=== PATIENT | female | born 1945 | race Caucasian/White ===

== ENCOUNTER 2020-10-03 13:46 | Outpatient (REF) | payer MEDICARE, SELFPAY ==
--- NOTE | ~2020-10-03 | XR_ITS ---
EXAMINATION: XR CERVICAL SPINE CLINICAL INFORMATION: Cervicalgia. COMPARISON: None TECHNIQUE: Five views of the cervical spine. FINDINGS: There is some mild prominence to prevertebral soft tissue anterior to the C3-C4 vertebral bodies related likely to anterior spurring. No acute fracture is identified. There is severe disc space narrowing seen at C3-C7. No acute fracture is appreciated. No significant bony encroachment of the neural foramina identified with some mild spurring at the C5-C6 and C6-C7 levels on the right and the C6-C7 level on the left. Left carotid artery calcification is present. XR/XR cervical spine 4V IMPRESSION: Multilevel cervical spondylosis, as described.
== END 2020-10-03 13:47 | disposition home or self-care (01) ==
LOC: HO.XRAY 13:46
PROVIDERS: PCP Registered Nurse; Visit Provider Registered Nurse
DX: M54.2 Cervicalgia (principal)
CPT/HCPCS: 72050

== ENCOUNTER 2020-11-20 13:12 | Outpatient (REF) | payer MEDICARE, SELFPAY ==
--- NOTE | ~2020-11-20 | MM_ITS ---
EXAMINATION: MM SCREENING DIGITAL BREAST TOMOSYNTHESIS, BILATERAL CLINICAL INFORMATION: Screening. Asymptomatic. The lifetime risk of breast cancer based on the Tyrer-Cuzick Model is 3%. COMPARISON: Mammography: 04/18/2009 TECHNIQUE: Digital breast tomosynthesis is performed in both the craniocaudal and mediolateral oblique views along with computer-aided detection (CAD). Synthesized 2D images are generated from the tomosynthesis. FINDINGS: There are scattered areas of fibroglandular density (ACR BI-RADS breast composition Category b). Breast tissue composition borders on heterogeneously dense in the upper outer quadrant. There is no significant mass or architectural abnormality. Parenchymal pattern is similar to prior remote exam 2009. There are some scattered round calcifications again seen in each breast including stable grouped calcifications anterior right breast. No significant changes. The axilla and skin contours are unremarkable. MM/MM tomosynthesis screening BI IMPRESSION: No mammographic evidence of malignancy. ASSESSMENT: BI-RADS 2: Benign RECOMMENDATION: Routine annual mammography screening. This patient's information was entered into a reminder system with a target due date for their next mammogram.
== END 2020-11-20 13:13 | disposition home or self-care (01) ==
LOC: HO.MAMMO 13:12
PROVIDERS: PCP Nurse Practitioner Primary Care; Visit Provider Nurse Practitioner Primary Care
DX: Z12.31 Encounter for screening mammogram for malignant neoplasm of breast (principal)
CPT/HCPCS: 77063; 77067

== ENCOUNTER 2021-05-05 14:28 | Outpatient (REF) | payer MEDICARE, SELFPAY ==
--- NOTE | ~2021-05-05 | XR_ITS ---
EXAMINATION: XR CHEST CLINICAL INFORMATION: Cough COMPARISON: Previous chest x-ray April 2010 TECHNIQUE: 2 views of the chest were obtained. FINDINGS: The cardiac and mediastinal contours are stable. The lungs are well inflated. The lungs are clear. There is no pleural effusion or pneumothorax. There are degenerative changes of the spine. XR/XR chest 2V IMPRESSION: Well-inflated lungs. No evidence for acute disease in the chest.
== END 2021-05-05 14:29 | disposition home or self-care (01) ==
LOC: HO.XRAY 14:28
PROVIDERS: Absent Provider Nurse Practitioner Primary Care; PCP Nurse Practitioner Primary Care; Visit Provider Emergency Medicine
DX: R05.9 Cough, unspecified (principal)
CPT/HCPCS: 71046

== ENCOUNTER → 2021-07-09 12:59 | Outpatient (BNVA) | payer MEDICARE, SELFPAY | PROVIDERS: PCP Nurse Practitioner Primary Care; Referring Provider Emergency Medicine; Visit Provider Internal Medicine | DX: I49.1 Atrial premature depolarization (principal) | CPT/HCPCS: 93005; 99202 ==

== ENCOUNTER → 2021-09-03 13:04 | Outpatient (REF) | payer MEDICARE, SELFPAY ==
--- NOTE | 2021-09-03 13:06 | CA_ITS ---
Transthoracic Echocardiogram Patient (Last, First, Middle): Elayne Lundy, Gender: Female Date of : 1945 Age: 76 Procedure Date: 09/03/2021 Procedure Type: Transthoracic Echocardiogram Location: OP Height: 154.94 cm Weight: 48.54 kg BSA: 1.45 m2 Heart Rate: bpm BP: 150 / 90 mmHg Director Of Hotel: TO/VH Referring MD: Carmelo Hilton MD Puppet Engineer: Sreedhar Dodson MD Symptoms: I49.1 - Atrial premature depolarization Study Quality: Fair ECG Rhythm: Sinus Conclusions: - 1. Normal LV systolic function with impaired relaxation filling pattern next 2. Mildly dilated left atrium 3. Mild aortic regurgitation with moderate mitral annular calcification 4. Normal RV systolic pressure 5. No pericardial effusion Findings Left Ventricle Normal left ventricular size, thickness, and systolic function. The visually estimated ejection fraction is between 65-70%. Spectral Doppler is indicative of an impaired relaxation filling pattern. Right Ventricle Mildly increased right ventricular cavity size. There is normal right ventricular systolic function. Atria The left atrium is mildly dilated. There is no evidence of interatrial shunt. The right atrium is normal in size. Aortic Valve There is mild calcification of the aortic valve. There is no aortic valve stenosis. There is mild aortic valve regurgitation. Mitral Valve There is mild anterior and moderate posterior mitral leaflet thickening. There is moderate mitral annular calcification. There is trace mitral valve regurgitation. There is no mitral valve stenosis. Pulmonic Valve The pulmonic valve was not well visualized. Tricuspid Valve Normal tricuspid valve structure. There is mild tricuspid valve regurgitation. The right ventricular systolic pressure is normal. The right ventricular systolic pressure is 22 mmHg. Normal right atrial pressure. There is no evidence of pulmonary hypertension. Great Vessels All visible segments of the aorta are normal in size. The pulmonary artery was not well visualized. Venous The inferior vena cava is normal in size and collapses greater than 50% with inspiration. Pericardium/Pleural There is no evidence of pericardial effusion. Prior Study Comparison No prior study available for comparison. Measurements 2D Linear Measurements IVSd: 0.92 0.6-0.9/0.6-1.0 cm LVIDd: 3.62 3.9-5.3/4.2-5.9 cm LVIDd Index: 2.50 2.4-3.2/2.2-3.1 cm/m2 LVIDs: 1.87 2.0-3.6 cm LVPWd: 0.90 0.7-1.1 cm LA Diam: 2.70 2.7-3.8/3.0-4.0 cm LAIDs Index: 1.86 1.5-2.3 cm/m2 LV Mass: 118.09 67-162/88-224 g LV Mass Index: 81.44 43-95/49-115 g/m2 LVOT Diam: 2.10 3.0+(-)1.3 cm 2D Systolic Function EF 4C: 75.90 >55% EF 2C: 70.20 >55% EF BiP: 74.30 >55% Mitral Valve MV Pk E: 0.91 MV PK A: 0.96 MV Decel Time: 237.00 E/A: 0.90 E'Lateral: 8.16 E'Medial: 7.72 E/E' Med: 11.80 E/E' Lat: 11.10 PHT: 69.00 MVA PHT: 3.19 Decel Ransom: 3.83 Aortic Valve AoV Pk Ryan: 1.79 AoV Mn Ryan: 1.10 AoV VTI: 0.36 AoV Pk Grad: 13.00 Aov Mn Grad: 6.00 KVNG Cont.VTI: 2.05 AI Pk Ryan: 4.07 AI Ransom: 2.48 LVOT LVOT Pk Ryan: 1.10 LVOT Mn Ryan: 0.66 LVOT VTI: 0.21 LVOT Pk Grad: 5.00 LVOT Mn Grad: 2.00 LVOT Diam: 2.10 LVOT Area: 3.46 Diastolic Function MV Pk E: 0.91 MV Pk A: 0.96 E/A: 0.90 E'Medial: 7.72 E/E' Med: 11.80 E' Laterial: 8.16 E/E' Lat: 11.10 Right Ventricle TAPSE (mm): 28.60 TVS' Ryan: 16.50 Tricuspid Valve TR Pk Ryan: 2.20 TR Pk Grad: 19.00 RA Press: 3.00 RVSP: 22.00 Great Vessels Aorta Sinus of Valsalva: 3.11 2.0-3.[address] [place]: 2.76 1.7-3.4 cm Ao Asc: 3.20 2.1-3.4 cm Updated in Other Vendor System with Status of Final Sreedhar Dodson MD electronically signed on 09/03/2021 3:35:35 PM with status of Final
--- NOTE | 2021-09-03 13:06 | HM_ITS ---
* Total monitoring time 3 days and 3 hours. * Underlying rhythm is sinus. Average rate 77/Min. Range 49 to 115/Min. * No atrial fibrillation or flutter or AV blocks or pauses. * Frequent supraventricular ectopy. [place] 18%. Very brief runs but nothing sustained. * Rare ventricular ectopy with minimal burden. * No patient events. MTDD
== END ==
LOC: HO.CARD 13:04
PROVIDERS: PCP Nurse Practitioner Primary Care; Visit Provider Internal Medicine
DX: I49.1 Atrial premature depolarization (principal)
CPT/HCPCS: 93242; 93306

== ENCOUNTER → 2021-09-17 10:53 | Outpatient (BNVA) | payer MEDICARE, SELFPAY | PROVIDERS: PCP Nurse Practitioner Primary Care; Referring Provider Nurse Practitioner Primary Care; Visit Provider Nurse Practitioner Family | DX: R19.5 Other fecal abnormalities (principal); Z12.11 Encounter for screening for malignant neoplasm of colon; Z86.16 Personal history of COVID-19 | CPT/HCPCS: 99202; 99212 ==

== ENCOUNTER → 2021-09-24 14:32 | Outpatient (BNVA) | payer MEDICARE, SELFPAY | PROVIDERS: PCP Nurse Practitioner Primary Care; Referring Provider Nurse Practitioner Primary Care; Visit Provider Nurse Practitioner Family | DX: I49.1 Atrial premature depolarization (principal); I35.1 Nonrheumatic aortic (valve) insufficiency; Z79.899 Other long term (current) drug therapy | CPT/HCPCS: 99212 ==

== ENCOUNTER 2021-11-26 13:22 | Outpatient (REF) | payer MEDICARE, SELFPAY ==
--- NOTE | ~2021-11-26 | MM_ITS ---
EXAMINATION: BONE DENSITOMETRY CLINICAL INDICATION: Menopause. COMPARISON: None (current study represents initial baseline exam). TECHNIQUE: Using a Appifier DXA System (software version: 13.1) manufactured by [employer], dual-energy x-ray absorptiometry was performed of the lumbar spine and left hip. The images are of good technical quality. Summary results are attached. FINDINGS: AP SPINE L1-L2 (excluding L3 and L4): The data of L1-L4 has been changed to exclude the L3 and L4 vertebral bodies because degenerative changes at these levels may cause overestimation of the lumbar spine density. BMD 0.665 g/cm2, Z-score -1.9, T-score -4.2, osteoporosis. LEFT FEMUR, NECK: BMD 0.691 g/cm2, Z-score -0.3, T-score -2.5, osteoporosis. LEFT FEMUR, TOTAL: BMD 0.681 g/cm2, Z-score -0.5, T-score -2.6, osteoporosis. IDENTIFIED RISK FACTORS: Menopause, height loss, rheumatoid arthritis. HISTORY OF FRACTURE: None listed. MEDICATIONS: Calcium supplements or multivitamin. MM/XR DEXA axial skeleton IMPRESSION: 1. DIAGNOSIS: Osteoporosis based on the lowest T-score value of -4.2 in the lumbar spine applying World Health Organization criteria. 2. 10-YEAR FRACTURE RISK PREDICTION, FRAX: According to the guidelines, FRAX calculation should only be performed on patients in the osteopenia bone density category. Therefore, FRAX was not performed on this patient. 3. Treatment Recommendations: NOF guidelines recommend consideration for treatment in postmenopausal women and men age 50 and older presenting with the following: -A hip or vertebral (clinical or morphometric) fracture. -T-score less than or equal to -2.5 at the femoral neck or spine after appropriate evaluation to exclude secondary causes. -Low bone mass at the hip or spine and a 10-year fracture probability by FRAX of greater than or equal to 3% for hip fracture or greater than or equal to 20% for major osteoporotic fracture based on the [place] adapted WHO algorithm. 4. Other Recommendations: All treatment decisions require clinical judgment and consideration of individual patient factors, including patient preferences, comorbidities, previous drug use, risk factors not captured in the FRAX model (e.g. frailty, falls, vitamin D deficiency, increased bone turnover, interval significant decline in bone density) and possible under or overestimation of fracture risk by FRAX. Additional medical evaluation for secondary cause of low bone mineral density may be appropriate. FUTURE SCAN RECOMMENDATION: People with diagnosed cases of osteoporosis or at high risk for fracture should have regular bone mineral density tests. For patients eligible for Medicare, routine testing is allowed once every 2 years. The testing frequency can be increased to one year for patients who have rapidly progressing disease, those who are receiving or discontinuing medical therapy to restore bone mass, or have additional risk factors.
--- NOTE | ~2021-11-26 | MM_ITS ---
EXAMINATION: MM SCREENING DIGITAL BREAST TOMOSYNTHESIS, BILATERAL CLINICAL INFORMATION: Screening. Asymptomatic. The lifetime risk of breast cancer based on the Tyrer-Cuzick Model is 3%. COMPARISON: Mammography: 11/20/2020, 04/18/2009 TECHNIQUE: Digital breast tomosynthesis is performed in both the craniocaudal and mediolateral oblique views along with computer-aided detection (CAD). Synthesized 2D images are generated from the tomosynthesis. Additional left CC view is provided. FINDINGS: There are scattered areas of fibroglandular density (ACR BI-RADS breast composition Category b). Parenchymal pattern is similar to prior studies and there is no developing density or interval mass or architectural abnormality. There are scattered punctate calcifications in both breasts as well as a few isolated benign coarse calcifications. Small grouped calcifications 12:00 right breast are stable from prior studies dating back to 2009. The axilla and skin contours are unremarkable. Left breast has new punctate calcifications lower inner quadrant for which patient will be recalled for additional magnification views. MM/MM tomosynthesis screening BI IMPRESSION: Left: -New punctate calcifications mid lower inner quadrant. Right: -No mammographic evidence of malignancy. ASSESSMENT: BI-RADS 0: Incomplete - Need Additional Imaging Evaluation RECOMMENDATION: 1. Additional views of the left breast (magnification CC, magnification LM). 2. Radiology department staff will contact the patient for additional imaging. This patient's information was entered into a reminder system with a target due date for their next mammogram.
== END 2021-11-26 13:23 | disposition home or self-care (01) ==
LOC: HO.MAMMO 13:22
PROVIDERS: PCP Nurse Practitioner Primary Care; Visit Provider Nurse Practitioner Primary Care
DX: Z12.31 Encounter for screening mammogram for malignant neoplasm of breast (principal); Z13.820 Encounter for screening for osteoporosis; Z78.0 Asymptomatic menopausal state
CPT/HCPCS: 77063; 77067; 77080

== ENCOUNTER 2021-12-10 14:14 | Outpatient (REF) | payer MEDICARE, SELFPAY ==
--- NOTE | ~2021-12-10 | MM_ITS ---
EXAMINATION: MM DIAGNOSTIC DIGITAL BREAST TOMOSYNTHESIS, LEFT CLINICAL INFORMATION: Left breast calcifications. COMPARISON: Mammography: 11/26/2021, 11/20/2020, 04/18/2009, and 09/20/2006. TECHNIQUE: Digital breast tomosynthesis is performed. 2D images are generated from the tomosynthesis. The following views are obtained: Spot magnification views of the breast in craniocaudal and 90 degree mediolateral views. FINDINGS: The breasts are heterogeneously dense, which may obscure small masses (ACR BI-RADS breast composition Category c). The additional views demonstrate numerous regions of scattered and grouped calcifications and comparing back to study of 09/20/2006 multiple groupings were present at that time as well. There is question of a spiculated density on 90 degree mediolateral view, however, spot compression demonstrated this to have represented superimposition of fibroglandular tissue. Recommend 6 month follow-up left breast study with magnification views. Results are provided to the patient at time of visit by the technologist. MM/MM tomosynthesis added views L IMPRESSION: Probably benign left breast calcifications. ASSESSMENT: BI-RADS 3: Probably Benign. RECOMMENDATION: Diagnostic mammography in 6 months. This patient's information was entered into a reminder system with a target due date for their next mammogram.
== END 2021-12-10 14:15 | disposition home or self-care (01) ==
LOC: HO.MAMMO 14:14
PROVIDERS: PCP Nurse Practitioner Primary Care; Visit Provider Nurse Practitioner Primary Care
DX: R92.1 Mammographic calcification found on diagnostic imaging of breast (principal)
CPT/HCPCS: 77061; 77065

== ENCOUNTER → 2021-12-31 11:04 | Outpatient (REF) | payer MEDICARE, SELFPAY ==
--- NOTE | 2021-12-31 11:07 | HM_ITS ---
Conclusion: 1. Patient was monitored for total period of 2 days and 23 hours 2. Baseline was normal sinus rhythm with average heart of 68 beats per minute 3. Frequent sinus bradycardia with 32% of time heart rate below 60 beats per minute 4. No significant pauses noted 5. Total of 43,391 PACs accounting for 14.7% total beats account for frequent PACs 6. Patient reported 1 event which correlated with isolated PACs MTDD
== END ==
LOC: HO.CARD 11:04
PROVIDERS: PCP Nurse Practitioner Primary Care; Visit Provider Nurse Practitioner Family
DX: I49.1 Atrial premature depolarization (principal)
CPT/HCPCS: 93242

== ENCOUNTER → 2022-01-28 10:46 | Outpatient (BNVA) | payer MEDICARE, SELFPAY | PROVIDERS: PCP Nurse Practitioner Primary Care; Visit Provider Internal Medicine Endocrinology, Diabetes & Metabolism | DX: M81.0 Age-related osteoporosis without current pathological fracture (principal); I49.1 Atrial premature depolarization; I35.1 Nonrheumatic aortic (valve) insufficiency | CPT/HCPCS: 99202; 99212 ==

== ENCOUNTER 2022-03-03 12:43 | Outpatient (REF) | payer MEDICARE, SELFPAY ==
[2022-03-03 15:28] LABS: Free T4 (Free Thyroxine) 0.94 ng/dL (0.71-1.85); Phosphorus 3.7 mg/dL (2.7-4.5); Thyroid Stimulating Hormone 0.72 uIU/mL (0.32-4.0)
[2022-03-04 12:43] LABS: Prot Elec - Alpha1 0.3 g/dL (0.2-0.3); Prot Elec - Alpha2 0.7 g/dL (0.5-0.9); Prot Elec - Beta 1 0.5 g/dL (0.4-0.6); Prot Elec - Beta 2 0.4 g/dL (0.2-0.5); Prot Elec - Gamma 0.9 g/dL (0.8-1.7); Prot Elec - Total Protein 6.7 g/dL (6.1-8.1)
== END 2022-03-03 12:44 | disposition home or self-care (01) ==
LOC: HO.10HDL 12:43
PROVIDERS: Visit Provider Internal Medicine Endocrinology, Diabetes & Metabolism
DX: M81.0 Age-related osteoporosis without current pathological fracture (principal)
CPT/HCPCS: 36415; 84100; 84165; 84439; 84443

== ENCOUNTER 2022-03-05 12:53 | Outpatient (REF) | payer MEDICARE, SELFPAY ==
[2022-03-05 15:16] LABS: Creatinine, 24Hr Urine 0.8 G/Day (1.0-2.0); Total Volume 24 Hour Urine 1125 mL
[2022-03-16 07:25] LABS: Calcium, 24 Hr Urine 180; Calcium/Creatinine Ratio 225
== END 2022-03-05 12:54 | disposition home or self-care (01) ==
LOC: HO.10HDL 12:53
PROVIDERS: Visit Provider Internal Medicine Endocrinology, Diabetes & Metabolism
DX: M81.0 Age-related osteoporosis without current pathological fracture (principal)
CPT/HCPCS: 82340; 82570; 86335

== ENCOUNTER → 2022-04-29 15:28 | Outpatient (BNVA) | payer MEDICARE, SELFPAY | PROVIDERS: PCP Nurse Practitioner Primary Care; Visit Provider Internal Medicine Endocrinology, Diabetes & Metabolism | DX: M81.0 Age-related osteoporosis without current pathological fracture (principal) | CPT/HCPCS: 99212 ==

== ENCOUNTER 2022-05-13 10:25 | Day surgery (SDC) | payer MEDICARE, SELFPAY ==
[2022-01-15 15:09] VITALS: BMI 19.3
--- NOTE | 2022-01-20 10:23 | P.CONAN_ITS ---
HPI - Anesthesia Eval Consult details Narrative: 77yo F for Colonoscopy Cardiac cleared [facility] Active Problems Active Problems: All Active Problems (Updated 01/15/22 @ 15:05 by Yoli Valdes RN) PAC (premature atrial contraction) (Acute) Aortic regurgitation (Acute) Past Medical History Medical History (Updated 01/15/22 @ 15:05 by Yoli Valdes RN) Aortic regurgitation Asthma Elevated cholesterol History of COVID-19 Palpitations Family History Family History Father No problems noted. Mother No problems noted. Surgical History Surgical History History of cataract surgery Social History Social History Alcohol intake: current Alcohol intake frequency: holidays/special occasions only Patient Tobacco Use Status: Former Tobacco user Quit Date: july 25, 2021 Cigarettes Per Day: 2 Meds Allergies Allergy/AdvReac Type Severity Reaction Status Date / Time No Known Allergies Allergy Verified 09/24/21 14:39 Home Medications Medication Instructions Recorded Confirmed Last Taken Type albuterol sulfate 90 mcg/actuation 1 inh inhalation Q4H PRN Wheezing 09/17/21 01/15/22 Unknown History aerosol inhaler atorvastatin 10 mg tablet 10 mg PO DAILY 09/17/21 01/15/22 Unknown History fluticasone propionate 50 1 spray intranasal DAILY 09/17/21 01/15/22 Unknown History mcg/actuation nasal spray,suspension ipratropium 0.5 mg-albuterol 3 mg 3 ml inhalation Q6H PRN Wheezing 09/17/21 01/15/22 Unknown History (2.5 mg base)/3 mL nebulization soln loratadine 10 mg tablet 10 mg PO DAILY 09/17/21 01/15/22 Unknown History Exam Exam Date and Time: January 20, 2022 1023 Height,Weight and Vital Signs: Height 5 ft 3 in Weight 49.4 kg Narrative Narrative: EKG 06/2021 sinus rhythm at 72/Min; premature atrial contractions; rightward axis; no significant ST-T changes and otherwise unremarkable. ECHO 08/2021 Conclusions: - 1. Normal LV systolic function with impaired relaxation filling pattern next 2. Mildly dilated left atrium ? 3. Mild aortic regurgitation with moderate mitral annular? calcification? 4. Normal RV systolic pressure ? 5. No pericardial effusion Holter 12/2021 Conclusion: 1. Patient was monitored for total period of 2 days and 23 hours 2. Baseline was normal sinus rhythm with average heart of 68 beats per minute 3. Frequent sinus bradycardia with 32% of time heart rate below 60 beats per minute 4. No significant pauses noted 5. Total of 43,391 PACs accounting for 14.7% total beats account for frequent PA Cs 6. Patient reported 1 event which correlated with isolated PACs?? Assessment and Plan Assessment Anesthesia Assessment: Chart Reviewed
--- NOTE | 2022-05-12 12:52 | HO.ANESPROP2 ---
Documented by User: Jailene Ag NP 05/12/22 12:54 HPI - Anesthesia Eval Consult details Narrative: 77yo F for Colonoscopy Cardiac cleared [facility] Active Problems Active Problems: All Active Problems (Updated 05/07/22 @ 15:36 by Valerie Muñoz RN) PAC (premature atrial contraction) (Acute) Aortic regurgitation (Acute) Osteoporosis (Acute) Past Medical History Medical History (Updated 05/07/22 @ 15:36 by Valerie Muñoz RN) Aortic regurgitation Asthma Elevated cholesterol History of COVID-19 On beta branden at home Osteoporosis Palpitations Family History Family History Father No problems noted. Mother No problems noted. Surgical History Surgical History History of cataract surgery History of repair of retinal tear by laser photocoagulation Social History Social History Household Members: None Alcohol intake: current Alcohol intake frequency: holidays/special occasions only Patient Tobacco Use Status: Former Tobacco user Quit Date: july 25, 2021 Cigarettes Per Day: 2 Advance Directives: No Advance Directives Information Provided: Yes Meds Allergies Allergy/AdvReac Type Severity Reaction Status Date / Time No Known Allergies Allergy Verified 05/07/22 15:36 Home Medications Medication Instructions Recorded Confirmed Last Taken Type albuterol sulfate 90 mcg/actuation 1 inh inhalation Q4H PRN Wheezing 09/17/21 05/13/22 Unknown History aerosol inhaler atorvastatin 10 mg tablet 10 mg PO DAILY 09/17/21 05/13/22 05/12/22 History fluticasone propionate 50 1 spray intranasal DAILY 09/17/21 05/13/22 Unknown History mcg/actuation nasal spray,suspension ipratropium 0.5 mg-albuterol 3 mg 3 ml inhalation Q6H PRN Wheezing 09/17/21 05/13/22 Unknown History (2.5 mg base)/3 mL nebulization soln loratadine 10 mg tablet 10 mg PO DAILY 09/17/21 05/13/22 05/12/22 History Exam Exam Date and Time: May 12, 2022 1252 Height,Weight and Vital Signs: Height 5 ft 3 in Weight 49.4 kg Narrative Narrative: Holter 12/2021 Conclusion: 1. Patient was monitored for total period of 2 days and 23 hours 2. Baseline was normal sinus rhythm with average heart of 68 beats per minute 3. Frequent sinus bradycardia with 32% of time heart rate below 60 beats per minute 4. No significant pauses noted 5. Total of 43,391 PACs accounting for 14.7% total beats account for frequent PACs 6. Patient reported 1 event which correlated with isolated PACs? ECHO 08/2021 Conclusions: - 1. Normal LV systolic function with impaired relaxation filling pattern next 2. Mildly dilated left atrium ? 3. Mild aortic regurgitation with moderate mitral annular? calcification? 4. Normal RV systolic pressure ? 5. No pericardial effusion ? Assessment and Plan Assessment Anesthesia Assessment: Chart Reviewed Documented by User: Kristyn Nicole MD 05/13/22 10:45 PMFSH Past Medical History Medical History (Updated 05/07/22 @ 15:36 by Valerie Muñoz RN) Aortic regurgitation Asthma Elevated cholesterol History of COVID-19 On beta branden at home Osteoporosis Palpitations Family History Family History Father No problems noted. Mother No problems noted. Family history of problems with anesthesia: No Surgical History Surgical History History of cataract surgery History of repair of retinal tear by laser photocoagulation History of Problems with Anesthesia: No Social History Social History Household Members: None Alcohol intake: current Alcohol intake frequency: holidays/special occasions only Patient Tobacco Use Status: Former Tobacco user Quit Date: july 25, 2021 Cigarettes Per Day: 2 Advance Directives: No Advance Directives Information Provided: Yes Meds Allergies Allergy/AdvReac Type Severity Reaction Status Date / Time No Known Allergies Allergy Verified 05/07/22 15:36 Home Medications Medication Instructions Recorded Confirmed Last Taken Type albuterol sulfate 90 mcg/actuation 1 inh inhalation Q4H PRN Wheezing 09/17/21 05/13/22 Unknown History aerosol inhaler atorvastatin 10 mg tablet 10 mg PO DAILY 09/17/21 05/13/22 05/12/22 History fluticasone propionate 50 1 spray intranasal DAILY 09/17/21 05/13/22 Unknown History mcg/actuation nasal spray,suspension ipratropium 0.5 mg-albuterol 3 mg 3 ml inhalation Q6H PRN Wheezing 09/17/21 05/13/22 Unknown History (2.5 mg base)/3 mL nebulization soln loratadine 10 mg tablet 10 mg PO DAILY 09/17/21 05/13/22 05/12/22 History Exam Airway Mallampati Class: II TM Dist: >3cm Neck ROM: Full Heart: rrr Lungs: cta Assessment and Plan Assessment Anesthesia Assessment: Anesthesia Plan Discussed Final Anesthetic Review Family History of Problems with Anesthesia: No History of Problems with Anesthesia: No NPO: Yes ASA Class: II Final Preanesthetic Review: No Changes in Pt Med Stat, Meds/Allgs Chart Reviewed, Consent Obtained/Reviewed and Anes Risks/Benef Reviewed Patient Risk: Low Procedure Risk: Low Anesthetic Plan Anesthetic Plan: MAC: Disposition: Standard PACU
[2022-05-13 10:41] VITALS: BP 138/90; PULSE 93; RESP 18; TEMP 36.6; O2SAT 98
[2022-05-13] MEDS: Lactated Ringers 1,000 ML 100 ML IVCONT (10:52)
--- NOTE | 2022-05-13 11:02 | MHC.SHP ---
Pre-Procedural Eval Section A Date of Service: 05/13/22 Section B Chief Complaint: pos cologuard Relevant Family History (Specify if Yes): No Relevant Social History: Other (specify) (THC use) Present Medications: see Short Stay Collaborative assessment Medical History: Significant History (History of cataract surgery) History of Previous Operations: No relevant previous surgery Allergies: Allergies Allergy/AdvReac Type Severity Reaction Status Date / Time No Known Allergies Allergy Verified 05/07/22 15:36 Review of Systems Sugical H&P ROS: Negative: Constitution, Cardiovascular, Respiratory, Neurological, Psychiatric, Hem-Onc, Allergic/Immunologic, Gastrointestinal, Genitourinary, Musculoskeletal, Integumentary, Endocrine and Eyes/Ears/Nose/Throat Exam Surgical H&P Exam: Normal: HEENT, Normal: Heart, Normal: Lungs, Normal: Extremities, Normal: Abdomen, Normal: Skin and Normal: Neurological Plan Diagnosis/Plan: Unchanged I have reviewed the history and physical and performed a pertinent physical examination on my patient. No changes have occurred unless specified. Time Spent With Patient Time: Total time managing care of this patient today ____ minutes.
--- NOTE | 2022-05-13 11:06 | W.PM.OPN ---
Operative Note Operative Note Date of Service: 05/13/22 Narrative: Operative Information Procedure Description: Colonoscopy Indication: pos cologuard testing Anesthesia: MAC COLONOSCOPY Instrument: Olympus variable stiffness pediatric scope 190L Colonoscopy Monitoring: Vital signs and clinical assessment, continuous EKG monitoring, Pulse oximetry, Carbon Dioxide monitoring and blood pressure monitoring were done throughout the procedure. Colon withdrawal time was 10 minutes. Procedure: The patient was placed in the left lateral decubitis position and pre-procedure medications were administered. After a digital rectal examination of the ano-rectum, the video colonoscope was inserted into the rectum and advanced through the colon to the cecum/TI. The colonoscope was slowly withdrawn in a retrograde panoramic fashion and the colon mucosa was carefully examined including a retroflexed view of the rectum. Findings and interventions are described below. Procedure Difficulty: moderate due to redundant colon and tortuosity Findings: Terminal Ileum-normal Cecum:normal Ascending Colon: normal Transverse Colon - 10 mm sessile polyp removed with cold snare, few diverticula seen Descending Colon:normal Sigmoid Colon: mild diverticulosis, 7-8 mm sessile polyp removed with cold snare Rectum: Retroflexion with small internal hemorrhoids, grade I Anorectum - normal Colon preparation: [place] Bowel Preparation Scale Right colon; 2 Transverse colon: 3 Left colon; 3 (0 = Unprepared colon segment with mucosa not seen due to solid stool that cannot be cleared. 1 = Portion of mucosa of the colon segment seen, but other areas of the colon segment not well seen due to staining, residual stool and/or opaque liquid. 2 = Minor amount of residual staining, small fragments of stool and/or opaque liquid, but mucosa of colon segment seen well. 3 = Entire mucosa of colon segment seen well with no residual staining, small fragments of stool or opaque liquid) Impression and Post Procedure Diagnosis: polyps internal hemorrhoids diverticular disease Plan: High fiber diet leaflet Avoid straining at stool, epsom salts and sitz bath, anusol supps or cream Repeat Colonoscopy in 5 years if adenomatous polyps and health allows, otherwise this would be her last colonoscopy for screening, or earlier if clinically indicated Above findings were reviewed with the patient and relevant handouts were provided if indicated.
[2022-05-13 11:49] VITALS: BP 87/43; PULSE 60; RESP 17; TEMP 36.4; O2SAT 98
[2022-05-13 12:04] VITALS: BP 92/44; PULSE 63; RESP 17; O2SAT 98
[2022-05-13 12:19] VITALS: BP 107/55; PULSE 68; RESP 18; TEMP 36.3; O2SAT 99
== END 2022-05-13 12:37 | disposition home or self-care (01) ==
PROVIDERS: PCP Nurse Practitioner Primary Care; Visit Provider Internal Medicine Gastroenterology
PROC: 0DJD8ZZ Inspection of Lower Intestinal Tract, Via Natural or Artificial Opening Endoscopic (ICD-10-PCS; CPT 45378; principal; 2022-05-13 11:50)
DX: R19.5 Other fecal abnormalities (principal); R63.4 Abnormal weight loss; Z68.1 Body mass index [BMI] 19.9 or less, adult; D12.3 Benign neoplasm of transverse colon; K63.5 Polyp of colon; K57.30 Diverticulosis of large intestine without perforation or abscess without bleeding; K64.0 First degree hemorrhoids; Q43.8 Other specified congenital malformations of intestine; E78.00 Pure hypercholesterolemia, unspecified; J45.909 Unspecified asthma, uncomplicated; M81.0 Age-related osteoporosis without current pathological fracture; Z79.51 Long term (current) use of inhaled steroids; Z79.899 Other long term (current) drug therapy; Z87.891 Personal history of nicotine dependence; Z86.16 Personal history of COVID-19
CPT/HCPCS: 45385; 88305; J2370

== ENCOUNTER → 2022-05-26 12:48 | Outpatient (BNVA) | payer MEDICARE, SELFPAY | PROVIDERS: PCP Nurse Practitioner Primary Care; Visit Provider Internal Medicine Endocrinology, Diabetes & Metabolism | DX: M81.0 Age-related osteoporosis without current pathological fracture (principal) | CPT/HCPCS: 96372; J3111 ==

== ENCOUNTER → 2022-05-27 11:20 | Outpatient (BNVA) | payer MEDICARE, SELFPAY | PROVIDERS: PCP Nurse Practitioner Primary Care; Visit Provider Nurse Practitioner Family | DX: D36.9 Benign neoplasm, unspecified site (principal); K57.90 Diverticulosis of intestine, part unspecified, without perforation or abscess without bleeding; Z98.890 Other specified postprocedural states | CPT/HCPCS: 99212 ==

== ENCOUNTER 2022-06-10 12:51 | Outpatient (REF) | payer MEDICARE, SELFPAY ==
--- NOTE | ~2022-06-10 | MM_ITS ---
EXAMINATION: MM DIAGNOSTIC DIGITAL MAMMOGRAPHY, LEFT CLINICAL INFORMATION: Six-month follow-up left breast calcifications. COMPARISON: Mammography: 12/10/2021 and studies dating back to 04/18/2009. TECHNIQUE: Digital mammography is performed in craniocaudal and mediolateral oblique views along with computer-aided detection (CAD). Additional spot magnification views in craniocaudal and 90 degree mediolateral views performed. FINDINGS: The left breast heterogeneously dense, which may obscure small masses (ACR BI-RADS breast composition Category c). There are again noted to be multiple grouped and scattered calcifications within the left breast. About the medial aspect of the left breast there appear to be some increasing calcifications with a pleomorphic appearance and extending towards the nipple, some of the extending calcifications appear to be vascular in nature but I cannot say that all are, for which stereotactic core biopsy is recommended. There is another grouping of calcifications about the anterior central aspect of the left breast for which stereotactic core biopsy is recommended. The above was discussed with the patient at time of study. Results were called to Seema at the referring physician's office. MM/MM diagnostic mammo unilat LT IMPRESSION: Left breast calcifications for which stereotactic core biopsy is recommended of 2 locations. ASSESSMENT: BI-RADS 4: Suspicious RECOMMENDATION: Stereotactic core biopsy left breast. This patient's information was entered into a reminder system with a target due date for their next mammogram.
== END 2022-06-10 12:52 | disposition home or self-care (01) ==
LOC: HO.MAMMO 12:51
PROVIDERS: PCP Nurse Practitioner Primary Care; Visit Provider Family Medicine
DX: R92.1 Mammographic calcification found on diagnostic imaging of breast (principal)
CPT/HCPCS: 77062; 77065

== ENCOUNTER 2022-06-17 08:35 | Outpatient (REF) | payer MEDICARE, SELFPAY ==
--- NOTE | ~2022-06-17 | MM_ITS ---
EXAMINATION: STEREOTACTIC TOMOSYNTHESIS-GUIDED VACUUM-ASSISTED BREAST BIOPSY (TWO SITES), LEFT SPECIMEN RADIOGRAPHS (TWO SPECIMENS), LEFT POST PROCEDURE DIGITAL MAMMOGRAM, LEFT CLINICAL INFORMATION: Calcifications for tissue sampling left breast at 2 locations: anterior medial left breast and central anterior 12:00 left breast. COMPARISON: Prior mammography exams, most recent 06/10/2022. TECHNIQUE/PROCEDURE: Exam reviewed with the interpreting radiologist from the diagnostic mammography immediately prior to the procedure. Informed consent was obtained from the patient after discussion of the benefits, risks, and alternatives to biopsy today. Patient appeared to understand. Gave opportunity for questions. Patient signed consent form. Specimen A: BIOPSY TABLE: [employer] Prone Biopsy System. LESION: Heterogeneous calcifications ductal distribution anterior medial left breast. LOCAL ANESTHESIA: 10 mL carbonated 1% lidocaine; 10 mL 1% lidocaine with epinephrine. DERMATOTOMY: Single skin zuhair dermatotomy performed. NEEDLE: Suros Eviva 9-gauge vacuum assisted core biopsy device. APPROACH: Medial Lateral. TARGETING: Combination of digital breast tomosynthesis and stereotactic digital mammography used for targeting. CORES: 12. CLIP: Suros SecurMark T-shaped marker. SPECIMEN RADIOGRAPH (A): Specimen radiograph is taken in separate room using digital mammography. The index calcifications are in the excised cores. There are at least 15 fine calcifications in the cores. Specimen B: Fresh biopsy supplies are used for 2nd biopsy site. BIOPSY TABLE: [employer] Affirm Prone Biopsy System. LESION: Tightly grouped calcifications possibly vascular and/or fibroadenomatous anterior central 12:00. LOCAL ANESTHESIA: 10 mL carbonated 1% lidocaine; 10 mL 1% lidocaine with epinephrine. DERMATOTOMY: Single skin zuhair dermatotomy performed. NEEDLE: Suros Eviva 9-gauge vacuum assisted core biopsy device. APPROACH: Medial Lateral. TARGETING: Combination of digital breast tomosynthesis and stereotactic digital mammography used for targeting. CORES: 9. CLIP: Suros SecurMark Cylinder-shaped marker. SPECIMEN RADIOGRAPH (B): Specimen radiograph is taken in separate room using digital mammography. The index calcifications are in the excised cores. There are numerous tightly grouped calcifications in a core, over 10 in number. POST PROCEDURE UNILATERAL DIGITAL MAMMOGRAM: The post biopsy mammogram is performed in separate room using separate digital mammography equipment from the biopsy procedure. CC and ML views are obtained. The breasts are heterogeneously dense, which may obscure small masses (breast composition category: c). The clip markers are in position. The calcifications are markedly decreased at both biopsy sites. No gross hematoma. The patient tolerated the procedure well. No immediate complications. Home instructions reviewed with the patient. Final pathology results are pending. MM/MM stereotactic biopsy ea add IMPRESSION: 1. Digital tomosynthesis-guided core biopsy left breast with clip placement, 2 sites. 2. Final pathology results pending. An addendum report will be issued.
--- NOTE | ~2022-06-17 | MM_ITS ---
EXAMINATION: STEREOTACTIC TOMOSYNTHESIS-GUIDED VACUUM-ASSISTED BREAST BIOPSY (TWO SITES), LEFT SPECIMEN RADIOGRAPHS (TWO SPECIMENS), LEFT POST PROCEDURE DIGITAL MAMMOGRAM, LEFT CLINICAL INFORMATION: Calcifications for tissue sampling left breast at 2 locations: anterior medial left breast and central anterior 12:00 left breast. COMPARISON: Prior mammography exams, most recent 06/10/2022. TECHNIQUE/PROCEDURE: Exam reviewed with the interpreting radiologist from the diagnostic mammography immediately prior to the procedure. Informed consent was obtained from the patient after discussion of the benefits, risks, and alternatives to biopsy today. Patient appeared to understand. Gave opportunity for questions. Patient signed consent form. Specimen A: BIOPSY TABLE: [employer] Affirm Prone Biopsy System. LESION: Heterogeneous calcifications ductal distribution anterior medial left breast. LOCAL ANESTHESIA: 10 mL carbonated 1% lidocaine; 10 mL 1% lidocaine with epinephrine. DERMATOTOMY: Single skin zuhair dermatotomy performed. NEEDLE: Suros Eviva 9-gauge vacuum assisted core biopsy device. APPROACH: Medial Lateral. TARGETING: Combination of digital breast tomosynthesis and stereotactic digital mammography used for targeting. CORES: 12. CLIP: Suros SecurMark T-shaped marker. SPECIMEN RADIOGRAPH (A): Specimen radiograph is taken in separate room using digital mammography. The index calcifications are in the excised cores. There are at least 15 fine calcifications in the cores. Specimen B: Fresh biopsy supplies are used for 2nd biopsy site. BIOPSY TABLE: Hologic Affirm Prone Biopsy System. LESION: Tightly grouped calcifications possibly vascular and/or fibroadenomatous anterior central 12:00. LOCAL ANESTHESIA: 10 mL carbonated 1% lidocaine; 10 mL 1% lidocaine with epinephrine. DERMATOTOMY: Single skin zuhair dermatotomy performed. NEEDLE: Suros Eviva 9-gauge vacuum assisted core biopsy device. APPROACH: Medial Lateral. TARGETING: Combination of digital breast tomosynthesis and stereotactic digital mammography used for targeting. CORES: 9. CLIP: Suros SecurMark Cylinder-shaped marker. SPECIMEN RADIOGRAPH (B): Specimen radiograph is taken in separate room using digital mammography. The index calcifications are in the excised cores. There are numerous tightly grouped calcifications in a core, over 10 in number. POST PROCEDURE UNILATERAL DIGITAL MAMMOGRAM: The post biopsy mammogram is performed in separate room using separate digital mammography equipment from the biopsy procedure. CC and ML views are obtained. The breasts are heterogeneously dense, which may obscure small masses (breast composition category: c). The clip markers are in position. The calcifications are markedly decreased at both biopsy sites. No gross hematoma. The patient tolerated the procedure well. No immediate complications. Home instructions reviewed with the patient. Final pathology results are pending. MM/MM stereotactic biopsy LT IMPRESSION: 1. Digital tomosynthesis-guided core biopsy left breast with clip placement, 2 sites. 2. Final pathology results pending. An addendum report will be issued.
[2022-06-17] MEDS: Lidocaine HCl 1 % 20 ML VIAL SUBCUT (12:55)
[2022-06-17] MEDS: Lidocaine HCl 1%/Epi 1:100,000 10 ML VIAL 20 ML SUBCUT (12:57)
[2022-06-17] MEDS: Sodium Bicarbonate 8.4% 50 MEQ/50 ML VIAL SUBCUT (12:59)
== END 2022-06-17 08:36 | disposition home or self-care (01) ==
LOC: HO.MAMMO 08:35
PROVIDERS: PCP Nurse Practitioner Primary Care; Visit Provider Surgery
DX: C50.912 Malignant neoplasm of unspecified site of left female breast (principal); R92.1 Mammographic calcification found on diagnostic imaging of breast; Z17.0 Estrogen receptor positive status [ER+]
CPT/HCPCS: 19081; 19082; 88305; 88341; 88342; 88360; 99211; A4648

== ENCOUNTER 2022-06-17 12:13 | Outpatient (REF) | payer MEDICARE, SELFPAY ==
[2022-06-17 13:35] LABS: HBS Num1 0.02 mIU/mL (0-7.99); HBc Num1 0.09 S/CO (0.00-0.79); HBsAGNum1 0.27 S/CO (0.00-0.99); HIV AB/AG Nonreactive (Nonreactive); HIV Num 1 0.05 S/CO (0.00-0.99); Hepatitis B Core Antibody Nonreactive (Nonreactive); Hepatitis B Surface Antigen Negative (Negative); ~Hepatitis B Surface Antibody NONREACTIVE (Nonreactive); ~Hepatitis C Antibody Nonreactive (Nonreactive)
== END 2022-06-17 12:14 | disposition home or self-care (01) ==
LOC: HO.LAB 12:13
PROVIDERS: Visit Provider Radiology Diagnostic Radiology
DX: Z20.2 Contact with and (suspected) exposure to infections with a predominantly sexual mode of transmission (principal)
CPT/HCPCS: 36415; 86704; 86706; 86803; 87340; 87389

== ENCOUNTER → 2022-06-24 13:39 | Outpatient (BNVA) | payer MEDICARE, SELFPAY | PROVIDERS: PCP Nurse Practitioner Primary Care; Visit Provider Surgery | DX: C50.912 Malignant neoplasm of unspecified site of left female breast (principal); Z80.41 Family history of malignant neoplasm of ovary | CPT/HCPCS: 99212 ==

== ENCOUNTER 2022-06-29 09:46 | Outpatient (REF) | payer MEDICARE, SELFPAY ==
--- NOTE | ~2022-06-29 | MM_ITS ---
EXAMINATION: MM MAMMOGRAM GUIDED RFID LOCALIZATION BREAST (TWO SITES), LEFT CLINICAL INFORMATION: Recent diagnosis left breast IDC and DCIS (specimen A, 06/17/2022). COMPARISON: Mammography 06/10/2022, 06/17/2022 TECHNIQUE NEEDLE LOC: Localization plans recently discussed with surgeon (MIKAEL). Proper informed consent is obtained from the patient after discussion of the procedure, potential risks and complications, and alternatives including declining the procedure today. Patient was given an opportunity for questions. The patient appeared to understand. The patient consented to the procedure and signed the consent form. GUIDANCE: Digital mammography (both sites) APPROACH: Medial Lateral (both sites) TARGET: T shaped biopsy clip marker and segmental distribution of calcifications anterior medial left breast. ANESTHESIA: carbonated lidocaine 1%: 16 mL (8 mL for each of the two locations). DERMATOTOMY: Skin-zuhair dermatotomy performed (both sites) RF Tag IDs confirmed with LOCalizer Guidance System prior to each placement. LOCALIZATION SYSTEM (POSTERIOR TAG): -[employer] LOCallizer Wire-Free Guidance System with 12g needle applicator -Length: 10 cm. -RADIOFREQUENCY TAG (POSTERIOR TAG): ID # [id number] LOCALIZATION SYSTEM (ANTERIOR TAG): -[employer] LOCallizer Wire-Free Guidance System with 12g needle applicator. -Length: 10 cm. -RADIOFREQUENCY TAG (ANTERIOR TAG): ID # [id number] The skin is prepped and local anesthesia administered. The needles are positioned and 2 RFID tags deployed. FINAL IMAGES: The two LOCalizer RF tags reside approximately 3.3 cm apart on both the final CC and final ML views. The T shaped biopsy clip marker from the stereotactic biopsy specimen A is in between the two RFID tags. The T shaped biopsy clip marker is closer to the posterior tag, 1 cm from the posterior tag on CC view, and 1.3 cm from the posterior tag on the ML view. There are segmental calcifications in the vicinity of between the RFID tags. The patient tolerated the procedure well and had no immediate complications. Dressings placed and home instructions reviewed. MM/MM needle loc LT IMPRESSION: -Status post left breast RFID localization, two tags placed bracketing segmental calcifications and T-shaped biopsy clip marker.
--- NOTE | ~2022-06-29 | MM_ITS ---
EXAMINATION: MM MAMMOGRAM GUIDED RFID LOCALIZATION BREAST (TWO SITES), LEFT CLINICAL INFORMATION: Recent diagnosis left breast IDC and DCIS (specimen A, 06/17/2022). COMPARISON: Mammography 06/10/2022, 06/17/2022 TECHNIQUE NEEDLE LOC: Localization plans recently discussed with surgeon (MIKAEL). Proper informed consent is obtained from the patient after discussion of the procedure, potential risks and complications, and alternatives including declining the procedure today. Patient was given an opportunity for questions. The patient appeared to understand. The patient consented to the procedure and signed the consent form. GUIDANCE: Digital mammography (both sites) APPROACH: Medial Lateral (both sites) TARGET: T shaped biopsy clip marker and segmental distribution of calcifications anterior medial left breast. ANESTHESIA: carbonated lidocaine 1%: 16 mL (8 mL for each of the two locations). DERMATOTOMY: Skin-zuhair dermatotomy performed (both sites) RF Tag IDs confirmed with LOCalizer Guidance System prior to each placement. LOCALIZATION SYSTEM (POSTERIOR TAG): -[employer] LOCallizer Wire-Free Guidance System with 12g needle applicator -Length: 10 cm. -RADIOFREQUENCY TAG (POSTERIOR TAG): ID # [id number] LOCALIZATION SYSTEM (ANTERIOR TAG): -[employer] LOCallizer Wire-Free Guidance System with 12g needle applicator. -Length: 10 cm. -RADIOFREQUENCY TAG (ANTERIOR TAG): ID # [id number] The skin is prepped and local anesthesia administered. The needles are positioned and 2 RFID tags deployed. FINAL IMAGES: The two LOCalizer RF tags reside approximately 3.3 cm apart on both the final CC and final ML views. The T shaped biopsy clip marker from the stereotactic biopsy specimen A is in between the two RFID tags. The T shaped biopsy clip marker is closer to the posterior tag, 1 cm from the posterior tag on CC view, and 1.3 cm from the posterior tag on the ML view. There are segmental calcifications in the vicinity of between the RFID tags. The patient tolerated the procedure well and had no immediate complications. Dressings placed and home instructions reviewed. MM/MM needle loc ea add IMPRESSION: -Status post left breast RFID localization, two tags placed bracketing segmental calcifications and T-shaped biopsy clip marker.
[2022-06-29] MEDS: Sodium Bicarbonate 8.4% 50 MEQ/50 ML VIAL SUBCUT (11:42)
[2022-06-29] MEDS: Lidocaine HCl 1 % 20 ML VIAL 18 ML SUBCUT (11:44)
== END 2022-06-29 09:47 | disposition home or self-care (01) ==
LOC: HO.MAMMO 09:46
PROVIDERS: PCP Nurse Practitioner Primary Care; Visit Provider Surgery
DX: R92.1 Mammographic calcification found on diagnostic imaging of breast (principal)
CPT/HCPCS: 19281; 19282; C1819

== ENCOUNTER → 2022-06-30 11:26 | Outpatient (BNVA) | payer MEDICARE, SELFPAY | PROVIDERS: PCP Nurse Practitioner Primary Care; Visit Provider Internal Medicine Endocrinology, Diabetes & Metabolism | DX: M81.0 Age-related osteoporosis without current pathological fracture (principal) | CPT/HCPCS: 96372; J3111 ==

== ENCOUNTER → 2022-07-02 09:51 | Outpatient (BNV) | payer MEDICARE, MEDICAID, SELFPAY | PROVIDERS: PCP Nurse Practitioner Primary Care; Visit Provider Internal Medicine | DX: C50.912 Malignant neoplasm of unspecified site of left female breast (principal); M81.0 Age-related osteoporosis without current pathological fracture | CPT/HCPCS: 99204; 99212; 99213; 99214; 99215; G2211 ==

== ENCOUNTER 2022-07-02 12:01 | Outpatient (REF) | payer MEDICARE, SELFPAY ==
--- NOTE | ~2022-07-02 | MR_ITS ---
EXAMINATION: MR BREAST WITHOUT AND WITH CONTRAST, BILATERAL CLINICAL INFORMATION: New diagnosis multifocal left breast cancer lower inner quadrant. COMPARISON: RFID tag placement 06/29/2022. Left breast stereotactic biopsies 06/17/2022. Diagnostic mammography 06/10/2022 and priors. TECHNIQUE: Imaging was performed with a dedicated breast coil. Prior to the administration of contrast, bilateral axial T1 and bilateral axial T2 weighted sequences were obtained. After the uneventful administration of?5 mL of Gadavist, dynamic contrast-enhanced VIBRANT series through the breasts in the axial plane were performed. Subtracted images were performed and reviewed. A delayed sagittal sequence through both breasts was acquired. Additionally, CAD post-processing, including maximum intensity projections, 3-D reconstructions and kinetic analysis, were performed an independent workstation and reviewed by the interpreting radiologist is a portion of this exam. FINDINGS: The breasts are comprised of heterogeneous, dense fibroglandular parenchyma. LEFT BREAST: There is marked susceptibility artifact from RFID tags recently placed in association with positive biopsies in the medial left breast. Significant susceptibility artifact precludes diagnostic MR evaluation of the left breast. If breast conserving therapy is a consideration, this examination is considered insufficient to evaluate the left breast. Note that recent diagnostic mammography demonstrates extensive pleomorphic calcifications measuring greater than 5 cm in multiple dimensions and possibly extending into multiple quadrants of the left breast. There is a potential linear ductal non-mass enhancement in the right breast 10 o'clock position, 3-4 cm from the nipple (series 100 image 50/108). No clear mammographic correlate is seen. Again, if breast conserving therapy is a consideration further evaluation may be required with imaging guided biopsy or localization and surgical excision. RIGHT BREAST: There are 2, 5 mm foci of non-mass enhancement in the right breast 9 o'clock position (series 100 image 54, 49/108) projecting 4.5 cm from the nipple. Mixed enhancement kinetics. Both are reniform with recognizable fatty tuan adjacent to lateral vessels and most likely intramammary nodes. No correlation on mammography. No suspicious mass, dominant non-mass enhancement or architectural distortion. Mammography demonstrates stable grouped punctate calcifications at 12 o'clock, 2 cm from the nipple. These are reported stable in comparison with prior exams. No abnormal associated MR enhancement. However, in situ carcinoma may demonstrate indolent course and lack of MR enhancement. Consider stereotactic biopsy for staging. There is no suspicious internal mammary chain or axillary adenopathy. Limited views of the chest and abdomen are unremarkable. MR/MR breast BI wo/w con IMPRESSION: 1. Nondiagnostic MRI of the left breast due to metallic clip susceptibility artifact. 2. Possible linear ductal non-mass enhancement left breast 10 o'clock position upper inner quadrant. Against the background of known extensive multifocal breast cancer, this raises the possibility of multicentric disease. 3. Prior mammography with grouped calcifications on the right at 12 o'clock. No MR correlate.. Given recent left breast diagnosis, however, consider stereotactic right breast biopsy. ASSESSMENT: LEFT BREAST: BI-RADS 4, suspicious finding. RIGHT BREAST: BI-RADS 4, suspicious finding. RECOMMENDATIONS: 1. If breast conserving therapy is a consideration on the left then MR guided biopsy or wire localization of linear ductal non-mass enhancement in the upper inner quadrant is advised. 2. If breast conserving therapy is undertaken on the left then advise follow-up breast MRI in 8 weeks time. Nondiagnostic exam due to clip artifact. 3. Recommend stereotactic biopsy of grouped calcifications right breast 12 o'clock position. Results called to Dr. Valdez's service 8:45 AM 07/08/2022.
== END 2022-07-02 12:02 | disposition home or self-care (01) ==
LOC: HO.MRI 12:01
PROVIDERS: Visit Provider Internal Medicine
DX: C50.912 Malignant neoplasm of unspecified site of left female breast (principal)
CPT/HCPCS: 77049; A9585

== ENCOUNTER → 2022-07-03 13:38 | Outpatient (REF) | payer MEDICARE, SELFPAY ==
--- NOTE | 2022-07-03 13:40 | CA_ITS ---
Transthoracic Echocardiogram Patient (Last, First, Middle): Elayne Lundy, Gender: Female Date of : 1945 Age: 77 Procedure Date: 07/03/2022 Procedure Type: Transthoracic Echocardiogram Location: OP Height: 157.48 cm Weight: 52.16 kg BSA: 1.51 m2 Heart Rate: bpm BP: 120 / 70 mmHg Battery Inspector: TO Referring MD: Ursula Valdez MD Symptoms: pre-chemo evaluation for cardiac function Study Quality: Fair Conclusions: - Normal left ventricular size, thickness, systolic function, and wall motion. The visually estimated ejection fraction is between 55-60%. - E/E prime ratio is between 8 and 15 consistent with indeterminate filling pressures. - Normal right ventricular cavity size and systolic function. - The left atrium is likely dilated. The right atrium is likely dilated. Findings Left Ventricle Normal left ventricular size, thickness, systolic function, and wall motion. The visually estimated ejection fraction is between 55-60%. Abnormal diastolic function is noted. Spectral Doppler is indicative of a pseudonormal filling pattern. E/E prime ratio is between 8 and 15 consistent with indeterminate filling pressures. Right Ventricle Normal right ventricular cavity size and systolic function. Atria The left atrium is likely dilated. The right atrium is likely dilated. Aortic Valve There is a normal trileaflet aortic valve. There is moderate calcification of the aortic valve. There is no aortic valve stenosis. There is trace (trivial) aortic valve regurgitation. Mitral Valve There is moderate mitral annular calcification. There is no mitral valve regurgitation. There is no mitral valve stenosis. Pulmonic Valve The pulmonic valve is likely normal. Tricuspid Valve Normal tricuspid valve structure and function. There is no tricuspid valve regurgitation. Normal right atrial pressure. There is no evidence of pulmonary hypertension. Great Vessels All visible segments of the aorta are normal in size. The visualized portions of the pulmonary artery and branches are normal. Venous The inferior vena cava is normal in size and collapses greater than 50% with inspiration. Pericardium/Pleural There is no evidence of pericardial effusion. Prior Study Comparison No significant change compared to prior study dated: 09/03/2021. Measurements 2D Linear Measurements IVSd: 0.93 0.6-0.9/0.6-1.0 cm LVIDd: 3.74 3.9-5.3/4.2-5.9 cm LVIDd Index: 2.48 2.4-3.2/2.2-3.1 cm/m2 LVIDs: 2.29 2.0-3.6 cm LVPWd: 0.79 0.7-1.1 cm LA Diam: 3.10 2.7-3.8/3.0-4.0 cm LAIDs Index: 2.05 1.5-2.3 cm/m2 LV Mass: 115.16 67-162/88-224 g LV Mass Index: 76.26 43-95/49-115 g/m2 LVOT Diam: 2.00 3.0+(-)1.3 cm 2D Systolic Function EF 4C: 65.30 >55% EF 2C: 64.20 >55% EF BiP: 64.20 >55% Mitral Valve MV Pk E: 0.91 MV PK A: 0.89 MV Decel Time: 258.00 E/A: 1.00 E'Lateral: 8.49 E'Medial: 7.29 E/E' Med: 12.50 E/E' Lat: 10.70 PHT: 76.00 MVA PHT: 2.89 Decel [place]: 3.52 Aortic Valve AoV Pk Ryan: 1.66 AoV Mn Rayn: 1.10 AoV VTI: 0.41 AoV Pk Grad: 11.00 Aov Mn Grad: 5.00 KVNG Cont.VTI: 1.81 LVOT LVOT Pk Ryan: 0.98 LVOT Mn Ryan: 0.55 LVOT VTI: 0.23 LVOT Pk Grad: 4.00 LVOT Mn Grad: 2.00 LVOT Diam: 2.00 LVOT Area: 3.14 Diastolic Function MV Pk E: 0.91 MV Pk A: 0.89 E/A: 1.00 E'Medial: 7.29 E/E' Med: 12.50 E' Laterial: 8.49 E/E' Lat: 10.70 Right Ventricle TAPSE (mm): 35.80 TVS' Ryan: 13.90 Tricuspid Valve TR Pk Ryan: 1.88 TR Pk Grad: 14.00 RA Press: 3.00 RVSP: 17.00 Great Vessels Aorta Sinus of Valsalva: 2.86 2.0-3.[address] [place]: 2.25 1.7-3.4 cm Ao Asc: 3.10 2.1-3.4 cm Updated in Other Vendor System with Status of Final Shady Rosas MD electronically signed on 07/04/2022 8:42:15 PM with status of Final
== END ==
LOC: HO.CARD 13:38
PROVIDERS: PCP Nurse Practitioner Primary Care; Visit Provider Internal Medicine
DX: Z01.818 Encounter for other preprocedural examination (principal); C50.912 Malignant neoplasm of unspecified site of left female breast
CPT/HCPCS: 93306

== ENCOUNTER 2022-07-14 08:47 | Day surgery (SDC) | payer MEDICARE, SELFPAY ==
--- NOTE | ~2022-07-14 | IR_ITS ---
See combined XA IR report from the same day.
--- NOTE | ~2022-07-14 | IR_ITS ---
PROCEDURE: IR INSERTION OF TUNNEL CATHETER CLINICAL INFORMATION: Breast cancer. COMPARISON: None available. TECHNIQUE: Procedure and risks and benefits including bleeding, infection and pneumothorax were discussed with the patient and informed consent was obtained. All elements of maximal sterile barrier technique followed including use of cap, mask, sterile gown, sterile gloves, a sterile full body drape and hand hygiene. Also followed skin preparation with 2% chlorhexidine for cutaneous antisepsis, and sterile ultrasound preparation with sterile gel and probe cover when applicable. The right neck and chest were prepped and draped in the usual sterile fashion. The skin and soft tissues were anesthetized with 1% lidocaine plain. Using ultrasound guidance and a 5-Cymro micropuncture system, right internal jugular vein access was obtained. Over a 0.018 wire, a 5-Cymro dilator was positioned in the SVC. The skin and soft tissues of the right upper anterior chest were anesthetized with 1% lidocaine. A small incision was made. A subcutaneous pocket was created using blunt dissection. Subcutaneous tunnel from the chest to the neck incision was anesthetized with 1% lidocaine plain. Using a tunneler, a 5.8-Cymro single-lumen catheter was tunneled from the chest to the neck incision. The catheter was attached to the port. The port and catheter were flushed. The port was positioned in the subcutaneous pocket and secured using two 2-0 nonabsorbable sutures. A 0.035 guidewire was advanced through the 5-Cymro dilator into the IVC. 5-Cymro dilator was exchanged for a 6-Cymro peel-away sheath. Using bent wire technique, catheter length was estimated and the catheter was cut. Catheter length is 20 cm. Catheter was fed centrally through the peel-away sheath. Catheter tip is at the cavoatrial junction. The neck incision was closed using a 4-0 absorbable subcuticular suture. The chest incision was closed using four 3-0 absorbable interrupted sutures followed by a running 4-0 absorbable subcuticular suture. Real-time ultrasound guidance was used to document vein patency and for needle entry. A formal ultrasound picture was recorded. The patient received Versed 1.5 mg and fentanyl 75 mcg intravenously during the procedure. Total sedation time was 37 minutes with [id number] patient contact and continuous hemodynamic monitoring by a registered nurse under my direct supervision. Real-time ultrasound guidance was used to document vein patency and for needle entry. A formal ultrasound picture was recorded. FLUOROSCOPY TIME: 0.3 minutes. DAP: 11 cGy-cm2 SAVED FLUOROSCOPIC IMAGE: 1. FINDINGS: There is a right internal jugular 6.6 Cymro single-lumen Dignity Port-A-Cath with tip projecting over the cavoatrial junction. IR/IR cvc insert tunnel w prt/in home sales consultant IMPRESSION: Right internal jugular Port-A-Cath placement.
[2022-07-14 09:43] VITALS: BMI 21.0
[2022-07-14 09:56] LABS: MANUAL DIFF FLAG NO
[2022-07-14 09:59] LABS: Basophils Percent Auto 0.4 % (0-2); Eosinophils Absolute Auto 0.3 X10*3/uL (0.0-0.4); Eosinophils Percent Auto 3.7 % (0-4); Hematocrit 35.3 % (37.0-47.0); Hemoglobin 11.2 g/dl (12.0-16.0); Imm Gran Abs Auto 0.04 X10*3/uL (0.00-0.03); Imm Gran Pct Auto 0.5 % (0.0-0.4); Lymphocytes Absolute Auto 1.8 X10*3/uL (1.2-4.9); Mean Corpuscular HGB Conc 31.7 g/dl (31.0-35.0); Mean Corpuscular Hemoglobin 30.6 pg (27.0-33.0); Mean Corpuscular Volume 96.4 fL (80.0-98.0); Mean Platelet Volume 10.9 fL (9.4-12.3); Monocytes Absolute Auto 0.8 X10*3/uL (0.1-1.2); Monocytes Percent Auto 9.5 % (2-11); Neutrophils Absolute Auto 5.5 x10*3/uL (2.0-8.3); Neutrophils Percent Auto 64.9 % (45-73); Platelet Count 254 X10*3/uL (160-400); Red Blood Count 3.66 X10*6/uL (4.20-5.50); Red Cell Distribution Width 12.8 % (11.0-16.0); White Blood Count 8.4 X10*3/uL (4.8-10.8)
[2022-07-14 10:03] LABS: INTERNATIONAL NORM RATIO 1.2 (0.9-1.1); Prothrombin Time 13.4 SEC (10.0-13.1)
[2022-07-14 10:06] LABS: Partial Thromboplastin Time 30.4 SEC (26.0-36.4)
[2022-07-14] MEDS: Lidocaine HCl 1% PF/Epi 1:200,000 30 ML VIAL 10 ML SUBCUT (11:56)
[2022-07-14] MEDS: Lidocaine HCl 1 % MPF 30 ML VIAL 15 ML SUBCUT (11:57)
[2022-07-14 12:15] VITALS: BP 124/58; PULSE 56; RESP 14; TEMP 36.6; O2SAT 97
[2022-07-14 12:30] VITALS: BP 123/59; PULSE 58; RESP 16; O2SAT 97
[2022-07-14 12:45] VITALS: BP 121/57; PULSE 58; RESP 16; O2SAT 98
[2022-07-14 13:00] VITALS: BP 122/62; PULSE 53; RESP 18; TEMP 36.6; O2SAT 98
== END 2022-07-14 13:30 | disposition home or self-care (01) ==
LOC: HO.SSS 08:47
PROVIDERS: Radiology Diagnostic Radiology; PCP Nurse Practitioner Primary Care; Visit Provider Internal Medicine
DX: Z45.2 Encounter for adjustment and management of vascular access device (principal); C50.912 Malignant neoplasm of unspecified site of left female breast; M81.0 Age-related osteoporosis without current pathological fracture; Z80.41 Family history of malignant neoplasm of ovary; I35.1 Nonrheumatic aortic (valve) insufficiency; I49.3 Ventricular premature depolarization; R00.2 Palpitations; J45.909 Unspecified asthma, uncomplicated; K57.30 Diverticulosis of large intestine without perforation or abscess without bleeding; Z79.51 Long term (current) use of inhaled steroids; Z79.899 Other long term (current) drug therapy; E78.00 Pure hypercholesterolemia, unspecified; Z86.16 Personal history of COVID-19; Z87.891 Personal history of nicotine dependence
CPT/HCPCS: 36415; 36561; 76937; 85025; 85610; 85730; 99152; 99153; C1769; C1788; J0690; J1642; J2250; J3010

== ENCOUNTER 2022-07-15 09:47 | Outpatient (REF) | payer MEDICARE, SELFPAY ==
--- NOTE | ~2022-07-15 | MM_ITS ---
EXAMINATION: STEREOTACTIC TOMOSYNTHESIS-GUIDED VACUUM-ASSISTED BREAST BIOPSY, RIGHT SPECIMEN RADIOGRAPH, RIGHT POST PROCEDURE DIGITAL MAMMOGRAM, RIGHT CLINICAL INFORMATION: Contralateral left breast IDC and DCIS. Right breast calcifications anterior 12:00 for tissue sampling. No MR correlate right breast. COMPARISON: MRI bilateral breasts 07/02/2022, multiple prior mammography exams, including most recent on right, 11/26/2021. TECHNIQUE/PROCEDURE: Informed consent was obtained from the patient after discussion of the benefits, risks, and alternatives to biopsy today. Patient appeared to understand. Gave opportunity for questions. Patient signed consent form. BIOPSY TABLE: [employer] Affirm Prone Biopsy System. LESION: Calcifications anterior 12:00 right breast. LOCAL ANESTHESIA: 9 mL carbonated 1% lidocaine; 10 mL 1% lidocaine with epinephrine. DERMATOTOMY: Single skin zuhair dermatotomy performed. NEEDLE: Myfacepage Eviva 9-gauge vacuum assisted core biopsy device. APPROACH: Craniocaudal. TARGETING: Combination of digital breast tomosynthesis and stereotactic digital mammography used for targeting. CORES: 6. CLIP: Myfacepage SecurMark Cylinder-shaped marker. SPECIMEN RADIOGRAPH: Specimen radiograph is taken in separate room using digital mammography. The index calcifications are in the excised cores. There are at least 8 calcifications in the cores. POST PROCEDURE UNILATERAL DIGITAL MAMMOGRAM: The post biopsy mammogram is performed in separate room using separate digital mammography equipment from the biopsy procedure. CC and ML views are obtained. There are scattered areas of fibroglandular density (breast composition category: b). The clip marker is in position. No gross hematoma. The patient tolerated the procedure well. No immediate complications. Home instructions reviewed with the patient. Final pathology results are pending. MM/MM stereotactic biopsy RT IMPRESSION: 1. Digital tomosynthesis-guided core biopsy right breast with clip placement. 2. Specimen radiograph taken and post procedure mammogram. There is satisfactory positioning of the biopsy clip. 3. Final pathology results pending. An addendum report will be issued.
== END 2022-07-15 09:48 | disposition home or self-care (01) ==
LOC: HO.MAMMO 09:47
PROVIDERS: PCP Nurse Practitioner Primary Care; Visit Provider Internal Medicine
DX: C50.811 Malignant neoplasm of overlapping sites of right female breast (principal); R92.1 Mammographic calcification found on diagnostic imaging of breast
CPT/HCPCS: 19081; 88305; A4648

== ENCOUNTER 2022-07-24 09:49 | Emergency (ER) | payer MEDICARE, SELFPAY ==
[2022-07-24 09:55] VITALS: BP 102/68; BP 126/61; PULSE 102; PULSE 98; RESP 20; TEMP 36.9; O2SAT 96; O2SAT 99; BMI 20.6
--- NOTE | 2022-07-24 10:07 | PC.NURSE ---
pt AOx4, taking metoprolol for palpitations. pt recent diagnosis with breast cancer and started chemotherapy last week. Pt had a port implanted last week. area around port is red, some steri strips still in place and port has been accessed.
--- NOTE | 2022-07-24 10:11 | ED_ITS ---
HPI - General Adult General Chief complaint: General Medical Stated complaint: Weakness after chemo per EMS Time Seen by Provider: 07/24/22 10:11 Source: patient Mode of arrival: EMS Limitations: no limitations History of Present Illness HPI narrative: Patient with left breast invasive ductal carcinoma diagnosed in 07/07 HER positive started on TCHP regimen on 07/16 complaining of weakness diarrhea not feeling good for last 5 days feels occasionally strong heartbeats no chest pain no fever no chills no shortness of breath patient feels very anxious unable to sleep no signal abdominal pain Related Data Home Medications Medication Instructions Recorded Confirmed albuterol sulfate 90 mcg/actuation 1 inh inhalation Q4H PRN Wheezing 09/17/21 07/10/22 aerosol inhaler atorvastatin 10 mg tablet 10 mg PO DAILY 09/17/21 07/10/22 fluticasone propionate 50 1 spray intranasal DAILY 09/17/21 07/10/22 mcg/actuation nasal spray,suspension ipratropium 0.5 mg-albuterol 3 mg 3 ml inhalation Q6H PRN Wheezing 09/17/21 07/10/22 (2.5 mg base)/3 mL nebulization soln loratadine 10 mg tablet 10 mg PO DAILY 09/17/21 07/10/22 brimonidine 0.025 % eye drops 1 drp ophthalmic (eye) QID PRN Dry 07/02/22 07/10/22 (Lumify) Eye(S) calcium citrate 500 mg (2,376 mg) 500 mg PO TID 07/02/22 07/10/22 effervescent tablet peg 400-propylene glycol (PF) 0.4 1 drp ophthalmic (eye) 5XD PRN Dry 07/02/22 07/10/22 %-0.3 % eye drops in a dropperette Eye(S) (Systane (PF)) Previous Rx's Medication Instructions Recorded romosozumab-aqqg 210 mg/2.34 210 mg (2.34 mL) subcut .monthly 05/20/22 mL(105 mg/1.17 mL x2)subcutaneous #2.34 mL syringe (Evenity) metoprolol succinate 25 mg 25 mg PO DAILY #30 tabs 06/12/22 tablet,extended release 24 hr dexamethasone 4 mg tablet 4 mg PO BID #30 tabs 07/14/22 loperamide 2 mg tablet (Imodium 2 mg PO Q4H PRN Diarrhea #60 tabs 07/14/22 A-D) ondansetron 8 mg disintegrating 8 mg PO Q8H PRN Nausea #60 tabs 07/14/22 tablet lorazepam 0.5 mg tablet (Ativan) 0.5 mg PO BEDTIME PRN 07/24/22 Anxiety/sleep #10 tabs Allergies Allergy/AdvReac Type Severity Reaction Status Date / Time animal dander Allergy Hives Verified 07/14/22 09:45 feathers Allergy Hives Verified 07/14/22 09:45 Seasonal Allergies Allergy Itchy Eyes Verified 07/14/22 09:45 Review of Systems Review of Systems: Yes all other systems are reviewed and are negative PMFSH Past Medical History Medical History Aortic regurgitation Asthma Breast calcification, left Diverticulosis Elevated cholesterol Family history of ovarian cancer History of COVID-19 Invasive ductal carcinoma of left breast in female On beta branden at home Osteoporosis Palpitations Tubular adenoma Surgical History History of cataract surgery History of repair of retinal tear by laser photocoagulation Hx of colonoscopy Family History Family History Father No problems noted. Mother Ovarian ca Social History Social History Household Members: None Housing: Condominium Alcohol intake: current Alcohol intake frequency: holidays/special occasions only Patient Tobacco Use Status: Former Tobacco user Quit Date: 10 months ago Tobacco use type: Cigarette Smoked in Last 30 Days: No Use of substances other than those prescribed or required for medical reasons: No Substance Use Type: Marijuana Advance Directives: No service: No Current occupational status: employed Physical Exam ED Vital Signs: Vital Signs - 24 hr 07/24/22 09:55 07/24/22 12:32 Temperature 98.4 F Pulse Rate 98 93 Respiratory Rate 20 18 Blood Pressure 126/61 110/57 L Pulse Oximetry 96 100 Oxygen Delivery Method Room Air Room Air BMI result Body Mass Index 20.6 Appearance: Alert. Oriented X3. No acute distress. Anxious Eyes: PERRLA, No Nystagmus ENT: Pharynx normal. Oral Mucosa moist Neck: Normal inspection. Neck supple. CVS: Normal heart rate and rhythm. Pulses normal. No murmur/ gallop Respiratory: No respiratory distress. Equal air entry bilateral, no wheezing/rales/rhonchi Abdomen: Soft and nontender. Bowel sounds are present, no mass palpable, no CVA tenderness Skin: Skin warm and dry. Normal skin color. Normal skin turgor. Extremities: No lower extremity edema. No calf tenderness Neuro: Oriented X 3. No motor deficit. No sensory deficit.No cerebellar signs , cranial nerves II-XII intact Medications Administered Discontinued Medications Generic Name Dose Route Start Last Admin Trade Name Freq PRN Reason Stop Dose Admin Sodium Chloride 1,000 mls @ 999 mls/hr 07/24/22 10:29 07/24/22 12:24 Ns IV 07/24/22 11:29 Infused .Q1H1M ONE Infusion Lorazepam 0.5 mg 07/24/22 10:32 07/24/22 10:54 Lorazepam 2 Mg/Ml Vial IVPUSH 07/24/22 10:33 0.5 mg ONCE ONE Administration Medical Decision Making Medical Decision Making [facility] Narrative: Patient's recent diagnosis of breast cancer on chemotherapy received Neulasta on 07/16 came with multiple symptoms likely with anxiety lab workup showed leukocytosis secondary to Neulasta which she was given on 07/16 no signs of sepsis Lab Data [facility] Lab Attestation statement: I reviewed the patient's lab results. 07/24/22 10:48 07/24/22 10:48 Labs: Lab Results 07/24/22 07/24/22 07/24/22 Range/Units 10:48 10:48 10:48 WBC 37.4 H* (4.8-10.8) X10*3/uL RBC 4.36 (4.20-5.50) X10*6/uL Hgb 13.4 (12.0-16.0) g/dl Hct 40.3 (37.0-47.0) % MCV 92.4 (80.0-98.0) fL MCH 30.7 (27.0-33.0) pg MCHC 33.3 (31.0-35.0) g/dl RDW 12.7 (11.0-16.0) % Plt Count 195 D (160-400) X10*3/uL MPV 11.0 (9.4-12.3) fL Immature Gran % (Auto) Cancelled Neut % (Auto) Cancelled Lymph % (Auto) Cancelled Sargent % (Auto) Cancelled Eos % (Auto) Cancelled Baso % (Auto) Cancelled Lymph # (Auto) Cancelled Sargent # (Auto) Cancelled Eos # (Auto) Cancelled Baso # (Auto) Cancelled Abs Immat Gran (auto) Cancelled Absolute Neuts (auto) Cancelled Absolute Nucleated RBC 0.000 (0.0-0.012) X10*3/uL Nucleated RBC % (auto) 0.0 (0.0-0.2) /100WBC Neutrophils % (Manual) 58 (45-73) % Band Neutrophils % 19 H (3-5) % Lymphocytes % (Manual) 6 L (20-40) % Atypical Lymphs % (Man) 1 (0-6) % Monocytes % (Manual) 12 H (2-11) % Eosinophils % (Manual) 1 (0-4) % Metamyelocytes % 1 % Promyelocytes % 2 % Abs Neuts (Manual) 28.8 H (2.0-8.3) X10*3/uL Lymphocytes # (Manual) 2.2 (1.2-4.9) X10*3/uL Atyp Lymphs # (Manual) 0.4 x10*3/uL Monocytes # (Manual) 4.5 H (0.1-1.2) X10*3/uL Eosinophils # (Manual) 0.4 (0.0-0.4) X10*3/uL Metamyelocytes # 0.4 X10*3/uL Promyelocytes # 0.7 X10*3/uL Toxic Granulation PRESENT Dohle Bodies PRESENT Platelet Estimate NORMAL (NORMAL) Large Platelets PRESENT Plt Morphology Comment NOTED RBC Morphology NOTED Polychromasia 1+ (0-2) /OIF Macrocytosis 1+ (5-14) /OIF Ovalocytes 1+ (5-14) /OIF Acanthocytes (Spur) 2+ (3-5) /OIF PT 12.7 (10.0-13.1) SEC INR 1.1 (0.9-1.1) Sodium 137 (135-145) mmol/L Potassium 4.7 (3.3-5.1) mmol/L Chloride 101 (96-108) mmol/L Carbon Dioxide 24 (22-29) mmol/L Anion Gap 17 (12-20) BUN 18 H (9-16) mg/dL Creatinine 0.86 (0.5-1.4) mg/dL Estim Creat Clear Calc 44.6 Estimated GFR > 60 Random Glucose 105 (60-115) mg/dL Calcium 9.1 (8.4-10.2) mg/dL Magnesium 1.8 (1.6-2.6) mg/dL Total Bilirubin 0.3 (0.0-1.0) mg/dL AST 28 (5-31) U/L ALT 26 (0-31) U/L Alkaline Phosphatase 147 H (39-117) U/L Troponin I High Sens (<3.5-17.0) ng/L Total Protein 6.8 (6.5-8.0) g/dL Albumin 4.0 (3.5-5.0) g/dL Urine Color Urine Appearance Urine pH (5.0-9.0) Ur Specific [place] (1.005-1.025) Urine Protein (Neg-Trace) mg/dL Urine Glucose (UA) (Negative) mg/dL Urine Ketones (Negative) mg/dL Urine Blood (Negative) Urine Nitrite (Negative) Ur Leukocyte Esterase (Negative) 07/24/22 07/24/22 Range/Units 10:48 12:32 WBC (4.8-10.8) X10*3/uL RBC (4.20-5.50) X10*6/uL Hgb (12.0-16.0) g/dl Hct (37.0-47.0) % MCV (80.0-98.0) fL MCH (27.0-33.0) pg MCHC (31.0-35.0) g/dl RDW (11.0-16.0) % Plt Count (160-400) X10*3/uL MPV (9.4-12.3) fL Immature Gran % (Auto) Neut % (Auto) Lymph % (Auto) Sargent % (Auto) Eos % (Auto) Baso % (Auto) Lymph # (Auto) Sargent # (Auto) Eos # (Auto) Baso # (Auto) Abs Immat Gran (auto) Absolute Neuts (auto) Absolute Nucleated RBC (0.0-0.012) X10*3/uL Nucleated RBC % (auto) (0.0-0.2) /100WBC Neutrophils % (Manual) (45-73) % Band Neutrophils % (3-5) % Lymphocytes % (Manual) (20-40) % Atypical Lymphs % (Man) (0-6) % Monocytes % (Manual) (2-11) % Eosinophils % (Manual) (0-4) % Metamyelocytes % % Promyelocytes % % Abs Neuts (Manual) (2.0-8.3) X10*3/uL Lymphocytes # (Manual) (1.2-4.9) X10*3/uL Atyp Lymphs # (Manual) x10*3/uL Monocytes # (Manual) (0.1-1.2) X10*3/uL Eosinophils # (Manual) (0.0-0.4) X10*3/uL Metamyelocytes # X10*3/uL Promyelocytes # X10*3/uL Toxic Granulation Dohle Bodies Platelet Estimate (NORMAL) Large Platelets Plt Morphology Comment RBC Morphology Polychromasia /OIF Macrocytosis /OIF Ovalocytes /OIF Acanthocytes (Spur) /OIF PT (10.0-13.1) SEC INR (0.9-1.1) Sodium (135-145) mmol/L Potassium (3.3-5.1) mmol/L Chloride (96-108) mmol/L Carbon Dioxide (22-29) mmol/L Anion Gap (12-20) BUN (9-16) mg/dL Creatinine (0.5-1.4) mg/dL Estim Creat Clear Calc Estimated GFR Random Glucose (60-115) mg/dL Calcium (8.4-10.2) mg/dL Magnesium (1.6-2.6) mg/dL Total Bilirubin (0.0-1.0) mg/dL AST (5-31) U/L ALT (0-31) U/L Alkaline Phosphatase (39-117) U/L Troponin I High Sens < 2.7 (<3.5-17.0) ng/L Total Protein (6.5-8.0) g/dL Albumin (3.5-5.0) g/dL Urine Color Yellow Urine Appearance Clear Urine pH 7.0 (5.0-9.0) Ur Specific [place] <= 1.005 (1.005-1.025) Urine Protein Negative (Neg-Trace) mg/dL Urine Glucose (UA) Negative (Negative) mg/dL Urine Ketones Negative (Negative) mg/dL Urine Blood Negative (Negative) Urine Nitrite Negative (Negative) Ur Leukocyte Esterase Negative (Negative) Discharge Plan Discharge Clinical Impression: Anxiety, Weakness Patient Disposition: Home, Self-Care Instructions: Weakness (ED), Anxiety (ED) Additional Instructions: Drink plenty of fluids Medicine for anxiety as needed Follow with the oncologist Prescriptions: New lorazepam [Ativan] 0.5 mg tablet 0.5 mg PO BEDTIME PRN (Reason: Anxiety/sleep) Qty: 10 0RF No Action Evenity 210mg/2.34mL ( 105mg/1.17mLx2) syringe 210 mg subcut .monthly Qty: 2.34 11RF metoprolol succinate 25 mg tablet extended release 24 hr 25 mg PO DAILY Qty: 30 5RF Citracal 500 mg Tablet, Effervescent 500 mg PO TID Systane (PF) 0.4-0.3 % Dropperette 1 drp OPHTHALMIC (EYE) 5XD PRN (Reason: Dry Eye(S)) Lumify 0.025 % Drops 1 drp OPHTHALMIC (EYE) QID PRN (Reason: Dry Eye(S)) ondansetron 8 mg Tablet,Disintegrating 8 mg PO Q8H PRN (Reason: Nausea) Qty: 60 3RF dexamethasone 4 mg Tablet 4 mg PO BID Qty: 30 2RF Rx Instructions: start night before chemo and take for 2 days after chemo loperamide [Imodium A-D] 2 mg Tablet 2 mg PO Q4H PRN (Reason: Diarrhea) Qty: 60 3RF Rx Instructions: administer after each loose stool until symptoms controlled; do not exceed 8 mg per 24 hrs atorvastatin 10 mg tablet 10 mg PO DAILY fluticasone propionate 50 mcg/actuation spray,suspension 1 spray intranasal DAILY albuterol sulfate 90 mcg/actuation HFA aerosol inhaler 1 inh inhalation Q4H PRN (Reason: Wheezing) loratadine 10 mg tablet 10 mg PO DAILY ipratropium-albuterol 0.5 mg-3 mg(2.5 mg base)/3 mL solution for nebulization 3 ml inhalation Q6H PRN (Reason: Wheezing)
--- NOTE | 2022-07-24 10:14 | ECG_ITS ---
Test Reason : Palpitations Blood Pressure : / mmHG Vent. Rate : 092 BPM Atrial Rate : 092 BPM P-R Int : 134 ms QRS Dur : 074 ms QT Int : 360 ms P-R-T Axes : 083 053 048 degrees QTc Int : 445 ms Sinus rhythm with Premature supraventricular complexes Right atrial enlargement Borderline ECG When compared with ECG of 14-MAY-2010 10:19, Premature supraventricular complexes are now Present Referred By: Jesus Mosqueda Electronically Signed By:Shady Rosas
[2022-07-24] MEDS: 0.9 % Sodium Chloride 1,000 ML 999 ML IV (10:51)
[2022-07-24] MEDS: LORazepam 2 MG/ML VIAL 0.5 MG IVPUSH (10:54)
--- NOTE | 2022-07-24 10:57 | PC.NURSE ---
IV inserted, pt has port that is steel heeling and has some redness. port has been accessed before but for pt comfort a 20g IV was placed left AC. fluids running per APR.
[2022-07-24 11:04] LABS: Hematocrit 40.3 % (37.0-47.0); Hemoglobin 13.4 g/dl (12.0-16.0); Mean Corpuscular HGB Conc 33.3 g/dl (31.0-35.0); Mean Corpuscular Hemoglobin 30.7 pg (27.0-33.0); Mean Corpuscular Volume 92.4 fL (80.0-98.0); Platelet Count 195 X10*3/uL (160-400); Red Blood Count 4.36 X10*6/uL (4.20-5.50); Red Cell Distribution Width 12.7 % (11.0-16.0)
[2022-07-24 11:07] LABS: WBC ABN SCTR FOR CBC 1
[2022-07-24 11:09] LABS: White Blood Count 37.4 X10*3/uL (4.8-10.8)
[2022-07-24 11:15] LABS: Alanine Aminotransferase 26 U/L (0-31); Alkaline Phosphatase 147 U/L (39-117); Anion Gap 17 (12-20); Aspartate Amino Transferase 28 U/L (5-31); Bilirubin Total 0.3 mg/dL (0.0-1.0); Blood Urea Nitrogen 18 mg/dL (9-16); Calcium 9.1 mg/dL (8.4-10.2); Carbon Dioxide 24 mmol/L (22-29); Chloride 101 mmol/L (96-108); Creatinine Clr Calc Pharmacy 44.6; Estimated Glomerular Filt Rate > 60; Glucose Random 105 mg/dL (60-115); INTERNATIONAL NORM RATIO 1.1 (0.9-1.1); Magnesium 1.8 mg/dL (1.6-2.6); Potassium 4.7 mmol/L (3.3-5.1); Prothrombin Time 12.7 SEC (10.0-13.1); Sodium 137 mmol/L (135-145); Total Protein 6.8 g/dL (6.5-8.0)
[2022-07-24 11:29] LABS: Troponin-I High Sensitivity < 2.7 ng/L (<3.5-17.0)
[2022-07-24 11:33] LABS: Neutrophils Percent Manual 58 % (45-73)
[2022-07-24 11:36] LABS: Atypical Lymph Absolute Manual 0.4 x10*3/uL; Atypical Lymphs Percent Manual 1 % (0-6); Band Neutrophils Percent 19 % (3-5); Eosinophils Absolute Manual 0.4 X10*3/uL (0.0-0.4); Eosinophils Percent Manual 1 % (0-4); Lymphocytes Absolute Manual 2.2 X10*3/uL (1.2-4.9); Lymphocytes Percent Manual 6 % (20-40); Metamyelocytes Absolute 0.4 X10*3/uL; Metamyelocytes Percent 1 %; Monocytes Absolute Manual 4.5 X10*3/uL (0.1-1.2); Monocytes Percent Manual 12 % (2-11); Neutrophils Absolute Manual 28.8 X10*3/uL (2.0-8.3); Promyelocytes Absolute 0.7 X10*3/uL; Promyelocytes Percent 2 %
[2022-07-24 11:40] LABS: Acanthocytes 2+ (3-5) /OIF; Macrocytosis 1+ (5-14) /OIF; Ovalocytes 1+ (5-14) /OIF; Polychromasia 1+ (0-2) /OIF; RBC Morphology NOTED
[2022-07-24 11:41] LABS: Dohle Bodies PRESENT; Toxic Granulation PRESENT
[2022-07-24 11:42] LABS: Large Platelet PRESENT; Platelet Estimate NORMAL (NORMAL); Platelet Morphology Comment NOTED
--- NOTE | 2022-07-24 12:25 | PC.NURSE ---
pt reports feeling better. pt walked to bathroom for urine sample. ambulating well
[2022-07-24 12:32] VITALS: BP 110/57; PULSE 93; RESP 18; O2SAT 100
[2022-07-24 12:41] LABS: Appearance Urine Clear; Color Urine Yellow; Glucose Urine UA Negative (Negative); Leukocyte Esterase Urine Negative (Negative); Nitrite Urine Negative (Negative); Specific Gravity - Urine <= 1.005 (1.005-1.025); Urine Blood Negative (Negative); Urine Ketones Negative (Negative); Urine Protein Negative (Neg-Trace)
== END 2022-07-24 13:34 | disposition home or self-care (01) ==
PROVIDERS: Emergency Provider Internal Medicine; PCP Nurse Practitioner Primary Care
DX: F41.1 Generalized anxiety disorder (principal); F43.0 Acute stress reaction; R53.1 Weakness; R00.2 Palpitations; Z87.891 Personal history of nicotine dependence; Z79.899 Other long term (current) drug therapy
CPT/HCPCS: 36415; 80053; 81003; 83735; 84484; 85007; 85025; 85027; 85610; 93005; 96361; 96374; 99284; 99285; J2060

== ENCOUNTER → 2022-07-27 14:49 | Outpatient (BNVA) | payer MEDICARE, SELFPAY | PROVIDERS: PCP Nurse Practitioner Primary Care; Referring Provider Nurse Practitioner Primary Care; Visit Provider Nurse Practitioner Family | DX: I49.1 Atrial premature depolarization (principal); I35.1 Nonrheumatic aortic (valve) insufficiency | CPT/HCPCS: 99212 ==

== ENCOUNTER → 2022-10-08 14:50 | Outpatient (REF) | payer MEDICARE, SELFPAY ==
--- NOTE | 2022-10-08 14:53 | CA_ITS ---
Transthoracic Echocardiogram Patient (Last, First, Middle): Elayne Lundy, Gender: Female Date of : 1945 Age: 77 Procedure Date: 10/08/2022 Procedure Type: Transthoracic Echocardiogram Location: OP Height: 157.48 cm Weight: 53.52 kg BSA: 1.53 m2 Heart Rate: 71 bpm BP: 130 / 80 mmHg [employer] Engineer: DANII Referring MD: Ursula Valdez MD Symptoms: leg swelling, chemo adverse effect Study Quality: Fair ECG Rhythm: Sinus Conclusions: - The left ventricular systolic function is normal. The calculated ejection fraction is 62% by biplane method. - There is moderate calcification of the aortic valve. There is mild aortic valve regurgitation. - There is moderate mitral annular calcification. - The inferior vena cava is normal in size and collapses greater than 50% with inspiration. Findings Left Ventricle Normal left ventricular cavity size. The left ventricular systolic function is normal. The calculated ejection fraction is 62% by biplane method. There is no evidence of regional wall motion abnormalities. Diastolic function is normal for age. There is mild septal and mild basal asymmetric hypertrophy. LV peak GLS -18.6%. Right Ventricle Normal right ventricular cavity size and systolic function. Atria Both atria are normal in size. Aortic Valve There is moderate calcification of the aortic valve. There is no aortic valve stenosis. There is mild aortic valve regurgitation. Mitral Valve There is moderate mitral annular calcification. There is trace mitral valve regurgitation. There is no mitral valve stenosis. Pulmonic Valve The pulmonic valve is likely normal. Tricuspid Valve Normal tricuspid valve structure. There is trace tricuspid valve regurgitation. There is no evidence of pulmonary hypertension. Great Vessels The asc aorta is normal in size. Venous The inferior vena cava is normal in size and collapses greater than 50% with inspiration. Pericardium/Pleural There is no evidence of pericardial effusion. Prior Study Comparison No significant change compared to prior study dated: 07/03/2022. Measurements 2D Linear Measurements IVSd: 1.09 0.6-0.9/0.6-1.0 cm LVIDd: 3.52 3.9-5.3/4.2-5.9 cm LVIDd Index: 2.30 2.4-3.2/2.2-3.1 cm/m2 LVIDs: 1.83 2.0-3.6 cm LVPWd: 0.74 0.7-1.1 cm LA Diam: 3.10 2.7-3.8/3.0-4.0 cm LAIDs Index: 2.03 1.5-2.3 cm/m2 LV Mass: 114.16 67-162/88-224 g LV Mass Index: 74.62 43-95/49-115 g/m2 LVOT Diam: 1.90 3.0+(-)1.3 cm 2D Systolic Function EF 4C: 57.40 >55% EF 2C: 63.70 >55% EF BiP: 62.10 >55% Mitral Valve MV Pk E: 1.02 MV PK A: 0.98 MV Decel Time: 186.00 E/A: 1.00 E'Lateral: 10.60 E'Medial: 10.00 E/E' Med: 10.20 E/E' Lat: 9.60 PHT: 55.00 MVA PHT: 4.00 Decel [place]: 5.49 Aortic Valve AoV Pk Ryan: 1.78 AoV Mn Ryan: 1.22 AoV VTI: 0.42 AoV Pk Grad: 13.00 Aov Mn Grad: 7.00 KVNG Cont.VTI: 1.69 AI Pk Ryan: 4.17 AI [place]: 3.03 LVOT LVOT Pk Ryan: 1.05 LVOT Mn Ryan: 0.74 LVOT VTI: 0.25 LVOT Pk Grad: 4.00 LVOT Mn Grad: 2.00 LVOT Diam: 1.90 LVOT Area: 2.84 Diastolic Function MV Pk E: 1.02 MV Pk A: 0.98 E/A: 1.00 E'Medial: 10.00 E/E' Med: 10.20 E' Laterial: 10.60 E/E' Lat: 9.60 Right Ventricle TAPSE (mm): 31.10 TVS' Ryan: 13.20 Tricuspid Valve TR Pk Ryan: 1.78 TR Pk Grad: 13.00 RA Press: 3.00 RVSP: 16.00 Great Vessels Aorta Sinus of Valsalva: 3.30 2.0-3.5 cm Ao Asc: 3.10 2.1-3.4 cm Pulmonary Valve PV Pk Ryan: 0.71 Peak PV Grad: 2.00 Updated in Other Vendor System with Status of Final Carmelo Hilton MD electronically signed on 10/09/2022 2:12:38 PM with status of Final
== END ==
LOC: HO.CARD 14:50
PROVIDERS: Visit Provider Internal Medicine
DX: C50.912 Malignant neoplasm of unspecified site of left female breast (principal)
CPT/HCPCS: 93306; 93356

== ENCOUNTER → 2022-10-08 14:53 | Outpatient (BNV) | payer MEDICARE, SELFPAY | PROVIDERS: Visit Provider Internal Medicine | DX: I35.1 Nonrheumatic aortic (valve) insufficiency (principal); I34.81 Nonrheumatic mitral (valve) annulus calcification | CPT/HCPCS: 93306 ==

== ENCOUNTER → 2022-11-02 08:00 | Outpatient (BNV) | payer MEDICARE, SELFPAY | PROVIDERS: PCP Nurse Practitioner Primary Care; Visit Provider Radiology Diagnostic Radiology | DX: D05.12 Intraductal carcinoma in situ of left breast (principal) | CPT/HCPCS: 77062; 77066; G0279 ==

== ENCOUNTER 2022-11-02 08:04 | Outpatient (REF) | payer MEDICARE, SELFPAY ==
--- NOTE | ~2022-11-02 | MM_ITS ---
EXAMINATION: MM DIAGNOSTIC DIGITAL BREAST TOMOSYNTHESIS, BILATERAL CLINICAL INFORMATION: Patient scheduled for mastectomy left breast for 2 sites invasive ductal carcinoma and DCIS in segmental distribution, and area of suspicious non mass-like enhancement 10:00 axis on recent MRI. Right breast recent benign biopsy of 12:00 retroareolar calcifications. COMPARISON: Mammography: Stereotactic biopsy 07/15/2022 right breast. Stereotactic biopsy 06/17/2022 left breast. MRI bilateral breasts 07/02/2022. Mammography 11/26/2021, 11/20/2020, and 04/19/2019. TECHNIQUE: Digital breast tomosynthesis is performed in both the craniocaudal and mediolateral oblique views along with computer-aided detection (CAD). Synthesized 2D images are generated from the tomosynthesis. FINDINGS: The breasts are heterogeneously dense, which may obscure small masses (ACR BI-RADS breast composition Category c). LEFT BREAST: There are 2 RFID markers in the lower inner left breast, which are bracketing 2 groups of segmental pleomorphic suspicious calcifications with associated biopsy clips. Mild generalized parenchymal distortion in the immediately retroareolar and slightly inferior left breast. There are fine vascular calcifications present. No suspicious mass evident. RIGHT BREAST: There is a post benign biopsy clip in the immediately retroareolar region slightly superior to the nipple line. There is otherwise no suspicious mass, suspicious microcalcification, or area of architectural distortion in the right breast. There are fine benign vascular calcifications. MM/MM tomosynthesis diagnostic BI IMPRESSION: 1. Biopsy-proven invasive ductal carcinoma in the LEFT breast at 2 sites. BI-RADS 6, known malignancy. Patient has chosen to undergo left mastectomy. 2. No suspicious features to indicate malignancy in the RIGHT breast. Benign findings. Recommend continuing yearly screening on the right. ASSESSMENT: BI-RADS BI-RADS 6 - Known biopsy proven malignancy RECOMMENDATION: Surgical Consult Results were provided to the patient at time of visit by the technologist. This patient's information was entered into a reminder system with a target due date for their next mammogram.
== END 2022-11-02 08:05 | disposition home or self-care (01) ==
LOC: HO.MAMMO 08:04
PROVIDERS: PCP Nurse Practitioner Primary Care; Visit Provider Internal Medicine
DX: Z85.3 Personal history of malignant neoplasm of breast (principal)
CPT/HCPCS: 77062; 77066

== ENCOUNTER → 2022-11-27 10:25 | Outpatient (REF) | payer MEDICARE, SELFPAY ==
--- NOTE | 2022-11-27 10:27 | CA_ITS ---
Acquisition Time: 2022-11-27 10:42:07 Total Exercise Time: 00:04:30 Test Indications: PREOP Medications: SEE H Protocol: HOWARD Max HR: 169 BPM 116% of Pred: 145 BPM Max BP: 156/080 mmHG Max Work Load: 4.4 METS Exercise stress test exercise 4 min 30 sec of Howard protocol with stage 1 held reduced speed as low as 1 mph and reduce grade due to fatigue and high heart rate, achieivng as high as 103% MPHR, without anginal symptoms, with PACs, PVCs, and short vetircular runs, with normotensive response to exercise, without EKG changes Referred By: Fariba Kelley Overread By: Yusra Zhu
== END ==
LOC: HO.CARD 10:25
PROVIDERS: PCP Nurse Practitioner Primary Care; Visit Provider Nurse Practitioner Family
DX: Z01.810 Encounter for preprocedural cardiovascular examination (principal); R00.2 Palpitations; I49.1 Atrial premature depolarization
CPT/HCPCS: 93017

== ENCOUNTER → 2022-11-27 10:27 | Outpatient (BNV) | payer MEDICARE, SELFPAY | PROVIDERS: PCP Nurse Practitioner Primary Care; Visit Provider Nurse Practitioner | DX: I49.1 Atrial premature depolarization (principal); Z01.810 Encounter for preprocedural cardiovascular examination | CPT/HCPCS: 93016; 93018 ==

== ENCOUNTER 2022-12-02 12:50 | Outpatient (AMB) | payer MEDICARE, SELFPAY ==
--- NOTE | 2022-12-02 12:52 | A.OFFVIS_ITS ---
Intake Intake Visit Reasons: Re-discuss surgery, mastectomy option Intake Note: This patient presents for an assessment to re-discuss mastectomy. Patient c/o; reports no changes. Tailings Man Required: No Accompanied by: Self / Same As Patient Allergies animal dander Allergy (Verified 12/02/22 12:58) Hives feathers Allergy (Verified 12/02/22 12:58) Hives Seasonal Allergies Allergy (Verified 12/02/22 12:58) Itchy Eyes Medication List - Last Reconciled 12/02/22 by Rayo Ulloa MD albuterol sulfate 90 mcg/actuation 1 inh inhalation Q4H PRN atorvastatin 10 mg PO DAILY dexamethasone 4 mg PO BID fluticasone propionate 50 mcg/actuation 1 spray intranasal DAILY ipratropium-albuterol 0.5 mg-3 mg(2.5 mg base)/3 mL 3 mL inhalation Q6H PRN loperamide (Imodium A-D) 2 mg PO Q4H PRN metoprolol succinate ER 25 mg PO DAILY ondansetron 8 mg PO Q8H PRN HPI Re-discuss surgery, mastectomy option HPI Details 77-year-old female here for a follow-up for her left breast cancer. She had undergone a diagnostic mammogram last May, because of breast calcifications and she was noted to have multiple grouped and scattered calcifications on the medial aspect of left breast. She underwent stereotactic biopsy and this had shown invasive ductal carcinoma. There was a 2nd group of calcifications on the central anterior aspect which was benign. She was scheduled to undergo surgery for this left breast cancer. 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 She had initially wanted to proceed with lumpectomy but now she has changed her mind and wants to proceed with mastectomy. Her menarche was at the age of 17 . Her 1st was at age of 31 . She had 3 pregnancies. She had menopause in her early 50s . She denies a family history of breast cancer. She denies any palpable breast masses or any nipple or skin changes. 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 Mother Ovarian ca Social History Household Members: None Housing: Condominium Alcohol intake: current Alcohol intake frequency: holidays/special occasions only Patient Tobacco Use Status: Former Tobacco user Quit Date: 10 months ago Tobacco use type: Cigarette Substance Use Type: Marijuana service: No Current occupational status: employed Review of Systems Const Denies chills and Denies fever(s) Card Denies chest pain, Denies dyspnea and Denies dyspnea on exertion Resp Denies cough, Denies dyspnea and Denies dyspnea on exertion GI Denies hematochezia and Denies change in bowel habits Denies hematuria Musc Denies back pain and Denies limited range of motion Neuro Details: Has neuropathy on all extremities distally Denies focal weakness and Denies convulsions Psych Denies depression and Denies mood swings Physical Exam Const General: comfortable and no acute distress Orientation/consciousness: patient oriented x3 Neck Neck: Yes no lymphadenopathy Chest Other: unable to palpate any mass on the left breast, no axillary lymphadenopathy, no supraclavicular lymphadenopathy Resp Auscultation: clear to auscultation bilaterally Cardio Rhythm: regular rhythm GI Palpation (GI): Soft to palpation, nontender and no guarding Neuro General: patient oriented x3 Assessment & Plan Assessment & Plan (1) 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 She had an ER MD HER2 positive tumor. She is also on trastuzumab and pertuzumab. . She is ready to undergo mastectomy. She had initially wanted to proceed with lumpectomy but she has changed her mind and wants to proceed with mastectomy. I again reviewed with her the technique of left breast mastectomy and sentinel biopsy. I discussed with her the risks including but not limited to bleeding, infections, flap necrosis, postop pain, poor healing, hematoma, nerve injury, as well as the benefits and alternatives. She understands and now wants to pr oceed. She is waiting for her daughter from [place] to come and be with her during that procedure. I also explained to her what to expect postoperatively. She may need to stay overnight postop for pain management. Orders: Orders NM sentinel node w imaging 12/02/22 C50.912 - Malignant neoplasm of unspecified site of left female breast Coding Level of Care Code Est Pt Level 4 (11219) Diagnoses Invasive ductal carcinoma of left breast in female C50.912
== END 2022-12-02 13:36 | disposition home or self-care (01) ==
PROVIDERS: PCP Nurse Practitioner Primary Care; Visit Provider Surgery
DX: C50.912 Malignant neoplasm of unspecified site of left female breast (principal)
CPT/HCPCS: 99214

== ENCOUNTER → 2022-12-02 12:50 | Outpatient (BNVA) | payer MEDICARE, SELFPAY | PROVIDERS: PCP Nurse Practitioner Primary Care; Visit Provider Surgery | DX: C50.912 Malignant neoplasm of unspecified site of left female breast (principal) | CPT/HCPCS: 99212 ==

== ENCOUNTER 2023-01-05 09:45 | Day surgery (SDC) | payer MEDICARE, SELFPAY ==
[2022-12-24 12:20] VITALS: BP 138/65; PULSE 76; RESP 18; O2SAT 97; BMI 22.1
--- NOTE | 2022-12-24 12:36 | HO.ANESPROP2 ---
Documented by User: Jailene Ag NP 12/31/22 13:15 HPI - Anesthesia Eval Consult details Narrative: 77yo F for Left Breast Mastectomy, Left Sheldon Node Biopsy, 01/05/23 Cardiac optimized No recent illness No CP/SOB with stairs, groceries Chemo. Last ~10/30/22. Neuropathy, fatigue Asthma stable. Albuterol ~ 1 x weekly Palps controlled with betablocker GA and opiate naive - severe N/V with , anxiety about N/V postop. Aponvie ordered prophylactic. [facility] Active Problems Active Problems: All Active Problems (Updated 12/24/22 @ 12:27 by Yoli Valdes RN) Preop cardiovascular exam (Acute) Needle exposure (Acute) Aortic regurgitation (Acute) PAC (premature atrial contraction) (Acute) Palpitations (Acute) Family history of ovarian cancer (Acute) Invasive ductal carcinoma of left breast in female (Chronic) Breast calcification, left (Acute) Diverticulosis (Acute) Tubular adenoma (Acute) Osteoporosis (Acute) Past Medical History Medical History History of chemotherapy Arthritis Breast cancer Family history of ovarian cancer 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 Mother Ovarian ca Family history of problems with anesthesia: No Surgical History Surgical History History of nasal surgery Hx of tonsillectomy Hx of colonoscopy History of repair of retinal tear by laser photocoagulation History of cataract surgery History of Problems with Anesthesia: No Social History Household Members: None Housing: Condominium Are you a primary animal caretaker to a significant other at home: No Do you presently have visiting nurse or other home services: Yes ([facility]) Alcohol intake: current Alcohol intake frequency: holidays/special occasions only Patient Tobacco Use Status: Former Tobacco user Quit Date: 2021 Tobacco use type: Cigarette Years Smoked: 25 Use of substances other than those prescribed or required for medical reasons: No Substance Use Type: Marijuana Substance Use Type Other:: smokes marijuana for sleep and appetite Substance Use Frequency: Daily Have you been hit, kicked, punched, or otherwise hurt by someone within the past year? If so, by whom?: No Are you DNR?: No Advance Directives: No (no official HCP-daughter & cousin are primary contacts) Advance Directives Information Provided: Yes (brochure given) Advance Directives on File: No Recently lost weight without trying: No Eating poorly because of decreased appetite: No Nutrition Risks: No Nutritional Risk Poor oral hygiene: No (one missing tooth-lower right) service: No Current occupational status: employed Meds Allergies Allergy/AdvReac Type Severity Reaction Status Date / Time animal dander Allergy Hives Verified 01/05/23 08:09 feathers Allergy Hives Verified 01/05/23 08:09 Seasonal Allergies Allergy Itchy Eyes Verified 01/05/23 08:09 Home Medications Medication Instructions Recorded Confirmed Last Taken Type albuterol sulfate 90 mcg/actuation 1 inh inhalation Q4H PRN Wheezing 09/17/21 01/05/23 01/03/23 History aerosol inhaler atorvastatin 10 mg tablet 10 mg PO QPM 09/17/21 01/05/23 01/04/23 History fluticasone propionate 50 1 spray intranasal DAILY PRN Nasal 09/17/21 01/05/23 12/16/22 History mcg/actuation nasal Congestion spray,suspension ipratropium 0.5 mg-albuterol 3 mg 3 ml inhalation Q6H PRN Wheezing 09/17/21 01/05/23 Unknown History (2.5 mg base)/3 mL nebulization soln biotin 5,000 mcg sublingual tablet 5,000 mcg sublingual DAILY 12/24/22 01/05/23 01/04/23 History metoprolol succinate 25 mg 25 mg PO QPM 12/24/22 01/05/23 01/04/23 History tablet,extended release 24 hr multivitamin-ferrous 1 tab PO DAILY 12/24/22 01/05/23 01/04/23 History fumarate-folic acid 18 mg-400 mcg tablet (Centrum Women) vitamin B complex 1 tab PO DAILY 12/24/22 01/05/23 01/04/23 History Exam Exam Date and Time: December 24, 2022 1236 Height,Weight and Vital Signs: Height 5 ft 2 in Weight 54.885 kg Last Vital Signs Pulse 76 12/24/22 12:20 Resp 18 12/24/22 12:20 BP 138/65 12/24/22 12:20 Pulse Ox 97 12/24/22 12:20 O2 Del Method Room Air 12/24/22 12:20 Pertinent Lab Results Pertinent Lab Results: Laboratory Tests 12/01/22 14:29 WBC 5.5 Hgb 10.7 L Hct 33.1 L Plt Count 314 Sodium 143 Potassium 4.3 Chloride 108 Carbon Dioxide 26 BUN 15 Creatinine 0.72 Narrative Narrative: EKG 07/2022 Vent. Rate : 092 BPM Atrial Rate : 092 BPM P-R Int : 134 ms QRS Dur : 074 ms QT Int : 360 ms P-R-T Axes : 083 053 048 degrees QTc Int : 445 ms Sinus rhythm with Premature supraventricular complexes Right atrial enlargement Borderline ECG When compared with ECG of 14-MAY-2010 10:19, Premature supraventricular complexes are now Present ECHO 09/2022 Conclusions: - The left ventricular systolic function is normal. The calculated ejection fraction is 62% by biplane method. - There is moderate calcification of the aortic valve. There is mild aortic valve regurgitation. - There is moderate mitral annular calcification. - The inferior vena cava is normal in size and collapses greater than 50% with inspiration. Exercise Stress 11/2022 Protocol: SALVADOR Max HR: 169 BPM 116% of Pred: 145 BPM Max BP: 156/080 mmHG Max Work Load: 4.4 METS Exercise stress test exercise 4 min 30 sec of Salvador protocol with stage 1 held reduced speed as low as 1 mph and reduce grade due to fatigue and high heart rate, achieivng as high as 103% MPHR, without anginal symptoms, with PACs, PVCs, and short vetircular runs, with normotensive response to exercise, without EKG changes Airway Mallampati Class: II TM Dist: >3cm Neck ROM: Limited (Compressed disc C2-3) Loose/Missing/Broken Teeth: Yes (RL molar pulled) Heart: RRR Lungs: CTAB Assessment and Plan Assessment Anesthesia Assessment: Anesthesia Plan Discussed and PAT Visit Final Anesthetic Review Family History of Problems with Anesthesia: No History of Problems with Anesthesia: No Documented by User: Gris Camp MD 01/05/23 12:12 HPI - Anesthesia Eval Consult details Narrative: 77yo F for Left Breast Mastectomy, Left Sheldon Node Biopsy, 01/05/23 Cardiac optimized No recent illness No CP/SOB with stairs, groceries Chemo. Last ~10/30/22. Neuropathy, fatigue Asthma stable. Albuterol ~ 1 x weekly Palps controlled with betablocker GA and opiate naive - severe N/V with , anxiety about N/V postop. Aponvie ordered prophylactic. Patient has a cough, fever for a couple of hours last week resolved. No fever since. No malaise. Productive of whitish sputum. Also has allergies. Will proceed. 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 Mother Ovarian ca Surgical History Surgical History History of nasal surgery Hx of tonsillectomy Hx of colonoscopy History of repair of retinal tear by laser photocoagulation History of cataract surgery Social History Household Members: None Housing: Condominium Are you a primary animal caretaker to a significant other at home: No Do you presently have visiting nurse or other home services: Yes ([facility]) Alcohol intake: current Alcohol intake frequency: holidays/special occasions only Patient Tobacco Use Status: Former Tobacco user Quit Date: 2021 Tobacco use type: Cigarette Years Smoked: 25 Use of substances other than those prescribed or required for medical reasons: No Substance Use Type: Marijuana Substance Use Type Other:: smokes marijuana for sleep and appetite Substance Use Frequency: Daily Have you been hit, kicked, punched, or otherwise hurt by someone within the past year? If so, by whom?: No Are you DNR?: No Advance Directives: No (no official HCP-daughter & cousin are primary contacts) Advance Directives Information Provided: Yes (brochure given) Advance Directives on File: No Recently lost weight without trying: No Eating poorly because of decreased appetite: No Nutrition Risks: No Nutritional Risk Poor oral hygiene: No (one missing tooth-lower right) service: No Current occupational status: employed Meds Allergies Allergy/AdvReac Type Severity Reaction Status Date / Time animal dander Allergy Hives Verified 01/05/23 08:09 feathers Allergy Hives Verified 01/05/23 08:09 Seasonal Allergies Allergy Itchy Eyes Verified 01/05/23 08:09 Home Medications Medication Instructions Recorded Confirmed Last Taken Type albuterol sulfate 90 mcg/actuation 1 inh inhalation Q4H PRN Wheezing 09/17/21 01/05/23 01/03/23 History aerosol inhaler atorvastatin 10 mg tablet 10 mg PO QPM 09/17/21 01/05/23 01/04/23 History fluticasone propionate 50 1 spray intranasal DAILY PRN Nasal 09/17/21 01/05/23 12/16/22 History mcg/actuation nasal Congestion spray,suspension ipratropium 0.5 mg-albuterol 3 mg 3 ml inhalation Q6H PRN Wheezing 09/17/21 01/05/23 Unknown History (2.5 mg base)/3 mL nebulization soln biotin 5,000 mcg sublingual tablet 5,000 mcg sublingual DAILY 12/24/22 01/05/23 01/04/23 History metoprolol succinate 25 mg 25 mg PO QPM 12/24/22 01/05/23 01/04/23 History tablet,extended release 24 hr multivitamin-ferrous 1 tab PO DAILY 12/24/22 01/05/23 01/04/23 History fumarate-folic acid 18 mg-400 mcg tablet (Centrum Women) vitamin B complex 1 tab PO DAILY 12/24/22 01/05/23 01/04/23 History Exam Height,Weight and Vital Signs: Height 5 ft 2 in Weight 54.885 kg Last Vital Signs Pulse 76 12/24/22 12:20 Resp 18 12/24/22 12:20 BP 138/65 12/24/22 12:20 Pulse Ox 97 12/24/22 12:20 O2 Del Method Room Air 12/24/22 12:20 Vital Signs Temp Pulse Resp BP Pulse Ox O2 Del Method 01/05/23 08:14 97.4 F 98 16 120/77 98 Room Air Assessment and Plan Final Anesthetic Review NPO: Yes ASA Class: III Final Preanesthetic Review: No Changes in Pt Med Stat, Meds/Allgs Chart Reviewed, Consent Obtained/Reviewed and Anes Risks/Benef Reviewed Patient Risk: Intermediate Procedure Risk: Low Assessment/Block/Sedation in SS: Assess/Block/Sedation-SS Anesthetic Plan Anesthetic Plan: GA Disposition: Standard PACU
[2023-01-05] VITALS (9 sets, daily range): BP systolic 93–135; BP diastolic 52–77; PULSE 65–98; RESP 12–18; TEMP 36.3–37.2; O2SAT 93–100; BMI 21.1; BMI 21.5
[2023-01-05] MEDS: Lactated Ringers 1,000 ML 100 ML IVCONT (08:43)
[2023-01-05] MEDS: Aprepitant 32 MG/4.4 ML VIAL IVPUSH (08:56)
--- NOTE | 2023-01-05 09:35 | MHC.SHP ---
Pre-Procedural Eval Section A Date of Service: 01/05/23 Section B Chief Complaint: Malignant neoplasm of unspecified site of left fem Details of Present Illness: She has invasive ductal cancer, with clinical staging T3 so she therefore underwent neoadjuvant chemotherapy; now for mastectomy, sentinel biopsy; sentinel node biopsy with methylene blue planned, as radionuclear colloid unavailable Relevant Family History (Specify if Yes): Yes Relevant Social History: None Present Medications: see Short Stay Collaborative assessment Medical History: Significant History (History of PACs, diverticulosis, osteoporosis) History of Previous Operations: No relevant previous surgery Allergies: Allergies Allergy/AdvReac Type Severity Reaction Status Date / Time animal dander Allergy Hives Verified 01/05/23 08:09 feathers Allergy Hives Verified 01/05/23 08:09 Seasonal Allergies Allergy Itchy Eyes Verified 01/05/23 08:09 Review of Systems Sugical H&P ROS: Negative: Constitution, Cardiovascular, Respiratory, Neurological, Psychiatric, Hem-Onc, Allergic/Immunologic, Gastrointestinal, Genitourinary, Musculoskeletal, Integumentary, Endocrine and Eyes/Ears/Nose/Throat Exam Surgical H&P Exam: Normal: HEENT, Normal: Heart, Normal: Lungs, Normal: Extremities, Normal: Abdomen, Normal: Skin and Normal: Neurological Exam Comment: Unable to palpate any mass, nor lymphadenopathy in the axilla Plan Diagnosis/Plan: Unchanged I have reviewed the history and physical and performed a pertinent physical examination on my patient. No changes have occurred unless specified. Time Spent With Patient Time: Total time managing care of this patient today ____ minutes.
--- NOTE | 2023-01-05 11:56 | W.PM.OPN ---
Operative Note Operative Note Date of Service: 01/05/23 Narrative: Preop diagnosis: Invasive ductal cancer, left breast, status post neoadjuvant chemotherapy Postop diagnosis: The same Procedure: Mastectomy, left breast with sentinel node biopsy using methylene blue Surgeon: Rayo Ulloa MD project administrative assistant: HUMERA Lord The patient is a 77 year female with an invasive ductal cancer of the left breast. She had a T3 lesion based on doing study so she had undergone neoadjuvant chemotherapy. She had hoped to proceed with to me at that time but had changed her mind and wanted to proceed with mastectomy. She is here today for definitive surgical treatment She understood the technique of mastectomy, and sentinel biopsy. She was brought to the operating room. She was placed supine renal seizure via laryngeal mask airway. The left arm was abducted to expose the axilla as well. The left chest including axilla and upper arm were prepped and draped in the usual sterile fashion. Surgical time-out was done. The patient received cefazolin 2 g IV preoperatively. I injected total of 5 cc of methylene blue into the subareolar space on 4 different quadrant and this area massaged. I marked my planned line of incision on the breast elliptically around the areola complex, making sure that we had adequate superior inferior flaps for coverage of the mastectomy site I infiltrated the planned line of incision with lidocaine 1%. I made incision using blade 15. This carried down with electrocautery through the full-thickness of the skin and subcutaneous layer. I then proceeded to develop my superior flap. I define a plane of dissection about 5 mm thick on the skin and subcutaneous layer. We paid attention to the consistency of the thickness of the flap. This was carried down on the inferior aspect all the way to the clavicle. The medial margin was the sternum. I exposed the fascia of the pectoralis and incised this with electrocautery. I proceeded to then developed inferior flap. Again this was done in the same fashion as appear for flap and was developed all the way to the inframammary fold. I exposed the fascia of the pectoralis at this level and incised this. I connected the incision on the pectoralis fascia with the superior incision. I then proceeded to use electrocautery to separate fascia of the pectoralis off of the fibers of the pectoralis itself. This was a well-defined plane of dissection. We proceeded to separate this breast tissue along with the pectoralis fascia along this well-defined plane off of the entire pectoralis muscle. The lateral edge of the pectoralis muscle was exposed. This defined the lateral mastectomy margins so I had to include excision of the breast tissue at this area all the way inferiorly. The medial aspect of the mastectomy specimen was marked with a stitch and was sent for pathology. I then proceeded to identify sentinel nodes. I opened up the fascia of the axilla and exposed the axillary fat pad. We retracted and examined this axillary fat. I proceeded to examine the axillary fat pad with blunt dissection using a finger and was able to identify 2 nodes that were stained with methylene blue dye. These were removed and were sent as sentinel nodes 1 and 2. A 3rd node which did not stain with the methylene blue but was easily palpable and visualized adjacent to the other to lymph nodes was removed as well and sent as an additional lymph node. We did careful examination of the axillary fat and there were no other palpable lymph nodes nor any staining with the blue dye. I irrigated both axilla and the mastectomy sites. I observed for hemostasis. Oozing areas were controlled with electrocautery. I positioned a JEFFREY 7 drain along the inferior flap, medially towards the superior flap through a stab wound on the inferior flap laterally. This was secured to the skin with silk 2-0 sutures. We proceeded to observe for hemostasis. We observed for a minute and it appeared that we had good hemostasis of the chest wall and the axilla. I therefore reapposed the subcutaneous layer with Polysorb 3-0 interrupted sutures. Skin closure was achieved with Polysorb 4-0 subcuticular running sutures. The flaps were infiltrated with Marcaine 0.5% for postop analgesia. Dressings were applied. The procedure was completed. The patient tolerated the procedure well. There were no immediate complications. Initial and final counts of sponges and instruments were correct. Estimated blood loss was about 25 cc . The patient was extubated without difficulty and transferred to the recovery room with stable vital signs. Breast Eagle Node Biopsy Substrate(s) used for sentinel node biopsy in the neoadjuvant setting: Dye All colored nodes or non-colored nodes present at the end of a dye filled lymphatic channel were removed, if dye was used as the substrate for localization: Yes All significantly radioactive nodes were removed, if radionuclide was used as the substrate for localization: N/A All palpably suspicious nodes were removed, if present: Yes If clips were placed in pathology-involved nodes, those nodes were identified and removed: N/A General Surg. - Synoptic Notes Breast Eagle Node Biopsy Substrate(s) used for sentinel node biopsy in the neoadjuvant setting: Dye All colored nodes or non-colored nodes present at the end of a dye filled lymphatic channel were removed, if dye was used as the substrate for localization: Yes All significantly radioactive nodes were removed, if radionuclide was used as the substrate for localization: N/A All palpably suspicious nodes were removed, if present: Yes If clips were placed in pathology-involved nodes, those nodes were identified and removed: N/A
--- NOTE | 2023-01-05 13:12 | PHA.MEDREC ---
Pharmacy Consult ? Medication Reconciliation Pharmacy has completed the medication reconciliation. Pharmacy has reviewed the med rec done by nursing.
[2023-01-05] MEDS: Lactated Ringers 1,000 ML 80 ML IVCONT (13:55)
--- NOTE | 2023-01-05 14:40 | PM.EVENT ---
Event Note Date of Service: 01/05/23 Event Note: Seen postop Underwent mastectomy, sentinel biopsy of the left breast earlier Comfortable, says she has good pain control Dressings dry JEFFREY drain scanty, about 20 cc of old blood Looks well Stable vital signs Pain management Hope to discharge tomorrow Family in the room, updated Time Spent With Patient Time: Total time managing care of this patient today ____ minutes.
[2023-01-05] MEDS: Acetaminophen 325 MG TABLET 650 MG PO (17:42)
[2023-01-05] MEDS: Morphine Sulfate 2 MG/ML CARTRIDGE IVPUSH (17:42)
[2023-01-05] MEDS: Docusate Sodium 100 MG CAPSULE PO (20:04)
[2023-01-05] MEDS: Atorvastatin Calcium 10 MG TABLET PO (20:05)
[2023-01-06 01:36] VITALS: BP 119/60; PULSE 77; RESP 16; TEMP 36.6; O2SAT 97
[2023-01-06] MEDS: oxyCODONE HCl Immed Release 5 MG TABLET PO ×2 (02:10→12:44)
[2023-01-06] MEDS: Lactated Ringers 1,000 ML 80 ML IVCONT (02:12)
[2023-01-06 03:24] VITALS: BP 107/58; PULSE 70; RESP 18; TEMP 36.6; O2SAT 96
[2023-01-06 06:14] LABS: MANUAL DIFF FLAG NO
[2023-01-06 06:19] LABS: Basophils Percent Auto 0.2 % (0-2); Eosinophils Absolute Auto 0.1 X10*3/uL (0.0-0.4); Eosinophils Percent Auto 0.8 % (0-4); Hematocrit 31.5 % (37.0-47.0); Hemoglobin 10.4 g/dl (12.0-16.0); Imm Gran Abs Auto 0.01 X10*3/uL (0.00-0.03); Imm Gran Pct Auto 0.2 % (0.0-0.4); Lymphocytes Absolute Auto 1.7 X10*3/uL (1.2-4.9); Lymphocytes Percent Auto 26.8 % (20-40); Mean Corpuscular Hemoglobin 31.7 pg (27.0-33.0); Mean Platelet Volume 9.7 fL (9.4-12.3); Monocytes Absolute Auto 0.9 X10*3/uL (0.1-1.2); Monocytes Percent Auto 13.8 % (2-11); Neutrophils Absolute Auto 3.6 x10*3/uL (2.0-8.3); Neutrophils Percent Auto 58.2 % (45-73); Platelet Count 214 X10*3/uL (160-400); Red Blood Count 3.28 X10*6/uL (4.20-5.50); White Blood Count 6.2 X10*3/uL (4.8-10.8)
[2023-01-06 06:53] LABS: Anion Gap 10 (12-20); Blood Urea Nitrogen 12 mg/dL (9-16); Calcium 8.9 mg/dL (8.4-10.2); Carbon Dioxide 28 mmol/L (22-29); Chloride 104 mmol/L (96-108); Creatinine Clr Calc Pharmacy 60.9; Estimated Glomerular Filt Rate > 60; Glucose Fasting 101 mg/dL (60-99); Potassium 4.3 mmol/L (3.3-5.1); Sodium 138 mmol/L (135-145)
[2023-01-06 07:34] VITALS: BP 113/62; PULSE 72; RESP 16; TEMP 36.7; O2SAT 98
--- NOTE | 2023-01-06 08:19 | P.PNGS_ITS ---
Subjective Subjective Date of Service: 01/15/23 Interval history: feels well good pain control no events reported overnight she says she feels ready to be discharged Physical Exam 2 Vital Signs: Vital Signs: Last Vital Signs Temp 98.1 F 01/06/23 07:34 Pulse 72 01/06/23 07:34 Resp 16 01/06/23 07:34 BP 113/62 01/06/23 07:34 Pulse Ox 98 01/06/23 07:34 O2 Del Method Room Air 01/06/23 07:34 O2 Flow Rate 3 01/05/23 12:14 BMI result Body Mass Index 21.5 Const: General: comfortable and no acute distress Chest: Other: JEFFREY drain- scanty old red blood dressings dry Resp: Effort & Inspection: normal respiratory effort Cardio: Rate: regular rate GI: Palpation (GI): Soft to palpation Objective Data Active Medications Acetaminophen (Acetaminophen 325 Mg Tablet) 650 mg PO Q6H PRN PRN Reason: Pain, Mild (Pain Scale 1-3) Last Admin: 01/05/23 17:42 Dose: 650 mg Documented By: GENEVIEVE Al Hydroxide/Mg Hydroxide (Magnesium Hydrox/Alum Hydrox 30 Ml Oral.Susp) 30 ml PO Q6H PRN PRN Reason: Heartburn Albuterol Sulfate (Albuterol Sulfate 90 Mcg 8 Gm Inhaler) 1 puff INHALE Q4H PRN PRN Reason: Wheezing Albuterol/Ipratropium (Albuterol/Iprat 2.5/0.5mg 3 Ml Ampul.Neb) 3 ml INHALE Q6H PRN PRN Reason: Wheezing Atorvastatin Calcium (Atorvastatin Calcium 10 Mg Tablet) 10 mg PO DAILY@2100 [facility] Last Admin: 01/05/23 20:05 Dose: 10 mg Documented By: BRITTNI Docusate Sodium (Docusate Sodium 100 Mg Capsule) 100 mg PO BID [facility] Last Admin: 01/05/23 20:04 Dose: 100 mg Documented By: BRITTNI Fentanyl (Fentanyl Citrate/Pf 100 Mcg/2 Ml Vial) 25 mcg IVPUSH Q5M PRN; Protocol PRN Reason: Pain, Moderate(Pain Scale 4-6) Fluticasone Propionate (Fluticasone Propionate Nasal 16 Gm [place]) 1 spray NOSTRIL-B DAILY PRN PRN Reason: Nasal Congestion Heparin Sodium (Porcine) (Heparin Sodium,Porcine 5,000 Unit/Ml Vial) 5,000 unit SUBCUT Q12H [facility] Hydromorphone HCl (Hydromorphone Hcl 0.5 Mg/0.5 Ml Syringe) 0.25 mg IVPUSH Q5M PRN; Protocol PRN Reason: Pain, Severe (Pain Scale 7-10) Lactated Ringer's (Lr) 1,000 mls @ 80 mls/hr IVCONT .[id number] [facility] Last Admin: 01/06/23 02:12 Dose: 80 mls/hr Documented By: BRITTNI Promethazine HCl 6.25 mg/ (Sodium Chloride) 50.25 mls @ 201 mls/hr IV ONCE PRN PRN Reason: Nausea and Vomiting Metoprolol Succinate (Metoprolol Succinate Er 25 Mg Tab.Er.24h) 25 mg PO DAILY@2100 GOPI; Protocol Last Admin: 01/05/23 19:53 Dose: Not Given Documented By: BRITTNI Non-Admin Reason: Decreased Blood Pressure Morphine Sulfate (Morphine Sulfate 2 Mg/Ml Cartridge) 2 mg IVPUSH Q3H PRN; Protocol PRN Reason: Pain, Severe (Pain Scale 7-10) Last Admin: 01/05/23 17:42 Dose: 2 mg Ondansetron HCl (Ondansetron Hcl 4 Mg/2 Ml Vial) 4 mg IVPUSH ONCE PRN PRN Reason: Nausea and Vomiting Ondansetron HCl (Ondansetron Hcl 4 Mg/2 Ml Vial) 4 mg IVPUSH Q6H PRN PRN Reason: Nausea and Vomiting Oxycodone HCl (Oxycodone Hcl Immed Release 5 Mg Tablet) 5 mg PO ONCE PRN PRN Reason: Pain, Severe (Pain Scale 7-10) Oxycodone HCl (Oxycodone Hcl Immed Release 5 Mg Tablet) 5 mg PO Q4H PRN PRN Reason: Pain, Moderate(Pain Scale 4-6) Last Admin: 01/06/23 02:10 Dose: 5 mg Documented By: BRITTNI Sodium Chloride (0.9 % Sodium Chloride Flush 3 Ml Syringe) 3 ml IVFLUSH QSHIFT [facility] Last Admin: 01/06/23 07:16 Dose: Not Given Documented By: SAMRA Non-Admin Reason: IV Running Labs 01/06/23 05:39 01/06/23 05:39 Labs: Laboratory Results - last 24 hr 01/06/23 05:39 MCV 96.0 MCH 31.7 MCHC 33.0 RDW 12.0 Plt Count 214 D MPV 9.7 Immature Gran % (Auto) 0.2 Neut % (Auto) 58.2 Lymph % (Auto) 26.8 [place] % (Auto) 13.8 H Eos % (Auto) 0.8 Baso % (Auto) 0.2 Lymph # (Auto) 1.7 [place] # (Auto) 0.9 Eos # (Auto) 0.1 Baso # (Auto) 0.0 Abs Immat Gran (auto) 0.01 Absolute Neuts (auto) 3.6 Absolute Nucleated RBC 0.000 Nucleated RBC % (auto) 0.0 Anion Gap 10 L Estim Creat Clear Calc 60.9 Estimated GFR > 60 Fasting Glucose 101 H Calcium 8.9 D Procedures Date of Service Date of Service: 01/15/23 Progress Note: A&P Assessment and plan (1) 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 Quality Stroke Does the patient have a stroke diagnosis?: No VTE Prior VTE?: No VTE Risk Level:: Medical - moderate - high VTE Device Contraindication: N/A - Device Ordered VTE Drug Contraindication: N/A - Med Ordered
[2023-01-06] MEDS: Docusate Sodium 100 MG CAPSULE PO (09:08)
[2023-01-06] MEDS: Acetaminophen 325 MG TABLET 650 MG PO (09:10)
--- NOTE | 2023-01-06 09:42 | HO.POSTANES ---
Post Anesthesia Evaluation Post Anesthesia Evaluation Date of Service: 01/05/23 Vital Signs: Vital Signs Temp Pulse Resp BP Pulse Ox O2 Del Method 01/06/23 07:34 98.1 F 72 16 113/62 98 Room Air 01/06/23 03:24 97.8 F 70 18 107/58 L 96 Room Air 01/06/23 01:36 97.8 F 77 16 119/60 97 Room Air Anesthesia: General Endotracheal-GETA Mental Status: Awake Pain Control: Satisfactory Nausea/Vomiting: None Hydration: Adequate Anesthesia-Related Issues: No Anes. Related Issues
--- NOTE | 2023-01-06 09:48 | PM.DS ---
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 She had a T3 lesion based on imaging so she had undergone neoadjuvant chemotherapy. She had hoped to proceed with lumpectomy but had changed her mind and wanted to proceed with mastectomy. She is here today for definitive surgical treatment. HOSPITAL COURSE: On 01/05/23, a mastectomy, left breast with sentinel node biopsy using methylene blue was performed by Dr. Ulloa without complication. The patient tolerated the procedure well and was admitted for observation. She had an uncomplicated recovery course. On POD #1, she felt well with good pain control. She was tolerating a solid diet and ambulating without difficulty. Her dressing was clean and intact with scant old bloody output in the JEFFREY drain. She felt ready for discharge. She was discharged to home on 01/06/23 in stable condition with VNA services. She is to follow up in the office in 2 weeks. Status at Discharge Functional status at discharge: independent ambulation Overall status at discharge: patient is progressing back to baseline Time Attestation Discharge coordination time: Less than 30 minutes Quality: Safe Use of Opioids Does Pt have an Active Cancer Diagnosis on the Problem List?: Yes Opioid Measure Date for [facility] Report: 12/07/22 Opioid Measure Time for [facility] Report: 09:49 Quality: Stroke Does the patient have a stroke diagnosis?: No Physical Exam Vital Signs: Vital Signs: Last Vital Signs Temp 98.1 F 01/06/23 07:34 Pulse 72 01/06/23 07:34 Resp 16 01/06/23 07:34 BP 113/62 01/06/23 07:34 Pulse Ox 98 01/06/23 07:34 O2 Del Method Room Air 01/06/23 07:34 O2 Flow Rate 3 01/05/23 12:14 BMI result Body Mass Index 21.5 Const: General: comfortable, no acute distress and alert Orientation/consciousness: patient oriented x3 Chest: Other: left mastectomy site dressing clean; JEFFREY output scant, dark sanguineous Resp: Effort & Inspection: normal respiratory effort Skin: General skin exam: no rashes or lesions noted Neuro: General: patient oriented x3 DS: Data Data Completed and Pending Pending studies at discharge: Pending at discharge 01/05/23 11:32 Surgical [PTH] Routine 01/05/23 11:36 Surgical [PTH] Routine 01/05/23 11:37 Surgical [PTH] Routine 01/05/23 11:40 Surgical [PTH] Routine Labs on day of discharge: Laboratory Results - last 24 hr 01/06/23 05:39 WBC 6.2 RBC 3.28 L Hgb 10.4 L Hct 31.5 L MCV 96.0 MCH 31.7 MCHC 33.0 RDW 12.0 Plt Count 214 D MPV 9.7 Immature Gran % (Auto) 0.2 Neut % (Auto) 58.2 Lymph % (Auto) 26.8 [place] % (Auto) 13.8 H Eos % (Auto) 0.8 Baso % (Auto) 0.2 Lymph # (Auto) 1.7 [place] # (Auto) 0.9 Eos # (Auto) 0.1 Baso # (Auto) 0.0 Abs Immat Gran (auto) 0.01 Absolute Neuts (auto) 3.6 Absolute Nucleated RBC 0.000 Nucleated RBC % (auto) 0.0 Sodium 138 Potassium 4.3 Chloride 104 Carbon Dioxide 28 Anion Gap 10 L BUN 12 Creatinine 0.63 Estim Creat Clear Calc 60.9 Estimated GFR > 60 Fasting Glucose 101 H Calcium 8.9 D Discharge Plan Discharge Patient Disposition: Home Health Service Referrals: Rayo Ulloa MD [Physician] - 2 Weeks Discharge Medications: New oxycodone-acetaminophen [Percocet] 5-325 mg tablet 1 tab PO Q4-6H PRN (Reason: pain) Qty: 30 0RF Rx Instructions: Partial Fill upon patient request. ibuprofen 600 mg tablet 600 mg PO Q6H PRN (Reason: pain) Qty: 30 0RF Continued vitamin B complex Tablet 1 tab PO DAILY Centrum Women 18-400 mg-mcg Tablet 1 tab PO DAILY biotin 5,000 mcg Tablet, Sublingual 5,000 mcg SUBLINGUAL DAILY metoprolol succinate 25 mg tablet extended release 24 hr 25 mg PO BEDTIME ondansetron 8 mg Tablet,Disintegrating 8 mg PO Q8H PRN (Reason: Nausea) Qty: 60 3RF Rx Instructions: with chemotherapy dexamethasone 4 mg Tablet 4 mg PO BID Qty: 30 2RF Rx Instructions: start night before chemo and take for 2 days after chemo loperamide [Imodium A-D] 2 mg Tablet 2 mg PO Q4H PRN (Reason: Diarrhea) Qty: 60 3RF Rx Instructions: administer after each loose stool until symptoms controlled; do not exceed 8 mg per 24 hrs atorvastatin 10 mg tablet 10 mg PO BEDTIME fluticasone propionate 50 mcg/actuation spray,suspension 1 spray intranasal DAILY PRN (Reason: Nasal Congestion) albuterol sulfate 90 mcg/actuation HFA aerosol inhaler 1 inh inhalation Q4H PRN (Reason: Wheezing) ipratropium-albuterol 0.5 mg-3 mg(2.5 mg base)/3 mL solution for nebulization 3 ml inhalation Q6H PRN (Reason: Wheezing) Discharge Orders: Discharge Order (Routine); Ordered 01/06/23 Ordered By: Carlee Lord Diet: Advance to usual diet Activity on Discharge: No heavy lifting Activity Restrictions/Additional Instructions: If the incision area is tender, you may apply an ice pack for short intervals (No more than 20 minutes on, followed by at least 20 minutes off). Do not apply heat. Do not use creams, lotions, or topical antibiotics unless instructed to do so by your surgeon. These can cause infection or allergic reaction. Okay to shower Okay to change dressings with gauze Empty JEFFREY drain 2x a day and record output No strenuous activities Call the office for follow-up next week - Dr Ulloa [phone] Call Your Doctor If: -Your temperature exceeds 101.5? F -You experience excessive pain or swelling -You have an unexpected reaction to medication -You have excessive bleeding -You experience continued vomiting/nausea -Your incision begins to separate -Your incision shows signs of infection such as increased redness, swelling, excessive pain, drainage (light blood or clear fluid is normal) or heat
--- NOTE | 2023-01-06 09:56 | P.F2F_ITS ---
Service Date Service Date: 01/06/23 Encounter Date of encounter: 01/06/23 Reasons for Services Signs and symptoms assessed: incisional pain; incision tenderness; JEFFREY drain output, activity Reason for [facility]: wound care and postoperative assessment and/or care Homebound: Leaving the home is medically contraindicated at this time without the asist of a device and/or another person due th the listed conditions above and below. Reason homebound: weakness related to hospital stay and unable to drive Homebound supporting statement: Ms. Lundy is s/p left simple mastectomy with left axillary sentinel lymph node biopsy for invasive ductal CA of the left breast. She has a JEFFREY drain in place at the mastectomy site. She will need VNA services for JEFFREY drain care and post operative monitoring. Certification: Based on the above findings, I certify that this patient is confined to the home and needs intermittent [facility] care, physical therapy and/or speech therapy, or continues to need occupational therapy. The patient is under my care, and I have initiated the establishment of the plan of care. The patient will be followed by a physician who will periodically review the plan of care. Time Spent With Patient Time: Total time managing care of this patient today ____ minutes.
--- NOTE | 2023-01-06 10:21 | MHC.CM.PN ---
Addendum entered by Melissa Giordano 01/06/23 10:26: IMM DELIVERED IN ERROR, PT IS SDC. 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
[2023-01-06 11:12] VITALS: O2SAT 96
== END 2023-01-06 13:35 | disposition home health service (06) ==
LOC: HO.SSS 09:47 → HO.S3 12:16
PROVIDERS: Physician Assistant Surgical; PCP Nurse Practitioner Primary Care; Visit Provider Surgery
PROC: (CPT 19303; principal; 2023-01-05 10:00)
PROC: (CPT 19307; 2023-01-05 10:00)
DX: C50.912 Malignant neoplasm of unspecified site of left female breast (principal); Z17.0 Estrogen receptor positive status [ER+]; Z92.21 Personal history of antineoplastic chemotherapy; G62.9 Polyneuropathy, unspecified; I35.1 Nonrheumatic aortic (valve) insufficiency; E78.00 Pure hypercholesterolemia, unspecified; M81.0 Age-related osteoporosis without current pathological fracture; J45.909 Unspecified asthma, uncomplicated; Z79.51 Long term (current) use of inhaled steroids; Z79.899 Other long term (current) drug therapy; Z87.891 Personal history of nicotine dependence
CPT/HCPCS: 19307; 38525; 38900; 36415; 80048; 85025; 86850; 86900; 86901; 88305; 88307; 88341; 88342; 99024; C9145; J0131; J0690; J2270; J2371; J2405; J2704; J2795; J3010; J7120; Q9968

== ENCOUNTER → 2023-01-05 09:45 | Outpatient (BNV) | payer MEDICARE, SELFPAY | PROVIDERS: PCP Nurse Practitioner Primary Care; Visit Provider Surgery | DX: C50.912 Malignant neoplasm of unspecified site of left female breast (principal) | CPT/HCPCS: 19305; 19307; 38525; 38900; 99024; 99499; G0180 ==

== ENCOUNTER 2023-01-11 11:33 | Outpatient (AMB) | payer MEDICARE, SELFPAY ==
--- NOTE | 2023-01-11 11:34 | A.OFFVIS_ITS ---
Intake Vital Signs 01/11/23 11:39 Height 5 ft 2 in Weight 114 lb 2 oz BMI 20.9 BP 179/81 H Blood Pressure Location Lt brachial Position Sitting Pulse 82 Intake Visit Reasons: drain removal Intake Note: Patient is seen in office for post op assessment post left breast mastectomy.. Patient c/o: admits to feeling well, here for possible drain removal, has an appt schedule with Dr Valdez for next week. 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 She was discharged the following day drain in place. She says she is doing well. She has minimal output from the JEFFREY drain. She denies any significant pain and says she has not been taking any pain medications anymore. [facility] Medical History History of chemotherapy Arthritis Breast cancer Family history of ovarian cancer Invasive ductal carcinoma of left breast in female Breast calcification, left Diverticulosis Tubular adenoma On beta branden at home Osteoporosis Elevated cholesterol Palpitations History of COVID-19 Aortic regurgitation Asthma Surgical History (Updated 01/11/23 @ 11:41 by Kindra Daly [facility]) History of left mastectomy (01/05/23) History of nasal surgery Hx of tonsillectomy Hx of colonoscopy History of repair of retinal tear by laser photocoagulation History of cataract surgery Family History Father No problems noted. Mother Ovarian ca Household Members: None Housing: Condominium Are you a primary child care center assistant director to a significant other at home: No Do you presently have visiting nurse or other home services: No Alcohol intake: current Alcohol intake frequency: holidays/special occasions only Patient Tobacco Use Status: Former Tobacco user Quit Date: 2021 Tobacco use type: Cigarette Years Smoked: 25 e-Cigarette/Vaping Use: Never Used Substance Use Type: Marijuana service: No Current occupational status: employed Review of Systems Const Denies chills and Denies fever(s) Card Denies chest pain, Denies dyspnea and Denies dyspnea on exertion Resp Denies cough, Denies dyspnea and Denies dyspnea on exertion GI Denies hematochezia and Denies change in bowel habits Denies hematuria Musc Denies back pain and Denies limited range of motion Neuro Denies focal weakness and Denies convulsions Psych Denies depression and Denies mood swings Physical Exam Const General: comfortable and no acute distress Chest Other: The JEFFREY drain is in place, mastectomy site is healing well, the flaps are viable without signs of flap necrosis; there is very scanty serosanguinous output from the drain Resp Effort & Inspection: normal respiratory effort Cardio Rate: regular rate Assessment & Plan Assessment & Plan (1) Invasive ductal carcinoma of left breast in female: Code(s): C50.912 - Malignant neoplasm of unspecified site of left female breast Plan: Status post me, sentinel biopsy. There was very scanty output from the drain so I pulled this out. Flaps are viable. There was no evidence of any seroma or hematoma. There is no evidence of any infection I will see her again next week for another wound check. The path report is not back yet so we will discuss this next week as well. Coding Level of Care Code Global (48701) Diagnoses Invasive ductal carcinoma of left breast in female C50.912
[2023-01-11 11:39] VITALS: BP 179/81; PULSE 82; BMI 20.9
== END 2023-01-11 11:55 | disposition home or self-care (01) ==
PROVIDERS: PCP Nurse Practitioner Primary Care; Visit Provider Surgery
DX: C50.912 Malignant neoplasm of unspecified site of left female breast (principal)
CPT/HCPCS: 99024

== ENCOUNTER → 2023-01-11 11:33 | Outpatient (BNVA) | payer MEDICARE, SELFPAY | PROVIDERS: PCP Nurse Practitioner Primary Care; Visit Provider Surgery ==

== ENCOUNTER 2023-01-11 18:25 | Emergency (ER) | payer MEDICARE, SELFPAY ==
--- NOTE | ~2023-01-11 | CT_ITS ---
Examination: Chest. CT brain without contrast. CLINICAL INDICATION: Fall. COMPARISON: Chest x-ray 05/14/2010. TECHNIQUE: Chest x-ray 1 view. 5 mm thin axial and reformatted 2 mm thin sagittal and coronal images of brain were obtained. DLP 494. This CT examination was performed using dose optimization technique as appropriate, variously including the following: Automated exposure control Adjustment of MA and/or KV according to patient size(this includes techniques or standardized protocols for targeted exams where dose is matched to indication/reason for exam; extremities or head. Use of iterative reconstruction techniques. FINDINGS: Chest: The lungs are well-expanded and clear of acute pneumonic process. The heart size and pulmonary vascularity is normal right central venous port with its tip in mid SVC. There is mild scoliosis mid dorsal spine. Brain: There is no acute intra-axial, extra-axial bleed, masses or midline shift. There is no acute infarction in evolution. There is no edema. Bone windows reveal no calvarial abnormality. There is no scalp soft tissue abnormality. There is mild mucoperiosteal thickening in bilateral sphenoid sinuses. Rest of the paranasal sinuses and mastoid air cells are well-aerated. CT/CT head/brain wo IV con IMPRESSION: 1. No acute intracranial process seen. 2. Right central venous port with its tip in mid SVC. No acute cardiopulmonary process.
[2023-01-11 18:36] VITALS: BP 109/46; BP 92/62; PULSE 75; PULSE 77; RESP 16; TEMP 36.8; O2SAT 95; O2SAT 96; BMI 20.9
--- NOTE | 2023-01-11 18:54 | ECG_ITS ---
Test Reason : FALL Blood Pressure : / mmHG Vent. Rate : 073 BPM Atrial Rate : 073 BPM P-R Int : 152 ms QRS Dur : 078 ms QT Int : 372 ms P-R-T Axes : -10 023 021 degrees QTc Int : 409 ms Normal sinus rhythm RSR' or QR pattern in V1 suggests right ventricular conduction delay Otherwise normal ECG When compared with ECG of 24-JUL-2022 10:17, Premature supraventricular complexes are no longer Present Referred By: Herrera Cobb Electronically Signed By:CLAU BANGURA MD
--- NOTE | 2023-01-11 18:55 | ED_ITS ---
HPI - Fall General Chief Complaint: Fall Stated Complaint: FALL Time Seen by Provider: 01/11/23 18:44 Source: patient, family (Daughter) and EMS Mode of arrival: EMS Limitations: no limitations History of Present Illness HPI Narrative: [age] year old female with history of left breast carcinoma patient received chemotherapy forehead then followed by left breast mastectomy last week patient with history of peripheral neuropathy patient has not smoked marijuana for 2 weeks today is her 1st use of marijuana after 2 weeks of no smoking causing the patient to be dizzy patient felt dizzy walked from the bedroom to the kitchen where she fell backward witnessed by her daughter daughter noticed few seconds of LOC after she hit her head then patient regained consciousness after, patient declined LOC before the fall, no CP. Related Data Home Medications Medication Instructions Recorded Confirmed albuterol sulfate 90 mcg/actuation 1 inh inhalation Q4H PRN Wheezing 09/17/21 01/05/23 aerosol inhaler atorvastatin 10 mg tablet 10 mg PO BEDTIME 09/17/21 01/05/23 fluticasone propionate 50 1 spray intranasal DAILY PRN Nasal 09/17/21 01/05/23 mcg/actuation nasal Congestion spray,suspension ipratropium 0.5 mg-albuterol 3 mg 3 ml inhalation Q6H PRN Wheezing 09/17/21 01/05/23 (2.5 mg base)/3 mL nebulization soln biotin 5,000 mcg sublingual tablet 5,000 mcg sublingual DAILY 12/24/22 01/05/23 metoprolol succinate 25 mg 25 mg PO BEDTIME 12/24/22 01/05/23 tablet,extended release 24 hr multivitamin-ferrous 1 tab PO DAILY 12/24/22 01/05/23 fumarate-folic acid 18 mg-400 mcg tablet (Centrum Women) vitamin B complex 1 tab PO DAILY 12/24/22 01/05/23 Previous Rx's Medication Instructions Recorded dexamethasone 4 mg tablet 4 mg PO BID #30 tabs 07/14/22 loperamide 2 mg tablet (Imodium 2 mg PO Q4H PRN Diarrhea #60 tabs 07/14/22 A-D) ondansetron 8 mg disintegrating 8 mg PO Q8H PRN Nausea #60 tabs 07/14/22 tablet ibuprofen 600 mg tablet 600 mg PO Q6H PRN pain #30 tabs 01/06/23 oxycodone-acetaminophen 5 mg-325 1 tab PO Q4-6H PRN pain #30 tabs 01/06/23 mg tablet (Percocet) Allergies Allergy/AdvReac Type Severity Reaction Status Date / Time animal dander Allergy Hives Verified 01/11/23 11:43 feathers Allergy Hives Verified 01/11/23 11:43 Seasonal Allergies Allergy Itchy Eyes Verified 01/11/23 11:43 Review of Systems 2 Review of Systems: All other systems are reviewed and are negative Constitutional: Reports as per HPI and Reports no additional constitutional complaints Eyes: Reports as per HPI and Reports no additional eye complaints Reports system reviewed and no additional complaints, except as documented Cardiovascular: Reports as per HPI and Reports no additional cardiovascular complaints Respiratory: Reports as per HPI and Reports no additional respiratory complaints Gastrointestinal: Reports as per HPI and Reports no additional gastrointestinal complaints Genitourinary: Reports no additional female genitourinary complaints Musculoskeletal: Reports no additional musculoskeletal complaints Skin/Breast: Reports system reviewed and no additional complaints, except as docu Psychiatric: Reports no additional psychiatric complaints Endocrine: Reports no additional endocrine complaints Hematologic/Lymphatic: Reports no additional hematologic/lymphatic complaints Allergic/Immunologic: Reports no additional allergic/immunologic complaints Reports system reviewed and no additional complaints, except as documented and Reports Abnormal speech present [facility] Past Medical History Medical History History of chemotherapy Arthritis Breast cancer Family history of ovarian cancer 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 Mother Ovarian ca Social History Household Members: None Housing: Condominium Are you a primary healthcare sales representative to a significant other at home: No Do you presently have visiting nurse or other home services: No Alcohol intake: current Alcohol intake frequency: holidays/special occasions only Patient Tobacco Use Status: Former Tobacco user Quit Date: 2021 Tobacco use type: Cigarette Years Smoked: 25 Smoked in Last 30 Days: No e-Cigarette/Vaping Use: Never Used Use of substances other than those prescribed or required for medical reasons: Yes Substance Use Type: Marijuana Substance Use Frequency: Weekly Last Used Substance: Just Prior to Admission Advance Directives: No Advance Directives Information Provided: Yes service: No Current occupational status: employed Physical Exam 2 Vital Signs: Vital Signs: Last Vital Signs Temp 98.0 F 01/11/23 22:19 Pulse 86 01/11/23 22:19 Resp 16 01/11/23 22:19 BP 116/68 01/11/23 22:19 Pulse Ox 99 01/11/23 22:19 O2 Del Method Room Air 01/11/23 22:19 BMI result Body Mass Index 20.9 Vital signs have been reviewed and appear to be correct. Blood pressure elevated. Heart rate normal. Respiratory rate normal. Temperature normal. Oxygen saturation normal. Appearance: Alert. Oriented X3. No acute distress. Head: Normal external exam. Normocephalic. Atraumatic. No Knott signs noted. No raccoon eyes noted Eyes: PERRLA. EOMI. Conjunctiva and sclera normal. Eyelids normal. ENT: TM's Normal. Pharynx normal. Uvula midline. Moist mucous membranes. No trismus noted. No drooling noted. No muffled voice noted. Neck: Normal inspection. Neck supple. FROM. No adenopathy. Thyroid Normal. No meningeal signs. No neck mass noted. CVS: Normal heart rate and rhythm. Heart sound normal. No murmurs noted. Pulses normal throughout. Respiratory: No respiratory distress. Painless inspiration. Breath sounds normal. No wheezes/rales/rhonchi noted. Chest nontender. No accessory muscle usage noted or decreased air movement noted. Abdomen: Soft and nontender. Bowel sounds normal in all 4 quadrants. No distention noted. No organomegaly noted. No visible injury noted. Back: No CVA tenderness. Full range of motion noted. Skin: Skin warm and dry. Normal skin color. Normal skin turgor. No rashes/lesions/lacerations noted. Extremities: No lower extremity edema. Extremities exhibit normal range of motion. Extremities nontender. Neuro: Oriented X 3. Cranial nerve exam: II-XII are grossly intact No motor deficit. No sensory deficit. Reflexes normal. Course Reevaluation(s) Reevaluation #1: 78-year-old female came in after having a mechanical fall after smoking marijuana, positive LOC GCS of 30 normal neuro exam and no head CT findings no chest pain or shortness of breath initial troponin was elevated repeat troponin is normal. Time: 22:49 Medications Administered Discontinued Medications Generic Name Dose Route Start Last Admin Trade Name Freq PRN Reason Stop Dose Admin Sodium Chloride 1,000 mls @ 999 mls/hr 01/11/23 18:53 01/11/23 22:08 Ns IV 01/11/23 19:53 Infused .Q1H1M ONE Infusion Medical Decision Making Differential Diagnosis Differential Diagnoses: The differential diagnosis associated with the presentation includes (ACS, syncope, dehydration, severe electrolyte abnormality, severe anemia, intracranial bleed.) Admission/Observation Consideration of admission/observation: Escalation of care including admission/observation considered Lab Data MDM Lab Attestation statement: I reviewed the patient's lab results. 01/11/23 19:19 01/11/23 19:19 Labs: Lab Results 01/11/23 01/11/23 Range/Units 19:19 22:16 WBC 5.7 (4.8-10.8) X10*3/uL RBC 3.82 L (4.20-5.50) X10*6/uL Hgb 12.0 (12.0-16.0) g/dl Hct 36.7 L (37.0-47.0) % MCV 96.1 (80.0-98.0) fL MCH 31.4 (27.0-33.0) pg MCHC 32.7 (31.0-35.0) g/dl RDW 11.9 (11.0-16.0) % Plt Count 316 D (160-400) X10*3/uL MPV 8.8 L (9.4-12.3) fL Immature Gran % (Auto) 0.5 H (0.0-0.4) % Neut % (Auto) 58.7 (45-73) % Lymph % (Auto) 28.0 (20-40) % [place] % (Auto) 10.0 (2-11) % Eos % (Auto) 2.6 (0-4) % Baso % (Auto) 0.2 (0-2) % Lymph # (Auto) 1.6 (1.2-4.9) X10*3/uL [place] # (Auto) 0.6 (0.1-1.2) X10*3/uL Eos # (Auto) 0.2 (0.0-0.4) X10*3/uL Baso # (Auto) 0.0 (0.0-0.2) X10*3/uL Abs Immat Gran (auto) 0.03 (0.00-0.03) X10*3/uL Absolute Neuts (auto) 3.4 (2.0-8.3) x10*3/uL Absolute Nucleated RBC 0.000 (0.0-0.012) X10*3/uL Nucleated RBC % (auto) 0.0 (0.0-0.2) /100WBC Sodium 140 (135-145) mmol/L Potassium 4.2 (3.3-5.1) mmol/L Chloride 102 (96-108) mmol/L Carbon Dioxide 27 (22-29) mmol/L Anion Gap 15 (12-20) BUN 16 (9-16) mg/dL Creatinine 1.00 (0.5-1.4) mg/dL Estim Creat Clear Calc 37.8 Estimated GFR 54 Random Glucose 168 H (60-115) mg/dL Calcium 9.8 D (8.4-10.2) mg/dL Total Bilirubin 0.2 (0.0-1.0) mg/dL Direct Bilirubin < 0.2 (0.0-0.5) mg/dL AST 25 (5-31) U/L ALT 18 (0-31) U/L Alkaline Phosphatase 68 (39-117) U/L Troponin I High Sens 29.9 H D < 2.7 D (<3.5-17.0) ng/L Total Protein 7.2 (6.5-8.0) g/dL Albumin 4.0 (3.5-5.0) g/dL Lipase 16 (8-78) U/L Independent Interpretation I performed an independent interpretation of an: Plain X-Ray (Chest: No acute cardiopulmonary process) and CT Scan (Head: No acute intracranial pathology.) Radiology Impression Discussion of test interpretation with radiology: I have reviewed the radiologist's reading. Discharge Plan Discharge Clinical Impression: Accident due to mechanical fall without injury Qualifiers: Encounter type: initial encounter Qualified Code(s): W19.XXXA - Unspecified fall, initial encounter Closed head injury Qualifiers: Encounter type: initial encounter Qualified Code(s): S09.90XA - Unspecified injury of head, initial encounter Patient Disposition: Home, Self-Care Instructions: Fall Prevention for Older Adults (ED) Prescriptions: No Action vitamin B complex Tablet 1 tab PO DAILY Centrum Women 18-400 mg-mcg Tablet 1 tab PO DAILY biotin 5,000 mcg Tablet, Sublingual 5,000 mcg SUBLINGUAL DAILY metoprolol succinate 25 mg tablet extended release 24 hr 25 mg PO BEDTIME oxycodone-acetaminophen [Percocet] 5-325 mg tablet 1 tab PO Q4-6H PRN (Reason: pain) Qty: 30 0RF Rx Instructions: Partial Fill upon patient request. ibuprofen 600 mg tablet 600 mg PO Q6H PRN (Reason: pain) Qty: 30 0RF ondansetron 8 mg Tablet,Disintegrating 8 mg PO Q8H PRN (Reason: Nausea) Qty: 60 3RF Rx Instructions: with chemotherapy dexamethasone 4 mg Tablet 4 mg PO BID Qty: 30 2RF Rx Instructions: start night before chemo and take for 2 days after chemo loperamide [Imodium A-D] 2 mg Tablet 2 mg PO Q4H PRN (Reason: Diarrhea) Qty: 60 3RF Rx Instructions: administer after each loose stool until symptoms controlled; do not exceed 8 mg per 24 hrs atorvastatin 10 mg tablet 10 mg PO BEDTIME fluticasone propionate 50 mcg/actuation spray,suspension 1 spray intranasal DAILY PRN (Reason: Nasal Congestion) albuterol sulfate 90 mcg/actuation HFA aerosol inhaler 1 inh inhalation Q4H PRN (Reason: Wheezing) ipratropium-albuterol 0.5 mg-3 mg(2.5 mg base)/3 mL solution for nebulization 3 ml inhalation Q6H PRN (Reason: Wheezing) Referrals: Janine Chester, WEATHER ANALYST [Primary Care Provider] -
[2023-01-11] MEDS: 0.9 % Sodium Chloride 1,000 ML 999 ML IV (19:21)
[2023-01-11 19:23] LABS: MANUAL DIFF FLAG NO
[2023-01-11 19:24] LABS: Basophils Percent Auto 0.2 % (0-2); Eosinophils Absolute Auto 0.2 X10*3/uL (0.0-0.4); Eosinophils Percent Auto 2.6 % (0-4); Hematocrit 36.7 % (37.0-47.0); Imm Gran Abs Auto 0.03 X10*3/uL (0.00-0.03); Imm Gran Pct Auto 0.5 % (0.0-0.4); Lymphocytes Absolute Auto 1.6 X10*3/uL (1.2-4.9); Mean Corpuscular HGB Conc 32.7 g/dl (31.0-35.0); Mean Corpuscular Hemoglobin 31.4 pg (27.0-33.0); Mean Corpuscular Volume 96.1 fL (80.0-98.0); Mean Platelet Volume 8.8 fL (9.4-12.3); Monocytes Absolute Auto 0.6 X10*3/uL (0.1-1.2); Neutrophils Absolute Auto 3.4 x10*3/uL (2.0-8.3); Neutrophils Percent Auto 58.7 % (45-73); Platelet Count 316 X10*3/uL (160-400); Red Blood Count 3.82 X10*6/uL (4.20-5.50); Red Cell Distribution Width 11.9 % (11.0-16.0); White Blood Count 5.7 X10*3/uL (4.8-10.8)
[2023-01-11 19:40] LABS: Alanine Aminotransferase 18 U/L (0-31); Alkaline Phosphatase 68 U/L (39-117); Anion Gap 15 (12-20); Aspartate Amino Transferase 25 U/L (5-31); Bilirubin Direct < 0.2 mg/dL (0.0-0.5); Bilirubin Total 0.2 mg/dL (0.0-1.0); Blood Urea Nitrogen 16 mg/dL (9-16); Calcium 9.8 mg/dL (8.4-10.2); Carbon Dioxide 27 mmol/L (22-29); Chloride 102 mmol/L (96-108); Creatinine Clr Calc Pharmacy 37.8; Estimated Glomerular Filt Rate 54; Glucose Random 168 mg/dL (60-115); Lipase 16 U/L (8-78); Potassium 4.2 mmol/L (3.3-5.1); Sodium 140 mmol/L (135-145); Total Protein 7.2 g/dL (6.5-8.0)
[2023-01-11 19:44] LABS: Troponin-I High Sensitivity 29.9 ng/L (<3.5-17.0)
[2023-01-11 20:26] VITALS: BP 114/57; PULSE 71; RESP 14; TEMP 36.6; O2SAT 97
[2023-01-11 22:19] VITALS: BP 116/68; PULSE 86; RESP 16; TEMP 36.7; O2SAT 99
--- NOTE | 2023-01-11 22:21 | PC.NURSE ---
late entry: -22g IV placed in right wrist for fluid administration. Patient tolerated well -patient denies any pain, states she was able to get up after she fell and offers no complaints -awaiting second troponin to result at this time
--- NOTE | 2023-01-11 22:26 | PC.NURSE ---
2nd troponin obtained
[2023-01-11 22:39] LABS: Troponin-I High Sensitivity < 2.7 ng/L (<3.5-17.0)
== END 2023-01-11 23:01 | disposition home or self-care (01) ==
PROVIDERS: Emergency Provider Emergency Medicine; PCP Nurse Practitioner Primary Care
DX: S09.90XA Unspecified injury of head, initial encounter (principal); W18.30XA Fall on same level, unspecified, initial encounter; Z90.12 Acquired absence of left breast and nipple; C50.912 Malignant neoplasm of unspecified site of left female breast; E78.00 Pure hypercholesterolemia, unspecified; F12.90 Cannabis use, unspecified, uncomplicated; Z79.899 Other long term (current) drug therapy; Z79.02 Long term (current) use of antithrombotics/antiplatelets; Z92.21 Personal history of antineoplastic chemotherapy; Z87.891 Personal history of nicotine dependence; Y93.9 Activity, unspecified; Y92.9 Unspecified place or not applicable; Y99.9 Unspecified external cause status
CPT/HCPCS: 36415; 70450; 71045; 80048; 80076; 83690; 84484; 85025; 93005; 96360; 96361; 99284; 99285

== ENCOUNTER 2023-01-18 10:52 | Outpatient (AMB) | payer MEDICARE, SELFPAY ==
[2023-01-18 10:53] VITALS: BP 129/59; PULSE 83; BMI 21.8
--- NOTE | 2023-01-18 10:53 | MHC.OFFVIS ---
Intake Vital Signs 01/18/23 10:53 Height 5 ft 2 in Weight 119 lb BMI 21.8 BP 129/59 L Blood Pressure Location Rt brachial Position Sitting Pulse 83 Intake Visit Reasons: S/P Lt breast mastectomy, SN Intake Note: This patient presents for a post-op assessment status post left breast mastectomy with sentinel node biopsy. Patient c/o; reports no complaints or changes at this time. Thread Tool Grinder Set Up Operator Required: No Accompanied by: Self / Same As Patient Allergies animal dander Allergy (Verified 01/18/23 11:00) Hives feathers Allergy (Verified 01/18/23 11:00) Hives Seasonal Allergies Allergy (Verified 01/18/23 11:00) Itchy Eyes HPI S/P Lt breast mastectomy, SN HPI Details She had undergone mastectomy and sentinel biopsy for left breast cancer last January 05. She is doing well and denies significant complaints. I had removed her drain last week as well. 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 Mother Ovarian ca Social History Household Members: None Housing: Condominium Are you a primary long term care administrator to a significant other at home: No Do you presently have visiting nurse or other home services: No Alcohol intake: current Alcohol intake frequency: holidays/special occasions only Patient Tobacco Use Status: Former Tobacco user Quit Date: 2021 Tobacco use type: Cigarette Years Smoked: 25 e-Cigarette/Vaping Use: Never Used Substance Use Type: Marijuana service: No Current occupational status: employed Review of Systems Const Denies chills and Denies fever(s) Card Denies chest pain, Denies dyspnea and Denies dyspnea on exertion Resp Denies cough, Denies dyspnea and Denies dyspnea on exertion GI Denies hematochezia and Denies change in bowel habits Denies hematuria Musc Denies back pain and Denies limited range of motion Neuro Denies focal weakness and Denies convulsions Psych Denies depression and Denies mood swings Physical Exam Vital Signs: Last Vital Signs Pulse 83 01/18/23 10:53 BP 129/59 L 01/18/23 10:53 BMI result Body Mass Index 21.8 Const General: comfortable and no acute distress Chest Other: Mastectomy site is well healed, flaps all, no hematoma Assessment & Plan Assessment & Plan (1) 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 Her path report shows no residual cancer although there are changes secondary to the prior biopsy and neoadjuvant treatment Her mastectomy site is well healed. The central nodes are negative She is following the oncologist as well for hormonal therapy I will see her again in the office in about 6 months. 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
== END 2023-01-18 11:10 | disposition home or self-care (01) ==
PROVIDERS: PCP Nurse Practitioner Primary Care; Visit Provider Surgery
DX: C50.912 Malignant neoplasm of unspecified site of left female breast (principal)
CPT/HCPCS: 99024

== ENCOUNTER → 2023-01-18 10:52 | Outpatient (BNVA) | payer MEDICARE, SELFPAY | PROVIDERS: PCP Nurse Practitioner Primary Care; Visit Provider Surgery | DX: Z48.3 Aftercare following surgery for neoplasm (principal); C50.912 Malignant neoplasm of unspecified site of left female breast | CPT/HCPCS: 99212 ==

== ENCOUNTER 2023-01-26 13:30 | Outpatient (AMB) | payer MEDICARE, SELFPAY ==
[2023-01-26 13:54] VITALS: BP 128/62; PULSE 69; BMI 21.9
--- NOTE | 2023-01-26 13:54 | MHC.OFFVIS ---
Intake Vital Signs 01/26/23 13:54 Height 5 ft 2 in Weight 119 lb 14.903 oz BMI 21.9 BP 128/62 Position Sitting Pulse 69 Pulse Source Pulse Oximeter Intake Visit Reasons: 6 month follow up Allergies animal dander Allergy (Verified 01/26/23 13:56) Hives feathers Allergy (Verified 01/26/23 13:56) Hives Seasonal Allergies Allergy (Verified 01/26/23 13:56) Itchy Eyes Medication List - Last Reconciled 01/26/23 by Fariba Kelley, FIBER OPTIC ASSEMBLY WORKER-C albuterol sulfate 90 mcg/actuation 1 inh inhalation Q4H PRN atorvastatin 10 mg PO BEDTIME biotin 5,000 mcg sublingual DAILY dexamethasone 4 mg PO BID ipratropium-albuterol 0.5 mg-3 mg(2.5 mg base)/3 mL 3 mL inhalation Q6H PRN loperamide (Imodium A-D) 2 mg PO Q4H PRN metoprolol succinate ER 25 mg PO BEDTIME ofvciojrwqxt-ihey-rzarj acid 18-400 mg-mcg (Centrum Women) 1 tab PO DAILY ondansetron 8 mg PO Q8H PRN oxycodone-acetaminophen 5-325 mg (Percocet) 1 tab PO Q4-6H PRN romosozumab-aqqg (Evenity) 210 mg (2.34 mL) subcut .monthly vitamin B complex 1 tab PO DAILY HPI 6 month follow up HPI Details Elayne is a 78-year-old female with past medical history of hyperlipidemia, frequent PACs, breast cancer with recent mastectomy who presents for follow-up. Today she reports she has been doing very well. She has fully recovered from her surgery. She is planning to undergo another round of chemotherapy but anticipates that this round will be better for her. She did develop neuropathy in her legs on the last chemotherapy round. This symptom persists for her. She has not been noticing heart palpitations. She is taking her medications as directed. She has no exertional chest discomfort, shortness of breath, presyncope, syncope, PND, orthopnea. She does describe having edema in her legs however they look normal on exam to me today. 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 Mother Ovarian ca Social History Household Members: None Housing: Condominium Are you a primary long term care phlebotomist to a significant other at home: No Do you presently have visiting nurse or other home services: No Alcohol intake: current Alcohol intake frequency: holidays/special occasions only Patient Tobacco Use Status: Former Tobacco user Quit Date: 2021 Tobacco use type: Cigarette Years Smoked: 25 e-Cigarette/Vaping Use: Never Used Substance Use Type: Marijuana service: No Current occupational status: employed Review of Systems Const All systems reviewed & are unremarkable except as noted in HPI and below ENT Denies dizziness Card Denies chest pain, Denies chest pain at rest, Denies chest pain with activity, Denies rapid heart rate, Denies pedal edema, Denies edema, Denies leg edema, Denies lightheadedness, Denies palpitations, Denies dyspnea, Denies dyspnea on exertion and Denies orthopnea Resp Denies cough, Denies dyspnea and Denies dyspnea on exertion GI Denies hematochezia and Denies change in stool character Musc Denies abnormal gait, Denies limited range of motion, Denies muscle cramps, Denies muscle weakness, Denies numbness, Denies radiating pain into limb, Denies stiffness and Denies tingling Neuro Denies abnormal gait, Denies dizziness, Denies numbness and Denies tingling Endo Denies palpitations Physical Exam Vital Signs: Last Vital Signs Pulse 69 01/26/23 13:54 BP 128/62 01/26/23 13:54 BMI result Body Mass Index 21.9 Const General: cooperative, healthy appearing, comfortable and no acute distress Orientation/consciousness: patient oriented x3 Neck Neck: Yes normal visual inspection Resp Effort & Inspection: normal respiratory effort Auscultation: clear to auscultation bilaterally, no crackles, no rales, no rhonchi and no wheezes Cardio Jugular venous distension: no JVD Rate: regular rate Rhythm: regular rhythm Heart sounds: S1 normal heart sound present, S2 normal heart sound present, no murmurs and no rubs Neuro General: patient oriented x3 Extrem General: Yes normal to inspection Psych Appearance: grossly normal Mental Status: mental status grossly normal Speech and movement: Normal speech and movement present Assessment & Plan Assessment & Plan (1) PAC (premature atrial contraction): Code(s): I49.1 - Atrial premature depolarization Plan: History palpitations with frequent PACs. She did undergo an echocardiogram on 09/03/2021 showing normal EF, impaired relaxation. Holter monitor done for 3 days starting 09/03/2021 showed sinus rhythm with average heart rate 77, heart rate range 49 to 115, no atrial fibrillation or flutter, frequent SVE with brief runs, 18% of the time. She was then started on metoprolol XL 25 mg daily and reported feeling much better with less heart pounding. Holter monitor done on 12/31/2021 for 3 days showed sinus rhythm with average 68, 32% of the time heart rate less than 60, frequent PACs, 14.7% of time. Last EKG done 01/11/2023 showing normal sinus rhythm, no acute ST or T-wave abnormalities, rate 73. She did undergo a mastectomy recently with no reported cardiac complications. Today she reports she has been feeling generally well. She is recovered from her surgery and is not having any concerning heart palpitations. She continues on metoprolol. She is working on increasing her physical activity level. She will be undergoing a 2nd round of chemotherapy. No med changes made today. With her frequent PACs She is at increased risk for developing atrial fibrillation in the future. Can obtain an EKG if she does report increasing heart palpitations. Cardiology office visit in 1 year, sooner if needed. (2) Aortic regurgitation: Code(s): I35.1 - Nonrheumatic aortic (valve) insufficiency Qualifiers: Cardiac valve disease etiology: nonrheumatic Qualified Code(s): I35.1 - Nonrheumatic aortic (valve) insufficiency Plan: Echocardiogram done 10/08/2022 shows EF 62%, moderate calcification of the aortic valve, mild aortic regurgitation, moderate mitral annular calcification. Plan Time spent with chart review, documentation, interview and assessment Coding Level of Care Code Est Pt Level 3 (22062) Diagnoses PAC (premature atrial contraction) I49.1 Nonrheumatic aortic valve insufficiency I35.1 Cardiac valve disease etiology: nonrheumatic Time Spent (min) 24
== END 2023-01-26 14:36 | disposition home or self-care (01) ==
PROVIDERS: PCP Nurse Practitioner Primary Care; Visit Provider Nurse Practitioner Family
DX: I49.1 Atrial premature depolarization (principal); I35.1 Nonrheumatic aortic (valve) insufficiency
CPT/HCPCS: 99213

== ENCOUNTER → 2023-01-26 13:30 | Outpatient (BNVA) | payer MEDICARE, SELFPAY | PROVIDERS: PCP Nurse Practitioner Primary Care; Visit Provider Nurse Practitioner Family | DX: I49.1 Atrial premature depolarization (principal); I35.1 Nonrheumatic aortic (valve) insufficiency | CPT/HCPCS: 99212 ==

== ENCOUNTER → 2023-02-10 13:01 | Outpatient (REF) | payer MEDICARE, SELFPAY ==
--- NOTE | 2023-02-10 13:04 | CA_ITS ---
Transthoracic Echocardiogram Patient (Last, First, Middle): Elayne Lundy, Gender: Female Date of : 1945 Age: 78 Procedure Date: 02/10/2023 Procedure Type: Transthoracic Echocardiogram Location: OP Height: 157.48 cm Weight: 52.16 kg BSA: 1.51 m2 Heart Rate: bpm BP: 116 / 60 mmHg Commercial Intern: Referring MD: Ursula Valdez MD Symptoms: C50.919 Malignant neoplasm of unspecified site of unspecified female breast Study Quality: Adequate ECG Rhythm: Sinus Conclusions: - The left ventricular systolic function is normal. The calculated ejection fraction is 65% by biplane method. Findings Left Ventricle Normal left ventricular cavity size. There is normal left ventricular wall thickness. The left ventricular systolic function is normal. The calculated ejection fraction is 65% by biplane method. There is no evidence of regional wall motion abnormalities. LV peak GLS -20.8% (normal). Venous The inferior vena cava is normal in size and collapses greater than 50% with inspiration. Prior Study Comparison No significant change compared to prior study dated: 10/08/2022. Measurements 2D Linear Measurements IVSd: 0.96 0.6-0.9/0.6-1.0 cm LVIDd: 3.20 3.9-5.3/4.2-5.9 cm LVIDd Index: 2.12 2.4-3.2/2.2-3.1 cm/m2 LVIDs: 1.90 2.0-3.6 cm LVPWd: 0.93 0.7-1.1 cm LV Mass: 102.91 67-162/88-224 g LV Mass Index: 68.15 43-95/49-115 g/m2 2D Systolic Function EF 4C: 66.40 >55% EF 2C: 64.00 >55% EF BiP: 64.50 >55% Updated in Other Vendor System with Status of Final Carmelo Hilton MD electronically signed on 02/11/2023 12:41:09 PM with status of Final
== END ==
LOC: HO.CARD 13:01
PROVIDERS: PCP Nurse Practitioner Primary Care; Visit Provider Internal Medicine
DX: C50.919 Malignant neoplasm of unspecified site of unspecified female breast (principal)
CPT/HCPCS: 93308; 93356

== ENCOUNTER → 2023-02-10 13:04 | Outpatient (BNV) | payer MEDICARE, SELFPAY | PROVIDERS: PCP Nurse Practitioner Primary Care; Visit Provider Internal Medicine | DX: Z51.81 Encounter for therapeutic drug level monitoring (principal); T45.1X5A Adverse effect of antineoplastic and immunosuppressive drugs, initial encounter | CPT/HCPCS: 93308 ==

== ENCOUNTER 2023-02-22 15:50 | Outpatient (REF) | payer MEDICARE, SELFPAY ==
--- NOTE | ~2023-02-22 | XR_ITS ---
EXAMINATION: XR NASAL BONES CLINICAL INFORMATION: History of fall on ice. COMPARISON: None available. TECHNIQUE: 3 views of the nasal bones were obtained. FINDINGS: Possible fracture of the nasal septum with leftward deviation. Imaged paranasal sinuses are clear. The orbits are intact. XR/XR nasal bones min 3V IMPRESSION: Possible fracture of the nasal septum. Maxillofacial CT may be considered for confirmation.
== END 2023-02-22 15:51 | disposition home or self-care (01) ==
LOC: HO.HHCX 15:50
PROVIDERS: Visit Provider Internal Medicine
DX: M95.0 Acquired deformity of nose (principal)
CPT/HCPCS: 70160

== ENCOUNTER 2023-03-10 13:03 | Outpatient (AMB) | payer MEDICARE, SELFPAY ==
--- NOTE | 2023-03-10 13:21 | AM.OFFVISNUR ---
Intake Intake Visit Reasons: Evenity Allergies animal dander Allergy (Verified 01/26/23 13:56) Hives feathers Allergy (Verified 01/26/23 13:56) Hives Seasonal Allergies Allergy (Verified 01/26/23 13:56) Itchy Eyes Nursing Note Patient presented to the office for Evenity injection #1 in a 12 dose series. She stated she does not have any questions or concerns currently. She cannot receive injections in her arms due to the risk of lymphodema related to cancer treatment. Please inject in L and R abdomen. Office Meds romosozumab-aqqg 210 mg/2.34 mL(105 mg/1.17 mL x2)subcutaneous syringe Performing Provider: Serge Alcantar MD Performing Location: [facility] [place] Endocrinology Administered by: Edmond Rothman RN on 03/10/23 13:23 Dose Route Admin Location Dispensed Lot Number Expiration Date NDC Nail Galvanizer 210 mg subcut L and R abdomen 2.34 mL [id number] 07/16/24 AMGEN Comments: Patient signed consent for Evenity injections. Cannot receive injections in arms r/t cancer treatments. Please use abdomen. Coding Assessment & Plan Assessment & Plan Orders: Orders AMB Romosozumab Injection Patient Supplied Today M81.0 - Age-related osteoporosis without current pathological fracture
== END 2023-03-10 13:20 | disposition home or self-care (01) ==
PROVIDERS: PCP Nurse Practitioner Primary Care; Visit Provider Internal Medicine Endocrinology, Diabetes & Metabolism
DX: M81.0 Age-related osteoporosis without current pathological fracture (principal)

== ENCOUNTER → 2023-03-10 13:03 | Outpatient (BNVA) | payer MEDICARE, SELFPAY | PROVIDERS: PCP Nurse Practitioner Primary Care; Visit Provider Internal Medicine Endocrinology, Diabetes & Metabolism | DX: M81.0 Age-related osteoporosis without current pathological fracture (principal) | CPT/HCPCS: 96372; J3111 ==

== ENCOUNTER 2023-03-26 13:04 | Outpatient (REF) | payer MEDICARE, SELFPAY ==
--- NOTE | ~2023-03-26 | CT_ITS ---
EXAMINATION: CT FACIAL BONES WITHOUT CONTRAST CLINICAL INFORMATION: Nose deformity. Prior fall. Question fracture. COMPARISON: None available. TECHNIQUE: Multidetector helical imaging acquired in the axial plane with generation of reformatted acquisitions. This CT examination was performed using dose optimization techniques as appropriate, variously including the following: *Automated exposure control *Adjustment of mA and/or kV according to patient size (this includes techniques or standardized protocols for targeted exams where dose is matched to indication/reason for exam; i.e. extremities or head) *Use of iterative reconstruction technique DLP: 114 mGy-cm FINDINGS: The nasal bones are normal in appearance. No maxillofacial fracture identified. The temporomandibular joints are normal. The zygomatic arches are normally maintained. There is moderate to severe right sphenoid sinus mucosal thickening and milder mucosal thickening with fluid layering dependently in the left sphenoid sinus. A small area of osseous dehiscence is visible in the roof of the right sphenoid sinus cavity on coronal imaging. Severe right frontal sinus disease is visible with aerosolized secretions and dependent fluid. The remaining paranasal sinuses are well aerated. There is a severe rightward nasal septal deviation with nasal septal spurring distorting the right inferior turbinate. The patient has had prior lens extractions. Otherwise, the orbits are relatively normal in appearance. The ethmoid roofs are asymmetric. No maxillary periapical lucencies are seen. The middle ear cavities and mastoid air cells are well aerated. Advanced multilevel cervical spondylosis noted with a reversal of the normal cervical lordosis. The nasopharyngeal soft tissues appear grossly normal. Prominent arachnoid granulation noted along the inner cortical table of the occipital bone. The imaged portions of the brain demonstrate no acute abnormality. CT/CT facial bones wo IV con IMPRESSION: Severe right frontal sinus mucosal disease with aerosolized secretions. Moderate to severe right sphenoid sinus mucosal thickening as well; correlate for any acute symptomatology. No nasal bone fracture visible. Significant rightward nasal septal deviation with nasal septal spurring distorting the right inferior turbinate.
== END 2023-03-26 13:05 | disposition home or self-care (01) ==
LOC: HO.CT 13:04
PROVIDERS: PCP Nurse Practitioner Primary Care; Visit Provider Internal Medicine
DX: M95.0 Acquired deformity of nose (principal)
CPT/HCPCS: 70486

== ENCOUNTER 2023-04-08 12:48 | Outpatient (AMB) | payer MEDICARE, SELFPAY ==
--- NOTE | 2023-04-08 13:05 | AM.OFFVISNUR ---
Intake Intake Visit Reasons: Evenity Allergies animal dander Allergy (Verified 01/26/23 13:56) Hives feathers Allergy (Verified 01/26/23 13:56) Hives Seasonal Allergies Allergy (Verified 01/26/23 13:56) Itchy Eyes Office Meds romosozumab-aqqg 210 mg/2.34 mL(105 mg/1.17 mL x2)subcutaneous syringe Performing Provider: Serge Alcantar MD Performing Location: [facility] [place] Administered by: America Samaniego LPN on 04/08/23 13:05 Dose Route Admin Location Dispensed Lot Number Expiration Date NDC Public Relations 210 mg subcut 2.34 mL [id number] 07/16/24 AM[facility] Coding Assessment & Plan Assessment & Plan Orders: Orders AMB Romosozumab Injection Patient Supplied Today M81.0 - Age-related osteoporosis without current pathological fracture
== END 2023-04-08 13:03 | disposition home or self-care (01) ==
PROVIDERS: PCP Nurse Practitioner Primary Care; Visit Provider Internal Medicine Endocrinology, Diabetes & Metabolism
DX: M81.0 Age-related osteoporosis without current pathological fracture (principal)

== ENCOUNTER → 2023-04-08 12:48 | Outpatient (BNVA) | payer MEDICARE, SELFPAY | PROVIDERS: PCP Nurse Practitioner Primary Care; Visit Provider Internal Medicine Endocrinology, Diabetes & Metabolism | DX: M81.0 Age-related osteoporosis without current pathological fracture (principal) | CPT/HCPCS: 96372; J3111 ==

== ENCOUNTER 2023-05-10 14:33 | Outpatient (AMB) | payer MEDICARE, SELFPAY ==
--- NOTE | 2023-05-10 14:54 | AM.OFFVISNUR ---
Intake Intake Visit Reasons: Evenity Allergies animal dander Allergy (Verified 01/26/23 13:56) Hives feathers Allergy (Verified 01/26/23 13:56) Hives Seasonal Allergies Allergy (Verified 01/26/23 13:56) Itchy Eyes Office Meds romosozumab-aqqg 210 mg/2.34 mL(105 mg/1.17 mL x2)subcutaneous syringe Performing Provider: Serge Alcantar MD Performing Location: [facility] [place] Endocrinology Administered by: America Samaniego LPN on 05/10/23 14:54 Dose Route Admin Location Dispensed Lot Number Expiration Date NDC Nutrient Management Specialist 210 mg subcut bilateral abdomen 2.34 mL [id number] 08/14/25 AMGEN Coding Assessment & Plan Assessment & Plan Orders: Orders AMB Romosozumab Injection Patient Supplied Today M81.0 - Age-related osteoporosis without current pathological fracture
== END 2023-05-10 14:53 | disposition home or self-care (01) ==
PROVIDERS: PCP Nurse Practitioner Primary Care; Visit Provider Internal Medicine Endocrinology, Diabetes & Metabolism
DX: M81.0 Age-related osteoporosis without current pathological fracture (principal)

== ENCOUNTER → 2023-05-10 14:33 | Outpatient (BNVA) | payer MEDICARE, SELFPAY | PROVIDERS: PCP Nurse Practitioner Primary Care; Visit Provider Internal Medicine Endocrinology, Diabetes & Metabolism | DX: M81.0 Age-related osteoporosis without current pathological fracture (principal) | CPT/HCPCS: 96372; J3111 ==

== ENCOUNTER 2023-05-20 14:29 | Outpatient (AMB) | payer MEDICARE, SELFPAY ==
--- NOTE | 2023-05-20 14:31 | A.OFFVIS_ITS ---
Intake Vital Signs 05/20/23 14:35 Height 5 ft 2.68 in Weight 115 lb 11.883 oz BMI 20.7 BP 140/70 H Blood Pressure Location Rt brachial Position Sitting Pulse 80 Pulse Source Pulse Oximeter Intake Visit Reasons: f/u osteoporosis-confirmed Intake Note: Patient present today for Osteoporosis follow up visit. Patient reports taking Citracal with Vitamin D3. Home Service Demonstrator Required: No Accompanied by: Self / Same As Patient Allergies animal dander Allergy (Verified 05/20/23 14:35) Hives feathers Allergy (Verified 05/20/23 14:35) Hives Seasonal Allergies Allergy (Verified 05/20/23 14:35) Itchy Eyes HPI HPI Comments History of Present Illness Details 77 YO Female with is seen in consultation at the request of PCP for Osteoporosis. First diagnosed in wrecely . Not Received treatment in the past No history of pathologic fracture or ONJ. Has several servings of dietary calcium per day in the form of yogurt,salmon, milk. Not Takes Calcium supplement . Takes ? IU of Vitamin D daily. Denies ever using PPI, anticoagulant, antiepileptic or glucocorticoid medication. 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 UTD on dental cleanings and sees dentist every 6 months. has planned upcoming dental work but no extractions extractions. DXA dated 11/26/21:FINDINGS: AP SPINE L1-L2 (excluding L3 and L4):? The data of L1-L4 has been changed to exclude the L3 and L4 vertebral bodies because degenerative changes at these levels may cause overestimation of the lumbar spine density. BMD 0.665 g/cm2, Z-score -1.9, T-score -4.2, osteoporosis. LEFT FEMUR, NECK: BMD 0.691 g/cm2, Z-score -0.3, T-score -2.5, osteoporosis. LEFT FEMUR, TOTAL: BMD 0.681 g/cm2, Z-score -0.5, T-score -2.6, osteoporosis. IDENTIFIED RISK FACTORS: Menopause, height loss, rheumatoid arthritis. HISTORY OF FRACTURE: None listed. MEDICATIONS: Calcium supplements or multivitamin. MM/XR DEXA axial skeleton IMPRESSION: 1. DIAGNOSIS: Osteoporosis based on the lowest T-score value of -4.2 in the lumbar spine applying World Health Organization criteria.? Labs: Secondary workup negative. 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 Mother Ovarian ca Social History Household Members: None [facility] Are you a primary respiratory care faculty to a significant other at home: No Do you presently have visiting nurse or other home services: No Alcohol intake: current Alcohol intake frequency: holidays/special occasions only Patient Tobacco Use Status: Former Tobacco user Quit Date: 2021 Tobacco use type: Cigarette Years Smoked: 25 e-Cigarette/Vaping Use: Never Used Substance Use Type: Marijuana service: No Current occupational status: employed Physical Exam Vital Signs: Last Vital Signs Pulse 80 05/20/23 14:35 BP 140/70 H 05/20/23 14:35 BMI result Body Mass Index 20.7 Assessment & Plan Assessment & Plan (1) Osteoporosis: Code(s): M81.0 - Age-related osteoporosis without current pathological fracture Plan: This is a 78-year-old white female found to have moderate to severe osteoporosis on DEXA bone density. Secondary workup was negative. Patient undergoing radiation therapy for breast cancer. Had received a few doses of prevent any but this stopped his lack of coverage The plan is to continue Evenity for full years course. Oncology is okay with course of Evenity. Could consider transitioning after the year of Evenity to Prolia or Xgeva if Oncology prefers Coding Level of Care Code Est Pt Level 3 (28430) Diagnoses Osteoporosis M81.0
[2023-05-20 14:35] VITALS: BP 140/70; PULSE 80; BMI 20.7
== END 2023-05-20 15:13 | disposition home or self-care (01) ==
PROVIDERS: PCP Nurse Practitioner Primary Care; Visit Provider Internal Medicine Endocrinology, Diabetes & Metabolism
DX: M81.0 Age-related osteoporosis without current pathological fracture (principal)
CPT/HCPCS: 99213

== ENCOUNTER → 2023-05-20 14:29 | Outpatient (BNVA) | payer MEDICARE, SELFPAY | PROVIDERS: PCP Nurse Practitioner Primary Care; Visit Provider Internal Medicine Endocrinology, Diabetes & Metabolism | DX: M81.0 Age-related osteoporosis without current pathological fracture (principal) | CPT/HCPCS: 99212 ==

== ENCOUNTER → 2023-05-21 12:59 | Outpatient (REF) | payer MEDICARE, SELFPAY ==
--- NOTE | 2023-05-21 13:01 | CA_ITS ---
Transthoracic Echocardiogram Patient (Last, First, Middle): Elayne Lundy, Gender: Female Date of : 1945 Age: 78 Procedure Date: 05/21/2023 Procedure Type: Transthoracic Echocardiogram Location: OP Height: 157.48 cm Weight: 52.16 kg BSA: 1.51 m2 Heart Rate: bpm BP: 120 / 80 mmHg Photographic Printer: BRETT Robins MD: Ursula Valdez MD Hazard Waste Handler: Sreedhar Dodson MD Symptoms: chemo adverse effect Study Quality: Fair ECG Rhythm: Sinus Conclusions: - Normal LV systolic function with LVEF of 55-60% with impaired relaxation filling pattern Findings Left Ventricle Normal left ventricular size, thickness, and systolic function. The visually estimated ejection fraction is between 55-60%. Spectral Doppler is indicative of an impaired relaxation filling pattern. E/E prime ratio is between 8 and 15 consistent with indeterminate filling pressures. Tricuspid Valve The right ventricular systolic pressure is 20 mmHg. There is no evidence of pulmonary hypertension. Pericardium/Pleural There is no evidence of pericardial effusion. Prior Study Comparison No significant change compared to prior study dated: 02/10/2023. Measurements 2D Linear Measurements IVSd: 0.81 0.6-0.9/0.6-1.0 cm LVIDd: 3.19 3.9-5.3/4.2-5.9 cm LVIDd Index: 2.11 2.4-3.2/2.2-3.1 cm/m2 LVIDs: 1.98 2.0-3.6 cm LVPWd: 0.80 0.7-1.1 cm LV Mass: 81.76 67-162/88-224 g LV Mass Index: 54.15 43-95/49-115 g/m2 LVOT Diam: 2.10 3.0+(-)1.3 cm 2D Systolic Function EF 4C: 57.40 >55% EF 2C: 57.60 >55% EF BiP: 57.00 >55% Mitral Valve MV Pk E: 0.95 MV PK A: 0.93 MV Decel Time: 236.00 E/A: 1.00 E'Lateral: 9.46 E'Medial: 7.62 E/E' Med: 12.50 E/E' Lat: 10.10 PHT: 69.00 MVA PHT: 3.19 Decel Meeker: 4.02 LVOT LVOT Pk Ryan: 1.02 LVOT Mn Ryan: 0.60 LVOT VTI: 0.21 LVOT Pk Grad: 4.00 LVOT Mn Grad: 2.00 LVOT Diam: 2.10 LVOT Area: 3.46 Diastolic Function MV Pk E: 0.95 MV Pk A: 0.93 E/A: 1.00 E'Medial: 7.62 E/E' Med: 12.50 E' Laterial: 9.46 E/E' Lat: 10.10 Tricuspid Valve TR Pk Ryan: 2.09 TR Pk Grad: 17.00 RA Press: 3.00 RVSP: 20.00 Updated in Other Vendor System with Status of Final Sreedhar Dodson MD electronically signed on 05/21/2023 4:01:47 PM with status of Final
== END ==
LOC: HO.CARD 12:59
PROVIDERS: PCP Nurse Practitioner Primary Care; Visit Provider Internal Medicine
DX: C50.919 Malignant neoplasm of unspecified site of unspecified female breast (principal)
CPT/HCPCS: 93308

== ENCOUNTER → 2023-05-21 13:01 | Outpatient (BNV) | payer MEDICARE, SELFPAY | PROVIDERS: PCP Nurse Practitioner Primary Care; Visit Provider Internal Medicine Cardiovascular Disease | DX: T45.1X5A Adverse effect of antineoplastic and immunosuppressive drugs, initial encounter (principal); R93.1 Abnormal findings on diagnostic imaging of heart and coronary circulation | CPT/HCPCS: 93308; 93321 ==

== ENCOUNTER 2023-06-09 14:57 | Outpatient (AMB) | payer MEDICARE, SELFPAY ==
--- NOTE | 2023-06-09 14:59 | AM.OFFVISNUR ---
Intake Intake Visit Reasons: Evenity Allergies animal dander Allergy (Verified 05/20/23 14:35) Hives feathers Allergy (Verified 05/20/23 14:35) Hives Seasonal Allergies Allergy (Verified 05/20/23 14:35) Itchy Eyes Office Meds romosozumab-aqqg 210 mg/2.34 mL(105 mg/1.17 mL x2)subcutaneous syringe Performing Provider: Serge Alcantar MD [place] [facility] [place] Administered by: America Samaniego LPN on 06/09/23 14:59 Dose Route Admin Location Dispensed Lot Number Expiration Date NDC School Bus Inspector 210 mg subcut Bilateral abdomen 2.34 mL [id number] 08/14/25 AM[facility] Coding Assessment & Plan Assessment & Plan Orders: Orders AMB Romosozumab Injection Patient Supplied Today M81.0 - Age-related osteoporosis without current pathological fracture Medications: New romosozumab-aqqg 210 mg (2.34 mL) subcut ONCE 2.34 mL 0RF M81.0 - Age-related osteoporosis without current pathological fracture
== END 2023-06-09 14:58 | disposition home or self-care (01) ==
LOC: HO.ENCR 14:57
PROVIDERS: PCP Nurse Practitioner Primary Care; Visit Provider Internal Medicine Endocrinology, Diabetes & Metabolism
DX: M81.0 Age-related osteoporosis without current pathological fracture (principal)

== ENCOUNTER → 2023-06-09 14:57 | Outpatient (BNVA) | payer MEDICARE, SELFPAY | PROVIDERS: PCP Nurse Practitioner Primary Care; Visit Provider Internal Medicine Endocrinology, Diabetes & Metabolism | DX: M81.0 Age-related osteoporosis without current pathological fracture (principal) | CPT/HCPCS: 96372; J3111 ==

== ENCOUNTER 2023-07-01 12:03 | Outpatient (REF) | payer MEDICARE, SELFPAY ==
[2023-07-01 13:36] LABS: Cholesterol 144 mg/dL (<200); HDL Cholesterol 67 mg/dL (>40); LDL Cholesterol Calculated 65 mg/dL (<100); Triglycerides 63 mg/dL (<150)
== END 2023-07-01 12:04 | disposition home or self-care (01) ==
LOC: HO.HHCL 12:03
PROVIDERS: Visit Provider Nurse Practitioner Primary Care
DX: E87.5 Hyperkalemia (principal)
CPT/HCPCS: 36415; 80061

== ENCOUNTER 2023-07-07 14:18 | Outpatient (AMB) | payer MEDICARE, MEDICAID, SELFPAY ==
--- NOTE | 2023-07-07 14:32 | AM.OFFVISNUR ---
Intake Intake Visit Reasons: Evenity Allergies animal dander Allergy (Verified 05/20/23 14:35) Hives feathers Allergy (Verified 05/20/23 14:35) Hives Seasonal Allergies Allergy (Verified 05/20/23 14:35) Itchy Eyes Office Meds romosozumab-aqqg 210 mg/2.34 mL(105 mg/1.17 mL x2)subcutaneous syringe Performing Provider: Serge Alcantar MD [place] [facility] [place] Administered by: America Samaniego LPN on 07/07/23 14:32 Dose Route Admin Location Dispensed Lot Number Expiration Date NDC Children'S Counselor 210 mg subcut bilateral lower abdomen 2.34 mL [id number] 08/14/25 AMGEN Coding Assessment & Plan Assessment & Plan Orders: Orders AMB Romosozumab Injection Patient Supplied Today M81.0 - Age-related osteoporosis without current pathological fracture Medications: New romosozumab-aqqg 210 mg (2.34 mL) subcut ONCE 2.34 mL 0RF M81.0 - Age-related osteoporosis without current pathological fracture
== END 2023-07-07 14:31 | disposition home or self-care (01) ==
LOC: HO.ENCR 14:19
PROVIDERS: PCP Nurse Practitioner Primary Care; Visit Provider Internal Medicine Endocrinology, Diabetes & Metabolism
DX: M81.0 Age-related osteoporosis without current pathological fracture (principal)

== ENCOUNTER → 2023-07-07 14:19 | Outpatient (BNVA) | payer MEDICARE, MEDICAID, SELFPAY | PROVIDERS: PCP Nurse Practitioner Primary Care; Visit Provider Internal Medicine Endocrinology, Diabetes & Metabolism | DX: M81.0 Age-related osteoporosis without current pathological fracture (principal); Z79.620 Long term (current) use of immunosuppressive biologic | CPT/HCPCS: 96372; J3111 ==

== ENCOUNTER 2023-07-19 10:57 | Outpatient (AMB) | payer MEDICARE, MEDICAID, SELFPAY ==
[2023-07-19 11:12] VITALS: BMI 21.2
--- NOTE | 2023-07-19 11:12 | MHC.OFFVIS ---
Vital Signs 07/19/23 11:12 Height 5 ft 2 in Weight 116 lb BMI 21.2 Intake Visit Reasons: Breast exam, 6 month follow up Intake Note: This patient presents for a six month follow-up breast examination. Patient c/o; reports no breast complaints at this time. MM Dia11/02/2022 Motor Equipment Commanding Officer Required: No Accompanied by: Self / Same As Patient Allergies animal dander Allergy (Verified 07/19/23 11:18) Hives feathers Allergy (Verified 07/19/23 11:18) Hives Seasonal Allergies Allergy (Verified 07/19/23 11:18) Itchy Eyes HPI HPI Breast exam, 6 month follow up: Details: She had undergone mastectomy and sentinel biopsy for left breast cancer last January 05, 2023. There was no residual cancer in the mastectomy site. She did not undergo any chemotherapy. She continues to feel well. She is on trastuzumab/pertuzumab as well as tamoxifen. She does state that she seems to have had some side effects with tamoxifen. [facility] Medical History (Updated 07/19/23 @ 11:41 by Rayo Ulloa MD) History of breast cancer History of chemotherapy Arthritis Breast cancer Family history of ovarian cancer Invasive ductal carcinoma of left breast in female Breast calcification, left Diverticulosis Tubular adenoma On beta branden at home Osteoporosis Elevated cholesterol Palpitations History of COVID-19 Aortic regurgitation Asthma Surgical History History of left mastectomy (01/05/23) History of nasal surgery Hx of tonsillectomy Hx of colonoscopy History of repair of retinal tear by laser photocoagulation History of cataract surgery Family History Father No problems noted. Mother Ovarian ca Social History Household Members: None Housing: Condominium Are you a primary managed care manager to a significant other at home: No Do you presently have visiting nurse or other home services: No Alcohol intake: current Alcohol intake frequency: holidays/special occasions only Patient Tobacco Use Status: Former Tobacco user Tobacco use type: Cigarette Years Smoked: 25 e-Cigarette/Vaping Use: Never Used Substance Use Type: Marijuana service: No Current occupational status: employed Review of Systems Const Denies chills and Denies fever(s) Card Denies chest pain, Denies dyspnea and Denies dyspnea on exertion Resp Denies cough, Denies dyspnea and Denies dyspnea on exertion GI Denies hematochezia and Denies change in bowel habits Denies hematuria Musc Denies back pain and Denies limited range of motion Neuro Denies focal weakness and Denies convulsions Psych Denies depression and Denies mood swings Physical Exam Vital Signs: BMI result Body Mass Index 21.2 Const General: comfortable and no acute distress Chest Other: Mastectomy site on the left is well healed, no palpable masses, no palpable mass on the right breast, no axillary lymphadenopathy Assessment & Plan Assessment & Plan (1) History of breast cancer: Code(s): Z85.3 - Personal history of malignant neoplasm of breast Category: Medical Plan: She is status post mastectomy on the left for invasive ductal cancer, [id number]. She continues to do well. She is on pertuzumab/pertuzumab as well as tamoxifen. She continues to follow with Dr. Valdez I have reminded her to have her mammogram on the right side around October, I will see her again in the office in about 6 months. Coding Level of Care Code Est Pt Level 2 (69517) Diagnoses History of breast cancer Z85.3
== END 2023-07-19 11:44 | disposition home or self-care (01) ==
PROVIDERS: PCP Nurse Practitioner Primary Care; Visit Provider Surgery
DX: C50.912 Malignant neoplasm of unspecified site of left female breast (principal)
CPT/HCPCS: 99212

== ENCOUNTER → 2023-07-19 10:57 | Outpatient (BNVA) | payer MEDICARE, SELFPAY | PROVIDERS: PCP Nurse Practitioner Primary Care; Visit Provider Surgery | DX: C50.912 Malignant neoplasm of unspecified site of left female breast (principal); Z90.12 Acquired absence of left breast and nipple; Z79.810 Long term (current) use of selective estrogen receptor modulators (SERMs); Z79.620 Long term (current) use of immunosuppressive biologic | CPT/HCPCS: 99212 ==

== ENCOUNTER 2023-07-27 14:30 | Outpatient (RCR) | payer MEDICARE, OTHER, SELFPAY ==
--- NOTE | 2023-07-08 15:55 | MHC.OT.EP ---
[address] [phone] Occupational Therapy Plan of Care Patient Name: Elayne Lundy Date of Evaluation: 07/08/23 Diagnosis: Left breast mastectomy Pain Location: Left hand MCP and PIPs. Ache Pain Score: 6 Pain Scale Used: Numeric (0 - 10) Aggravating Factors: Hand ROM . Gripping Alleviating Factors: Warm water Assessment: Elayne is a 78 yo female 7 month s/p left mastectomy due to breast cancer. She reports a recent episode of left hand pain and swelling. Today she presents with no symptoms of upper extremity lymphedema. She has significant hand and wrist OA joint changes with mild MCPj edema and moderate pain. She is independent with ADL and light homemaking. 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 heavy home making tasks She will benefit from OT for continued patient education for lymphedema prevention including self management for hand and wrist OA due to risk of increased lymphatic load to the left upper extemity Frequency and Duration: The patient will be seen 2 x 1 wk Short Term Goals: Pt will demonstrate awareness of UE lymphedema prevention and self monitoring techniques Pt will demonstrate awareness of joint protection for wrist and hand OA Pt will demonstrate independence with a HEP Half-Way Goals: Same as above Treatment Plan: Therapeutic Exercise Therapeutic Activity Home Exercise Program Patient Education ADL Training Electronically Signed By: Rima Robledo OT CHT CLT Please Sign and return to therapist. Thank you once again for your referral.
--- NOTE | 2023-07-27 15:09 | MHC.OT.DC ---
[address] [phone] F: [phone] Occupational Therapy Discharge Note Patient Name: Elayne Lundy Provider: Ursula Valdez Diagnosis: Left breast mastectomy Date of Surgery: Date of Evaluation: 07/08/23 Date of Discharge: 07/27/23 Treatments to Date: 4 Cancellations to Date: 0 No Shows to Date: 0 Discharge Status: Achieved Goals Improved Function Independent with HEP Discharge Summary: Good improvement in left hand pain and mild hand edema. Slight D2 MCPj effusion due to OA. Elayne is aware of lymphedema precautions, self monitoring and risks including underlying hand OA. No signs or symptoms of lymphedema at this time. Goals met. Electronically Signed By: Rima Robledo OT CHT CLT Reviewed/agree with student documentation: Therapist: Please Sign and return to therapist, thank you for your referral.
== END 2023-07-27 15:10 | disposition home or self-care (01) ==
LOC: HO.OT 14:30
PROVIDERS: PCP Nurse Practitioner Primary Care; Visit Provider Internal Medicine
DX: C50.912 Malignant neoplasm of unspecified site of left female breast (principal); Z98.890 Other specified postprocedural states
CPT/HCPCS: 97035; 97110; 97140; 97166

== ENCOUNTER 2023-08-09 10:56 | Outpatient (AMB) | payer MEDICARE, MEDICAID, SELFPAY ==
--- NOTE | 2023-08-09 11:14 | AM.OFFVISNUR ---
Intake Intake Visit Reasons: Evenity Allergies animal dander Allergy (Verified 07/19/23 11:18) Hives feathers Allergy (Verified 07/19/23 11:18) Hives Seasonal Allergies Allergy (Verified 07/19/23 11:18) Itchy Eyes Office Meds romosozumab-aqqg 210 mg/2.34 mL(105 mg/1.17 mL x2)subcutaneous syringe Performing Provider: Serge Alcantar MD [place] [facility] [place] Administered by: Kindra Obrien RN on 08/09/23 11:14 Dose Route Admin Location Dispensed Lot Number Expiration Date NDC Grain Receiver 210 mg subcut bilateral lower abdomen 2.34 mL [id number] 12/15/25 14760-643-57 AMGEN Comments: Consent form signed. Pt tolerated injections well. Pt denies any side effects with previous injections. Not given in arms d/t risk of lymphodema Coding Assessment & Plan Assessment & Plan Orders: Orders AMB Romosozumab Injection Patient Supplied Today M81.0 - Age-related osteoporosis without current pathological fracture Medications: New romosozumab-aqqg 210 mg (2.34 mL) subcut ONCE 2.34 mL 0RF M81.0 - Age-related osteoporosis without current pathological fracture
== END 2023-08-09 11:13 | disposition home or self-care (01) ==
PROVIDERS: PCP Nurse Practitioner Primary Care; Visit Provider Internal Medicine Endocrinology, Diabetes & Metabolism
DX: M81.0 Age-related osteoporosis without current pathological fracture (principal)

== ENCOUNTER → 2023-08-09 10:56 | Outpatient (BNVA) | payer MEDICARE, SELFPAY | PROVIDERS: PCP Nurse Practitioner Primary Care; Visit Provider Internal Medicine Endocrinology, Diabetes & Metabolism | DX: M81.0 Age-related osteoporosis without current pathological fracture (principal) | CPT/HCPCS: 96372; J3111 ==

== ENCOUNTER 2023-09-08 13:48 | Outpatient (AMB) | payer MEDICARE, MEDICAID, SELFPAY ==
--- NOTE | 2023-09-08 14:06 | AM.OFFVISNUR ---
Intake Visit Reasons: evenity #7 Allergies animal dander Allergy (Verified 08/23/23 10:41) Hives feathers Allergy (Verified 08/23/23 10:41) Hives Seasonal Allergies Allergy (Verified 08/23/23 10:41) Itchy Eyes Office Meds romosozumab-aqqg 210 mg/2.34 mL(105 mg/1.17 mL x2)subcutaneous syringe Performing Provider: Serge Alcantar MD Per[place] Location[place] [facility] [place] Administered by: America Samaniego LPN on 09/08/23 14:06 Dose Route Admin Location Dispensed Lot Number Expiration Date NDC Clinic Administrator 210 mg subcut Bilateral lower abdomen 2.34 mL [id number] 12/15/25 AMGEN Assessment & Plan Assessment & Plan Orders: Orders AMB Romosozumab Injection Patient Supplied Today M81.0 - Age-related osteoporosis without current pathological fracture Medications: New romosozumab-aqqg 210 mg (2.34 mL) subcut ONCE 2.34 mL 0RF M81.0 - Age-related osteoporosis without current pathological fracture
== END 2023-09-08 14:04 | disposition home or self-care (01) ==
LOC: HO.ENCR 13:48
PROVIDERS: PCP Nurse Practitioner Primary Care
DX: M81.0 Age-related osteoporosis without current pathological fracture (principal)

== ENCOUNTER → 2023-09-08 13:48 | Outpatient (BNVA) | payer MEDICARE, MEDICAID, SELFPAY | PROVIDERS: PCP Nurse Practitioner Primary Care | DX: M81.0 Age-related osteoporosis without current pathological fracture (principal) | CPT/HCPCS: 96372; J3111 ==

== ENCOUNTER 2023-09-22 14:24 | Outpatient (AMB) | payer MEDICARE, SELFPAY ==
[2023-09-22 14:31] VITALS: BP 118/62; PULSE 66; BMI 21.3
--- NOTE | 2023-09-22 14:31 | MHC.OFFVIS ---
Vital Signs 09/22/23 14:31 Height 5 ft 2 in Weight 116 lb 6.465 oz BMI 21.3 BP 118/62 Blood Pressure Location Rt brachial Position Sitting Pulse 66 Pulse Source Pulse Oximeter Intake Visit Reasons: Osteoporosis Intake Note: Patient present today for Osteoporosis follow up visit. Management Tech Required: No Accompanied by: Self / Same As Patient Allergies animal dander Allergy (Verified 09/22/23 14:45) Hives feathers Allergy (Verified 09/22/23 14:45) Hives Seasonal Allergies Allergy (Verified 09/22/23 14:45) Itchy Eyes Medication List - Last Reconciled 09/22/23 by Serge Alcantar MD albuterol sulfate 90 mcg/actuation 1 inh inhalation Q4H PRN atorvastatin 10 mg PO BEDTIME biotin 5,000 mcg sublingual DAILY ipratropium-albuterol 0.5 mg-3 mg(2.5 mg base)/3 mL 3 mL inhalation Q6H PRN loperamide (Imodium A-D) 2 mg PO Q4H PRN metoprolol succinate ER 25 mg PO BEDTIME 90 days shvmgtxrnvck-uowg-zoxrg acid 18-400 mg-mcg (Centrum Women) 1 tab PO DAILY ondansetron 8 mg PO Q8H PRN romosozumab-aqqg (Evenity) 210 mg (2.34 mL) subcut .monthly vitamin B complex 1 tab PO DAILY HPI Comments Details: 78 YO Female with is seen in consultation at the request of PCP for Osteoporosis. First diagnosed in [facility] . Not Received treatment in the past No history of pathologic fracture or ONJ. Has several servings of dietary calcium per day in the form of yogurt,salmon, milk. Not Takes Calcium supplement . Takes ? IU of Vitamin D daily. Denies ever using PPI, anticoagulant, antiepileptic or glucocorticoid medication. 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 UTD on dental cleanings and sees dentist every 6 months. has planned upcoming dental work but no extractions extractions. DXA dated 11/26/21:FINDINGS: AP SPINE L1-L2 (excluding L3 and L4):? The data of L1-L4 has been changed to exclude the L3 and L4 vertebral bodies because degenerative changes at these levels may cause overestimation of the lumbar spine density. BMD 0.665 g/cm2, Z-score -1.9, T-score -4.2, osteoporosis. LEFT FEMUR, NECK: BMD 0.691 g/cm2, Z-score -0.3, T-score -2.5, osteoporosis. LEFT FEMUR, TOTAL: BMD 0.681 g/cm2, Z-score -0.5, T-score -2.6, osteoporosis. IDENTIFIED RISK FACTORS: Menopause, height loss, rheumatoid arthritis. HISTORY OF FRACTURE: None listed. MEDICATIONS: Calcium supplements or multivitamin. MM/XR DEXA axial skeleton IMPRESSION: 1. DIAGNOSIS: Osteoporosis based on the lowest T-score value of -4.2 in the lumbar spine applying World Health Organization criteria.? Labs: Secondary workup negative. Not Undergoing radiation treatment for breast cancer but received chemo. On Evenity for 8mos . Was unable to take tamoxifen because of hot flashes [facility] Medical History (Updated 07/28/23 @ 11:16 by Ursula Valdez MD) History of breast cancer History of chemotherapy Arthritis Breast cancer Family history of ovarian cancer Invasive ductal carcinoma of left breast in female Breast calcification, left Diverticulosis Tubular adenoma On beta branden at home Osteoporosis Elevated cholesterol Palpitations History of COVID-19 Aortic regurgitation Asthma Surgical History History of left mastectomy (01/05/23) History of nasal surgery Hx of tonsillectomy Hx of colonoscopy History of repair of retinal tear by laser photocoagulation History of cataract surgery Family History Father No problems noted. Mother Ovarian ca Social History Household Members: None Housing: Condominium Are you a primary intensive care ambulance paramedic to a significant other at home: No Do you presently have visiting nurse or other home services: No Alcohol intake: current Alcohol intake frequency: holidays/special occasions only Patient Tobacco Use Status: Former Tobacco user Tobacco use type: Cigarette Years Smoked: 25 e-Cigarette/Vaping Use: Never Used Substance Use Type: Marijuana service: No Current occupational status: employed Assessment & Plan Assessment & Plan (1) Osteoporosis: Code(s): M81.0 - Age-related osteoporosis without current pathological fracture Category: Medical Plan: This is a 78-year-old white female found to have moderate to severe osteoporosis on DEXA bone density. Secondary workup was negative. Patient undergoing radiation therapy for breast cancer. Had received a few doses of Evenity but this stopped his lack of coverage The plan is to continue Evenity for full years course. Oncology is okay with course of Evenity. Could consider transitioning after the year of Evenity to Prolia or Xgeva if Oncology prefers in 4 mos Orders: Orders XR DEXA axial skeleton 2 Months M81.0 - Age-related osteoporosis without current pathological fracture Coding Level of Care Code Est Pt Level 3 (27264) Diagnoses Osteoporosis M81.0
== END 2023-09-22 14:58 | disposition home or self-care (01) ==
PROVIDERS: PCP Nurse Practitioner Primary Care; Visit Provider Internal Medicine Endocrinology, Diabetes & Metabolism
DX: M81.0 Age-related osteoporosis without current pathological fracture (principal)
CPT/HCPCS: 99213

== ENCOUNTER → 2023-09-22 14:24 | Outpatient (BNVA) | payer MEDICARE, SELFPAY | PROVIDERS: PCP Nurse Practitioner Primary Care; Visit Provider Internal Medicine Endocrinology, Diabetes & Metabolism | DX: M81.0 Age-related osteoporosis without current pathological fracture (principal); M06.9 Rheumatoid arthritis, unspecified; Z78.0 Asymptomatic menopausal state | CPT/HCPCS: 99212 ==

== ENCOUNTER 2023-10-06 13:24 | Outpatient (AMB) | payer MEDICARE, MEDICAID, SELFPAY ==
--- NOTE | 2023-10-06 13:46 | AM.OFFVISNUR ---
Intake Visit Reasons: evenity #8 Allergies animal dander Allergy (Verified 09/22/23 14:45) Hives feathers Allergy (Verified 09/22/23 14:45) Hives Seasonal Allergies Allergy (Verified 09/22/23 14:45) Itchy Eyes Office Meds romosozumab-aqqg 210 mg/2.34 mL(105 mg/1.17 mL x2)subcutaneous syringe Performing Provider: Serge Alcantar MD [place] [facility] [place] Administered by: Kindra Obrien RN on 10/06/23 13:48 Dose Route Admin Location Dispensed Lot Number Expiration Date NDC Transportation Planner 210 mg subcut RLQ and LLQ of abdomen 2.34 mL [id number] 02/14/26 07844-143-94 AMGEN Comments: Consent form signed. Pt tolerated injections well. Pt reporting finished chemo last week! Pt denies any problems with previous injections and has scheduled her DEXA scan. Assessment & Plan Assessment & Plan Orders: Orders AMB Romosozumab Injection Patient Supplied Today M81.0 - Age-related osteoporosis without current pathological fracture Medications: New romosozumab-aqqg 210 mg (2.34 mL) subcut ONCE 2.34 mL 0RF M81.0 - Age-related osteoporosis without current pathological fracture
== END 2023-10-06 13:45 | disposition home or self-care (01) ==
PROVIDERS: PCP Nurse Practitioner Primary Care
DX: M81.0 Age-related osteoporosis without current pathological fracture (principal)

== ENCOUNTER → 2023-10-06 13:24 | Outpatient (BNVA) | payer MEDICARE, MEDICAID, SELFPAY | PROVIDERS: PCP Nurse Practitioner Primary Care | DX: M81.0 Age-related osteoporosis without current pathological fracture (principal) | CPT/HCPCS: 96372; J3111 ==

== ENCOUNTER 2023-11-03 13:20 | Outpatient (AMB) | payer MEDICARE, MEDICAID, SELFPAY ==
--- NOTE | 2023-11-03 13:57 | AM.OFFVISNUR ---
Intake Visit Reasons: evenity #9 Allergies animal dander Allergy (Verified 10/13/23 10:17) Hives feathers Allergy (Verified 10/13/23 10:17) Hives Seasonal Allergies Allergy (Verified 10/13/23 10:17) Itchy Eyes Office Meds romosozumab-aqqg 210 mg/2.34 mL(105 mg/1.17 mL x2)subcutaneous syringe Performing Provider: Serge Alcantar MD Performing Location: [facility] [place] Administered by: Kindra Obrien RN on 11/03/23 13:57 Dose Route Admin Location Dispensed Lot Number Expiration Date NDC Coverer 210 mg subcut bilateral lower abdomen 2.34 mL [id number] 02/14/26 39418-020-46 AMGEN Comments: Consent form signed. Pt tolerated injection well. Pt denies any adverse reactions to previous injections. Assessment & Plan Assessment & Plan Orders: Orders AMB Romosozumab Injection Patient Supplied Today M81.0 - Age-related osteoporosis without current pathological fracture Medications: New romosozumab-aqqg 210 mg (2.34 mL) subcut ONCE 2.34 mL 0RF M81.0 - Age-related osteoporosis without current pathological fracture
== END 2023-11-03 13:42 | disposition home or self-care (01) ==
PROVIDERS: PCP Nurse Practitioner Primary Care
DX: M81.0 Age-related osteoporosis without current pathological fracture (principal)

== ENCOUNTER → 2023-11-03 13:20 | Outpatient (BNVA) | payer MEDICARE, MEDICAID, SELFPAY | PROVIDERS: PCP Nurse Practitioner Primary Care | DX: M81.0 Age-related osteoporosis without current pathological fracture (principal) | CPT/HCPCS: 96372; J3111 ==

== ENCOUNTER 2023-11-05 15:02 | Outpatient (REF) | payer MEDICARE, MEDICAID, SELFPAY ==
--- NOTE | ~2023-11-05 | MM_ITS ---
EXAMINATION: MM SCREENING DIGITAL BREAST TOMOSYNTHESIS, RIGHT CLINICAL INFORMATION: Screening. Asymptomatic. Left Mastectomy. COMPARISON: Mammography: This study is compared with prior exams dating back to TECHNIQUE: Digital breast tomosynthesis is performed in both the craniocaudal and mediolateral oblique views along with computer-aided detection (CAD). Synthesized 2D images are generated from the tomosynthesis. FINDINGS: The breasts are heterogeneously dense, which may obscure small masses (ACR BI-RADS breast composition Category c). Marker clip from previous needle core biopsy. There are no significant masses, abnormal calcifications, or other abnormalities. MM/MM tomosynthesis screening RT IMPRESSION: No mammographic evidence of malignancy. ASSESSMENT: BI-RADS BI-RADS 2 - Benign Findings RECOMMENDATION: Routine annual mammography screening. 1 year F/U This examination should not preclude the clinical evaluation of a suspicious palpable abnormality. This patient's information was entered into a reminder system with a target due date for their next mammogram. Electronically signed by: Marcela Pollock DO 11/08/2023 05:49 PM EDT
== END 2023-11-05 15:03 | disposition home or self-care (01) ==
LOC: HO.MAMMO 15:02
PROVIDERS: PCP Nurse Practitioner Primary Care; Visit Provider Nurse Practitioner Primary Care
DX: Z12.31 Encounter for screening mammogram for malignant neoplasm of breast (principal)
CPT/HCPCS: 77063; 77067

== ENCOUNTER → 2023-11-05 15:15 | Outpatient (BNV) | payer MEDICARE, MEDICAID, SELFPAY | PROVIDERS: PCP Nurse Practitioner Primary Care; Visit Provider Internal Medicine | DX: Z12.31 Encounter for screening mammogram for malignant neoplasm of breast (principal) | CPT/HCPCS: 77063; 77067 ==

== ENCOUNTER 2023-11-30 12:45 | Outpatient (REF) | payer MEDICARE, OTHER, SELFPAY ==
--- NOTE | ~2023-11-30 | MM_ITS ---
EXAMINATION: BONE DENSITOMETRY CLINICAL INDICATION: Age-related osteoporosis without current pathological fracture. COMPARISON: Baseline BD dated 11/26/2021. TECHNIQUE: Using a Eye-Fi DXA System (software version: 13.1) manufactured by [employer], dual-energy x-ray absorptiometry was performed of the lumbar spine and left hip. The images are of good technical quality. Summary results are attached. FINDINGS: LEFT FEMUR, NECK: Current: BMD 0.784 g/cm2, Z-score 0.5, T-score -1.8, osteopenia. Baseline: BMD 0.691 g/cm2. LEFT FEMUR, TOTAL: Current: BMD 0.751 g/cm2, Z-score 0.1, T-score -2.0, osteopenia, 10.3% increase from baseline (<5% change is not significant). Baseline: BMD 0.681 g/cm2. AP SPINE L1-L4: Current: BMD 1.017 g/cm2, Z-score 0.9, T-score -1.4, osteopenia, 27.8% increase from baseline (<5% change is not significant). Baseline: BMD 0.796 g/cm2. IDENTIFIED RISK FACTORS: Menopause, height loss, osteoporosis, rheumatoid arthritis. HISTORY OF FRACTURE: None listed. MEDICATIONS: Calcium or multivitamin. Vitamin D, ERT/SERMS. MM/XR DEXA axial skeleton IMPRESSION: 1. DIAGNOSIS: Osteopenia based on the lowest T-score value of -2.0 in the total femur applying World Health Organization criteria. 2. 10-YEAR FRACTURE RISK PREDICTION, FRAX: Not performed in this patient on estrogen or bone building treatments. 3. Treatment Recommendations: NOF guidelines recommend consideration for treatment in postmenopausal women and men age 50 and older presenting with the following: -A hip or vertebral (clinical or morphometric) fracture. -T-score less than or equal to -2.5 at the femoral neck or spine after appropriate evaluation to exclude secondary causes. -Low bone mass at the hip or spine and a 10-year fracture probability by FRAX of greater than or equal to 3% for hip fracture or greater than or equal to 20% for major osteoporotic fracture based on the [place] adapted WHO algorithm. 4. Other Recommendations: All treatment decisions require clinical judgment and consideration of individual patient factors, including patient preferences, comorbidities, previous drug use, risk factors not captured in the FRAX model (e.g. frailty, falls, vitamin D deficiency, increased bone turnover, interval significant decline in bone density) and possible under or overestimation of fracture risk by FRAX. Additional medical evaluation for secondary cause of low bone mineral density may be appropriate. FUTURE SCAN RECOMMENDATION: People with diagnosed cases of osteoporosis or at high risk for fracture should have regular bone mineral density tests. For patients eligible for Medicare, routine testing is allowed once every 2 years. The testing frequency can be increased to one year for patients who have rapidly progressing disease, those who are receiving or discontinuing medical therapy to restore bone mass, or have additional risk factors. Electronically signed by: Darlyn Johnson MD 12/16/2023 10:28 AM EDT RP
== END 2023-11-30 12:46 | disposition home or self-care (01) ==
LOC: HO.MAMMO 12:45
PROVIDERS: PCP Nurse Practitioner Primary Care; Visit Provider Internal Medicine Endocrinology, Diabetes & Metabolism
DX: M81.0 Age-related osteoporosis without current pathological fracture (principal)
CPT/HCPCS: 77080

== ENCOUNTER 2023-12-01 13:19 | Outpatient (AMB) | payer MEDICARE, MEDICAID, SELFPAY ==
--- NOTE | 2023-12-01 13:45 | AM.OFFVISNUR ---
Intake Visit Reasons: evenity #10 Allergies animal dander Allergy (Verified 10/13/23 10:17) Hives feathers Allergy (Verified 10/13/23 10:17) Hives Seasonal Allergies Allergy (Verified 10/13/23 10:17) Itchy Eyes Office Meds romosozumab-aqqg 210 mg/2.34 mL(105 mg/1.17 mL x2)subcutaneous syringe Performing Provider: Serge Alcantar MD Performing Location: [facility] [place] Administered by: Kindra Obrien RN on 12/01/23 13:45 Dose Route Admin Location Dispensed Lot Number Expiration Date NDC Family Psychologist 210 mg subcut bilateral lower abdomen 2.34 mL [id number] 08/14/24 51605-253-14 AMGEN Comments: Consent order signed. Pt tolerated well. Patient denies any adverse reactions with previous injections. Assessment & Plan Assessment & Plan Orders: Orders AMB Romosozumab Injection Patient Supplied Today M81.0 - Age-related osteoporosis without current pathological fracture Medications: New romosozumab-aqqg 210 mg (2.34 mL) subcut ONCE 2.34 mL 0RF M81.0 - Age-related osteoporosis without current pathological fracture
== END 2023-12-01 13:43 | disposition home or self-care (01) ==
PROVIDERS: PCP Nurse Practitioner Primary Care
DX: M81.0 Age-related osteoporosis without current pathological fracture (principal)

== ENCOUNTER → 2023-12-01 13:19 | Outpatient (BNVA) | payer MEDICARE, MEDICAID, SELFPAY | PROVIDERS: PCP Nurse Practitioner Primary Care | DX: M81.0 Age-related osteoporosis without current pathological fracture (principal) | CPT/HCPCS: 96372; J3111 ==

== ENCOUNTER 2023-12-22 13:40 | Outpatient (AMB) | payer MEDICARE, SELFPAY ==
--- NOTE | 2023-12-22 14:00 | A.OFFVIS_ITS ---
Vital Signs 12/22/23 14:01 Height 5 ft 2.68 in Weight 117 lb 8.102 oz BMI 21.0 BP 92/58 L Blood Pressure Location Rt brachial Position Sitting Pulse 83 Pulse Source Pulse Oximeter Intake Visit Reasons: f/u osteoporosis-conf Intake Note: Patient present today for Osteoporosis follow up visit. 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: No Accompanied by: Self / Same As Patient Allergies animal dander Allergy (Verified 12/22/23 14:02) Hives feathers Allergy (Verified 12/22/23 14:02) Hives Seasonal Allergies Allergy (Verified 12/22/23 14:02) Itchy Eyes Medication List - Last Reconciled 12/22/23 by Serge Alcantar MD albuterol sulfate 90 mcg/actuation 1 inh inhalation Q4H PRN atorvastatin 10 mg PO BEDTIME biotin 5,000 mcg sublingual DAILY ipratropium-albuterol 0.5 mg-3 mg(2.5 mg base)/3 mL 3 mL inhalation Q6H PRN loperamide (Imodium A-D) 2 mg PO Q4H PRN loratadine 10 mg PO DAILY metoprolol succinate ER 25 mg PO BEDTIME 90 days abuwqecawjzk-orbr-eupoc acid 18-400 mg-mcg (Centrum Women) 1 tab PO DAILY ondansetron 8 mg PO Q8H PRN romosozumab-aqqg (Evenity) 210 mg (2.34 mL) subcut .monthly tamoxifen 10 mg PO DAILY vitamin B complex 1 tab PO DAILY HPI Comments Details: 78 YO Female with is seen in consultation at the request of PCP for Osteoporosis. First diagnosed in [facility] . Not Received treatment in the past No history of pathologic fracture or ONJ. Has several servings of dietary calcium per day in the form of yogurt,salmon, milk. Not Takes Calcium supplement . Takes ? IU of Vitamin D daily. Denies ever using PPI, anticoagulant, antiepileptic or glucocorticoid medication. 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 UTD on dental cleanings and sees dentist every 6 months. has planned upcoming dental work but no extractions extractions. DXA dated 11/26/21:FINDINGS: AP SPINE L1-L2 (excluding L3 and L4):? The data of L1-L4 has been changed to exclude the L3 and L4 vertebral bodies because degenerative changes at these levels may cause overestimation of the lumbar spine density. BMD 0.665 g/cm2, Z-score -1.9, T-score -4.2, osteoporosis. LEFT FEMUR, NECK: BMD 0.691 g/cm2, Z-score -0.3, T-score -2.5, osteoporosis. LEFT FEMUR, TOTAL: BMD 0.681 g/cm2, Z-score -0.5, T-score -2.6, osteoporosis. IDENTIFIED RISK FACTORS: Menopause, height loss, rheumatoid arthritis. HISTORY OF FRACTURE: None listed. MEDICATIONS: Calcium supplements or multivitamin. MM/XR DEXA axial skeleton IMPRESSION: 1. DIAGNOSIS: Osteoporosis based on the lowest T-score value of -4.2 in the lumbar spine applying World Health Organization criteria.? Labs: Secondary workup negative. Not Undergoing radiation treatment for breast cancer but received chemo. On Evenity for 8mos . Was unable to take tamoxifen because of hot flashes. 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 Mother Ovarian ca Social History Household Members: None Housing: Condominium Are you a primary career guidance technician to a significant other at home: No Do you presently have visiting nurse or other home services: No Alcohol intake: current Alcohol intake frequency: holidays/special occasions only Patient Tobacco Use Status: Former Tobacco user Tobacco use type: Cigarette Years Smoked: 25 e-Cigarette/Vaping Use: Never Used Substance Use Type: Marijuana service: No Current occupational status: employed Assessment & Plan Assessment & Plan (1) Osteoporosis: Code(s): M81.0 - Age-related osteoporosis without current pathological fracture Category: Medical Plan: This is a 78-year-old white female found to have moderate to severe osteoporosis on DEXA bone density. Secondary workup was negative. Patient undergoing radiation therapy for breast cancer. Complete a 12 month course of Evenity with bone density going into the osteopenic range The plan is to talk to the patient about going on alendronate instead of Prolia as bone density has improved to goal Medications: New alendronate 70 mg PO QWEEK 5 tabs 11RF Coding Level of Care Code Est Pt Level 3 (41147) Diagnoses Osteoporosis M81.0
[2023-12-22 14:01] VITALS: BP 92/58; PULSE 83; BMI 21.0
== END 2023-12-22 14:30 | disposition home or self-care (01) ==
LOC: HO.ENCR 13:41
PROVIDERS: PCP Nurse Practitioner Primary Care; Visit Provider Internal Medicine Endocrinology, Diabetes & Metabolism
DX: M81.0 Age-related osteoporosis without current pathological fracture (principal)
CPT/HCPCS: 99213

== ENCOUNTER → 2023-12-22 13:40 | Outpatient (BNVA) | payer MEDICARE, SELFPAY | PROVIDERS: PCP Nurse Practitioner Primary Care; Visit Provider Internal Medicine Endocrinology, Diabetes & Metabolism | DX: M81.0 Age-related osteoporosis without current pathological fracture (principal) | CPT/HCPCS: 99212 ==

== ENCOUNTER → 2023-12-28 13:54 | Outpatient (AMB) | payer MEDICARE, SELFPAY ==
--- NOTE | 2023-12-28 14:21 | AM.OFFVISNUR ---
Intake Visit Reasons: Evenity #11 Allergies animal dander Allergy (Verified 12/22/23 14:02) Hives feathers Allergy (Verified 12/22/23 14:02) Hives Seasonal Allergies Allergy (Verified 12/22/23 14:02) Itchy Eyes Office Meds romosozumab-aqqg 210 mg/2.34 mL(105 mg/1.17 mL x2)subcutaneous syringe Performing Provider: Serge Alcantar MD Performing Location: [facility] [place] Administered by: Kindra Obrien RN on 12/28/23 14:21 Dose Route Admin Location Dispensed Lot Number Expiration Date NDC Freelance Web Designer 210 mg subcut bilateral lower abdomen 2.34 mL [id number] 11/14/25 22380-868-01 AMGEN Comments: Consent form signed by patient. Pt tolerated injection well. Pt denies any adverse reactions with previous injections. Pt is aware of plan to switch to alendronate after completion of evenity injections. Assessment & Plan Assessment & Plan Orders: Orders AMB Romosozumab Injection Patient Supplied Today M81.0 - Age-related osteoporosis without current pathological fracture Medications: New romosozumab-aqqg 210 mg (2.34 mL) subcut ONCE 2.34 mL 0RF M81.0 - Age-related osteoporosis without current pathological fracture
== END ==
PROVIDERS: PCP Nurse Practitioner Primary Care
DX: M81.0 Age-related osteoporosis without current pathological fracture (principal)

== ENCOUNTER → 2023-12-28 13:54 | Outpatient (BNVA) | payer MEDICARE, SELFPAY | PROVIDERS: PCP Nurse Practitioner Primary Care | DX: M81.0 Age-related osteoporosis without current pathological fracture (principal) | CPT/HCPCS: 96372; J3111 ==

== ENCOUNTER 2024-01-19 13:24 | Outpatient (AMB) | payer MEDICARE, SELFPAY ==
--- NOTE | 2024-01-19 13:24 | A.OFFVIS_ITS ---
Vital Signs 01/19/24 13:25 Height 5 ft 2 in Weight 119 lb 4 oz BMI 21.8 Intake Visit Reasons: Breast exam, 6 month follow up Intake Note: This patient presents for Breast exam, 6 month follow up. Pt c/o; reports no breast complaints at this time. 11/30/2023: Bone density 11/05/2023: MM Screening Embedded Systems Developer Required: No Accompanied by: Self / Same As Patient Allergies animal dander Allergy (Verified 01/19/24 13:25) Hives feathers Allergy (Verified 01/19/24 13:25) Hives Seasonal Allergies Allergy (Verified 01/19/24 13:25) Itchy Eyes Medication List - Last Reconciled 01/19/24 by Rayo Ulloa MD albuterol sulfate 90 mcg/actuation 1 inh inhalation Q4H PRN alendronate 70 mg PO QWEEK atorvastatin 10 mg PO BEDTIME biotin 5,000 mcg sublingual DAILY ipratropium-albuterol 0.5 mg-3 mg(2.5 mg base)/3 mL 3 mL inhalation Q6H PRN letrozole 2.5 mg PO DAILY loperamide (Imodium A-D) 2 mg PO Q4H PRN loratadine 10 mg PO DAILY metoprolol succinate ER 25 mg PO BEDTIME 90 days teehhhowhdnu-zbfc-cahxm acid 18-400 mg-mcg (Centrum Women) 1 tab PO DAILY ondansetron 8 mg PO Q8H PRN romosozumab-aqqg (Evenity) 210 mg (2.34 mL) subcut .monthly vitamin B complex 1 tab PO DAILY HPI HPI Breast exam, 6 month follow up: Details: She had undergone mastectomy and sentinel biopsy for left breast cancer last January 05, 2023. There was no residual cancer in the mastectomy site. She did not undergo any chemotherapy. She continues to feel well. She had been switched to letrozole from tamoxifen as she was unable to tolerate the side effects. She says that that is the only medications he is taking for breast cancer at this time. She feels well overall. 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 Mother Ovarian ca Social History Household Members: None Housing: Condominium Are you a primary client care representative to a significant other at home: No Do you presently have visiting nurse or other home services: No Alcohol intake: current Alcohol intake frequency: holidays/special occasions only Patient Tobacco Use Status: Former Tobacco user Tobacco use type: Cigarette Years Smoked: 25 e-Cigarette/Vaping Use: Never Used Substance Use Type: Marijuana service: No Current occupational status: employed Review of Systems Const Denies chills and Denies fever(s) Card Denies chest pain, Denies dyspnea and Denies dyspnea on exertion Resp Denies cough, Denies dyspnea and Denies dyspnea on exertion GI Denies hematochezia and Denies change in bowel habits Denies hematuria Musc Denies back pain and Denies limited range of motion Neuro Denies focal weakness and Denies convulsions Psych Denies depression and Denies mood swings Physical Exam Vital Signs: BMI result Body Mass Index 21.8 Const General: comfortable and no acute distress Orientation/consciousness: patient oriented x3 Neck Neck: Yes no lymphadenopathy Chest Other: No palpable mass on the mastectomy site on the left chest wall, no palpable mass on the right breast, no axillary lymphadenopathy Resp Auscultation: clear to auscultation bilaterally Cardio Rhythm: regular rhythm GI Palpation (GI): Soft to palpation, nontender and no guarding Neuro General: patient oriented x3 Assessment & Plan Assessment & Plan (1) History of breast cancer: Code(s): Z85.3 - Personal history of malignant neoplasm of breast Category: Medical Plan: She had a mastectomy last year for a yT1N0 invasive ductal carcinoma. She is doing very well. Her mammogram for the right breast last October, was unremarkable She is currently on letrozole for hormonal treatment I do not feel any masses on the mastectomy site or on the right breast. She has no lymphadenopathy I will see her again in about 6 months. She is also to continue to follow up with Dr. Valdez. Coding Level of Care Code Est Pt Level 3 (27359) Diagnoses History of breast cancer Z85.3
[2024-01-19 13:25] VITALS: BMI 21.8
== END 2024-01-19 13:43 | disposition home or self-care (01) ==
PROVIDERS: PCP Nurse Practitioner Primary Care; Visit Provider Surgery
DX: Z85.3 Personal history of malignant neoplasm of breast (principal)
CPT/HCPCS: 99213

== ENCOUNTER → 2024-01-19 13:24 | Outpatient (BNVA) | payer MEDICARE, SELFPAY | PROVIDERS: PCP Nurse Practitioner Primary Care; Visit Provider Surgery | DX: C50.912 Malignant neoplasm of unspecified site of left female breast (principal); Z90.12 Acquired absence of left breast and nipple; Z79.811 Long term (current) use of aromatase inhibitors | CPT/HCPCS: 99212 ==

== ENCOUNTER 2024-01-25 13:56 | Outpatient (AMB) | payer MEDICARE, SELFPAY ==
--- NOTE | 2024-01-25 14:12 | AM.OFFVISNUR ---
Intake Visit Reasons: Evenity #12 Allergies animal dander Allergy (Verified 01/19/24 13:25) Hives feathers Allergy (Verified 01/19/24 13:25) Hives Seasonal Allergies Allergy (Verified 01/19/24 13:25) Itchy Eyes Office Meds romosozumab-aqqg 210 mg/2.34 mL(105 mg/1.17 mL x2)subcutaneous syringe Performing Provider: Serge Alcantar MD [place] [facility] Administered by: Kindra Obrien RN on 01/25/24 14:12 Dose Route Admin Location Dispensed Lot Number Expiration Date NDC Slat Basket Maker Helper Machine 210 mg subcut bilateral lower abdomens 2.34 mL [id number] 05/15/26 86419-956-72 [facility] Comments: Cosent form signed by pt. Pt tolerated injection well. This was pt's 12th and final injection. Pt aware of treatment plan to change to alendronate. Assessment & Plan Assessment & Plan Orders: Orders AMB Romosozumab Injection Patient Supplied Today M81.0 - Age-related osteoporosis without current pathological fracture Medications: New romosozumab-aqqg 210 mg (2.34 mL) subcut ONCE 2.34 mL 0RF M81.0 - Age-related osteoporosis without current pathological fracture
== END 2024-01-25 14:14 | disposition home or self-care (01) ==
PROVIDERS: PCP Nurse Practitioner Primary Care
DX: M81.0 Age-related osteoporosis without current pathological fracture (principal)

== ENCOUNTER → 2024-01-25 13:56 | Outpatient (BNVA) | payer MEDICARE, SELFPAY | PROVIDERS: PCP Nurse Practitioner Primary Care | DX: M81.0 Age-related osteoporosis without current pathological fracture (principal) | CPT/HCPCS: 96372; J3111 ==

== ENCOUNTER 2024-01-27 12:53 | Outpatient (AMB) | payer MEDICARE, SELFPAY ==
[2024-01-27 13:02] VITALS: BP 142/70; PULSE 68; BMI 21.9
--- NOTE | 2024-01-27 13:02 | MHC.OFFVIS ---
Vital Signs 01/27/24 13:02 Height 5 ft 2 in Weight 119 lb 14.903 oz BMI 21.9 BP 142/70 H Blood Pressure Location Rt brachial Position Sitting Pulse 68 Pulse Source Monitor Intake Visit Reasons: 1 yr f/up Intensive Care Unit Registered Nurse Required: No Allergies animal dander Allergy (Verified 01/27/24 13:03) Hives feathers Allergy (Verified 01/27/24 13:03) Hives Seasonal Allergies Allergy (Verified 01/27/24 13:03) Itchy Eyes Medication List - Last Reconciled 01/27/24 by Fariba Kelley ACUPUNCTURE PHYSICIAN-C acyclovir 5% topical DAILY albuterol sulfate 90 mcg/actuation 1 inh inhalation Q4H PRN alendronate 70 mg PO QWEEK atorvastatin 10 mg PO BEDTIME epinephrine mL IM ipratropium-albuterol 0.5 mg-3 mg(2.5 mg base)/3 mL 3 mL inhalation Q6H PRN letrozole 2.5 mg PO DAILY loperamide (Imodium A-D) 2 mg PO Q4H PRN loratadine 10 mg PO DAILY metoprolol succinate ER 25 mg PO BEDTIME 90 days yppypdfheypx-iaqx-szkob acid 18-400 mg-mcg (Centrum Women) 1 tab PO DAILY polymyxin B sulf-trimethoprim 10,000 unit- 1 mg/mL ophthalmic (eye) vitamin B complex 1 tab PO DAILY HPI HPI 1 yr f/up: Details: Elayne is a 79-year-old female with past medical history of hyperlipidemia, frequent PACs, breast cancer s/p mastectomy who presents for follow-up. Today she reports she has been doing very well since her last visit in January 2023. She tells me she has been cancer free for over a 1 year. Health why she is doing well with no concerning symptoms. She denies any heart palpitations or beats. No chest discomfort at rest or with activity. No lightheadedness, presyncope, syncope. No shortness of breath, PND orthopnea. She tells me that her ankles and feet do swell at times. This is not a new thing for her. Overall they are much improved from prior reports. She does have issues with fatigue. She works at [employer] 2 times a week and divides up her errands amongst the other days. She is not engaging in routine exercise at this time. She is compliant with her medications. 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 Mother Ovarian ca Social History Household Members: None Housing: [facility] Are you a primary healthcare analyst to a significant other at home: No Do you presently have visiting nurse or other home services: No Alcohol intake: current Alcohol intake frequency: holidays/special occasions only Patient Tobacco Use Status: Former Tobacco user Tobacco use type: Cigarette Years Smoked: 25 e-Cigarette/Vaping Use: Never Used Substance Use Type: Marijuana service: No Current occupational status: employed Review of Systems Const All systems reviewed & are unremarkable except as noted in HPI and below ENT Denies dizziness Card Denies chest pain, Denies chest pain at rest, Denies chest pain with activity, Denies rapid heart rate, Denies pedal edema, Denies edema, Denies leg edema, Denies lightheadedness, Denies palpitations, Denies dyspnea, Denies dyspnea on exertion and Denies orthopnea Resp Denies cough, Denies dyspnea and Denies dyspnea on exertion GI Denies hematochezia and Denies change in stool character Musc Denies abnormal gait, Denies limited range of motion, Denies muscle cramps, Denies muscle weakness, Denies numbness, Denies radiating pain into limb, Denies stiffness and Denies tingling Neuro Denies abnormal gait, Denies dizziness, Denies numbness and Denies tingling Endo Denies palpitations Physical Exam Vital Signs: BMI result Body Mass Index 21.9 Const General: cooperative, healthy appearing, comfortable and no acute distress Orientation/consciousness: patient oriented x3 Neck Neck: Yes normal visual inspection Resp Effort & Inspection: normal respiratory effort Auscultation: clear to auscultation bilaterally, no crackles, no rales, no rhonchi and no wheezes Cardio Jugular venous distension: no JVD Rate: regular rate Rhythm: regular rhythm Heart sounds: S1 normal heart sound present, S2 normal heart sound present, no murmurs and no rubs Neuro General: patient oriented x3 Extrem General: Yes normal to inspection Psych Appearance: grossly normal Mental Status: mental status grossly normal Speech and movement: Normal speech and movement present Office Procedures EKG Details: Today, read by me, normal sinus rhythm, rate 68, QTC 404 milliseconds [id number], Complete Assessment & Plan Assessment & Plan (1) PAC (premature atrial contraction): Code(s): I49.1 - Atrial premature depolarization Category: Medical Plan: History palpitations with frequent PACs. Holter monitor done for 3 days starting 09/03/2021 showed sinus rhythm with average heart rate 77, heart rate range 49 to 115, no atrial fibrillation or flutter, frequent SVE with brief runs, 18% of the time. She was then started on metoprolol XL 25 mg daily and reported feeling much better with less heart pounding. Holter monitor done on 12/31/2021 for 3 days showed sinus rhythm with average 68, 32% of the time heart rate less than 60, frequent PACs, 14.7% of time. EKG done today shows sinus rhythm, rate 68, QTC 4 4 milliseconds. Today she denies any recent heart palpitations. She continues on metoprolol XL 25 mg daily. No med changes made today. With her frequent PACs She is at increased risk for developing atrial fibrillation in the future. Instructed to call if she has any issues with heart palpitations. Can obtain an EKG if she does report heart palpitations. Will check an echocardiogram and Holter monitor prior to next visit. Cardiology office visit in 1 year, sooner if needed. (2) Aortic regurgitation: Code(s): I35.1 - Nonrheumatic aortic (valve) insufficiency Category: Medical Qualifiers: Cardiac valve disease etiology: nonrheumatic Qualified Code(s): I35.1 - Nonrheumatic aortic (valve) insufficiency Plan: Echocardiogram done 10/08/2022 shows EF 62%, moderate calcification of the aortic valve, mild aortic regurgitation, moderate mitral annular calcification. (3) Elevated blood pressure reading: Code(s): R03.0 - Elevated blood-pressure reading, without diagnosis of hypertension Category: Medical Plan: Blood pressure mildly elevated today. She tells me she has white coat syndrome. She is on metoprolol XL 25 mg daily. She tells me her home blood pressures range 120 to 130 systolic. No med changes made at this time. Reviewed low-salt diet. Plan Time spent with chart review, documentation, interview and assessment Orders: Orders CA echo transthoracic complete 01/01/25 I35.1 - Nonrheumatic aortic (valve) insufficiency, I49.1 - Atrial premature depolarization ECG 3 day holter monitor 01/01/25 I35.1 - Nonrheumatic aortic (valve) insufficiency, I49.1 - Atrial premature depolarization Coding Level of Care Code Est Pt Level 4 (89617) Complex EM visit Add On G2211 Diagnoses PAC (premature atrial contraction) I49.1 Nonrheumatic aortic valve insufficiency I35.1 Cardiac valve disease etiology: nonrheumatic Elevated blood pressure reading R03.0 CPT Codes EKG - CPT: [id number], Complete ([id number]) Time Spent (min) 28
== END 2024-01-27 13:35 | disposition home or self-care (01) ==
PROVIDERS: PCP Nurse Practitioner Primary Care; Visit Provider Nurse Practitioner Family
DX: I49.1 Atrial premature depolarization (principal); I35.1 Nonrheumatic aortic (valve) insufficiency; R03.0 Elevated blood-pressure reading, without diagnosis of hypertension
CPT/HCPCS: 93010; 99214; G2211

== ENCOUNTER → 2024-01-27 12:53 | Outpatient (BNVA) | payer MEDICARE, SELFPAY | PROVIDERS: PCP Nurse Practitioner Primary Care; Visit Provider Nurse Practitioner Family | DX: I49.1 Atrial premature depolarization (principal); I35.1 Nonrheumatic aortic (valve) insufficiency; R03.0 Elevated blood-pressure reading, without diagnosis of hypertension | CPT/HCPCS: 93005; 99212 ==

== ENCOUNTER 2024-04-27 13:20 | Outpatient (AMB) | payer MEDICARE, SELFPAY ==
--- NOTE | 2024-04-27 13:22 | A.OFFVIS_ITS ---
Vital Signs 04/27/24 13:24 Height 5 ft 2.31 in Weight 117 lb 11.629 oz BMI 21.3 BP 124/64 Blood Pressure Location Rt brachial Position Sitting Pulse 74 Pulse Source Pulse Oximeter Pulse Oximetry (%) 96 Oxygen Delivery Method Room Air Intake Visit Reasons: f/u osteoporosis Intake Note: Patient present today for Osteoporosis follow up. Canvas Goods Maker Required: No Accompanied by: Self / Same As Patient Allergies animal dander Allergy (Verified 04/27/24 13:25) Hives feathers Allergy (Verified 04/27/24 13:25) Hives Seasonal Allergies Allergy (Verified 04/27/24 13:25) Itchy Eyes Medication List - Last Reconciled 04/27/24 by Serge Alcantar MD acyclovir 5% topical DAILY albuterol sulfate 90 mcg/actuation 1 inh inhalation Q4H PRN alendronate 70 mg PO QWEEK atorvastatin 10 mg PO BEDTIME epinephrine mL IM furosemide (Lasix) 20 mg PO DAILY ipratropium-albuterol 0.5 mg-3 mg(2.5 mg base)/3 mL 3 mL inhalation Q6H PRN letrozole 2.5 mg PO DAILY loperamide (Imodium A-D) 2 mg PO Q4H PRN loratadine 10 mg PO DAILY metoprolol succinate ER 25 mg PO BEDTIME 90 days kdffeqierplf-ninm-hnuhm acid 18-400 mg-mcg (Centrum Women) 1 tab PO DAILY polymyxin B sulf-trimethoprim 10,000 unit- 1 mg/mL ophthalmic (eye) vitamin B complex 1 tab PO DAILY HPI Comments Details: 78 YO Female with is seen in consultation at the request of PCP for Osteoporosis. [facility] Not Received treatment in the past No history of pathologic fracture or ONJ. Has several servings of dietary calcium per day in the form of yogurt,salmon, milk. Not Takes Calcium supplement . Takes ? IU of Vitamin D daily. Denies ever using PPI, anticoagulant, antiepileptic or glucocorticoid medication. 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 UTD on dental cleanings and sees dentist every 6 months. has planned upcoming dental work but no extractions extractions. DXA dated 11/26/21:FINDINGS: AP SPINE L1-L2 (excluding L3 and L4):? The data of L1-L4 has been changed to exclude the L3 and L4 vertebral bodies because degenerative changes at these levels may cause overestimation of the lumbar spine density. BMD 0.665 g/cm2, Z-score -1.9, T-score -4.2, osteoporosis. LEFT FEMUR, NECK: BMD 0.691 g/cm2, Z-score -0.3, T-score -2.5, osteoporosis. LEFT FEMUR, TOTAL: BMD 0.681 g/cm2, Z-score -0.5, T-score -2.6, osteoporosis. IDENTIFIED RISK FACTORS: Menopause, height loss, rheumatoid arthritis. HISTORY OF FRACTURE: None listed. MEDICATIONS: Calcium supplements or multivitamin. MM/XR DEXA axial skeleton IMPRESSION: 1. DIAGNOSIS: Osteoporosis based on the lowest T-score value of -4.2 in the lumbar spine applying World Health Organization criteria.? Labs: Secondary workup negative. Not Undergoing radiation treatment for breast cancer but received chemo. Took a course of Evenity and transitioned to alendronate since 12/2023 The patient is a 79-year-old female presenting with a follow-up for osteoporosis management She has been on a defined course of Evenity for osteoporosis, followed by ongoing alendronate therapy, showing favorable outcomes with no adverse transformations in her health. Her primary healthcare provider has acknowledged significant improvements which are supported by recent assessments. 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 Mother Ovarian ca Social History Household Members: None Housing: Condominium Are you a primary memory care program director to a significant other at home: No Do you presently have visiting nurse or other home services: No Alcohol intake: current Alcohol intake frequency: holidays/special occasions only Patient Tobacco Use Status: Former Tobacco user Tobacco use type: Cigarette Years Smoked: 25 e-Cigarette/Vaping Use: Never Used Substance Use Type: Marijuana service: No Current occupational status: employed Physical Exam Vital Signs: Last Vital Signs Pulse 74 04/27/24 13:24 BP 124/64 04/27/24 13:24 Pulse Ox 96 04/27/24 13:24 Oxygen Delivery Method Room Air 04/27/24 13:24 BMI result Body Mass Index 21.3 Assessment & Plan Assessment & Plan (1) Osteoporosis: Code(s): M81.0 - Age-related osteoporosis without current pathological fracture Category: Medical Plan: This is a 79-year-old white female found to have moderate to severe osteoporosis on DEXA bone density. Secondary workup was negative. Patient undergoing radiation therapy for breast cancer. Completed a 12 month course of Evenity with bone density going into the osteopenic range and transitioning to alendronate in 12/2023 The patient will continue alendronate therapy with a urine NTX test planned to assess the medication's efficacy. The NTX test collection involves a morning urine sample, specifically the second void, following an overnight fast. Follow- up will occur in six months to reassess the treatment's effectiveness. I anticipate a full year of alendronate therapy until 12/2024 Patient was informed and verbally consented to the use of an ambient scribe for clinic note documentation during this visit. Coding Level of Care Code Est Pt Level 3 (31007) Diagnoses Osteoporosis M81.0
[2024-04-27 13:24] VITALS: BP 124/64; PULSE 74; O2SAT 96; BMI 21.3
--- OUTSIDE RECORDS SUMMARY | 2024-04-27 16:54 | XMS_ITS | Encounter Summary ---
Author Organization [employer] [facility] Address [address] [place] [id number] Care Team Providers Care Shipwright Helper Name Role Phone Janine Chester Primary Care Provider [phone] Reason for Visit * Reason Comments Med Refill Encounter Details Date Type Department Care Team (Late st Contact Info) Description 01/29/2022 Refill [facility] [address], [place] [phone] Janine Chester ANP [address] [place] [address] Dyslipidemia Social History Tobacco Use Types Packs/Day Years Used Date Smoking Tobacco: Never Assessed Comments Unknown Sex and Gender Information Value Date Recorded Sex Assigned at Female 12/15/2021 10:38 AM EDT Legal Sex Female 11:04 AM EST Gender Identity Female 12/15/2021 10:38 AM EDT Sexual Orientation Straight 12/15/2021 10 :38 AM EDT documented as of this encounter Plan of Treatment Upcoming Encounters Date Type Department Care Team (Late st Contact Info) Description 05/18/2024 2:30 PM EDT Immunization [facility] [address] [place] [address] [phone] 09/21/2024 2:30 PM EDT Immunization [facility] [address] [place] [address] [phone] 11/02/2024 2:30 PM EDT Immunization [facility] [address] [place] [address] [phone] documented as of this encounter Visit Diagnoses Diagnosis Dyslipidemia Other and unspecified hyperlipidemia documented in this encounter Care Teams Shipwright Helper Relationship Specialty Start Date End Date Janine Chester ANP [address] [place] [address] PCP - General Family Medicine 10/07/20 documented as of this encounter
--- OUTSIDE RECORDS SUMMARY | 2024-04-27 16:54 | XMS_ITS | Clinical Summary ---
Author Organization [employer] Address [address] [place] [address] 7t [place] [address] Care Team Providers Care Manager Name Role Phone Harry Ceron TAYLOR Primary Care Provider [phone] Allergies Active Allergy Reactions Criticality Noted Date Comments Bee Venom 10/16/2020 Medications metoprolol succinate XL (Toprol-XL) 25 MG 24 hr tablet Take 1 tablet by mouth 1 (one) time each day. Active fluticasone (Flonase Allergy Relief) 50 MCG/ACT nasal spray USE 1-2 SPRAYS IN EACH NOSTRIL EVERY DAY IF NEEDED 48 g 1 3 Active Blood Pressure kitIndications:E levated BP without diagnosis of hypertension 1 kit in the morning. 1 kit 4 Active albuterol 108 (90 Base) MCG/ACT inhalerIndicatio ns:Wheezing INHALE 2 PUFFS BY MOUTH EVERY 4 TO 6 HOURS NEEDED 8.5 g 3 4 Active acyclovir (Zovirax) 5 % ointmentIndicati ons:Herpes zoster without complication Use as needed up to 4x/d 15 g 4 Active ipratropium-albu terol (Duo-Neb) 0.5-2.5 mg/3 mL nebulizer solutionIndicati ons:Mild intermittent asthma without complication Take 3 mL by nebulization Every 4-6 hours as needed for wheezing or shortness of breath. 75 mL 1 4 Active loratadine (Claritin) 10 MG tabletIndication s:Seasonal allergies Take 1 tablet (10 mg) by mouth Once per day. 90 tablet 3 4 Active EPINEPHrine (Epipen) 0.3 MG/0.3ML injection syringeIndicatio ns:Allergic to bees Inject 0.3 mL (0.3 mg) as directed 1 (one) time if needed for anaphylaxis. Inject into upper leg. Call 911 after use. 2 each 1 4 025 Active alendronate (Fosamax) 70 MG tablet Take 1 tablet by mouth every 7 (seven) days. 4 Active furosemide (Lasix) 20 MG tabletIndication s:Leg swelling Take 1 tablet (20 mg) by mouth Once per day. As needed 90 tablet 1 5 Active atorvastatin (Lipitor) 10 MG tabletIndication s:Dyslipidemia TAKE 1 TABLET BY MOUTH EVERY DAY 90 tablet 1 5 Active Active Problems Problem Noted Date Diagnosed Date Neuropathy involving both lower extremities 03/2023 Breast calcification, left 01/27/202301/27 Diverticulosis 01/27/2023 01/27/2023 Ulnar neuropathy at elbow of left upper extremit y 12/07/2022 Assessment & Plan (12/07/2022 5:38 PM EDT): From elbow bursitis? OA? Use elbow brace. 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 Valdez at [facility] q3 mo This is a 78-year-old postmenopausal woman with left breast invasive ductal carcinoma diagnosed in June 2022. Stereotactic core biopsy performed 06/25/2022 revealed invasive ductal carcinoma, MS BR grade 3 along with DCIS, solid and comedo features. Immunostains revealed estrogen receptor positive- 95%, progesterone receptor positive-50%, HER2 positive 3+, Ki 67 high greater than 20%. Clinical stage T3 N0, stage IIB. [facility] genetic result was negative. Bilateral breast MRI showed a suspicious finding in the right breast, stereotactic biopsy performed 07/15/2022 showed no malignancy. She received TCHP regimen, docetaxel, carboplatin, trastuzumab and pertuzumab administered every 3 weeks for 6 cycles in the neoadjuvant setting. She underwent left breast mastectomy on 01/05/2023. This was negative for residual carcinoma. Pathological stage ypT0 N0. Two sentinel lymph nodes and 1 left axillary lymph node was negative for metastatic carcinoma. She therefore does not need adjuvant radiation therapy, her case was discussed in tumor board, Dr. Cameron did not recommend adjuvant radiation therapy. She completed adjuvant trastuzumab/pertuzumab/ 52 weeks. She will be due for right unilateral mammography in October. Arthritis 06/10/2022 Flushing 06/10/2022 Headache 06/10/2022 Leg pain, right 06/10/2022 Mild intermittent asthma 06/10/2022 Premature atrial contraction 06/10/2022 Osteoporosis 12/24/2021 Overview (03/24/2024): From Dr. Valdez's note 10/13/23 She has severe osteoporosis, her bone density in 2021 showed a T-score of-4.2. She is being managed by endocrinology. She started tamoxifen 20 mg once daily from 03/03/2023. She was asked to stop this 08/20/23 because of severe vasomotor symptoms. She did not tolerate venlafaxine secondary to diarrhea. I discussed starting her back on tamoxifen 10 mg once a day at this time. If she tolerates this I will increase it to b.i.d.. She is also getting Evenity via Endo at [facility] Her most recent DEXA scan 11/2023 was consistent with osteopenia -lowest T-score -2.0. This is a huge improvement! Asthma 06/08/2020 Generalized rash 06/08/2020 Encounters Date Type Department Care Team Description 04/21/2024 2:00 PM EST Immunization [facility] [address] [place] [address] Catalina Smith LPN Encounter for immunization (Primary Dx) 04/14/2024 Travel 03/24/2024 1:00 PM EST Office Visit [facility] [address] [place] [address] Harry Ceron ANP Age-related osteoporosis without current pathological fracture (Primary Dx); Neuropathy involving both lower extremities; Bilateral edema of lower extremity; Leg swelling; Dyslipidemia 03/24/2024 Travel 03/23/2024 Travel 03/23/2024 Telephone [facility] [address] [place] [address] Heaven Saunders [place] chart prep from Last 3 Months Immunizations Name Administration Dates Next Due Hep B, adult 04/21/2024,03/24/2024 Influenza High-dose Quadriva lent Preservative Free 11/25/2021,12/02/2020,12/09/2019 Influenza injectable quadriv alent preservative free 11/16/2022 Influenza, High Dose Seasona l, Preservative Free 12/02/2023 Pfizer Covid-19 Vaccine 12+ 11/17/2023,,12/02/2022 Pfizer Covid-19 Vaccine 12+ Bivalent 06/12/2022 Pneumococcal Conjugate PCV 13 12/12/2019 Pneumococcal Conjugate PCV 20 07/21/2023 Pneumococcal Polysaccharide PPSV23 12/23/2020 RSV Adjuvant 12/16/2022 TD (adult), 2 Lf tetanus tox oid, preservative free, adsorbed 10/29/2014 Zoster, Recombinant 10/13/2023,08/11/2023 Family History Medical History Relation Name Comments Cancer Mother ovarian Relation Name Status Comments Mother Social History Tobacco Use Types Packs/Day Years Used Date Smoking Tobacco: Former Cigarettes Passive Smoke Exposure: Past Smokeless Tobacco: Never Tobacco Cessation:Counseling Given: Not Answered Alcohol Use Standard Drinks/Week Comments Not Currently 0 (1 standard drink = 0.6 oz pur e alcohol) Depression Answer Date Recorded Patient Health Questionnaire-9 Score 0 07/06/2023 Patient Health Questionnaire-9 Score 0 07/06/2023 Last PHQ-9: Questionnaire Data Not on file 0 07/06/2023 Housing Stability Answer Date Recorded What is your housing situation today? I have donato roche 07/06/[address] you li ve. Do you have problems with any of the following? None of the above 07/06/2023 Food Insecurity Answer Date Recorded Within the past 12 months, y ou worried that your food would run out before you got money to buy more: Never True 07/06/2023 Within the past 12 months,th e food you bought just didn't last and you didn't have enough money to get more: Never True Transportation Answer Date Recorded In the past 12 months, has l ack of transportation kept you from medical appts, meetings, work or from getting things needed for daily living? No 07/06/2023 Utilities Answer Date Recorded In the past 12 months, has t he electric, gas, oil or water company threatened to shut off services in your home? No 07/06/2023 Depression Answer Date Recorded Patient Health Questionnaire-2 Score 0 07/06/2023 Comments No Sex and Gender Information Value Date Recorded Sex Assigned at Female 12/15/2021 10:38 AM EDT Legal Sex Female 11:04 AM EST Gender Identity Female 12/15/2021 10:38 AM EDT Sexual Orientation Straight 12/15/2021 10 :38 AM EDT Last Filed Vital Signs Vital Sign Reading Time Taken Comments Blood Pressure 131/71 03/24/2024 1:11 PM EST Pulse 63 03/24/2024 1:11 PM EST Temperature 36.8 ??C (98.2 ??F) 03/24/2024 1:11 PM ES T Respiratory Rate 14 03/24/2024 1:11 PM EST Oxygen Saturation 98% 03/24/2024 1:11 PM EST Inhaled Oxygen Concentration - - Weight 53.3 kg (117 lb 9.6 oz) 03/24/2024 1:11 P M EST Height 160 cm (5' 3 ) 10/27/2023 3:04 PM EDT Body Mass Index 20.83 10/27/2023 3:04 PM EDT Plan of Treatment Upcoming Encounters Date Type Department Care Team (Late st Contact Info) Description 05/18/2024 2:30 PM EDT Immunization [facility] [address] [place] [address] 09/21/2024 2:30 PM EDT Immunization [facility] [address] [place] [address] 11/02/2024 2:30 PM EDT Immunization [facility] [address] [place] [address] Health Maintenance Due Date Last Done Comments Alcohol/Substance Use Screening 1957 DTaP/Tdap/Td Vaccines (1 - Tdap) 10/30/2014 10/29/2014 Depression Screening 07/05/2024 07/06/2023, 07/06/19 24 SDOH Screening 07/05/2024 07/06/2023 Hepatitis B Vaccines (3 of 3 - 19+ 3-dose series) 09/21/2024 04/21/2024, 03/24/2024 Tobacco Screening 03/24/2025 03/24/2024 Mammogram 11/04/2025 11/05/2023, 10/16, 12/10/2021, Additional history exists Hepatitis C Screening Completed 06/17/2022 RSV Patients and Patients Aged 60 years or older Completed 12/16/2022 Pneumococcal Vaccine: 50+ Years Completed 07/21/2023, 12/23/2020, 12/12/2019 Zoster Vaccines Completed 10/13/2023, 08/11/2023 COVID-19 Vaccine Completed 11/17/2023, , 12/02/2022, Additional history exists Influenza Vaccine Completed 12/02/2023, , 11/25/2021, Additional history exists HIB Vaccines Aged Out No longer eligi ble based on patient's age to complete this topic HPV Vaccines Aged Out No longer eligi ble based on patient's age to complete this topic Hepatitis A Vaccines Aged Out No long er eligible based on patient's age to complete this topic IPV Vaccines Aged Out No longer eligi ble based on patient's age to complete this topic Meningococcal Vaccine Aged Out No sheyla lee eligible based on patient's age to complete this topic RSV under 20 months Aged Out No longe r eligible based on patient's age to complete this topic Rotavirus Vaccines Aged Out No longer eligible based on patient's age to complete this topic Procedures Procedure Name Priority Date/Time Associated Diagnosis Comments BI MAMMOGRAM SCREENING TOMOSYNTHESIS RIGHT Routine 11/05/2023 3:15 PM EDT HEPATITIS C ANTIBODY Routine 06/17/2022 12:23 PM EDT from Last 3 Months or Most Recently Relevant to Health Maintenance Results * BI Mammogram Screening Tomosynthesis Right (11/05/2023 3:15 PM EDT) Anatomical Region Laterality Modality Breast Right Mammography 11/05/2023 3:15 PM EDT Narrative 11/08/2023 5:52 PM EDT ? [facility] ? [address] ?[place], [place] [address] ? Mammography Report ? Signed ? Patient: Elayne Lundy ?MR#: [id number] ? : 1945 ?Acct:[id number] ? Age/Sex: 78 / F ?ADM Date: 11/05/23 ? Loc: HO.MAMMO ? Attending Dr: Harry Ceron [employer] ? Ordering Physician: HARRY CERON NP ?Results: 2Benign Fin ?? dings ? Date of Service: 11/05/23 ?Follow Up: 1 Year From Orig ?? inal Mammogram ? Procedure(s): MM tomosynthesis screening RT ?? Accession Number(s): [id number] ? cc: HARRY CERON NP ? EXAMINATION: ?? MM SCREENING DIGITAL BREAST TOMOSYNTHESIS, RIGHT ? CLINICAL INFORMATION: ? Screening. Asymptomatic. ??Left Mastectomy. ? COMPARISON: ?? Mammography: This study is compared with prior exams dating back to ? TECHNIQUE: ?? Digital breast tomosynthesis is performed in both the craniocaudal and ?? mediolateral oblique views along with computer-aided detection (CAD). ? Synthesized 2D images are generated from the tomosynthesis. ? FINDINGS: ?? The breasts are heterogeneously dense, which may obscure small masses ?? (ACR BI-RADS breast composition Category c). ?? Marker clip from previous needle core biopsy. ?? There are no significant masses, abnormal calcifications, or other ?? abnormalities. ? MM/MM tomosynthesis screening RT ?? IMPRESSION: ?? No mammographic evidence of malignancy. ? ASSESSMENT: ? BI-RADS BI-RADS 2 - Benign Findings ? RECOMMENDATION: ?? Routine annual mammography screening. ? 1 year F/U ? This examination should not preclude the clinical evaluation of a ?? suspicious palpable abnormality. ? This patient's information was entered into a reminder system with a ?? target due date for their next mammogram. ? Electronically signed by: ??Marcela Pollock DO ??11/08/2023 05:49 PM EDT ? Dictated By: ?Marcela Pollock DO ? Signed By: ?<Electronically signed by Marcela Pollock, DO in OV> ? 11/08/23 1749 ? DD/ 1515 ? TD/TT: 11/05/23 1539 ? Home Health Occupational Therapist: ? Procedure Note Joan, Image - 11/08/2023 [facility] [address] [place] [address] [place] [address] Mammography Report Signed Patient: Elayne LundyMR#: [id number] : 7Acct:[id number] Age/Sex: 78 / FADM Date: 11/05/23 Loc: HO.MAMMO Attending Dr: Harry Ceron [employer] Ordering Physician: HARRY CERONults: 2Bmoises coker Date of Service: 11/05/23Follow Up: 1 Year From Orig inal Mammogram Procedure(s): MM tomosynthesis screening RT Accession Number(s): [id number] cc: HARRY CERON [employer] EXAMINATION: MM SCREENING DIGITAL BREAST TOMOSYNTHESIS, RIGHT CLINICAL INFORMATION: Screening. Asymptomatic. Left Mastectomy. COMPARISON: Mammography: This study is compared with prior exams dating back to TECHNIQUE: Digital breast tomosynthesis is performed in both the craniocaudal and mediolateral oblique views along with computer-aided detection (CAD). Synthesized 2D images are generated from the tomosynthesis. FINDINGS: The breasts are heterogeneously dense, which may obscure small masses (ACR BI-RADS breast composition Category c). Marker clip from previous needle core biopsy. There are no significant masses, abnormal calcifications, or other abnormalities. MM/MM tomosynthesis screening RT IMPRESSION: No mammographic evidence of malignancy. ASSESSMENT: BI-RADS BI-RADS 2 - Benign Findings RECOMMENDATION: Routine annual mammography screening. 1 year F/U This examination should not preclude the clinical evaluation of a suspicious palpable abnormality. This patient's information was entered into a reminder system with a target due date for their next mammogram. Electronically signed by: Marcela Pollock DO 11/08/2023 05:49 PM EDT RP Dictated By: Marcela Pollock DO Signed By: <Electronically signed by Marcela Pollock DO in OV> 11/08/23 1749 DD/ 1515 TD/TT: 11/05/23 1539 Home Health Occupational Therapist: Harry Ceron ANP IMG BI PROCEDURES Final Result * Hepatitis C Ab (06/17/2022 12:23 PM EDT) Hepatitis C Antibody Nonreactive Nonreactive [facility] Comment:Antibodies to HCV no t detected; does not exclude early acuteHCV infection. 06/17/2022 12:2 3 PM EDT 06/17/2022 12:23 PM EDT [facility] External Provider LAB BLO OD ORDERABLES Final Result [facility] [address] [place] [phone] [phone] from Last 3 Months or Most Recently Relevant to Health Maintenance Insurance [employer] [facility] PPO Care Teams Manager Relationship Specialty Start Date End Date Harry Ceron ANP [address] [place] [address] [place] [address] PCP - General Family Medicine 10/07/20
--- OUTSIDE RECORDS SUMMARY | 2024-04-27 16:54 | XMS_ITS | Encounter Summary ---
Author Organization [employer] Address [address] [place] [address] 7[address] [place] [address] Care Team Providers Care Boot And Shoe Laborer Name Role Phone Janine [place] Primary Care Provider [phone] Reason for Visit * Reason Comments Med Refill Encounter Details Date Type Department Care Team ([facility] st Contact Info) Description 01/13/2024 Refill [facility] [address] [place], [place] [phone] Janine [place] ANP [address] [place] [address] Dyslipidemia Social History Tobacco Use Types Packs/Day Years Used Date Smoking Tobacco: Former Cigarettes Passive Smoke Exposure: Past Smokeless Tobacco: Never Alcohol Use Standard Drinks/Week Comments Not Currently [...] Info) Description 05/18/2024 2:30 PM EDT Immunization [address] [address] 09/21/2024 2:30 PM EDT Immunization [address] [address] 11/02/2024 2:30 PM EDT Immunization [address] [address] documented as of this encounter Visit Diagnoses Diagnosis Dyslipidemia Other and unspecified hyperlipidemia documented in this encounter Additional Health Concerns Assessment Noted Time PHQ-9 Depression Total Score: 0 07/06/19 24 2:10 PM EDT documented as of this encounter Care Teams Boot And Shoe Laborer Relationship Specialty Start Date End Date Janine [place] ANP [address] [place] [address] PCP - General Family Medicine 10/07/20 documented as of this encounter
--- OUTSIDE RECORDS SUMMARY | 2024-04-27 16:54 | XMS_ITS | Encounter Summary ---
Author Organization [employer] Address [address] [place] [address] [address]t [place] [address] Care Team Providers Care Paint Stockman Name Role Phone Nemo Janine VAZQUEZ Primary Care Provider [phone] Encounter Details Date Type Department Care Team ([facility] st Contact Info) Description 04/21/2024 2:00 PM EST Immunization [facility] [address] [place], [place] [phone] Catalina Smith LPN Encounter for immunization (Primary Dx) Social History Tobacco Use Types Packs/Day Years [...] AM EDT documented as of this encounter Progress Notes * Catalina Smith LPN - 04/21/2024 2:00 PM EST Subjective Patient ID: Elayne Lundy is a 79 y.o. female who presents for Pt here for 2nd, of 3 dose series, Engerix, Hepatitis B, Vaccine. Patient history and self attestation indicate no contraindication to vaccination. Pt advised of possible side effects of vaccine including fever, headache and fatigue and advised to stay for 15 minutes monitoring post-vaccine. Pt states understanding and agrees to vaccination. documented in this encounter Plan of Treatment Upcoming Encounters Date Type Department Care Team (Late st Contact Info) Description 05/18/2024 2:30 PM EDT Immunization [facility] [address] [place] [address] 09/21/2024 2:30 PM EDT Immunization [address] [address] 11/02/2024 2:30 PM EDT Immunization [address] [address] documented as of this encounter Visit Diagnoses Diagnosis Encounter for immunization- Primary documented in this encounter Additional Health Concerns Assessment Noted Time PHQ-9 Depression Total Score: 0 07/06/19 24 2:10 PM EDT documented as of this encounter Care Teams Paint Stockman Relationship Specialty Start Date End Date Janine [place] ANP [address] [place] [address] PCP - General Family Medicine 10/07/20 documented as of this encounter
--- OUTSIDE RECORDS SUMMARY | 2024-04-27 16:54 | XMS_ITS | Encounter Summary ---
Author Organization [employer] [facility] Address [address] [place] [address] [address] Care Team Providers Care Clutch Inspector Name Role Phone Janine [place] Primary Care Provider Encounter Details Date Type Department Care Team (Late st Contact Info) Description 03/06/2022 Orders Only [facility] [address] [place] [address] Jamilah [place] LPN Social History Tobacco Use Types Packs/Day Years [...] Info) Description 05/18/2024 2:30 PM EDT Immunization [facility] [address] [place] [address] 09/21/2024 2:30 PM EDT Immunization [facility] [address] [place] [address] 11/02/2024 2:30 PM EDT Immunization [facility] [address] [place] [address] documented as of this encounter Visit Diagnoses Not on filedocumented in this encounter Care Teams Clutch Inspector Relationship Specialty Start Date End Date Janine [place] ANP [address] [place] [address] PCP - General Family Medicine 10/07/20 documented as of this encounter
--- OUTSIDE RECORDS SUMMARY | 2024-04-27 16:54 | XMS_ITS | Encounter Summary ---
Author Organization [employer] Address [address] [facility] 7t [place] [address] Care Team Providers Care Hat Conditioner Name Role Phone Janien [place] TAYLOR Primary Care Provider [phone] Encounter Details Date Type Department Care Team (Latest Contact Info) Description 04/14/2024 Travel Social History Tobacco Use Types Packs/Day Years [...] Info) Description 05/18/2024 2:30 PM EDT Immunization [address] [address] 09/21/2024 2:30 PM EDT Immunization [address] [address] 11/02/2024 2:30 PM EDT Immunization [address] [address] documented as of this encounter Visit Diagnoses Not on filedocumented in this encounter Additional Health Concerns Assessment Noted Time PHQ-9 Depression Total Score: 0 07/06/19 24 2:10 PM EDT documented as of this encounter Care Teams Hat Conditioner Relationship Specialty Start Date End Date Janine [place] ANP [address] [place] [address] PCP - General Family Medicine 10/07/20 documented as of this encounter
--- OUTSIDE RECORDS SUMMARY | 2024-04-27 16:54 | XMS_ITS | Encounter Summary ---
Author Organization [employer] Address [address] [place] [address] [address] [place] [address] Care Team Providers Care Waiter/Waitress Formal Name Role Phone Janine [place] Primary Care Provider [phone] Reason for Visit * Reason Comments Med Refill Encounter Details Date Type Department Care Team ([facility] st Contact Info) Description 10/27/2023 Refill [facility] [address] [place], [place] [phone] Janine [place] ANP [address] [place] [address] Leg swelling Social History Tobacco Use Types Packs/Day Years [...] Info) Description 05/18/2024 2:30 PM EDT Immunization [address] [address] 09/21/2024 2:30 PM EDT Immunization [address] [address] 11/02/2024 2:30 PM EDT Immunization [address] [address] documented as of this encounter Visit Diagnoses Diagnosis Leg swelling Swelling of limb documented in this encounter Additional Health Concerns Assessment Noted Time PHQ-9 Depression Total Score: 0 07/06/19 24 2:10 PM EDT documented as of this encounter Care Teams Waiter/Waitress Formal Relationship Specialty Start Date End Date Janine [place] ANP [address] [place] [address] PCP - General Family Medicine 10/07/20 documented as of this encounter
--- OUTSIDE RECORDS SUMMARY | 2024-04-27 16:54 | XMS_ITS ---
Author Organization [facility] Address [address] [place] [address] Care Team Providers Care Cancer Registrar Name Role Phone Janine Chester Primary Care Provider Salomón Zelaya Unavailable [phone] Emilia Marr Unavailable [phone] REASON FOR VISIT no HUSBANDRY PERSON ppwrk Encounters Encounter Location Date Provider Diagnosis [facility] [address] [place] [address] 05/11/2023 Emilia Marr Plan Of Treatment No Information Progress Notes * KRYSTLEErma DOS SANTOSnathalyDOB:1945 (79 yo F)Acc No.[id number]:05/11/2023 Progress Notes Patient:?Emra DALTONdy Provider:?Emilia Marr DPM :1945???Age:78 Y???Sex:Female D ate:05/11/2023 Address: [address] [place], [place] Pcp:Janine Chester Subjective: * Chief Complaints: * ???1. no HUSBANDRY PERSON ppwrk. * Medical History:? Objective: * Vitals:? Assessment: Plan: * Treatment: * Images: * The named appointment provid er may or may not be the originator of this progress note, and it is not deemed complete until electronically signed by the appointment provider. Sign off status: Pending * Provider:?Emilia Marr DPM Date:? Generated for Indy soares/[place]/eTransmitting on:?04/27/2024 04:54 PM EDT
--- OUTSIDE RECORDS SUMMARY | 2024-04-27 16:54 | XMS_ITS | Encounter Summary ---
Author Organization [employer] Address [address] [place] [address] 7t [place] [address] Care Team Providers Care Special Education Resource Room Teacher Name Role Phone Nemo Janine VAZQUEZ Primary Care Provider [phone] Encounter Details Date Type Department Care Team ([facility] st Contact Info) Description 03/29/2023 Orders Only [facility] [address] [place], [place] [phone] Teodoro Keyes MD [address] [place] [address] Social History Tobacco Use Types Packs/Day Years Used Date Smoking Tobacco: Former Cigarettes Passive Smoke Exposure: Past Smokeless Tobacco: Never Alcohol Use Standard Drinks/Week Comments Not Currently 0 (1 standard drink = 0.6 oz pur e alcohol) Housing Stability Answer Date Recorded What is your housing situation today? I have donato roche 12/01/[address] you li ve. Do you have problems with any of the following? None of the above 12/01/2022 Food Insecurity Answer Date Recorded Within the past 12 months, y ou worried that your food would run out before you got money to buy more: Never True 12/01/2022 Within the past 12 months,th e food you bought just didn't last and you didn't have enough money to get more: Never True Transportation Answer Date Recorded In the past 12 months, has l ack of transportation kept you from medical appts, meetings, work or from getting things needed for daily living? No 12/01/2022 Utilities Answer Date Recorded In the past 12 months, has t he electric, gas, oil or water company threatened to shut off services in your home? No 12/01/2022 Depression Answer Date Recorded Patient Health Questionnaire-2 Score 0 06/10/2022 Comments Unknown Sex and Gender Information Value Date Recorded Sex Assigned at Female 12/15/2021 10:38 AM EDT Legal Sex Female 11:04 AM EST Gender Identity Female 12/15/2021 10:38 AM EDT Sexual Orientation Straight 12/15/2021 10 :38 AM EDT documented as of this encounter Plan of Treatment Upcoming Encounters Date Type Department Care Team (Late st Contact Info) Description 05/18/2024 2:30 PM EDT Immunization [address] [address] 09/21/2024 2:30 PM EDT Immunization [facility] [address] [place] [address] 11/02/2024 2:30 PM EDT Immunization [address] [address] documented as of this encounter Visit Diagnoses Not on filedocumented in this encounter Care Teams Special Education Resource Room Teacher Relationship Specialty Start Date End Date Janine Chester ANP [address] [place] [address] PCP - General Family Medicine 10/07/20 documented as of this encounter
--- OUTSIDE RECORDS SUMMARY | 2024-04-27 16:54 | XMS_ITS | Encounter Summary ---
Author Organization [employer] [facility] Address [address] [place] [address] Care Team Providers Care Learning Coordinator Name Role Phone Janine Chester Primary Care Provider [phone] Reason for Visit * Reason Onset Date Comments Appointment 04/08/2022 Encounter Details Date Type Department Care Team (Late st Contact Info) Description 04/08/2022 Telephone [facility] [address] [place], [place] [phone] Janine Chester ANP [address] [place], [place] [phone] Appointment Social History Tobacco Use Types Packs/Day Years Used Date Smoking Tobacco: Never Assessed Comments Unknown Sex and Gender Information Value Date Recorded Sex Assigned at Female 12/15/2021 10:38 AM EDT Legal Sex Female 11:04 AM EST Gender Identity Female 12/15/2021 10:38 AM EDT Sexual Orientation Straight 12/15/2021 10 :38 AM EDT documented as of this encounter Miscellaneous Notes * Telephone Encounter - Evosbaldo Adin Wahl - 04/08/2022 1:05 PM EST Tc from pt returning call to schedule appt. Xiomara tried booking the f/u appt but pt stated that she won't be able until May because she is all booked for april with other doctor appts. Please contact pt at [phone] documented in this encounter Plan of Treatment Upcoming Encounters Date Type Department Care Team (Late st Contact Info) Description 05/18/2024 2:30 PM EDT Immunization [facility] [address] [place] [address] 09/21/2024 2:30 PM EDT Immunization [facility] [address] [place] [address] 11/02/2024 2:30 PM EDT Immunization [address] [address] documented as of this encounter Visit Diagnoses Not on filedocumented in this encounter Care Teams Learning Coordinator Relationship Specialty Start Date End Date Janine Chester ANP [address] [place] [address] PCP - General Family Medicine 10/07/20 documented as of this encounter
--- OUTSIDE RECORDS SUMMARY | 2024-04-27 16:55 | XMS_ITS ---
Author Organization [facility] Address [address] [place] [address] Care Team Providers Care Bag Tester Name Role Phone Janine Chester Primary Care Provider Salomón Zelaya [phone] REASON FOR VISIT New Patient apt Encounters Encounter Location Date Provider Diagnosis [facility] [address] [place] [address] 04/21/2023 Salomón Zarate Plan Of Treatment No Information Progress Notes * Elayne DALTONDOB:1945 (78 yo F)Acc No.[id number]:04/21/2023 Patient:?Kamron, Elayne :1945???Age:78 Y???Sex:Female Address:[address], [place], [address] * true * Date:? Generated for Cir[employer] rodger/[place]/eTransmitting on:?04/27/2024 04:54 PM EDT
--- OUTSIDE RECORDS SUMMARY | 2024-04-27 16:55 | XMS_ITS | Patient Health Record ---
Author Organization [facility] Address [address] [place] [address] Care Team Providers Care Travel Journalist Name Role Phone Janine Chester Primary Care Provider Salomón Zelaya Unavailable [phone] Emilia Marr Unavailable [phone] Reason For Referral No Information Plan Of Treatment No Information Insurance Providers Payer Name Payer Address Payer Phone Subscriber Number Group Number Insured Name Patient Relationship to Insured Coverage Start Date Coverage End Date [facility] [id number] [address] [address] [place] [address] [id number] Elayne Lundy Self - patient is the insured
--- OUTSIDE RECORDS SUMMARY | 2024-04-27 16:55 | XMS_ITS | Encounter Summary ---
Author Organization [employer] [facility] Address [address] [place] [address] 7 [place] [address] Care Team Providers Care Hydrological Technical Officer Name Role Phone Janine Chester Primary Care Provider [phone] Encounter Details Date Type Department Care Team (Late st Contact Info) Description 08/07/2022 Abstract [facility] [address] [place] [address] Janine Chester ANP [address] [place] [address] [phone] Social History Tobacco Use Types Packs/Day Years Used Date Smoking Tobacco: Former Cigarettes Smokeless Tobacco: Never Alcohol Use Standard Drinks/Week Comments Not Currently 0 (1 standard drink = 0.6 oz pur e alcohol) Depression Answer Date Recorded Patient Health Questionnaire-2 [...] Info) Description 05/18/2024 2:30 PM EDT Immunization [facility] [address] [place] [phone] 09/21/2024 2:30 PM EDT Immunization [facility] [address] [place] [phone] 11/02/2024 2:30 PM EDT Immunization [facility] [address] [place] [address] [phone] documented as of this encounter Visit Diagnoses Not on filedocumented in this encounter Care Teams Hydrological Technical Officer Relationship Specialty Start Date End Date Janine Chester ANP [address] [place] [address] PCP - General Family Medicine 10/07/20 documented as of this encounter
== END 2024-04-27 13:50 | disposition home or self-care (01) ==
LOC: HO.ENCR 13:21
PROVIDERS: PCP Nurse Practitioner Primary Care; Visit Provider Internal Medicine Endocrinology, Diabetes & Metabolism
DX: M81.0 Age-related osteoporosis without current pathological fracture (principal)
CPT/HCPCS: 99213

== ENCOUNTER → 2024-04-27 13:20 | Outpatient (BNVA) | payer MEDICARE, SELFPAY | PROVIDERS: PCP Nurse Practitioner Primary Care; Visit Provider Internal Medicine Endocrinology, Diabetes & Metabolism | DX: M81.0 Age-related osteoporosis without current pathological fracture (principal) | CPT/HCPCS: 99212 ==

== ENCOUNTER 2024-05-05 18:42 | Outpatient (REF) | payer MEDICARE, SELFPAY | END 2024-05-05 18:43 | disposition home or self-care (01) | LOC: HO.HHCLNP 18:42 | DX: R39.9 Unspecified symptoms and signs involving the genitourinary system (principal) | CPT/HCPCS: 87086 ==

== ENCOUNTER 2024-07-28 13:52 | Outpatient (REF) | payer MEDICARE, SELFPAY ==
--- NOTE | ~2024-07-28 | XR_ITS ---
EXAMINATION: XR HIP, LEFT CLINICAL INFORMATION: L hip pain x 1 mo COMPARISON: None available. TECHNIQUE: Two views of the left hip. FINDINGS: No acute cortical disruption or malalignment. No lytic or blastic lesions. Slight asymmetric joint space narrowing. XR/XR hip LT min 2V IMPRESSION: Mild osteoarthrosis without acute fracture or dislocation. Electronically signed by: Guillermo Hidalgo MD 07/28/2024 02:50 PM EDT
--- OUTSIDE RECORDS SUMMARY | 2024-07-28 13:57 | XMS_ITS | Encounter Summary ---
Author Organization [employer] Address [address] [facility] [address] [facility] [address] 7t [place] [address] Care Team Providers Care Director Of Emergency Nursing Name Role Phone Janine Chester Primary Care Provider [phone] Reason for Visit * Reason Comments Med Refill Encounter Details Date Type Department Care Team (Late st Contact Info) Description 10/27/2023 Refill [facility] [address] [place], [place] [phone] Janine Chester ANP [address] [place], [place] [phone] Leg swelling Social History Tobacco Use Types [...] Care Team (Late st Contact Info) Description 09/21/2024 2:30 PM EDT Immunization [facility] [address] [place] [address] 11/02/2024 2:30 PM EDT Immunization [address] [address] documented as of this encounter Visit Diagnoses Diagnosis Leg swelling Swelling of limb documented in this encounter Additional Health Concerns Assessment Noted Time PHQ-9 Depression Total Score: 0 07/06/19 24 2:10 PM EDT documented as of this encounter Care Teams Director Of Emergency Nursing Relationship Specialty Start Date End Date Janine Chester ANP [address] [place] [address] PCP - General Family Medicine 10/07/20 documented as of this encounter
== END 2024-07-28 13:53 | disposition home or self-care (01) ==
LOC: HO.HHCX 13:52
PROVIDERS: Visit Provider Nurse Practitioner Primary Care
DX: M25.552 Pain in left hip (principal)
CPT/HCPCS: 73502

== ENCOUNTER → 2024-07-28 13:53 | Outpatient (BNV) | payer MEDICARE, SELFPAY | PROVIDERS: Visit Provider Radiology Diagnostic Radiology | DX: M16.12 Unilateral primary osteoarthritis, left hip (principal) | CPT/HCPCS: 73502 ==

== ENCOUNTER 2024-08-10 14:00 | Outpatient (AMB) | payer MEDICARE, SELFPAY ==
--- NOTE | 2024-08-10 14:06 | MHC.OFFVIS ---
Vital Signs 08/10/24 14:46 Weight 117 lb BP 134/59 L Blood Pressure Location Rt brachial Position Sitting Pulse 73 Intake Visit Reasons: Breast exam, 6 month follow up Intake Note: Patient here for 6m follow up Breast exam. Pt c/o: no concerns. Denies lumps, tenderness, nipple discharge. Fashion Coordinator Required: No Accompanied by: Self / Same As Patient Allergies animal dander Allergy (Verified 08/10/24 14:13) Hives feathers Allergy (Verified 08/10/24 14:13) Hives Seasonal Allergies Allergy (Verified 08/10/24 14:13) Itchy Eyes HPI HPI Breast exam, 6 month follow up: Details: She had undergone left mastectomy and sentinel biopsy for left breast cancer last January 05, 2023. There was no residual cancer in the mastectomy site. She did undergo neoadjuvant chemotherapy. She received TCHP regimen, docetaxel, carboplatin, trastuzumab and pertuzumab administered every 3 weeks for 6 cycles in the neoadjuvant setting. She continues to feel well. She had been switched to letrozole from tamoxifen as she was unable to tolerate the side effects. She says that that is the only medication she is taking for breast cancer at this time. She says she feels well overall. She says she had been recently diagnosed to have osteoarthritis of the right hip. 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 Mother Ovarian ca Social History Household Members: None Housing: Condominium Are you a primary day care home provider to a significant other at home: No Do you presently have visiting nurse or other home services: No Alcohol intake: current Alcohol intake frequency: holidays/special occasions only Patient Tobacco Use Status: Former Tobacco user Tobacco use type: Cigarette Years Smoked: 25 e-Cigarette/Vaping Use: Never Used Substance Use Type: Marijuana service: No Current occupational status: employed Review of Systems Const Denies chills and Denies fever(s) Card Denies chest pain, Denies dyspnea and Denies dyspnea on exertion Resp Denies cough, Denies dyspnea and Denies dyspnea on exertion GI Denies hematochezia and Denies change in bowel habits Denies hematuria Musc Denies back pain and Denies limited range of motion Neuro Denies focal weakness and Denies convulsions Psych Denies depression and Denies mood swings Physical Exam Const General: comfortable and no acute distress Chest Other: Left mastectomy site without any palpable chest wall mass, no axillary lymphadenopathy right breast with a any palpable mass, no axillary lymphadenopathy in the right side Resp Auscultation: clear to auscultation bilaterally Cardio Rate: regular rate GI Palpation (GI): Soft to palpation, not firm and nontender Assessment & Plan Assessment & Plan (1) History of breast cancer: Code(s): Z85.3 - Personal history of malignant neoplasm of breast Category: Medical Plan: She continues to do well after mastectomy on the left breast with sentinel node biopsy she had neoadjuvant treatment prior to that for invasive ductal cancer. There was no residual tumor on the mastectomy specimen She remains on the hormonal treatment Physical exam does not suggest any recurrence or any mass on the contralateral breast I reminded her to continue with yearly mammograms for the right breast. We will see her again in the office in 6 months. She continues to follow up with Dr. Valdez. Coding Level of Care Code Est Pt Level 3 (98194) Complex EM visit Add On G2211 Diagnoses History of breast cancer Z85.3
[2024-08-10 14:46] VITALS: BP 134/59; PULSE 73
--- OUTSIDE RECORDS SUMMARY | 2024-08-10 16:53 | XMS_ITS | Encounter Summary ---
Author Organization [employer] Address [address] [facility] [address] 7t [place] [address] Care Team Providers Care Customer Strategy Manager Name Role Phone Janine Chester Primary Care Provider [phone] Reason for Visit * Reason Comments Med Refill Encounter Details Date Type Department Care Team (Late st Contact Info) Description 10/27/2023 Refill [facility] [address] [place], [place] [phone] Janine Chester ANP [address] [place], [place] [phone] Leg swelling Social History Tobacco Use Types [...] Info) Description 09/21/2024 2:30 PM EDT Immunization [facility] [address] [place] [phone] 11/02/2024 2:30 PM EDT Immunization [address] [address] documented as of this encounter Visit Diagnoses Diagnosis Leg swelling Swelling of limb documented in this encounter Additional Health Concerns Assessment Noted Time PHQ-9 Depression Total Score: 0 07/06/19 24 2:10 PM EDT documented as of this encounter Care Teams Customer Strategy Manager Relationship Specialty Start Date End Date Janine Chester ANP [address] [place] [address] PCP - General Family Medicine 10/07/20 documented as of this encounter
== END 2024-08-10 14:59 | disposition home or self-care (01) ==
LOC: HO.HGS 14:00
PROVIDERS: PCP Nurse Practitioner Primary Care; Visit Provider Surgery
DX: Z85.3 Personal history of malignant neoplasm of breast (principal)
CPT/HCPCS: 99213; G2211

== ENCOUNTER → 2024-08-10 14:00 | Outpatient (BNVA) | payer MEDICARE, SELFPAY | PROVIDERS: PCP Nurse Practitioner Primary Care; Visit Provider Surgery | DX: Z85.3 Personal history of malignant neoplasm of breast (principal) | CPT/HCPCS: 99212 ==

== ENCOUNTER 2024-10-05 13:00 | Outpatient (RCR) | payer MEDICARE, OTHER, SELFPAY | END 2024-10-05 14:24 | disposition home or self-care (01) | LOC: HO.PT 13:00 | PROVIDERS: PCP Nurse Practitioner Primary Care; Visit Provider Nurse Practitioner Primary Care | DX: M25.552 Pain in left hip (principal) | CPT/HCPCS: 97110; 97112; 97140; 97162 ==

== ENCOUNTER 2024-10-19 12:01 | Outpatient (REF) | payer MEDICARE, OTHER, SELFPAY ==
--- OUTSIDE RECORDS SUMMARY | 2023-05-11 10:00 | XMS_ITS ---
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 no SENIOR MORTGAGE UNDERWRITER ppwrk. * Medical History: Objective: * Vitals: Assessment: Plan: * Treatment: * Images: * The named appointment provid er may or may not be the originator of this progress note, and it is not deemed complete until electronically signed by the appointment provider. Sign off status: Pending * Provider: Chance Marr DPM Date: 05/11/2023 Generated for Indy soares/[place]/eTransmitting on: 0 10/19/2024 01:36 PM EDT
--- OUTSIDE RECORDS SUMMARY | 2024-10-19 13:37 | XMS_ITS | Encounter Summary ---
Author Organization [employer] Address [address] [facility] 7[address] [place] [address] Care Team Providers Care Motors And Controls Tester Name Role Phone Janine Chester Primary Care Provider [phone] Reason for Visit * Reason Onset Date Comments Appointment 04/08/2022 Encounter Details Date Type Department Care Team (Late st Contact Info) Description 04/08/2022 Telephone [facility] [address] [place], [place] [phone] Janine Chester ANP [address] [place] [address] Appointment Social History Tobacco Use Types Packs/Day Years Used Date Smoking Tobacco: Never Assessed Comments Unknown Sex and Gender Information Value Date Recorded Sex Assigned at Female 12/15/2021 10:38 AM EDT Legal Sex Female 11:04 AM EST Gender Identity Female 12/15/2021 10:38 AM EDT Sexual Orientation Straight 12/15/2021 10 :38 AM EDT documented as of this encounter Miscellaneous Notes * Telephone Encounter - Eva Wahl - 04/08/2022 1:05 PM EST Tc from pt returning call to schedule appt. Xiomara tried booking the f/u appt but pt stated that she won't be able until May because she is all booked for april with other doctor appts. Please contact pt at [phone] documented in this encounter Plan of Treatment Upcoming Encounters Date Type Department Care Team (Late st Contact Info) Description 11/02/2024 2:30 PM EDT Immunization [facility] [address] [place] [address] 11/21/2024 2:15 PM EDT Office Visit [facility] [address] [place] [address] Janine Chester ANP [address] [place] [address] documented as of this encounter Visit Diagnoses Not on filedocumented in this encounter Care Teams Motors And Controls Tester Relationship Specialty Start Date End Date Janine Chester ANP [address] [place] [address] PCP - General Family Medicine 10/07/20 documented as of this encounter
--- OUTSIDE RECORDS SUMMARY | 2024-10-19 13:37 | XMS_ITS | Clinical Summary ---
Author Organization [facility] Address [address] [address] Phone Care Team Providers Care Service Restorer Emergency Name Role Phone Krystin Morrow MD Primary Care Provi steven Allergies No known active allergies Medications No known medications Social History Tobacco Use Types Packs/Day Years Used Date Smoking Tobacco: Never Assessed Education Answer Date Recorded Are you interested in more education? Not on akira e 06/13/2022 Are you concerned about learning? Not on file 06/13/2022 No 06/13/2022 No 06/13/2022 Digital Access Answer Date Recorded No 07/14/2022 No 07/14/2022 Reliable internet access at home? Not on file 07/14/2022 Device with a working camera? Not on file Comments Unknown Sex and Gender Information Value Date Recorded Sex Assigned at Not on file Legal Sex Female 8:20 PM EDT Gender Identity Not on file Sexual Orientation Not on file Last Filed Vital Signs Vital Sign Reading Time Taken Comments Blood Pressure 109/74 07/25/2020 11:00 PM EDT Pulse 73 07/25/2020 11:00 PM EDT Temperature 35.8 C (96.4 F) 07/25/2020 8:36 PM EDT Respiratory Rate 18 07/25/2020 9:30 PM EDT Oxygen Saturation 99% 07/25/2020 11:00 PM EDT Inhaled Oxygen Concentration - - Weight 49.9 kg (110 lb) 07/25/2020 8:28 PM EDT Height 165.1 cm (5' 5 ) 07/25/2020 8:28 PM EDT Body Mass Index 18.3 07/25/2020 8:28 PM EDT Plan of Treatment Not on file Medical Devices Not on file Additional Health Concerns Infection Onset Date 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 It is not the complete legal health record.[facility]
--- OUTSIDE RECORDS SUMMARY | 2024-10-19 13:37 | XMS_ITS | Encounter Summary ---
Author Organization [employer] Address [address] [facility] 7t [place] [address] Care Team Providers Care Coke Oven Mason Name Role Phone Janine Chester Primary Care Provider [phone] Encounter Details Date Type Department Care Team (Late st Contact Info) Description 08/07/2022 Abstract [facility] [address] [place] [phone] Janine Chester ANP [address] [place] [address] [phone] Social History Tobacco Use Types Packs/Day Years [...] Info) Description 11/02/2024 2:30 PM EDT Immunization [facility] [address] [place] [phone] 11/21/2024 2:15 PM EDT Office Visit [facility] [address] [place] [address] [phone] Janine Chester ANP [address] [place] [address] [phone] documented as of this encounter Visit Diagnoses Not on filedocumented in this encounter Care Teams Coke Oven Mason Relationship Specialty Start Date End Date Janine Chester ANP [address] [place] [address] PCP - General Family Medicine 10/07/20 documented as of this encounter
--- OUTSIDE RECORDS SUMMARY | 2024-10-19 13:37 | XMS_ITS | Encounter Summary ---
Author Organization [employer] Address [address] [facility] [address] [address] 7t [place] [address] Care Team Providers Care Auto Service Mechanic Name Role Phone Janine Chester Primary Care Provider [phone] Reason for Visit * Reason Comments Med Refill Encounter Details Date Type Department Care Team ([facility] st Contact Info) Description 01/13/2024 Refill [facility] & P[facility] [address] [place], [place] [phone] Janine Chester ANP [address] [facility] [place] [address] Dyslipidemia Social History Tobacco Use Types Packs/Day [...] Info) Description 11/02/2024 2:30 PM EDT Immunization [facility] [address] [place] [phone] 11/21/2024 2:15 PM EDT Office Visit [facility] [address] [place] [address] Janine Chester ANP [address] [place] [address] documented as of this encounter Visit Diagnoses Diagnosis Dyslipidemia Other and unspecified hyperlipidemia documented in this encounter Additional Health Concerns Assessment Noted Time PHQ-9 Depression Total Score: 0 07/06/19 24 2:10 PM EDT documented as of this encounter Care Teams Auto Service Mechanic Relationship Specialty Start Date End Date Janine Chester ANP [address] [place] [address] PCP - General Family Medicine 10/07/20 documented as of this encounter
--- OUTSIDE RECORDS SUMMARY | 2024-10-19 13:37 | XMS_ITS | Encounter Summary ---
Author Organization [employer] Address [address] [facility] [address] 7[address] [place] [address] Care Team Providers Care Chief Investment Officer Name Role Phone Janine Chester Primary Care Provider Reason for Visit * Reason Comments Med Refill Encounter Details Date Type Department Care Team ([facility] st Contact Info) Description 08/04/2024 Refill [facility] [address] [place], [place] [phone] Janine Chester ANP 230 [place], [place] [phone] Wheezing Social History Tobacco Use Types Packs/Day Years [...] housing situation today? I have donato roche 07/28/[address] you li ve. Do you have problems with any of the following? None of the above 07/28/2024 Food Insecurity Answer Date Recorded Within the past 12 months, y ou worried that your food would run out before you got money to buy more: Never True 07/28/2024 Within the past 12 months,th e food you bought just didn't last and you didn't have enough money to get more: Never True Transportation Answer Date Recorded In the past 12 months, has l ack of transportation kept you from medical appts, meetings, work or from getting things needed for daily living? No 07/28/2024 Utilities Answer Date Recorded In the past 12 months, has t he electric, gas, oil or water company threatened to shut off services in your home? No 07/28/2024 Depression Answer Date Recorded Patient Health Questionnaire-2 Score 0 07/28/2024 Internet Access Answer Date Recorded Internet Access Q1 Yes 07/28/2024 Internet Access Q2 Not on file 07/28/2024 Comments No Sex and Gender Information Value Date Recorded Sex Assigned at Female 12/15/2021 10:38 AM EDT Legal Sex Female 11:04 AM EST Gender Identity Female 12/15/2021 10:38 AM EDT Sexual Orientation Straight 12/15/2021 10 :38 AM EDT documented as of this encounter Plan of Treatment Upcoming Encounters Date Type Department Care Team (Late st Contact Info) Description 11/02/2024 2:30 PM EDT Immunization [address] [address] 11/21/2024 2:15 PM EDT Office Visit [facility] [address] [place] [address] Janine Chester ANP [address] [place] [address] documented as of this encounter Visit Diagnoses Diagnosis Wheezing documented in this encounter Additional Health Concerns Assessment Noted Time PHQ-9 Depression Total Score: 0 07/06/19 24 2:10 PM EDT documented as of this encounter Care Teams Chief Investment Officer Relationship Specialty Start Date End Date Janine Chester ANP [address] [place] [address] PCP - General Family Medicine 10/07/20 documented as of this encounter
--- OUTSIDE RECORDS SUMMARY | 2024-10-19 13:37 | XMS_ITS | Encounter Summary ---
Author Organization [employer] Address [address] [facility] [address] 7[address] [place] [address] Care Team Providers Care Credit Collections Clerk Name Role Phone Janine Chester Primary Care Provider [phone] Reason for Visit * Reason Comments Med Refill Encounter Details Date Type Department Care Team (Late st Contact Info) Description 10/27/2023 Refill [facility] [address] [place], [place] [phone] Janine Chester ANP 230 [place], [place] [phone] Leg swelling Social History Tobacco Use Types [...] Info) Description 11/02/2024 2:30 PM EDT Immunization [facility] [address] [place] [address] 11/21/2024 2:15 PM EDT Office Visit [facility] [address] [place] [address] Janine Chester ANP [address] [place] [address] documented as of this encounter Visit Diagnoses Diagnosis Leg swelling Swelling of limb documented in this encounter Additional Health Concerns Assessment Noted Time PHQ-9 Depression Total Score: 0 07/06/19 24 2:10 PM EDT documented as of this encounter Care Teams Credit Collections Clerk Relationship Specialty Start Date End Date Janine Chester ANP [address] [place] [address] PCP - General Family Medicine 10/07/20 documented as of this encounter
--- OUTSIDE RECORDS SUMMARY | 2024-10-19 13:37 | XMS_ITS | Encounter Summary ---
Author Organization [employer] Address [address] [place] [address] 7 [place] [address] Care Team Providers Care Kidney Trimmer Name Role Phone Janine Chester Primary Care Provider [phone] Reason for Visit * Reason Comments Med Refill Encounter Details Date Type Department Care Team (Late st Contact Info) Description 01/29/2022 Refill [facility] [address] [place], [place] [phone] Janine Chester ANP [address] [place] [address] Dyslipidemia Social History Tobacco Use Types Packs/Day [...] Info) Description 11/02/2024 2:30 PM EDT Immunization [facility] [address] [place] [address] [phone] 11/21/2024 2:15 PM EDT Office Visit [facility] [address] [place] [address] [phone] Janine Chester ANP [address] [place] [address] documented as of this encounter Visit Diagnoses Diagnosis Dyslipidemia Other and unspecified hyperlipidemia documented in this encounter Care Teams Kidney Trimmer Relationship Specialty Start Date End Date Janine Chester ANP 230 [place] [address] PCP - General Family Medicine 10/07/20 documented as of this encounter
--- OUTSIDE RECORDS SUMMARY | 2024-10-19 13:37 | XMS_ITS | Encounter Summary ---
Author Organization [employer] Address [address] [facility] 7t [place] [address] Care Team Providers Care Grading Supervisor Name Role Phone Nemo Janine VAZQUEZ Primary Care Provider [phone] Encounter Details Date Type Department Care Team ([facility] st Contact Info) Description 03/29/2023 Orders Only [facility] [address] [place], [place] [phone] Teodoro Keyes MD 505 [place] [address] Social History Tobacco Use Types Packs/Day Years [...] Info) Description 11/02/2024 2:30 PM EDT Immunization [facility] [address] [place] [phone] 11/21/2024 2:15 PM EDT Office Visit [facility] [address] [place] [address] Janine Chester ANP 230 [place] [address] documented as of this encounter Visit Diagnoses Not on filedocumented in this encounter Care Teams Grading Supervisor Relationship Specialty Start Date End Date Janine Chester ANP [address] [place] [address] PCP - General Family Medicine 10/07/20 documented as of this encounter
--- OUTSIDE RECORDS SUMMARY | 2024-10-19 13:37 | XMS_ITS | Encounter Summary ---
Author Organization [employer] [facility] Address [address] [place] [address] 7t [place] [address] Care Team Providers Care Contact Printer Dry Film Name Role Phone Janine Chester Primary Care Provider [phone] Encounter Details Date Type Department Care Team (Late st Contact Info) Description 03/06/2022 Orders Only [facility] [address] [place] [address] Jamilah Preston LPN Social History Tobacco Use [...] Info) Description 11/02/2024 2:30 PM EDT Immunization [address] [address] 11/21/2024 2:15 PM EDT Office Visit [address] [address] Janine Chester ANP [address] [place] [address] documented as of this encounter Visit Diagnoses Not on filedocumented in this encounter Care Teams Contact Printer Dry Film Relationship Specialty Start Date End Date Janine Chester ANP [address] [place] [address] PCP - General Family Medicine 10/07/20 documented as of this encounter
--- OUTSIDE RECORDS SUMMARY | 2024-10-19 13:37 | XMS_ITS | Encounter Summary ---
Author Organization [employer] Address [address] [facility] [address] 7t [place] [address] Care Team Providers Care Retail Representative Name Role Phone Janine Chester Primary Care Provider [phone] Reason for Visit * Reason Comments Med Refill Encounter Details Date Type Department Care Team ([facility] st Contact Info) Description 08/04/2024 Refill [facility] 230 [place], [place] [phone] Janine Chester ANP [address] [place], [place] [phone] Wheezing Social History Tobacco Use Types Packs/Day [...] Info) Description 11/02/2024 2:30 PM EDT Immunization [address] [address] 11/21/2024 2:15 PM EDT Office Visit [facility] [address] [place] [address] Janine Chester ANP [address] [place] [address] documented as of this encounter Visit Diagnoses Diagnosis Wheezing documented in this encounter Additional Health Concerns Assessment Noted Time PHQ-9 Depression Total Score: 0 07/06/19 24 2:10 PM EDT documented as of this encounter Care Teams Retail Representative Relationship Specialty Start Date End Date Janine Chester ANP [address] [place] [address] PCP - General Family Medicine 10/07/20 documented as of this encounter
--- OUTSIDE RECORDS SUMMARY | 2024-10-19 13:37 | XMS_ITS | Clinical Summary ---
Author Organization [employer] Address [address] [facility] 7t [place] [address] Care Team Providers Care Car Cleaning Supervisor Name Role Phone Harry Ceron TAYLOR Primary Care Provider [phone] Allergies Active Allergy Reactions Criticality Noted Date Comments Bee Venom 10/16/2020 Medications metoprolol succinate XL (Toprol-XL) 25 MG 24 hr tablet Take 1 tablet by mouth 1 (one) time each day. Active fluticasone (Flonase Allergy Relief) 50 MCG/ACT nasal spray USE 1-2 SPRAYS IN EACH NOSTRIL EVERY DAY IF NEEDED 48 g 1 06/24/19 23 Active Blood Pressure kitIndications: Elevated BP without diagnosis of hypertension 1 kit in the morning. 1 kit 04/07/19 24 Active acyclovir (Zovirax) 5 % ointmentIndicat ions:Herpes zoster without complication Use as needed up to 4x/d 15 g 07/06/19 24 Active ipratropium-alb uterol (Duo-Neb) 0.5-2.5 mg/3 mL nebulizer solutionIndicat ions:Mild intermittent asthma without complication Take 3 mL by nebulization Every 4-6 hours as needed for wheezing or shortness of breath. 75 mL 1 07/06/19 24 Active alendronate (Fosamax) 70 MG tablet Take 1 tablet by mouth every 7 (seven) days. 12/22/19 24 Active furosemide (Lasix) 20 MG tabletIndicatio ns:Leg swelling Take 1 tablet (20 mg) by mouth Once per day. As needed 90 tablet 1 03/24/19 25 Active cetirizine (ZyrTEC) 5 MG tablet Take 1 tablet (5 mg) by mouth Once daily as needed for allergies. 90 tablet 1 07/29/19 25 2025 Active albuterol 108 (90 Base) MCG/ACT inhalerIndicati ons:Wheezing Inhale 2 puffs every 6 (six) hours if needed for shortness of breath or wheezing. 8.5 g 1 08/05/19 Active EPINEPHrine (Epipen) 0.3 MG/0.3ML injection syringeIndicati ons:Allergic to bees Inject 0.3 mL (0.3 mg) as directed 1 (one) time if needed for anaphylaxis. Inject into upper leg. Call 911 after use. 2 each 1 08/15/19 25 2025 Active atorvastatin (Lipitor) 10 MG tabletIndicatio ns:Dyslipidemia TAKE 1 TABLET BY MOUTH EVERY DAY 90 tablet 1 09/22/19 25 Active atorvastatin (Lipitor) 10 MG tabletIndicatio ns:Dyslipidemia TAKE 1 TABLET BY MOUTH EVERY DAY 90 tablet 1 03/24/19 25 2024 Discontinued Active Problems Problem Noted Date Diagnosed Date [...] Invasive ductal Following w/ Dr. 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 Stereotactic core biopsy performed 06/25/2022 revealed invasive ductal carcinoma, MS BR grade 3 along with DCIS, solid and comedo features. Immunostains revealed estrogen receptor positive- 95%, progesterone receptor positive-50%, HER2 positive 3+, Ki 67 high greater than 20%. Clinical stage T3 N0, stage IIB. [facility] genetic result was negative. Bilateral breast [...] Premature atrial contraction 06/10/2022 Osteoporosis 12/24/2021 Overview (05/01/2024): From Dr. Valdez's note 10/13/23 She has [...] I will increase it to b.i.d.. She completed Evenity via Endo at [facility], transitioned to alendronate 12/2023. Her most recent DEXA scan 11/2023 was consistent with osteopenia -lowest T-score -2.0. This is a huge improvement! Asthma 06/08/2020 Generalized rash 06/08/2020 Encounters Date Type Department Care Team Description 09/21/2024 2:30 PM EDT Immunization [facility] [place] [address] Encounter for immunization 09/21/2024 Travel 09/21/2024 Refill [facility] [place] [address] Harry Ceron ANP Dyslipidemia 08/30/2024 Telephone [facility] [place] [address] Harry Ceron ANP October recall 08/14/2024 Orders Only [facility] [place] [address] Harry Ceron ANP 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) 08/13/2024 Refill [facility] [place] [address] Harry Ceron ANP Allergic to bees 08/04/2024 Refill [facility] [place] [place] [address] Harry Ceron ANP Wheezing 08/04/2024 Refill [facility] [facility] [place] [address] Harry Ceron ANP Wheezing 08/04/2024 Refill [facility] [place] [address] Harry Ceron ANP Wheezing 07/28/2024 1:15 PM EDT Office Visit [facility] [place] [address] Harry Ceron ANP Acute hip pain, left (Primary Dx); Wheezing; Other urinary incontinence; Neuropathy involving both lower extremities 07/28/2024 Results Follow-Up [facility] [place] [address] Harry Ceron ANP XR Hip 2 or 3 Views Left 07/28/2024 Travel 07/27/2024 Telephone [facility] [place] [address] Harry Ceron ANP chart prep 07/25/2024 Telephone [facility] [place] [address] Harry Ceron ANP Nurse Triage from Last 3 Months Immunizations Immunization Administration Dates Next Due Hep B, adult 09/21/2024,04/21/2024,03/24/2024 Influenza High-dose Quadriva lent Preservative Free 11/25/2021,12/02/2020,12/09/2019 Influenza injectable quadriv alent preservative free 11/16/2022 Influenza, High Dose Seasona l, Preservative Free 12/02/2023 Pfizer Covid-19 Vaccine 12+ 05/18/2024,1 ,06/30/2023,12/02 Pfizer Covid-19 Vaccine 12+ Bivalent 06/12/2022 Pneumococcal [...] Sign Reading Time Taken Comments Blood Pressure 122/60 07/28/2024 1:12 PM EDT Pulse 98 07/28/2024 1:12 PM EDT Temperature 36.8 C (98.2 F) 05/05/2024 1:23 PM EDT Respiratory Rate 16 07/28/2024 1:12 PM EDT Oxygen Saturation 98% 05/05/2024 1:23 PM EDT Inhaled Oxygen Concentration - - Weight 53.5 kg (118 lb) 07/28/2024 1:12 PM EDT Height 160 cm (5' 3 ) 07/28/2024 1:12 PM EDT Body Mass Index 20.9 07/28/2024 1:12 PM EDT Plan of Treatment Upcoming Encounters Date Type Department Care Team (Late st Contact Info) Description 11/02/2024 2:30 PM EDT Immunization [facility] [address] [place] [address] 11/21/2024 2:15 PM EDT Office Visit [facility] [address] [place] [address] Harry Ceron, ANP [address] [place] [address] Health Maintenance Due Date Last Done Comments DTaP/Tdap/Td Vaccines (1 - Tdap) 10/30/2014 10/29/2014 Influenza Vaccine (#1) 2024 , 11/16/2022, 11/25/2021, Additional history exists Alcohol/Substance Use Screening 07/28/2025 07/28/2024 Depression Screening 07/28/2025 07/28/2024, 07/06/19 SDOH Screening 07/28/2025 07/28/2024 Tobacco Screening 07/28/2025 07/28/2024 Mammogram 11/04/2025 11/05/2023, 10/16, 12/10/2021, Additional history exists Hepatitis C Screening Completed 06/17/2022 RSV Patients and Patients Aged 60 years or older Completed 12/16/2022 Pneumococcal Vaccine: 50+ Years Completed 07/21/2023, 12/23/2020, 12/12/2019 Zoster Vaccines Completed 10/13/2023, 08/11/2023 COVID-19 Vaccine Completed 05/18/2024, 03/2023, 06/30/2023, Additional history exists Hepatitis B Vaccines Completed 09/21/2024, 04/21/2024, 03/24/2024 HIB Vaccines Aged Out No longer eligi [...] patient's age to complete this topic Meningococcal B Vaccine Aged Out No l onger eligible based on patient's age to complete [...] Procedure Name Priority Date/Time Associated Diagnosis Comments XR HIP 2 OR 3 VIEWS LEFT Routine 07/28/2024 1:15 PM EDT Acute hip pain, left BI MAMMOGRAM SCREENING TOMOSYNTHESIS RIGHT Routine 11/05/2023 3:15 PM EDT HEPATITIS C ANTIBODY Routine 06/17/2022 12:23 PM EDT from Last 3 Months or Most Recently Relevant to Health Maintenance Results * XR Hip 2 or 3 Views Left (07/28/2024 1:15 PM EDT) Anatomical Region Laterality Modality Lower Extremities, Hip Left Radiograp hic Imaging 07/28/2024 1:15 PM EDT Narrative 07/28/2024 2:53 PM EDT [address] [address] XRay Report Signed Patient: Elayne Lundy MR#: [id number] : 1945 Acct:[id number] Age/Sex: 79 / F ADM Date: 07/28/24 Loc: ARNOLDCX Attending Dr: Harry Ceron [employer]RAK[employer]EN[employer]IN Ordering Physician: HARRY CERON NP Date of Service: 07/28/24 Procedure(s): XR hip LT min 2V Accession Number(s): [id number] cc: HARRY CERON NP EXAMINATION: XR HIP, LEFT CLINICAL INFORMATION: L hip pain x 1 mo COMPARISON: None available. TECHNIQUE: Two views of the left hip. FINDINGS: No acute cortical disruption or malalignment. No lytic or blastic lesions. Slight asymmetric joint space narrowing. XR/XR hip LT min 2V IMPRESSION: Mild osteoarthrosis without acute fracture or dislocation. Electronically signed by: Guillermo Hidalgo MD 07/28/2024 02:50 PM EDT Dictated By: Guillermo Manning MD Signed By: <Electronically signed by Guillermo Montero MD in OV> 07/28/24 1450 DD/ 1315 TD/TT: 07/28/24 1400 Cementer Hand: Procedure Note Donotuseinterpreter, Image - 07/28/[address] [address] XRay Report Signed Patient: Elayne LundyMR#: [id number] : 1945cct:[id number] Age/Sex: 79 / FADM Date: 07/28/24 Loc: ARNOLDCGeno Attending Dr: Harry Ceron BRAKER [employer]EN[employer]IN Ordering Physician: HARRY CERON NP Date of Service: 07/28/24 Procedure(s): XR hip LT min 2V Accession Number(s): [id number] cc: HARRY CERON NP EXAMINATION: XR HIP, LEFT CLINICAL INFORMATION: L hip pain x 1 mo COMPARISON: None available. TECHNIQUE: Two views of the left hip. FINDINGS: No acute cortical disruption or malalignment. No lytic or blastic lesions. Slight asymmetric joint space narrowing. XR/XR hip LT min 2V IMPRESSION: Mild osteoarthrosis without acute fracture or dislocation. Electronically signed by: Guillermo Hidalgo MD 07/28/2024 02:50 PM EDT RP Dictated By: Guillermo Manning MD Signed By: <Electronically signed by Guillermo Montero MDin OV> 07/28/24 1450 DD/ 1315 TD/TT: 07/28/24 1400 Cementer Hand: Harry Ceron ANP IMG XR PROCEDURES Final Result * BI Mammogram Screening Tomosynthesis Right (11/05/2023 3:15 PM EDT) Anatomical Region Laterality Modality Breast Right Mammography 11/05/2023 3:15 PM EDT Narrative 11/08/2023 5:52 PM EDT [facility] [address] [place] [address] Mammography Report Signed Patient: Elayne Lundy MR#: [id number] : 1945 Acct:[id number] Age/Sex: 78 / F ADM Date: 11/05/23 Loc: HO.MAMMO Attending Dr: Harry Ceron NP Ordering Physician: HARRY CERON NP Results: 2Benign Joe dingrodger Date of Service: 11/05/23 Follow Up: 1 Year From Orig ina Mammogram Procedure(s): MM tomosynthesis screening RT Accession Number(s): [id number] cc: HARRY CERON NP EXAMINATION: MM SCREENING DIGITAL BREAST TOMOSYNTHESIS, RIGHT [...] 11/08/23 1749 DD/ 1515 TD/TT: 11/05/23 1539 Cementer Hand: Procedure Note Donotuseinterpreter, Image - [facility] [address] [place] [address] Mammography Report Signed Patient: Elayne LundyMR#: [id number] : 7Acct:[id number] Age/Sex: 78 / FADM Date: 11/05/23 Loc: HO.MAMMO Attending Dr: Harry Ceron NP Ordering Physician: HARRY CERON NPResults: 2Benign Joe coker Date of Service: 11/05/23Follow Up: 1 Year From Orig inal Mammogram Procedure(s): MM tomosynthesis screening RT Accession Number(s): [id number] cc: HARRY CERON NP EXAMINATION: MM SCREENING DIGITAL BREAST TOMOSYNTHESIS, RIGHT [...] 11/08/23 1749 DD/ 1515 TD/TT: 11/05/23 1539 Cementer Hand: Harry [facility] IMG BI PROCEDURES Final Result * Hepatitis C Ab (06/17/2022 12:23 PM EDT) Hepatitis C Antibody Nonreactive Nonreactive [facility] Comment:Antibodies to HCV no t detected; does not exclude early acuteHCV infection. 06/17/2022 12:2 3 PM EDT 06/17/2022 12:23 PM EDT [facility] External Provider LAB BLO OD ORDERABLES Final Result [facility] [address] [place] [address] [phone] from Last 3 Months or Most Recently Relevant to Health Maintenance Insurance [facility] MEDICARE REPLACEMENT [facility] F[facility] Care Teams Car Cleaning Supervisor Relationship Specialty Start Date End Date Harry Ceron ANP [address] [place] [address] [place] [address] PCP - General Family Medicine 10/07/20
--- OUTSIDE RECORDS SUMMARY | 2024-10-19 13:37 | XMS_ITS | Patient Health Record ---
Author Organization [facility] [place] Address [address] [place] [address] Care Team Providers Care Used Car Sales Supervisor Name Role Phone Janine Chester Primary Care Provider Salomón Zelaya Unavailable [phone] Reason For Referral No Information Plan Of Treatment No Information Insurance Providers Payer Name Payer Address Payer Phone Subscriber Number Group Number Insured Name Patient Relationship to Insured Coverage Start Date Coverage End Date [id number] [address] [address] [place] [address] [phone] [id number] Elayne Lundy Self - patient is the insured
[2024-10-24 16:53] LABS: NTXCreaRU 35 mg/dL (20-275)
== END 2024-10-19 12:02 | disposition home or self-care (01) ==
LOC: HO.LNP 12:01
PROVIDERS: Visit Provider Internal Medicine Endocrinology, Diabetes & Metabolism
DX: M81.0 Age-related osteoporosis without current pathological fracture (principal)
CPT/HCPCS: 82523

== ENCOUNTER 2024-10-26 13:56 | Outpatient (AMB) | payer MEDICARE, SELFPAY ==
--- OUTSIDE RECORDS SUMMARY | 2023-05-11 10:00 | XMS_ITS ---
Author Organization [facility] Address [address] [place] [address] Care Team Providers Care Facilities Project Manager Name Role Phone Janine Chester Primary Care Provider Salomón Zelaya Unavailable [phone] Emilia Marr Unavailable [phone] REASON FOR VISIT no TAX ADJUSTER ppwrk Encounters Encounter Location Date Provider [facility] [address] [place] [address] 05/11/2023 Emilia Marr Plan Of Treatment No Information Progress Notes * KRYSTLEElayneDOB:1945 (79 yo F)Acc No.[id number]:05/11/2023 Progress Notes Patient: Elayne MATIAS Provider: Chance Marr DPM :1945 A ge:78 Y S ex:Female Date:05/11/2023 Address: [address], [id number] Pcp:Janine Chester Subjective: * Chief Complaints: * 1 . no TAX ADJUSTER ppwrk. * Medical History: Objective: * Vitals: Assessment: Plan: * Treatment: * Images: * The named appointment provid er may or may not be the originator of this progress note, and it is not deemed complete until electronically signed by the appointment provider. Sign off status: Pending * Provider: Chance Marr DPM Date: 05/11/2023 Generated for Indy soares/[place]/eTransmitting on: 0 10/26/2024 05:47 PM EDT
[2024-10-26 14:04] VITALS: BP 110/62; PULSE 67; O2SAT 97; BMI 21.1
--- NOTE | 2024-10-26 14:04 | MHC.OFFVIS ---
Vital Signs 10/26/24 14:04 Height 5 ft 2 in Weight 115 lb 4.828 oz BMI 21.1 BP 110/62 Blood Pressure Location Rt brachial Position Sitting Pulse 67 Pulse Source Pulse Oximeter Pulse Oximetry (%) 97 Oxygen Delivery Method Room Air Intake Visit Reasons: f/u osteoporosis Intake Note: Patient present today for Osteoporosis. Change Management Facilitator Required: No Accompanied by: Self / Same As Patient Allergies animal dander Allergy (Verified 10/26/24 14:11) Hives feathers Allergy (Verified 10/26/24 14:11) Hives Seasonal Allergies Allergy (Verified 10/26/24 14:11) Itchy Eyes Medication List - Last Reconciled 10/26/24 by Serge Alcantar MD acyclovir 5% 5 appl topical DAILY albuterol sulfate 90 mcg/actuation 1 inh inhalation Q4H PRN alendronate 70 mg PO QWEEK atorvastatin 10 mg PO BEDTIME cetirizine (Allergy Relief (cetirizine)) 5 mg PO DAILY PRN epinephrine 0.3 mL IM DAILY furosemide (Lasix) 20 mg PO DAILY ipratropium-albuterol 0.5 mg-3 mg(2.5 mg base)/3 mL 3 mL inhalation Q6H PRN letrozole 2.5 mg PO DAILY metoprolol succinate ER 25 mg PO BEDTIME 90 days minoxidil 1.5 mg PO DAILY kcsgrhhnizzq-jkha-rvfbz acid 18-400 mg-mcg (Centrum Women) 1 tab PO DAILY polymyxin B sulf-trimethoprim 10,000 unit- 1 mg/mL 10,000 drps ophthalmic (eye) DAILY vitamin B complex 1 tab PO DAILY HPI Comments Details: 79 YO Female with is seen in consultation at the request of PCP for Osteoporosis. First diagnosed in [facility] . Not Received treatment in the past No history of pathologic fracture or ONJ. Has several servings of dietary calcium per day in the form of yogurt,salmon, milk. Not Takes Calcium supplement . Takes ? IU of Vitamin D daily. Denies ever using PPI, anticoagulant, antiepileptic or glucocorticoid medication. 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 UTD on dental cleanings and sees dentist every 6 months. has planned upcoming dental work but no extractions extractions. DXA dated 11/26/21:FINDINGS: AP SPINE L1-L2 (excluding L3 and L4):? The data of L1-L4 has been changed to exclude the L3 and L4 vertebral bodies because degenerative changes at these levels may cause overestimation of the lumbar spine density. BMD 0.665 g/cm2, Z-score -1.9, T-score -4.2, osteoporosis. LEFT FEMUR, NECK: BMD 0.691 g/cm2, Z-score -0.3, T-score -2.5, osteoporosis. LEFT FEMUR, TOTAL: BMD 0.681 g/cm2, Z-score -0.5, T-score -2.6, osteoporosis. IDENTIFIED RISK FACTORS: Menopause, height loss, rheumatoid arthritis. HISTORY OF FRACTURE: None listed. MEDICATIONS: Calcium supplements or multivitamin. MM/XR DEXA axial skeleton IMPRESSION: 1. DIAGNOSIS: Osteoporosis based on the lowest T-score value of -4.2 in the lumbar spine applying World Health Organization criteria.? Labs: Secondary workup negative. Not Undergoing radiation treatment for breast cancer but received chemo. Took a course of Evenity and transitioned to alendronate since 12/2023 The patient is a 79-year-old female presenting with a follow-up for osteoporosis management She has been on a defined course of Evenity for osteoporosis, followed by ongoing alendronate therapy, showing favorable outcomes with no adverse transformations in her health. Her primary healthcare provider has acknowledged significant improvements which are supported by recent assessments. She is approaching the 1 year point of taking alendronate in 12/2024. Recent urine NTX is suppressed [facility] Medical History History of breast cancer History of chemotherapy Arthritis Breast cancer Family history of ovarian cancer Invasive ductal carcinoma of left breast in female Breast calcification, left Diverticulosis Tubular adenoma On beta branden at home Osteoporosis Elevated cholesterol Palpitations History of COVID-19 Aortic regurgitation Asthma Surgical History History of left mastectomy (01/05/23) History of nasal surgery Hx of tonsillectomy Hx of colonoscopy History of repair of retinal tear by laser photocoagulation History of cataract surgery Family History Father No problems noted. Mother Ovarian ca Social History Household Members: None Housing: Condominium Are you a primary customer care assistant to a significant other at home: No Do you presently have visiting nurse or other home services: No Alcohol intake: current Alcohol intake frequency: holidays/special occasions only Patient Tobacco Use Status: Former Tobacco user Tobacco use type: Cigarette Years Smoked: 25 e-Cigarette/Vaping Use: Never Used Substance Use Type: Marijuana service: No Current occupational status: employed Physical Exam Vital Signs: Last Vital Signs Pulse 67 10/26/24 14:04 BP 110/62 10/26/24 14:04 Pulse Ox 97 10/26/24 14:04 Oxygen Delivery Method Room Air 10/26/24 14:04 BMI result Body Mass Index 21.1 Assessment & Plan Assessment & Plan (1) Osteoporosis: Code(s): M81.0 - Age-related osteoporosis without current pathological fracture Category: Medical Plan: This is a 79-year-old white female found to have moderate to severe osteoporosis on DEXA bone density. Secondary workup was negative. Patient undergoing radiation therapy for breast cancer. Completed a 12 month course of Evenity with bone density going into the osteopenic range and transitioning to alendronate in 12/2023 . Urine NTX is suppressed The patient will continue alendronate therapy until 12/2024 and then stop. We will check urine NTX in 4 months Orders: Orders Collagen Crosslinks NTX 4 Months M81.0 - Age-related osteoporosis without current pathological fracture Coding Level of Care Code Est Pt Level 3 (74761) Diagnoses Osteoporosis M81.0
--- OUTSIDE RECORDS SUMMARY | 2024-10-26 17:48 | XMS_ITS | Clinical Summary ---
Author Organization [facility] Address [address] [address] Phone Care Team Providers Care Skin Therapist Name Role Phone Krystin Morrow MD Primary [...] REPLACEMENT MEDICARE REPLACEMENT MEDICARE REPLACEMENT MEDICARE REPLACEMENT [place] [address] MEDICARE REPLACEMENT Care Teams Skin Therapist Relationship Specialty Start Date End Date [place], Krystin Fernandes MD [address] [place] [address] PCP - General Family Medicine 07/25/20 Additional Source Comments The information contained in this document represents components of the legal health record. It is not the complete legal health record.[facility]
--- OUTSIDE RECORDS SUMMARY | 2024-10-26 17:48 | XMS_ITS | Encounter Summary ---
Author Organization [facility] Address [address] [place] [address] 7t [place] [address] Care Team Providers Care Dinkey Driver Name Role Phone Janine Chester Primary Care Provider [phone] Encounter Details Date Type Department Care Team (Late st Contact Info) Description 03/06/2022 Orders Only [facility] MEDICINE [address] [place] [address] Jamilah Preston LPN Social History Tobacco Use [...] Info) Description 11/02/2024 2:30 PM EDT Immunization [address] [address] 11/21/2024 2:15 PM EDT Office Visit [address] [address] Janine Chester ANP [address] [place] [address] documented as of this encounter Visit Diagnoses Not on filedocumented in this encounter Care Teams Dinkey Driver Relationship Specialty Start Date End Date Janine Chester ANP [address] [place] [address] PCP - General Family Medicine 10/07/20 documented as of this encounter
--- OUTSIDE RECORDS SUMMARY | 2024-10-26 17:48 | XMS_ITS | Encounter Summary ---
Author Organization [employer] Address [address] [facility] 7t [place] [address] Care Team Providers Care Ballistics Laboratory Gunsmith Name Role Phone Janine Chester Primary Care Provider [phone] Reason for Visit * Reason Onset Date Comments Appointment 04/08/2022 Encounter Details Date Type Department Care Team (Late st Contact Info) Description 04/08/2022 Telephone [facility] MEDICINE [address] [place], [place] [phone] Janine Chester ANP [address] [place] [address] Appointment Social History Tobacco Use Types Packs/Day [...] other doctor appts. Please contact pt at [phone] documented in this encounter Plan of Treatment Upcoming Encounters Date Type Department Care Team (Late st Contact Info) Description 11/02/2024 2:30 PM EDT Immunization [facility] MEDICINE [address] [place] [address] 11/21/2024 2:15 PM EDT Office Visit [facility] MEDICINE [address] [place] [address] Janine Chester ANP [address] [place] [address] documented as of this encounter Visit Diagnoses Not on filedocumented in this encounter Care Teams Ballistics Laboratory Gunsmith Relationship Specialty Start Date End Date Janine Chester ANP [address] [place] [address] PCP - General Family Medicine 10/07/20 documented as of this encounter
--- OUTSIDE RECORDS SUMMARY | 2024-10-26 17:48 | XMS_ITS | Patient Health Record ---
Author Organization [facility] Address [address] [facility] [place] [address] Care Team Providers Care Motorcycle Racer Name Role Phone Janine Chester Primary Care Provider Salomón Zelaya Unavailable [phone] Reason For Referral No Information Plan Of Treatment No Information Insurance Providers Payer Name Payer Address Payer Phone Subscriber Number Group Number Insured Name Patient Relationship to Insured Coverage Start Date Coverage End Date [id number] [address] [address] [place] [address] [phone] [id number] Elayne Lundy Self - patient is the insured
--- OUTSIDE RECORDS SUMMARY | 2024-10-26 17:48 | XMS_ITS | Encounter Summary ---
Author Organization [facility] Address [address] [facility] [address] 7[address] [place] [address] Care Team Providers Care Relief Operator Name Role Phone Janine Chester Primary Care Provider [phone] Reason for Visit * Reason Comments Med Refill Encounter Details Date Type Department Care Team ([facility] st Contact Info) Description 08/04/2024 Refill [facility] MEDICINE [address] [place], [place] [phone] Janine Chester ANP [address] [place], [place] [phone] Wheezing Social History Tobacco Use Types Packs/Day [...] Info) Description 11/02/2024 2:30 PM EDT Immunization [address] [address] 11/21/2024 2:15 PM EDT Office Visit [facility] MEDICINE [address] [place] [phone] Janine Chester ANP [address] [place] [address] documented as of this encounter Visit Diagnoses Diagnosis Wheezing documented in this encounter Additional Health Concerns Assessment Noted Time PHQ-9 Depression Total Score: 0 07/06/19 24 2:10 PM EDT documented as of this encounter Care Teams Relief Operator Relationship Specialty Start Date End Date Janine Chester ANP [address] [place] [address] PCP - General Family Medicine 10/07/20 documented as of this encounter
--- OUTSIDE RECORDS SUMMARY | 2024-10-26 17:48 | XMS_ITS | Encounter Summary ---
Author Organization [employer] Address [address] [facility] 7t [place] [address] Care Team Providers Care Cyber Intel Planner Name Role Phone Nemo Janine VAZQUEZ Primary Care Provider [phone] Encounter Details Date Type Department Care Team ([facility] st Contact Info) Description 03/29/2023 Orders Only [facility] MED & PEDS [address] [place], [place] [phone] Teodoro Keyes MD [address] [place] [address] Social History Tobacco Use Types Packs/Day Years [...] Info) Description 11/02/2024 2:30 PM EDT Immunization [facility] MEDICINE [address] [place] [address] 11/21/2024 2:15 PM EDT Office Visit [facility] MEDICINE [address] [place] [address] Janine Chester ANP 230 [place] [address] documented as of this encounter Visit Diagnoses Not on filedocumented in this encounter Care Teams Cyber Intel Planner Relationship Specialty Start Date End Date Janine Chester ANP [address] [place] [address] PCP - General Family Medicine 10/07/20 documented as of this encounter
--- OUTSIDE RECORDS SUMMARY | 2024-10-26 17:48 | XMS_ITS | Encounter Summary ---
Author Organization [employer] Address [address] [facility] [address] 7t [place] [address] Care Team Providers Care Molded Rubber Goods Cutter Name Role Phone Janine Chester Primary Care Provider [phone] Reason for Visit * Reason Comments Med Refill Encounter Details Date Type Department Care Team ([facility] st Contact Info) Description 08/04/2024 Refill [facility] MEDICINE 230 [place], [place] [phone] Janine Chester ANP 230 [place], [place] [phone] Wheezing Social History Tobacco Use Types Packs/Day [...] Info) Description 11/02/2024 2:30 PM EDT Immunization [address] [address] 11/21/2024 2:15 PM EDT Office Visit [facility] MEDICINE [address] [place] [phone] Janine Chester ANP [address] [place] [address] documented as of this encounter Visit Diagnoses Diagnosis Wheezing documented in this encounter Additional Health Concerns Assessment Noted Time PHQ-9 Depression Total Score: 0 07/06/19 24 2:10 PM EDT documented as of this encounter Care Teams Molded Rubber Goods Cutter Relationship Specialty Start Date End Date Janine Chester ANP [address] [place] [address] PCP - General Family Medicine 10/07/20 documented as of this encounter
--- OUTSIDE RECORDS SUMMARY | 2024-10-26 17:48 | XMS_ITS | Encounter Summary ---
Author Organization [employer] Address [address] [facility] [address] 7[address] [place] [address] Care Team Providers Care Mechanical Equipment Sales Engineer Name Role Phone Janine Chester Primary Care Provider [phone] Reason for Visit * Reason Comments Med Refill Encounter Details Date Type Department Care Team (Late st Contact Info) Description 10/27/2023 Refill [facility] MEDICINE 230 [place], [place] [phone] Janine Chester ANP [address] [place], [place] [phone] Leg swelling Social History Tobacco Use Types [...] Info) Description 11/02/2024 2:30 PM EDT Immunization [facility] MEDICINE [address] [place] [address] 11/21/2024 2:15 PM EDT Office Visit [facility] MEDICINE [address] [place] [address] Janine Chester ANP [address] [place] [address] documented as of this encounter Visit Diagnoses Diagnosis Leg swelling Swelling of limb documented in this encounter Additional Health Concerns Assessment Noted Time PHQ-9 Depression Total Score: 0 07/06/19 24 2:10 PM EDT documented as of this encounter Care Teams Mechanical Equipment Sales Engineer Relationship Specialty Start Date End Date Janine Chester ANP [address] [place] [address] PCP - General Family Medicine 10/07/20 documented as of this encounter
--- OUTSIDE RECORDS SUMMARY | 2024-10-26 17:48 | XMS_ITS | Encounter Summary ---
Author Organization [facility] Address [address] [facility] 7t [place] [address] Care Team Providers Care Vp Celebrity Services Name Role Phone Janine Chester Primary Care Provider [phone] Encounter Details Date Type Department Care Team (Late st Contact Info) Description 08/07/2022 Abstract [facility] MEDICINE [address] [place] [address] [phone] Janine Chester ANP [address] [place] [address] [phone] Social History Tobacco Use Types Packs/Day Years [...] Info) Description 11/02/2024 2:30 PM EDT Immunization [facility] MEDICINE [address] [place] [phone] 11/21/2024 2:15 PM EDT Office Visit [facility] MEDICINE [address] [place] [address] [phone] Janine Chester ANP [address] [place] [address] [phone] documented as of this encounter Visit Diagnoses Not on filedocumented in this encounter Care Teams Vp Celebrity Services Relationship Specialty Start Date End Date Janine Chester ANP [address] [place] [address] PCP - General Family Medicine 10/07/20 documented as of this encounter
--- OUTSIDE RECORDS SUMMARY | 2024-10-26 17:48 | XMS_ITS | Encounter Summary ---
Author Organization [employer] Address [address] [place] [address] 7 [place] [address] Care Team Providers Care Program Director Name Role Phone Janine Chester Primary Care Provider [phone] Reason for Visit * Reason Comments Med Refill Encounter Details Date Type Department Care Team (Late st Contact Info) Description 01/29/2022 Refill [facility] MED & PEDS [address] [place], [place] [phone] Janine Chester ANP [address] [place] [address] Dyslipidemia Social History Tobacco Use Types Packs/Day [...] Info) Description 11/02/2024 2:30 PM EDT Immunization [facility] MEDICINE [address] [place] [address] [phone] 11/21/2024 2:15 PM EDT Office Visit [facility] MEDICINE [address] [place] [address] [phone] Janine Chester ANP [address] [place] [address] documented as of this encounter Visit Diagnoses Diagnosis Dyslipidemia Other and unspecified hyperlipidemia documented in this encounter Care Teams Program Director Relationship Specialty Start Date End Date Janine Chester ANP [address] [place] [address] PCP - General Family Medicine 10/07/20 documented as of this encounter
--- OUTSIDE RECORDS SUMMARY | 2024-10-26 17:48 | XMS_ITS | Encounter Summary ---
Author Organization [employer] Address [address] [facility] [address] 7t [place] [address] Care Team Providers Care Automotive Parts Advisor Name Role Phone Janine Chester Primary Care Provider [phone] Reason for Visit * Reason Comments Med Refill Encounter Details Date Type Department Care Team ([facility] st Contact Info) Description 01/13/2024 Refill [facility] MED & PEDS [address] [place], [place] [phone] Janine Chester ANP [address] [facility] [place] [address] Dyslipidemia Social History Tobacco Use Types Packs/Day [...] Info) Description 11/02/2024 2:30 PM EDT Immunization [facility] MEDICINE [address] [place] [address] 11/21/2024 2:15 PM EDT Office Visit [facility] MEDICINE [address] [place] [address] Janine Chester ANP [address] [place] [address] documented as of this encounter Visit Diagnoses Diagnosis Dyslipidemia Other and unspecified hyperlipidemia documented in this encounter Additional Health Concerns Assessment Noted Time PHQ-9 Depression Total Score: 0 07/06/19 24 2:10 PM EDT documented as of this encounter Care Teams Automotive Parts Advisor Relationship Specialty Start Date End Date Janine Chester ANP [address] [place] [address] PCP - General Family Medicine 10/07/20 documented as of this encounter
--- OUTSIDE RECORDS SUMMARY | 2024-10-26 17:48 | XMS_ITS | Clinical Summary ---
Author Organization [employer] Address [address] [facility] 7t [place] [address] Care Team Providers Care Stitching Department Supervisor Name Role Phone Harry Ceron TAYLOR Primary Care Provider [phone] Allergies Active Allergy Reactions Criticality Noted Date [...] in the morning. 1 kit 4 Active acyclovir (Zovirax) 5 % ointmentIndicati ons:Herpes zoster without complication Use as needed up to 4x/d 15 g 4 Active ipratropium-albu terol (Duo-Neb) 0.5-2.5 mg/3 mL nebulizer solutionIndicati ons:Mild intermittent asthma without complication Take 3 mL by nebulization Every 4-6 hours as needed for wheezing or shortness of breath. 75 mL 1 4 Active alendronate (Fosamax) 70 MG tablet Take 1 tablet by mouth every 7 (seven) days. 4 Active furosemide (Lasix) 20 MG tabletIndication s:Leg swelling Take 1 tablet (20 mg) by mouth Once per day. As needed 90 tablet 1 5 Active cetirizine (ZyrTEC) 5 MG tablet Take 1 tablet (5 mg) by mouth Once daily as needed for allergies. 90 tablet 1 5 026 Active albuterol 108 (90 Base) MCG/ACT inhalerIndicatio ns:Wheezing Inhale 2 puffs every 6 (six) hours if needed for shortness of breath or wheezing. 8.5 g 1 5 Active EPINEPHrine (Epipen) 0.3 MG/0.3ML injection syringeIndicatio ns:Allergic to bees Inject 0.3 mL (0.3 mg) as directed 1 (one) time if needed for anaphylaxis. Inject into upper leg. Call 911 after use. 2 each 1 5 026 Active atorvastatin (Lipitor) 10 MG tabletIndication s:Dyslipidemia [...] Invasive ductal Following w/ [place]. 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 Stereotactic core biopsy performed 06/25/2022 revealed invasive ductal carcinoma, MS BR grade 3 along with DCIS, solid and comedo features. Immunostains revealed estrogen receptor positive- 95%, progesterone receptor positive-50%, HER2 positive 3+, Ki 67 high greater than 20%. Clinical stage T3 N0, stage IIB. [facility] genetic result was negative. [...] b.i.d.. She completed Even[facility] via [place]o at [facility], transitioned to alendronate 12/2023. Her most recent DEXA scan 11/2023 was consistent with osteopenia -lowest T-score -2.0. This is a huge improvement! 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) 08/13/2024 Refill [facility] [place] [place] [address] Harry Ceron ANP Allergic to bees 08/04/2024 Refill [facility] [place] [place] [address] Harry Ceron ANP Wheezing 08/04/2024 Refill [facility] [place] [address] Harry Ceron ANP Wheezing 08/04/2024 Refill [facility] [place] [facility] [place] [address] Harry Ceron ANP Wheezing 07/28/2024 1:15 PM EDT Office Visit [facility] [place] [address] Harry Ceron ANP Acute hip pain, left (Primary Dx); Wheezing; Other urinary incontinence; Neuropathy involving both lower extremities 07/28/2024 Results Follow-Up [facility] [place] [facility] [place] [address] Harry Ceron ANP XR Hip 2 or 3 Views Left 07/28/2024 Travel 07/27/2024 Telephone [facility] [facility] [place] [address] Harry Ceron ANP chart prep from Last 3 Months Immunizations Immunization Administration [...] Info) Description 11/02/2024 2:30 PM EDT Immunization [facility] [address] [place] [phone] 11/21/2024 2:15 PM EDT Office Visit [facility] [address] [place] [phone] Harry Ceron, ANP [address] [place] [address] Health Maintenance Due Date Last Done Comments DTaP/Tdap/Td Vaccines (1 - Tdap) 10/30/2014 10/29/2014 Influenza Vaccine (#1) 2024 4, 11/16/2022, 11/25/2021, Additional history exists Alcohol/Substance Use Screening 07/28/2025 07/28/2024 Depression Screening 07/28/2025 07/28/2024, 07/06/19 24 SDOH Screening 07/28/2025 07/28/2024 Tobacco Screening 07/28/2025 [...] PM EDT Narrative 07/28/2024 2:53 PM EDT [address] [address] XRay Report Signed Patient: Elayne Lundy MR#: [id number] : 1945 Acct:[id number] Age/Sex: 79 / F ADM Date: 07/28/24 Loc: HO.HHCX Attending Dr: Harry Ceron ARC TRIMMER Ordering Physician: HARRY CERON NP Date of Service: 07/28/24 Procedure(s): XR hip LT min 2V Accession Number(s): [id number] cc: HARRY CERON ARC TRIMMER EXAMINATION: XR HIP, LEFT CLINICAL INFORMATION: L [...] 07/28/24 1450 DD/ 1315 TD/TT: 07/28/24 1400 Eligibility Consultant: Procedure Note Donotuseinterpreter, Image - 07/28/[address] [address] XRay Report Signed Patient: Elayne LundyMR#: [id number] : 1945cct:[id number] Age/Sex: 79 / FADM Date: 07/28/24 Loc: ARNOLDCX Attending Dr: Harry Ceron ARC TRIMMER Ordering Physician: HARRY CERON NP Date of Service: 07/28/24 Procedure(s): XR hip LT min 2V Accession Number(s): [id number] cc: HARRY CERON NP EXAMINATION: XR HIP, [...] 07/28/24 1450 DD/ 1315 TD/TT: 07/28/24 1400 Eligibility Consultant: Harry Ceron ANP IMG XR PROCEDURES Final Result * BI Mammogram Screening Tomosynthesis Right (11/05/2023 3:15 PM EDT) Anatomical Region Laterality Modality Breast Right Mammography 11/05/2023 3:15 PM EDT Narrative 11/08/2023 5:52 PM EDT [facility] [address] [place] [address] Mammography Report Signed Patient: Elayne Lundy MR#: [id number] : 1945 Acct:[id number] Age/Sex: 78 / F ADM Date: 11/05/23 Loc: HO.MAMMO Attending Dr: Harry Ceron NP Ordering Physician: HARRY CERON NP Results: 2Benign [facility] Date of Service: 11/05/23 Follow Up: 1 Year From [facility] Mammogram Procedure(s): MM tomosynthesis screening RT Accession Number(s): [id number] cc: HARRY CERON NP EXAMINATION: MM SCREENING [...] Marcela Pollock DO 11/08/2023 05:49 PM EDT Dictated By: Marcela Pollock DO Signed By: <Electronically signed by Marcela Pollock DO in OV> 11/08/23 1749 DD/ 1515 TD/TT: 11/05/23 1539 Eligibility Consultant: Procedure Note Donotuseinterpreter, Image - 11/08/2023 [facility] [address] [place] [address] Mammography Report Signed Patient: Jerardo Lundy#: [id number] : 1945cct:[id number] Age/Sex: 78 / FADM Date: 11/05/23 Loc: HO.MAMMO Attending Dr: Harry Ceron NP Ordering Physician: HARRY CERON NPResults: 2Bmoises coker Date of Service: 11/05/23Follow Up: 1 Year From Orig inal Mammogram Procedure(s): MM tomosynthesis screening RT Accession Number(s): [id number] cc: HARRY CERON NP EXAMINATION: MM SCREENING [...] Marcela Pollock DO 11/08/2023 05:49 PM EDT Dictated By: Marcela Pollock DO Signed By: <Electronically signed by Marcela Pollock DO in OV> 11/08/23 1749 DD/ 1515 TD/TT: 11/05/23 1539 Eligibility Consultant: Harry VAZQUEZ IMEleuterio BI PROCEDURES Final Result * Hepatitis C Ab (06/17/2022 12:23 PM EDT) Hepatitis C Antibody Nonreactive Nonreactive [facility] Comment:Antibodies to HCV no t detected; does not exclude early acuteHCV infection. 06/17/2022 12:2 3 PM EDT 06/17/2022 12:23 PM EDT [facility] External Provider LAB BLO OD ORDERABLES Final Result [facility] [address] [place] [address] [phone] from Last 3 Months or Most Recently Relevant to Health Maintenance Insurance [facility] MEDICARE REPLACEMENT HS FULL Care Teams Stitching Department Supervisor Relationship Specialty Start Date End Date Harry Ceron ANP [address] [place] [phone] PCP - General Family Medicine 10/07/20
== END 2024-10-26 14:26 | disposition home or self-care (01) ==
LOC: HO.ENCR 13:56
PROVIDERS: PCP Nurse Practitioner Primary Care; Visit Provider Internal Medicine Endocrinology, Diabetes & Metabolism
DX: M81.0 Age-related osteoporosis without current pathological fracture (principal)
CPT/HCPCS: 99213

== ENCOUNTER → 2024-10-26 13:56 | Outpatient (BNVA) | payer MEDICARE, OTHER, SELFPAY | PROVIDERS: PCP Nurse Practitioner Primary Care; Visit Provider Internal Medicine Endocrinology, Diabetes & Metabolism | DX: M81.0 Age-related osteoporosis without current pathological fracture (principal) | CPT/HCPCS: 99212 ==

== ENCOUNTER 2024-11-14 11:43 | Outpatient (REF) | payer MEDICARE, OTHER, SELFPAY ==
--- NOTE | ~2024-11-14 | XR_ITS ---
EXAMINATION: XR CHEST CLINICAL INFORMATION: productive cough, fever COMPARISON: January 11, 2023 TECHNIQUE: PA and lateral views FINDINGS: Hyperinflated lungs. Bilateral apical lung scarring. No gross consolidation, pleural effusion or pneumothorax. Pulmonary reticular pattern. Cardiomediastinal silhouette size is normal. Right-sided Port-A-Cath remains at SVC region. S-shaped curvature of the thoracolumbar spine and multilevel spondylosis. Osteopenia versus osteoporosis. XR/XR chest 2V IMPRESSION: COPD emphysematous type changes without gross acute airspace disease. Scoliosis and multilevel spondylosis. Electronically signed by: Guillermo Hidalgo MD 11/14/2024 12:32 PM EDT
--- OUTSIDE RECORDS SUMMARY | 2024-11-14 10:40 | XMS_ITS | Encounter Summary ---
Author Organization [employer] Address [address] [facility] [address] 7t [place] [address] Care Team Providers Care Advertising Vice President Name Role Phone Janine Chester TAYLOR Primary Care Provider [phone] Reason for Visit * Reason Comments Fever Nasal Congestion Headache Cough Encounter Details Date Type Department Care Team ([facility] st Contact Info) Description 11/14/2024 10:40 AM EDT Office Visit [facility] [address] [place], [place] [phone] Acute cough (Primary Dx); Mild intermittent asthma with acute exacerbation; Acute URI; Wheezing Social History Tobacco Use Types Packs/Day [...] AM EDT documented as of this encounter Last Filed Vital Signs Vital Sign Reading Time Taken Comments Blood Pressure 139/83 11/14/2024 10:45 AM EDT Pulse 86 11/14/2024 10:45 AM EDT Temperature 36.9 C (98.4 F) 11/14/2024 10:45 AM EDT Respiratory Rate 18 11/14/2024 10:45 AM EDT Oxygen Saturation 97% 11/14/2024 10:45 AM EDT Inhaled Oxygen Concentration - - Weight 51.3 kg (113 lb) 11/14/2024 10:45 AM EDT Height - - Body Mass Index 20.02 07/28/2024 1:12 PM EDT documented in this encounter Plan of Treatment Upcoming Encounters Date Type Department Care Team (Late st Contact Info) Description 11/21/2024 2:15 PM EDT Office Visit [facility] [address] [place] [address] Janine Chester ANP [address] [place] [address] documented as of this encounter Procedures Procedure Name Priority Date/Time Associated Diagnosis Comments XR CHEST 2 VIEWS Routine 11/14/2024 11:5 0 AM EDT Acute cough POCT INFLUENZA B (ID NOW RAPID MOLECULAR) Routine 11/14/2024 11:12 AM EDT Acute URI POCT INFLUENZA A (ID NOW RAPID MOLECULAR) Routine 11/14/2024 11:12 AM EDT Acute URI POCT RAPID COVID ANTIGEN Routine 11/14/2024 11:12 AM EDT Acute URI POCT RAPID STREP A Routine 11/14/2024 11 :12 AM EDT Acute URI documented in this encounter Results * XR Chest 2 Views (11/14/2024 11:50 AM EDT) Anatomical Region Laterality Modality Chest Radiographic Nilam ging 11/14/2024 11:5 0 AM EDT Narrative 11/14/2024 12:35 PM EDT [address] [address] XRay Report Signed Patient: Elayne Lundy MR#: [id number] : 1945 Acct:[id number] Age/Sex: 79 / F ADM Date: 11/14/24 Loc: HO.HHCX Attending Dr: Tommie Montoya MD Ordering Physician: TOMMIE MONTOYA MD Date of Service: 11/14/24 Procedure(s): XR chest 2V Accession Number(s): [id number] cc: TOMMIE MONTOYA MD Reason for Exam: productive cough, fever EXAMINATION: XR CHEST CLINICAL INFORMATION: productive cough, fever COMPARISON: January 11, 2023 TECHNIQUE: PA and lateral views FINDINGS: Hyperinflated lungs. Bilateral apical lung scarring. No gross consolidation, pleural effusion or pneumothorax. Pulmonary reticular pattern. Cardiomediastinal silhouette size is normal. Right-sided Port-A-Cath remains at SVC region. S-shaped curvature of the thoracolumbar spine and multilevel spondylosis. Osteopenia versus osteoporosis. XR/XR chest 2V IMPRESSION: COPD emphysematous type changes without gross acute airspace disease. Scoliosis and multilevel spondylosis. Electronically signed by: Guillermo Hidalgo MD 11/14/2024 12:32 PM EDT RP Dictated By: Guillermo Manning MD Signed By: <Electronically signed by Guillermo Montero MD in OV> 11/14/24 1232 DD/ 1150 TD/TT: 11/14/24 1154 University Lecturer: Procedure Note Donotuseinterpreter, Image - 11/14/2024 [facility] [address] [place] [address] XRay Report Signed Patient: Elayne LundyMR#: [id number] : 1945cct:[id number] Age/Sex: 79 / FADM Date: 11/14/24 Loc: HO.HHCX Attending Dr: Tommie Montoya MD Ordering Physician: TOMMIE MONTOYA MD Date of Service: 11/14/24 Procedure(s): XR chest 2V Accession Number(s): [id number] cc: TOMMIE MONTOYA MD Reason for Exam: productive cough, fever EXAMINATION: XR CHEST CLINICAL INFORMATION: productive cough, fever COMPARISON: January 11, 2023 TECHNIQUE: PA and lateral views FINDINGS: Hyperinflated lungs. Bilateral apical lung scarring. No gross consolidation, pleural effusion or pneumothorax. Pulmonary reticular pattern. Cardiomediastinal silhouette size is normal. Right-sided Port-A-Cath remains at SVC region. S-shaped curvature of the thoracolumbar spine and multilevel spondylosis. Osteopenia versus osteoporosis. XR/XR chest 2V IMPRESSION: COPD emphysematous type changes without gross acute airspace disease. Scoliosis and multilevel spondylosis. Electronically signed by: Guillermo Hidalgo MD 11/14/2024 12:32 PM EDT Dictated By: Guillermo Manning MD Signed By: <Electronically signed by Guillermo Montero MDin OV> 11/14/24 1232 DD/ 1150 TD/TT: 11/14/24 1154 University Lecturer: Tommie Montoya MD IMG XR PROCEDURES Final Result * Influenza B (ID NOW Rapid Molecular) (11/14/2024 11:12 AM EDT) Influenza B Negative Negative, Indeterminate [facility] Swab 11/14/2024 11:1 2 AM EDT us Tommie Montoya MD POINT OF CARE TEST ENTER/EDIT OR DERABLES Final Result Performing Organization Address [facility]/ZIP Co de Phone Number [facility] [address] [place] [address] [phone] * Influenza A (ID NOW Rapid Molecular) (11/14/2024 11:12 AM EDT) Influenza A Negative Negative, Indeterminate [facility] Swab 11/14/2024 11:1 2 AM EDT us Tommie Montoya MD POINT OF CARE TEST ENTER/EDIT OR DERABLES Final Result Performing Organization Address [facility] Co de Phone Number [facility] [address] [place] [phone] * POCT rapid strep A manually resulted (11/14/2024 11:12 AM EDT) Rapid Strep A Screen Negative Negative, None Detected [facility] Swab 11/14/2024 11:1 2 AM EDT us Tommie Montoya MD POINT OF CARE TEST ENTER/EDIT OR DERABLES Final Result Performing Organization Address [facility] Co de Phone Number [facility] [address] [place] [phone] * POCT Rapid COVID Ag (11/14/2024 11:12 AM EDT) Rapid COVID Ag Negative [facility] Swab 11/14/2024 11:1 2 AM EDT us Tommie Montoya MD POINT OF CARE TEST ENTER/EDIT OR DERABLES Final Result Performing Organization Address [facility]/ZIP Co de Phone Number [facility] [address] [place] [address] [phone] documented in this encounter Visit Diagnoses Diagnosis Acute cough- Primary Mild intermittent asthma with acute exacerbation Acute URI Acute upper respiratory infections of unspecified site Wheezing documented in this encounter Additional Health Concerns Assessment Noted Time PHQ-9 Depression Total Score: 0 07/06/19 24 2:10 PM EDT documented as of this encounter Care Teams Advertising Vice President Relationship Specialty Start Date End Date Janine Chester ANP [address] [place] [address] PCP - General Family Medicine 10/07/20 documented as of this encounter
--- OUTSIDE RECORDS SUMMARY | 2024-11-14 13:08 | XMS_ITS | Encounter Summary ---
Author Organization [email or web address] Address [address] [facility] 7t [place] [address] Care Team Providers Care Developmental Specialist Name Role Phone Nemo Janine VAZQUEZ Primary Care Provider [phone] Encounter Details Date Type Department Care Team ([facility] st Contact Info) Description 03/29/2023 Orders Only [facility] [address] [place], [place] [phone] Teodoro Keyes MD [address] [place] [address] Social History Tobacco Use Types Packs/Day Years [...] Description 11/21/2024 2:15 PM EDT Office Visit [facility] [address] [place] [address] Janine Chester ANP [address] [place] [address] documented as of this encounter Visit Diagnoses Not on filedocumented in this encounter Care Teams Developmental Specialist Relationship Specialty Start Date End Date Janine Chester ANP [address] [place] [address] PCP - General Family Medicine 10/07/20 documented as of this encounter
--- OUTSIDE RECORDS SUMMARY | 2024-11-14 13:08 | XMS_ITS | Clinical Summary ---
Author Organization [facility] Address [address] [address] Phone Care Team Providers Care Food Product Inspector Name Role Phone Krystin Morrow MD Primary [...] REPLACEMENT MEDICARE REPLACEMENT MEDICARE REPLACEMENT MEDICARE REPLACEMENT [address] [address] MEDICARE REPLACEMENT Care Teams Food Product Inspector Relationship Specialty Start Date End Date Peach, Krystin Fernandes MD [address] [place] [phone] PCP - General Family Medicine 07/25/20 Additional Source Comments The information contained in this document represents components of the legal health record. It is not the complete legal health record.[facility]
--- OUTSIDE RECORDS SUMMARY | 2024-11-14 13:08 | XMS_ITS | Encounter Summary ---
Author Organization [employer] Address [address] [facility] [address] 7t [place] [address] Care Team Providers Care Repairer Welding Equipment Name Role Phone Janine Chester Primary Care Provider Reason for Visit * Reason Comments Med Refill Encounter Details Date Type Department Care Team ([facility] st Contact Info) Description 01/13/2024 Refill [facility] [address] [place], [place] [phone] Janine Chester ANP [address] [facility] [place] [address] Dyslipidemia Social History Tobacco Use Types Packs/Day [...] Description 11/21/2024 2:15 PM EDT Office Visit [facility] [address] [place] [address] Janine Chester ANP [address] [place] [address] documented as of this encounter Visit Diagnoses Diagnosis Dyslipidemia Other and unspecified hyperlipidemia documented in this encounter Additional Health Concerns Assessment Noted Time PHQ-9 Depression Total Score: 0 07/06/19 24 2:10 PM EDT documented as of this encounter Care Teams Repairer Welding Equipment Relationship Specialty Start Date End Date Janine Chester ANP [address] [place] [phone] PCP - General Family Medicine 10/07/20 documented as of this encounter
--- OUTSIDE RECORDS SUMMARY | 2024-11-14 13:08 | XMS_ITS | Encounter Summary ---
Author Organization [employer] Address [address] [place] [address] 7 [place] [address] Care Team Providers Care Industrial Cleaner Name Role Phone Janine Chester Primary Care Provider [phone] Reason for Visit * Reason Comments Med Refill Encounter Details Date Type Department Care Team (Late st Contact Info) Description 01/29/2022 Refill [facility] [address] [place], [place] [phone] Janine Chester ANP [address] [place] [address] Dyslipidemia Social History Tobacco Use Types Packs/Day [...] Description 11/21/2024 2:15 PM EDT Office Visit [facility] [address] [place] [address] Janine Chester ANP [address] [place] [address] documented as of this encounter Visit Diagnoses Diagnosis Dyslipidemia Other and unspecified hyperlipidemia documented in this encounter Care Teams Industrial Cleaner Relationship Specialty Start Date End Date Janine Chester ANP [address] [place] [phone] PCP - General Family Medicine 10/07/20 documented as of this encounter
--- OUTSIDE RECORDS SUMMARY | 2024-11-14 13:08 | XMS_ITS | Encounter Summary ---
Author Organization [employer] Address [address] [facility] [address] 7[address] [place] [address] Care Team Providers Care Stonecutter Assistant Name Role Phone Janine Chester Primary Care Provider [phone] Reason for Visit * Reason Onset Date Comments Nurse Triage 11/14/2024 Encounter Details Date Type Department Care Team ([facility] st Contact Info) Description 11/14/2024 Telephone [facility] [address] [place], [place] [phone] Janine Chester ANP [address] [place], [place] [phone] Nurse Triage Social History Tobacco Use Types Packs/Day Years [...] encounter Miscellaneous Notes * Telephone Encounter - Stacey Swanson RN - 11/14/2024 9:25 AM EDT Called pt. She states that she has had a cough x 4 days. Pt. Has swollen glands, no fever, Pt. States right sided abdominal pain maybe due to cough. Last night pt. Had fever 101 but not at present. Pt does have a history of Asthma and seasonal allergies. Cough is congested and productive but, clear. Pt. Has been using inhaler when needed but, does have overall slight SOB. Advised to come in to [facility] walk in center for evaluation of right rib pain, cough and SOB. Protocol Used: Cough (Adult) Protocol-Based Disposition: Go to Office or Video Visit Now- Pt. Will go to [facility] walk in now Video visit offer not recorded Positive Triage Questions: * Mild difficulty breathing (e.g., minimal/no SOB at rest, SOB with walking, pulse < 100) and still present when not coughing * Fever > 101 F (38.3 C) and over 60 years of age * Known COPD or other severe lung disease (i.e., bronchiectasis, cystic fibrosis, lung surgery) andsymptoms getting worse (i.e., increased sputum purulence or amount, increased breathing difficulty)< br /> * All higher-acuity triage questions were negative Care Advice Discussed: * Reassurance and Education - Cough * Cough Medicines * Coughing Spells * Prevent Dehydration * Avoid Tobacco Smoke * Humidifier * Fever Medicines * Telephone Encounter - Juan Jose Prieto - 11/14/2024 9:06 AM EDT Symptoms: Cough, Abdominal Pain - Female - Not , Sore Throat Outcome: Schedule an urgent appointment (within 1 hour) or talk to a nurse or provider soon Reason: Wheezing (high-pitched whistling sound) The caller accepted this outcome. Contact pt at [phone] documented in this encounter Plan of Treatment Upcoming Encounters Date Type Department Care Team (Late st Contact Info) Description 11/21/2024 2:15 PM EDT Office Visit [facility] [address] [place] [address] Janine Chester ANP [address] [place] [phone] documented as of this encounter Visit Diagnoses Not on filedocumented in this encounter Additional Health Concerns Assessment Noted Time PHQ-9 Depression Total Score: 0 07/06/19 24 2:10 PM EDT documented as of this encounter Care Teams Stonecutter Assistant Relationship Specialty Start Date End Date Janine Chester ANP [address] [place] [address] PCP - General Family Medicine 10/07/20 documented as of this encounter
--- OUTSIDE RECORDS SUMMARY | 2024-11-14 13:08 | XMS_ITS | Encounter Summary ---
Author Organization [employer] Address [address] [facility] [address] [place] [address] Care Team Providers Care Wheel Worker Name Role Phone Janine Chester TAYLOR Primary Care Provider [phone] Encounter Details Date Type Department Care Team (Latest Contact Info) Description 11/14/2024 Travel Social History Tobacco Use Types Packs/Day [...] Description 11/21/2024 2:15 PM EDT Office Visit [facility] [address] [place] [phone] Janine Chester ANP [address] [place] [address] documented as of this encounter Visit Diagnoses Not on filedocumented in this encounter Additional Health Concerns Assessment Noted Time PHQ-9 Depression Total Score: 0 07/06/19 24 2:10 PM EDT documented as of this encounter Care Teams Wheel Worker Relationship Specialty Start Date End Date Janine Chester ANP [address] [place] [phone] PCP - General Family Medicine 10/07/20 documented as of this encounter
--- OUTSIDE RECORDS SUMMARY | 2024-11-14 13:08 | XMS_ITS | Encounter Summary ---
Author Organization [employer] Address [address] [place] [address] 7t [place] [address] Care Team Providers Care Food Counter Attendant Name Role Phone Janine Chester Primary Care Provider [phone] Encounter Details Date Type Department Care Team (Late st Contact Info) Description 03/06/2022 Orders Only [facility] MED[facility]INE [address] [place] [address] Jamilah Preston LPN Social History Tobacco Use [...] Description 11/21/2024 2:15 PM EDT Office Visit [facility] MED[facility]INE [address] [place] [address] Janine Chester ANP [address] [place] [address] documented as of this encounter Visit Diagnoses Not on filedocumented in this encounter Care Teams Food Counter Attendant Relationship Specialty Start Date End Date Janine Chester ANP [address] [place] [phone] PCP - General Family Medicine 10/07/20 documented as of this encounter
--- OUTSIDE RECORDS SUMMARY | 2024-11-14 13:08 | XMS_ITS | Encounter Summary ---
Author Organization [employer] Address [address] [facility] 7[address] [place] [address] Care Team Providers Care Commercial Lease Administrator Name Role Phone Janine Chester Primary Care Provider [phone] Reason for Visit * Reason Onset Date Comments Appointment 04/08/2022 Encounter Details Date Type Department Care Team (Late st Contact Info) Description 04/08/2022 Telephone [facility] MEDICINE [address] [place], [place] [phone] Janine Chester ANP 230 [place] [address] Appointment Social History Tobacco Use Types Packs/Day [...] other doctor appts. Please contact pt at [phone] documented in this encounter Plan of Treatment Upcoming Encounters Date Type Department Care Team (Late st Contact Info) Description 11/21/2024 2:15 PM EDT Office Visit [facility] MEDICINE [address] [place] [address] Janine Chester ANP 230 [place] [address] documented as of this encounter Visit Diagnoses Not on filedocumented in this encounter Care Teams Commercial Lease Administrator Relationship Specialty Start Date End Date Janine Chester ANP [address] [place] [address] PCP - General Family Medicine 10/07/20 documented as of this encounter
--- OUTSIDE RECORDS SUMMARY | 2024-11-14 13:08 | XMS_ITS | Clinical Summary ---
Author Organization [employer] Address 75 [facility] 7t [place] [address] Care Team Providers Care Seat Coverer Name Role Phone Harry Ceron TAYLOR Primary Care Provider [phone] Allergies Active Allergy Reactions Criticality Noted Date Comments Bee Venom 10/16/2020 Medications metoprolol succinate XL (Toprol-XL) 25 MG 24 hr tablet Take 1 tablet by mouth 1 (one) time each day. Active Blood Pressure kitIndications: Elevated BP without diagnosis of hypertension 1 kit in the morning. 1 kit 024 Active acyclovir (Zovirax) 5 % ointmentIndicat ions:Herpes zoster without complication Use as needed up to 4x/d 15 g 024 Active ipratropium-alb uterol (Duo-Neb) 0.5-2.5 mg/3 mL nebulizer solutionIndicat ions:Mild intermittent asthma without complication Take 3 mL by nebulization Every 4-6 hours as needed for wheezing or shortness of breath. 75 mL 1 024 Active alendronate (Fosamax) 70 MG tablet Take 1 tablet by mouth every 7 (seven) days. 024 Active furosemide (Lasix) 20 MG tabletIndicatio ns:Leg swelling Take 1 tablet (20 mg) by mouth Once per day. As needed 90 tablet 1 025 Active cetirizine (ZyrTEC) 5 MG tablet Take 1 tablet (5 mg) by mouth Once daily as needed for allergies. 90 tablet 1 025 2025 Active EPINEPHrine (Epipen) 0.3 MG/0.3ML injection syringeIndicati ons:Allergic to bees Inject 0.3 mL (0.3 mg) as directed 1 (one) time if needed for anaphylaxis. Inject into upper leg. Call 911 after use. 2 each 1 025 2025 Active atorvastatin (Lipitor) 10 MG tabletIndicatio ns:Dyslipidemia TAKE 1 TABLET BY MOUTH EVERY DAY 90 tablet 1 Active letrozole (Femara) 2.5 MG chemo tablet Take by mouth Once per day. Take with or without food. Active albuterol 108 (90 Base) MCG/ACT inhalerIndicati ons:Wheezing Inhale 2 puffs every 6 (six) hours if needed for shortness of breath or wheezing. 8.5 g 1 Active Spacer/Aero-Hol ding Chambers (OptiChamber Isabelle) misc 1 each every 4 (four) hours if needed (asthma). 1 each Active predniSONE (Deltasone) 20 MG tablet Take 2 tablets (40 mg) by mouth Once per day for 5 days. 10 tablet 025 2024 Active fluticasone (Flonase Allergy Relief) 50 MCG/ACT nasal spray USE 1-2 SPRAYS IN EACH NOSTRIL EVERY DAY IF NEEDED 48 g 1 023 2024 Discontinued(I neffective) albuterol 108 (90 Base) MCG/ACT inhalerIndicati ons:Wheezing Inhale 2 puffs every 6 (six) hours if needed for shortness of breath or wheezing. 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 Valdez at [facility] q3 mo This is a 78-year-old postmenopausal woman with left breast invasive ductal carcinoma diagnosed in June 2022. Stereotactic core biopsy performed 06/25/2022 revealed invasive ductal carcinoma, MS BR grade 3 along with DCIS, solid and comedo features. Immunostains revealed estrogen receptor positive- 95%, progesterone receptor positive-50%, HER2 positive 3+, Ki 67 high greater than 20%. Clinical stage T3 N0, stage IIB. [facility] genetic result was negative. Bilateral breast MRI [...] b.i.d.. She completed Evenity via Endo at [facility], transitioned to alendronate 12/2023. Her most recent DEXA scan 11/2023 was consistent with osteopenia -lowest T-score -2.0. This is a huge improvement! Asthma 06/08/2020 Generalized rash 06/08/2020 Encounters Date Type Department Care Team Description 11/14/2024 10:40 AM EDT Office Visit [facility] [address] [place] [phone] Acute cough (Primary Dx); Mild intermittent asthma with acute exacerbation; Acute URI; Wheezing 11/14/2024 Travel 11/14/2024 Telephone [facility] [address] [place] [address] Harry Ceron ANP Nurse Triage 11/02/2024 2:30 PM EDT Immunization [facility] [address] [place] [address] Encounter for immunization 11/02/2024 Travel 10/27/2024 Travel 09/21/2024 2:30 PM EDT Immunization [facility] [address] [place] [address] Encounter for immunization 09/21/2024 Travel 09/21/2024 Refill [facility] [address] [place] [address] Harry Ceron ANP Dyslipidemia 08/30/2024 Telephone [facility] [address] [place] [address] Harry Ceron ANP October recall 08/14/2024 Orders Only [facility] [address] [place] [address] Harry Ceron ANP 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 Last 3 Months Immunizations Immunization Administration [...] tetanus tox oid, preservative free, adsorbed 10/29/2014 Tdap 11/02/2024 Zoster, Recombinant 10/13/2023,08/11/2023 Family History Medical History [...] (113 lb) 11/14/2024 10:45 AM EDT Height 160 cm (5' 3 ) 07/28/2024 1:12 PM EDT Body Mass Index 20.02 07/28/2024 1:12 PM EDT Plan of Treatment Upcoming Encounters Date Type Department Care Team (Late st Contact Info) Description 11/21/2024 2:15 PM EDT Office Visit [facility] [address] [place] [address] Harry Ceron ANP [address] [place] [address] Health Maintenance Due Date Last Done Comments Influenza Vaccine (#1) 2024 , 11/16/2022, 11/25/2021, Additional history exists Alcohol/Substance Use Screening 07/28/2025 07/28/2024 Depression Screening 07/28/2025 07/28/2024, 07/06/19 24 SDOH Screening 07/28/2025 07/28/2024 Mammogram 11/04/2025 11/05/2023, 10/16, 12/10/2021, Additional history exists Tobacco Screening 11/14/2025 11/14/2024 DTaP/Tdap/Td Vaccines (2 - Td or Tdap) 11/02/2034 11/02/2024, 10/29/2014 Hepatitis C Screening Completed 06/17/2022 RSV Patients [...] 11/14/2024 11 :12 AM EDT Acute URI POCT RAPID COVID ANTIGEN Routine 11/14/2024 11:12 AM EDT Acute URI BI MAMMOGRAM SCREENING TOMOSYNTHESIS RIGHT Routine 11/05/2023 3:15 PM EDT HEPATITIS C ANTIBODY Routine 06/17/2022 12:23 PM EDT from Last 3 Months or Most Recently Relevant to Health Maintenance Results * XR Chest 2 Views (11/14/2024 11:50 AM EDT) Anatomical Region Laterality Modality Chest Radiographic Nilam ging 11/14/2024 11:5 0 AM EDT Narrative 11/14/2024 12:35 PM EDT [address] [address] XRay Report Signed Patient: Elayne Lundy MR#: [id number] : 1945 Acct:[id number] Age/Sex: 79 / F ADM Date: 11/14/24 Loc: HO.HHCX Attending Dr: Tommie Arceo MD Ordering Physician: TOMMIE ARCEO MD Date of Service: 11/14/24 Procedure(s): XR chest 2V Accession Number(s): [id number] cc: TOMMIE ARCEO MD Reason for Exam: productive cough, fever [...] OV> 11/14/24 1232 DD/ 1150 TD/TT: 11/14/24 115 Outdoor Studies Professor: Procedure Note Donotuseinterpreter, Image - 11/14/[address] [address] XRay Report Signed Patient: Elayne LundyMR#: [id number] : 1945cct:[id number] Age/Sex: 79 / FADM Date: 11/14/24 Loc: .HHCX Attending Dr: Tommie Arceo MD Ordering Physician: TOMMIE ARCEO MD Date of Service: 11/14/24 Procedure(s): XR chest 2V Accession Number(s): [id number] cc: TOMMIE ARCEO MD Reason for Exam: productive cough, fever [...] OV> 11/14/24 1232 DD/ 1150 TD/TT: 11/14/24 115 Outdoor Studies Professor: Tommie Arceo MD IMG XR PROCEDURES Final Result * Influenza B (ID NOW Rapid Molecular) (11/14/2024 11:12 AM EDT) Influenza B Negative Negative, Indeterminate [facility] Swab 11/14/2024 11:1 2 AM EDT us Tommie Arceo MD POINT OF CARE TEST ENTER/EDIT OR DERABLES Final Result Performing Organization Address [facility] Co de Phone Number [facility] [address] [place] [phone] * Influenza A (ID NOW Rapid Molecular) (11/14/2024 11:12 AM EDT) Pathologist [facility] Influenza A Negative Negative, Indeterminate [facility] Swab 11/14/2024 11:1 2 AM EDT us Tommie Arceo MD POINT OF CARE TEST ENTER/EDIT OR DERABLES Final Result Performing Organization Address [facility] Co de Phone Number [facility] [address] [place] [phone] * POCT Rapid COVID Ag (11/14/2024 11:12 AM EDT) Rapid COVID Ag Negative [facility] Swab 11/14/2024 11:1 2 AM EDT us Tommie Arceo MD POINT OF CARE TEST ENTER/EDIT OR DERABLES Final Result Performing Organization Address [facility] Co de Phone Number [facility] [address] [place] [phone] * POCT rapid strep A manually resulted (11/14/2024 11:12 AM EDT) Rapid Strep A Screen Negative Negative, None Detected [facility] Swab 11/14/2024 11:1 2 AM EDT us Tommie Arceo MD POINT OF CARE TEST ENTER/EDIT OR DERABLES Final Result Performing Organization Address [facility]/ZIP Co de Phone Number [facility] [address] [place] [phone] * BI Mammogram Screening Tomosynthesis Right (11/05/2023 3:15 PM EDT) Anatomical Region Laterality Modality Breast Right Mammography 11/05/2023 3:15 PM EDT Narrative 11/08/2023 5:52 PM EDT [facility] [address] [place] [address] Mammography Report Signed Patient: Elayne Lundy MR#: [id number] : 1945 Acct:[id number] Age/Sex: 78 / F ADM Date: 11/05/23 Loc: HO.MAMMO Attending Dr: Harry Ceron NP Ordering Physician: HARRY CERON NP Results: 2Benign Joe dingrodger Date of Service: 11/05/23 Follow Up: 1 Year From Orig inal Mammogram Procedure(s): MM tomosynthesis screening RT Accession Number(s): [id number] cc: HARRY CERON NP EXAMINATION: MM SCREENING [...] DO 11/08/2023 05:49 PM EDT Dictated By: Tyminski,Marcela DO Signed By: <Electronically signed by Marcela Pollock DO in OV> 11/08/23 1749 DD/ 1515 TD/TT: 11/05/23 1539 Outdoor Studies Professor: Procedure Note Donotjhoaninterpreter, Image - 11/08/2023 [facility] [address] [place], [place] [address] Mammography Report Signed Patient: Elayne LundyMR#: [id number] : 1945cct:[id number] Age/Sex: 78 / FADM Date: 11/05/23 Loc: HO.MAMMO Attending Dr: Harry Ceron SQL DBA Ordering Physician: HARRY CERON NPResults: 2Benign Joe coker Date of Service: 11/05/23Follow Up: 1 Year From Orig inal Mammogram Procedure(s): MM tomosynthesis screening RT Accession Number(s): [id number] cc: HARRY CERON NP EXAMINATION: MM SCREENING [...] 11/08/23 1749 DD/ 1515 TD/TT: 11/05/23 1539 Outdoor Studies Professor: Harry VAZQUEZ IMEleuterio BI PROCEDURES Final Result * Hepatitis C Ab (06/17/2022 12:23 PM EDT) Hepatitis C Antibody Nonreactive Nonreactive [facility] Comment:Antibodies to HCV no t detected; does not exclude early acuteHCV infection. 06/17/2022 12:2 3 PM EDT 06/17/2022 12:23 PM EDT [facility] External Provider LAB BLO OD ORDERABLES Final Result Performing Organization Address City/State/[facility] Co de Phone Number [facility] [address] [place] [phone] from Last 3 Months or Most Recently Relevant to Health Maintenance Insurance [facility] MEDICARE REPLACEMENT [facility] [employer] Care Teams Seat Coverer Relationship Specialty Start Date End Date Harry Ceron ANP [address] [place], [place] [address] [place] [address] PCP - General Family Medicine 10/07/20
--- OUTSIDE RECORDS SUMMARY | 2024-11-14 13:08 | XMS_ITS | Encounter Summary ---
Author Organization [employer] Address [address] [facility] [address] 7t [place] [address] Care Team Providers Care Boat Hop Name Role Phone Janine Chester Primary Care Provider [phone] Reason for Visit * Reason Comments Med Refill Encounter Details Date Type Department Care Team (Late st Contact Info) Description 10/27/[address] [facility] MEDICINE [address] [place], [place] [phone] Janine Chester ANP [address] [place], [place] [phone] Leg swelling Social History Tobacco Use Types [...] Description 11/21/2024 2:15 PM EDT Office Visit [facility] MEDICINE [address] [place] [phone] Janine Chester ANP [address] [place] [address] documented as of this encounter Visit Diagnoses Diagnosis Leg swelling Swelling of limb documented in this encounter Additional Health Concerns Assessment Noted Time PHQ-9 Depression Total Score: 0 07/06/19 24 2:10 PM EDT documented as of this encounter Care Teams Boat Hop Relationship Specialty Start Date End Date Janine Chester ANP [address] [place] [phone] PCP - General Family Medicine 10/07/20 documented as of this encounter
--- OUTSIDE RECORDS SUMMARY | 2024-11-14 13:09 | XMS_ITS | Encounter Summary ---
Author Organization [employer] Address [address] [facility] [address] 7t [place] [address] Care Team Providers Care Dental Practitioner Name Role Phone Janine Chester Primary Care Provider [phone] Reason for Visit * Reason Comments Med Refill Encounter Details Date Type Department Care Team ([facility] st Contact Info) Description 08/04/2024 Refill [facility] [address] [place], [place] [phone] Janine Chester ANP [address] [place], [place] [phone] Wheezing Social History Tobacco Use Types Packs/Day [...] Description 11/21/2024 2:15 PM EDT Office Visit [facility] [address] [place] [address] Janine Chester ANP [address] [place] [address] documented as of this encounter Visit Diagnoses Diagnosis Wheezing documented in this encounter Additional Health Concerns Assessment Noted Time PHQ-9 Depression Total Score: 0 07/06/19 24 2:10 PM EDT documented as of this encounter Care Teams Dental Practitioner Relationship Specialty Start Date End Date Janine Chester ANP [address] [place] [phone] PCP - General Family Medicine 10/07/20 documented as of this encounter
--- OUTSIDE RECORDS SUMMARY | 2024-11-14 13:09 | XMS_ITS | Encounter Summary ---
Author Organization [employer] Address [address] [facility] [address] [place] [address] Care Team Providers Care Nurse Consultant Name Role Phone Janine Chester Primary Care Provider [phone] Reason for Visit * Reason Comments Med Refill Encounter Details Date Type Department Care Team ([facility] st Contact Info) Description 08/04/2024 Refill [facility] MEDICINE [address] [place], [place] [phone] Janine Chester ANP [address] [place], [place] [phone] Wheezing Social History Tobacco Use Types Packs/Day [...] 11/21/2024 2:15 PM EDT Office Visit [facility] [address] [place] [address] Janine Chester ANP [address] [place] [address] documented as of this encounter Visit Diagnoses Diagnosis Wheezing documented in this encounter Additional Health Concerns Assessment Noted Time PHQ-9 Depression Total Score: 0 07/06/19 24 2:10 PM EDT documented as of this encounter Care Teams Nurse Consultant Relationship Specialty Start Date End Date Janine Chesetr ANP [address] [place] [phone] PCP - General Family Medicine 10/07/20 documented as of this encounter
--- OUTSIDE RECORDS SUMMARY | 2024-11-14 13:09 | XMS_ITS | Encounter Summary ---
Author Organization [employer] Address [address] [facility] 7t [place] [address] Care Team Providers Care Body Cleaner Name Role Phone Janine Chester Primary Care Provider [phone] Encounter Details Date Type Department Care Team (Late st Contact Info) Description 08/07/2022 Abstract [facility] [address] [place] [phone] Janine Chester ANP [address] [place] [address] [phone] Social History Tobacco Use Types Packs/Day Years [...] Description 11/21/2024 2:15 PM EDT Office Visit [facility] [address] [place] [address] [phone] Janine Chester ANP [address] [place] [phone] documented as of this encounter Visit Diagnoses Not on filedocumented in this encounter Care Teams Body Cleaner Relationship Specialty Start Date End Date Janine Chester ANP [address] [place] [address] PCP - General Family Medicine 10/07/20 documented as of this encounter
== END 2024-11-14 11:44 | disposition home or self-care (01) ==
LOC: HO.HHCX 11:43
PROVIDERS: Visit Provider Emergency Medicine
DX: R05.1 Acute cough (principal)
CPT/HCPCS: 71046

== ENCOUNTER → 2024-11-14 11:44 | Outpatient (BNV) | payer MEDICARE, SELFPAY | PROVIDERS: Visit Provider Radiology Diagnostic Radiology | DX: J43.9 Emphysema, unspecified (principal); M47.814 Spondylosis without myelopathy or radiculopathy, thoracic region; M41.9 Scoliosis, unspecified | CPT/HCPCS: 71046 ==

== ENCOUNTER 2024-12-12 13:57 | Outpatient (RCR) | payer MEDICARE, OTHER, SELFPAY | END 2025-01-16 11:39 | disposition home or self-care (01) | LOC: HO.PT 13:57 | PROVIDERS: PCP Nurse Practitioner Primary Care; Visit Provider Nurse Practitioner Primary Care | DX: N39.498 Other specified urinary incontinence (principal); G57.93 Unspecified mononeuropathy of bilateral lower limbs; Z85.3 Personal history of malignant neoplasm of breast; Z92.21 Personal history of antineoplastic chemotherapy; Z92.3 Personal history of irradiation | CPT/HCPCS: 97110; 97112; 97140; 97161 ==

== ENCOUNTER → 2025-01-02 13:50 | Outpatient (REF) | payer MEDICARE, OTHER, SELFPAY ==
--- NOTE | 2025-01-02 13:53 | HM_ITS ---
* Total monitoring time 3 days. * Underlying rhythm is sinus with an average rate of 76/Min. * Frequent supraventricular ectopy with a burden of 20%. * Rare ventricular ectopy. Rare couplets and isolated triplet. * No significant pauses or high-grade AV blocks. * No patient markers or diary events. MTDD
--- NOTE | 2025-01-02 13:53 | CA_ITS ---
Transthoracic Echocardiogram Patient (Last, First, Middle): Elayne Lundy, Gender: F Date of : 1945 Age: 79 Procedure Date: 01/02/2025 Procedure Type: Transthoracic Echocardiogram Location: OP Height: 157.48 cm Weight: 50.8 kg BSA: 1.49 m2 Heart Rate: bpm BP: 118 / 60 mmHg Blood Bank Attendant: Referring MD: Fariba Kelley BENEFITS TECHNICIANPhoenix Symptoms: I49.1 - Atrial premature depolarization Study Quality: Fair/Adequate ECG Rhythm: Sinus Conclusions: - The left ventricular systolic function is normal. The calculated ejection fraction is 62% by biplane method. - There is moderate calcification of the aortic valve. No significant aortic stenosis. - There is moderate posterior mitral annular calcification. Findings Left Ventricle Normal left ventricular cavity size. There is normal left ventricular wall thickness. The left ventricular systolic function is normal. The calculated ejection fraction is 62% by biplane method. There is no evidence of regional wall motion abnormalities. Evidence suggests grade I (mild) diastolic dysfunction. Right Ventricle Normal right ventricular cavity size and systolic function. Atria Both atria are normal in size. Aortic Valve There is moderate calcification of the aortic valve. There is no aortic valve regurgitation. No significant aortic stenosis. Mitral Valve There is moderate posterior mitral annular calcification. There is no mitral valve regurgitation. There is no mitral valve stenosis. Pulmonic Valve The pulmonic valve is likely normal. Tricuspid Valve There is trace tricuspid valve regurgitation. There is no evidence of pulmonary hypertension. Great Vessels The asc aorta is normal in size. Venous The inferior vena cava is normal in size and collapses greater than 50% with inspiration. Pericardium/Pleural There is no evidence of pericardial effusion. Prior Study Comparison No significant change compared to prior study dated: 05/21/2023. Measurements 2D Linear Measurements IVSd: 0.91 0.6-0.9/0.6-1.0 cm LVIDd: 3.46 3.9-5.3/4.2-5.9 cm LVIDd Index: 2.32 2.4-3.2/2.2-3.1 cm/m2 LVIDs: 2.09 2.0-3.6 cm LVPWd: 0.91 0.7-1.1 cm Ao Root: 2.90 2.1-3.5 cm LA Diam: 2.40 2.7-3.8/3.0-4.0 cm LAIDs Index: 1.61 1.5-2.3 cm/m2 LV Mass: 109.49 67-162/88-224 g LV Mass Index: 73.48 43-95/49-115 g/m2 LVOT Diam: 2.00 3.0+(-)1.3 cm 2D Systolic Function EF 4C: 65.60 >55% EF 2C: 65.00 >55% EF BiP: 62.20 >55% Mitral Valve MV VTI: 0.33 MV Pk Ryan: 1.13 MV Mn Ryan: 0.66 MV Pk Grad: 5.00 MV Mn Grad: 2.00 MV Pk E: 0.66 MV PK A: 1.17 MV Decel Time: 147.00 E/A: 0.60 E'Lateral: 5.66 E'Medial: 5.11 E/E' Med: 13.00 E/E' Lat: 11.70 PHT: 43.00 MVA PHT: 5.12 MVA Continuity: 2.15 Decel Cecil: 4.51 Aortic Valve AoV Pk Ryan: 1.68 AoV Mn Ryan: 1.14 AoV VTI: 0.36 AoV Pk Grad: 11.00 Aov Mn Grad: 6.00 KVNG Cont.VTI: 1.96 LVOT LVOT Pk Ryan: 1.00 LVOT Mn Ryan: 0.61 LVOT VTI: 0.23 LVOT Pk Grad: 4.00 LVOT Mn Grad: 2.00 LVOT Diam: 2.00 LVOT Area: 3.14 Diastolic Function MV Pk E: 0.66 MV Pk A: 1.17 E/A: 0.60 E'Medial: 5.11 E/E' Med: 13.00 E' Laterial: 5.66 E/E' Lat: 11.70 Right Ventricle TAPSE (mm): 25.00 TVS' Ryan: 14.00 Tricuspid Valve TR Pk Ryan: 2.24 TR Pk Grad: 20.00 RA Press: 3.00 RVSP: 23.00 Great Vessels Aorta Ao Root-2D: 2.90 2.0-3.7 cm Ao Asc: 3.00 2.1-3.4 cm Pulmonary Valve PV Pk Ryan: 0.75 Peak PV Grad: 2.00 Updated in Other Vendor System with Status of Final Carmelo Hilton MD electronically signed on 01/03/2025 4:26:58 PM with status of Final
--- OUTSIDE RECORDS SUMMARY | 2025-01-03 07:37 | XMS_ITS | Encounter Summary ---
Author Organization [employer] Address [address] [facility] [address] [place] [address] Care Team Providers Care Prekindergarten Teacher Name Role Phone Janine Chester Primary Care Provider [phone] Reason for Visit * Reason Comments Med Refill Encounter Details Date Type Department Care Team (Late st Contact Info) Description 10/27/2023 Refill [facility] MEDICINE [address] [place], [place] [phone] Janine Chester ANP [address] [place], [place] [phone] Leg swelling Social History Tobacco Use Types [...] Care Team (Late st Contact Info) Description 02/20/2025 2:15 PM EST Office Visit [facility] MEDICINE [address] [place] [address] Janine Chester ANP [address] [place] [address] documented as of this encounter Visit Diagnoses Diagnosis Leg swelling Swelling of limb documented in this encounter Additional Health Concerns Assessment Noted Time PHQ-9 Depression Total Score: 0 07/06/19 24 2:10 PM EDT documented as of this encounter Care Teams Prekindergarten Teacher Relationship Specialty Start Date End Date Janine Chester ANP [address] [place] [phone] PCP - General Family Medicine 10/07/20 documented as of this encounter
--- OUTSIDE RECORDS SUMMARY | 2025-01-03 07:38 | XMS_ITS | Clinical Summary ---
Author Organization [employer] Address [address] [facility] [address] 7t [place] [address] Care Team Providers Care Silicator Name Role Phone Harry Ceron TAYLOR Primary Care Provider [phone] Allergies Active Allergy Reactions Criticality Noted Date Comments Bee Venom 10/16/2020 Medications metoprolol succinate XL (Toprol-XL) 25 MG 24 hr tablet Take 1 tablet by mouth 1 (one) time each day. Active Blood Pressure kitIndications:E levated BP without [...] allergies. 90 tablet 1 5 026 Active EPINEPHrine (Epipen) 0.3 MG/0.3ML injection syringeIndicatio ns:Allergic to bees Inject 0.3 mL (0.3 mg) as directed 1 (one) time if needed for anaphylaxis. Inject into upper leg. Call 911 after use. 2 each 1 5 026 Active atorvastatin (Lipitor) 10 MG tabletIndication s:Dyslipidemia TAKE 1 TABLET BY MOUTH EVERY DAY 90 tablet 1 5 Active letrozole (Femara) 2.5 MG chemo tablet Take by mouth Once per day. Take with or without food. Active albuterol 108 (90 Base) MCG/ACT inhalerIndicatio ns:Wheezing Inhale 2 puffs every 6 (six) hours if needed for shortness of breath or wheezing. 8.5 g 1 5 Active amoxicillin-clav ulanate (Augmentin) 875-125 MG tablet Take 1 tablet by mouth 2 times daily. 14 tablet 5 Active Spacer/Aero-Hold ing Chambers (OptiChamber Isabelle) miscIndications: Mild intermittent asthma with acute exacerbation 1 each every 4 (four) hours if needed (SOB/wheezing). Use w/ albuterol 1 each 5 Active Active Problems Problem Noted Date Diagnosed Date Elevated BP without diagnosis of hypertension Assessment & Plan (11/21/2024 4:03 PM EDT): Elevated BP reading during the visit mostly attributed to her illness. Recheck- 150/90. Continue to monitor. RN visit for COVID vaccine in 2 weeks, recheck at that time. Neuropathy involving both lower extremities 03/2023 Breast [...] Invasive ductal Following w/ Dr. 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 Stereotactic core biopsy performed 06/25/2022 revealed invasive ductal carcinoma, MS BR grade 3 along with DCIS, solid and comedo features. Immunostains revealed estrogen receptor positive- 95%, progesterone receptor positive-50%, HER2 positive 3+, Ki 67 high greater than 20%. Clinical stage T3 N0, stage IIB. [facility]. Bilateral breast MRI [...] pain, right 06/10/2022 Mild intermittent asthma 06/10/2022 Assessment & Plan (11/21/2024 4:03 PM EDT): W/ emphysematous changes on XR sugg of COPD Complete the course of Augmentin 875 mg, 2 times daily Will order pulmonary function test - asked pt to wait to get until well Consider an alternative treatment and add'l work up pending PFTs Needs 8.6g albuterol inhaler d/t arthritis, can't operate 18g pump w/o spacer Orders: Spacer/Aero-Holding Chambers (OptiChamber Isabelle) misc; 1 each every 4 (four) hours if needed (SOB/wheezing). Use w/ albuterol Premature atrial contraction 06/10/2022 Osteoporosis 12/24/2021 Overview [...] b.i.d.. She completed Evenity via Endo at [facility], transitioned to alendronate 12/2023. Her most recent DEXA scan 11/2023 was consistent with osteopenia -lowest T-score -2.0. This is a huge improvement! Asthma 06/08/2020 Generalized rash 06/08/2020 Encounters Date Type Department Care Team Description 12/21/2024 2:30 PM EST Immunization [facility] [place] [place] [address] Rashmi Montero, JENNI Encounter for immunization 12/21/2024 Travel 12/18/2024 Telephone [facility] [place] [address] Harry Ceron ANP 12/14/2024 Travel 12/08/2024 Telephone [facility] [place] [address] Harry Ceron ANP February12/07/2024 2:30 PM EDT Immunization [facility] [place] [address] Aniyah Foster RN Encounter for vaccination 12/07/2024 Travel 11/30/2024 Travel 11/21/2024 2:15 PM EDT Office Visit [facility] [place] [address] Harry Ceron ANP Mild intermittent asthma with acute exacerbation (Primary Dx); Elevated BP without diagnosis of hypertension; Mild intermittent asthma without complication 11/21/2024 Travel 11/20/[address] [address] Harry Ceron ANP chart prep 11/15/2024 Orders Only [address] [address] Tommie Arceo MD 11/15/[address] [address] Harry Ceron ANP 11/14/2024 10:40 AM EDT Office Visit [facility] [address] [place] [phone] Tommie Arceo MD Acute cough (Primary Dx); Mild intermittent asthma with acute exacerbation; Acute URI; Wheezing 11/14/2024 Patient Outreach [address] [address] Harry Ceron ANP Pre-visit Planning (Pre visit planning LVM ) 11/14/2024 Travel 11/14/[address] [address] Harry Ceron ANP Nurse Triage 11/02/2024 2:30 PM EDT Immunization [address] [address] Encounter for immunization 11/02/2024 Travel 10/27/2024 Travel from Last 3 Months Immunizations Immunization Administration Dates Next Due Hep B, adult 09/21/2024,04/21/2024,03/24/2024 Influenza High-dose Quadriva lent Preservative Free 11/25/2021,12/02/2020,12/09/2019 Influenza injectable quadriv alent preservative free 11/16/2022 Influenza, High Dose Seasona l, Preservative Free 12/21/2024,12/02/2023 Pfizer Covid-19 Vaccine 12+ 12/07/2024,0 05/18/2024,11/17/2023,06/29,12/02/2022 Pfizer Covid-19 Vaccine 12+ Bivalent 06/12/2022 Pneumococcal [...] Sign Reading Time Taken Comments Blood Pressure 140/90 11/21/2024 2:43 PM EDT Pulse 74 11/21/2024 2:43 PM EDT Temperature 36.9 C (98.4 F) 11/14/2024 10:45 AM EDT Respiratory Rate 10 11/21/2024 2:43 PM EDT Oxygen Saturation 99% 11/21/2024 2:43 PM EDT Inhaled Oxygen Concentration - - Weight 52.6 kg (116 lb) 11/21/2024 2:43 PM EDT Height 160 cm (5' 3 ) 11/21/2024 2:43 PM EDT Body Mass Index 20.55 11/21/2024 2:43 PM EDT Plan of Treatment Upcoming Encounters Date Type Department Care Team (Late st Contact Info) Description 02/20/2025 2:15 PM EST Office Visit [facility] MEDICINE [address] [place], [place] [phone] Harry eCron, ANP [address] [place], [place] [phone] Health Maintenance Due Date Last Done Comments COVID-19 Vaccine (2024- season) 2025 12/07/2024, 05/18/2024, 11/17/2023, Additional history exists Alcohol/Substance Use Screening 07/28/2025 07/28/2024 Depression Screening 07/28/2025 07/28/2024, 07/06/19 24 SDOH Screening 07/28/2025 07/28/2024 Mammogram 11/04/2025 11/05/2023, 10/16, 12/10/2021, Additional history exists Tobacco Screening 11/21/2025 11/21/2024 DTaP/Tdap/Td Vaccines (2 - Td or Tdap) 11/02/2034 11/02/2024, 10/29/2014 Hepatitis C Screening Completed 06/17/2022 RSV Patients and Patients Aged 60 years or older Completed 12/16/2022 Pneumococcal Vaccine: 50+ Years Completed 07/21/2023, 12/23/2020, 12/12/2019 Zoster Vaccines Completed 10/13/2023, 08/11/2023 Hepatitis B Vaccines Completed 09/21/2024, 04/21/2024, 03/24/2024 Influenza Vaccine Completed 12/21/2024, , 11/16/2022, Additional history exists HIB Vaccines Aged Out [...] AM EDT Narrative 11/14/2024 12:35 PM EDT [address] [address] XRay Report Signed Patient: Elayne Lundy MR#: [id number] : 1945 Acct:[id number] Age/Sex: 79 / F ADM Date: 11/14/24 Loc: HO.HHCX Attending Dr: Tommie Arceo MD Ordering Physician: TOMMIE ARCEO MD Date of Service: 11/14/24 Procedure(s): XR chest 2V Accession Number(s): [id number] cc: TOMMIE ARCEO MD Reason for Exam: [...] 11/14/24 1232 DD/ 1150 TD/TT: 11/14/24 1154 [employer] Metal Furniture: Procedure Note Donotuseinterpreter, Image - 11/14/[address] [address] XRay Report Signed Patient: Elayne LundyMR#: [id number] : 1945cct:[id number] Age/Sex: 79 / FADM Date: 11/14/24 Loc: HO.HHCX Attending Dr: Tommie Arceo MD Ordering Physician: TOMMIE ARCEO MD Date of Service: 11/14/24 Procedure(s): XR chest 2V Accession Number(s): [id number] cc: TOMMIE ARCEO MD Reason for Exam: [...] 11/14/24 1232 DD/ 1150 TD/TT: 11/14/24 1154 [employer]: Tommie Arceo MD IMG XR PROCEDURES Final Result * Influenza B (ID NOW Rapid Molecular) (11/14/2024 11:12 AM EDT) Influenza B Negative Negative, Indeterminate [facility] Swab 11/14/2024 11:1 2 AM EDT Tommie Arceo MD POINT OF CARE TEST ENTER/EDIT OR DERABLES Final Result [facility] [address] [place] [phone] * Influenza A (ID NOW Rapid Molecular) (11/14/2024 11:12 AM EDT) Influenza A Negative Negative, Indeterminate [facility] Swab 11/14/2024 11:1 2 AM EDT us Tommie Arceo MD POINT OF CARE TEST ENTER/EDIT OR DERABLES Final Result Performing Organization Address [facility] de Phone Number [facility] [address] [place] [phone] * POCT Rapid COVID Ag (11/14/2024 11:12 AM EDT) Rapid COVID Ag Negative [facility] Swab 11/14/2024 11:1 2 AM EDT us Tommie Arceo MD POINT OF CARE TEST ENTER/EDIT OR DERABLES Final Result Performing Organization Address [facility] de Phone Number [facility] [address] [place] [phone] * POCT rapid strep A manually resulted (11/14/2024 11:12 AM EDT) Pathologist [facility] Rapid Strep A Screen Negative Negative, None Detected [facility] Swab 11/14/2024 11:1 2 AM EDT us Tommie Arceo MD POINT OF CARE TEST ENTER/EDIT OR DERABLES Final Result Performing Organization Address [facility] de Phone Number [facility] [address] [place] [phone] * BI Mammogram Screening Tomosynthesis Right (11/05/2023 3:15 PM EDT) Anatomical Region Laterality Modality Breast Right Mammography 11/05/2023 3:15 PM EDT Narrative 11/08/2023 5:52 PM EDT [facility] [address] [place] [address] Mammography Report Signed Patient: Elayne Lundy MR#: [id number] : 1945 Acct:[id number] Age/Sex: 78 / F ADM Date: 11/05/23 Loc: HO.MAMMO Attending Dr: Harry Ceron NP Ordering Physician: HARRY CERON NP Results: 2Benifrank coker Date of Service: 11/05/23 Follow Up: 1 Year From Orig inal Mammogram Procedure(s): MM tomosynthesis screening RT Accession Number(s): [id number] cc: HARRY CERON NP EXAMINATION: MM SCREENING [...] 11/08/23 1749 DD/ 1515 TD/TT: 11/05/23 1539 As[employer] Metal Furniture: Procedure Note Donotuseinterpreter, Image - 11/08/[facility] [address] [place], [place] [address] Mammography Report Signed Patient: Elayne LundyMR#: [id number] : 1945cct:[id number] Age/Sex: 78 / FADM Date: 11/05/23 Loc: HO.MAMMO Attending Dr: Harry Ceron SOFTBALL PLAYER Ordering Physician: HARRY CERON NPResults: 2Benign Joe sylvesterrodger Date of Service: 11/05/23Follow Up: 1 Year From Orig ina Mammogram Procedure(s): MM tomosynthesis screening RT Accession Number(s): [id number] cc: HARRY CERON NP EXAMINATION: MM SCREENING [...] 11/08/23 1749 DD/ 1515 TD/TT: 11/05/23 1539 Assembler Metal Furniture: Harry Ceron ANP IMG BI PROCEDURES Final Result * Hepatitis C Ab (06/17/2022 12:23 PM EDT) Hepatitis C Antibody Nonreactive Nonreactive [facility] Comment:Antibodies to HCV no t detected; does not exclude early acuteHCV infection. 06/17/2022 12:2 3 PM EDT 06/17/2022 12:23 PM EDT [facility] External Provider LAB BLO OD ORDERABLES Final Result [facility] [address] [place] [phone] from Last 3 Months or Most Recently Relevant to Health Maintenance Insurance [facility] MEDICARE REPLACEMENT [facility] Care Teams Silicator Relationship Specialty Start Date End Date Harry Ceron ANP [address] [place] [phone] PCP - General Family Medicine 10/07/20
--- OUTSIDE RECORDS SUMMARY | 2025-01-03 07:38 | XMS_ITS | Encounter Summary ---
Author Organization [employer] Address [address] [facility] 7t [place] [address] Care Team Providers Care Drawing Kiln Supervisor Name Role Phone Nemo Janine VAZQUEZ Primary Care Provider [phone] Encounter Details Date Type Department Care Team ([facility] st Contact Info) Description 03/29/2023 Orders Only [facility] MED [facility] PEDS [address] [place], [place] [phone] Teodoro Keyes MD [address] [place] [address] Social History Tobacco Use Types Packs/Day Years [...] Description 02/20/2025 2:15 PM EST Office Visit [facility] MEDICINE [address] [place] [address] Janine Chester ANP [address] [place] [address] documented as of this encounter Visit Diagnoses Not on filedocumented in this encounter Care Teams Drawing Kiln Supervisor Relationship Specialty Start Date End Date Janine Chester ANP [address] [place] [phone] PCP - General Family Medicine 10/07/20 documented as of this encounter
--- OUTSIDE RECORDS SUMMARY | 2025-01-03 07:38 | XMS_ITS | Encounter Summary ---
Author Organization [employer] Address [address] [place] [address] 7t [place] [address] Care Team Providers Care Shuttle Car Operator Name Role Phone Janine Chester Primary Care Provider [phone] Encounter Details Date Type Department Care Team (Late st Contact Info) Description 03/06/2022 Orders Only [facility] MEDICINE [address] [place] [phone] Jamilah Preston LPN Social History Tobacco Use [...] Description 02/20/2025 2:15 PM EST Office Visit [facility] MEDICINE [address] [place] [phone] Janine Chester ANP [address] [place] [address] documented as of this encounter Visit Diagnoses Not on filedocumented in this encounter Care Teams Shuttle Car Operator Relationship Specialty Start Date End Date Janine Chester ANP [address] [place] [phone] PCP - General Family Medicine 10/07/20 documented as of this encounter
--- OUTSIDE RECORDS SUMMARY | 2025-01-03 07:38 | XMS_ITS | Encounter Summary ---
Author Organization [employer] Address [address] [facility] [address] [place] [address] Care Team Providers Care Automobile Tire Builder Name Role Phone Janine Chester Primary Care Provider [phone] Reason for Visit * Reason Onset Date Comments Appointment 04/08/2022 Encounter Details Date Type Department Care Team (Late st Contact Info) Description 04/08/2022 Telephone [facility] MEDICINE [address] [place], [place] [phone] Janine Chester ANP [address] [place] [address] Appointment Social History Tobacco Use Types Packs/Day [...] other doctor appts. Please contact pt at [phone] documented in this encounter Plan of Treatment Upcoming Encounters Date Type Department Care Team (Late st Contact Info) Description 02/20/2025 2:15 PM EST Office Visit [facility] MEDICINE [address] [place] [address] Janine Chester ANP [address] [place] [address] documented as of this encounter Visit Diagnoses Not on filedocumented in this encounter Care Teams Automobile Tire Builder Relationship Specialty Start Date End Date Janine Chester ANP [address] [place] [phone] PCP - General Family Medicine 10/07/20 documented as of this encounter
--- OUTSIDE RECORDS SUMMARY | 2025-01-03 07:38 | XMS_ITS | Encounter Summary ---
Author Organization [employer] Address [address] [place] [address] 7 [place] [address] Care Team Providers Care Quality Associate Name Role Phone Janine Chester Primary Care Provider [phone] Reason for Visit * Reason Comments Med Refill Encounter Details Date Type Department Care Team (Late st Contact Info) Description 01/29/2022 Refill [facility] MED & PEDS [address] [place], [place] [phone] Janine Chester ANP [address] [place] [address] Dyslipidemia Social History Tobacco Use Types Packs/Day [...] Description 02/20/2025 2:15 PM EST Office Visit [facility] MEDICINE [address] [place] [address] Janine Chester ANP [address] [place] [address] documented as of this encounter Visit Diagnoses Diagnosis Dyslipidemia Other and unspecified hyperlipidemia documented in this encounter Care Teams Quality Associate Relationship Specialty Start Date End Date Janine Chester ANP [address] [place] [phone] PCP - General Family Medicine 10/07/20 documented as of this encounter
--- OUTSIDE RECORDS SUMMARY | 2025-01-03 07:38 | XMS_ITS | Encounter Summary ---
Author Organization [employer] Address [address] 7[address] [place] [address] Care Team Providers Care Donation Specialist Name Role Phone Janine Chester Primary Care Provider [phone] Reason for Visit * Reason Comments Med Refill Encounter Details Date Type Department Care Team ([facility] st Contact Info) Description 01/13/2024 Refill [facility] MED & PEDS [address] [place], [place] [phone] Janine Chester ANP [address] [facility] [place] [address] Dyslipidemia Social History Tobacco Use Types Packs/Day [...] Description 02/20/2025 2:15 PM EST Office Visit [facility] MEDICINE [address] [place] [address] Janine Chester ANP [address] [place] [address] documented as of this encounter Visit Diagnoses Diagnosis Dyslipidemia Other and unspecified hyperlipidemia documented in this encounter Additional Health Concerns Assessment Noted Time PHQ-9 Depression Total Score: 0 07/06/19 24 2:10 PM EDT documented as of this encounter Care Teams Donation Specialist Relationship Specialty Start Date End Date Janine Chester ANP [address] [place] [phone] PCP - General Family Medicine 10/07/20 documented as of this encounter
--- OUTSIDE RECORDS SUMMARY | 2025-01-03 07:38 | XMS_ITS | Clinical Summary ---
Author Organization [facility] Address [address] [address] Phone Care Team Providers Care Harness Maker Name Role Phone Krystin Morrow MD Primary Care Provi steven Allergies No known active allergies Medications No known medications Social History Tobacco Use Types Packs/Day Years Used Date Smoking Tobacco: Never Assessed Education Answer Date Recorded Are you interested in more education? Not on kaira e 06/13/2022 Are you concerned about learning? [...] REPLACEMENT MEDICARE REPLACEMENT MEDICARE REPLACEMENT MEDICARE [place] [address] MEDICARE REPLACEMENT Care Teams Harness Maker Relationship Specialty Start Date End Date [place], Krystin Fernandes MD [address] [place] [phone] PCP - General Family Medicine 07/25/20 Additional Source Comments The information contained in this document represents components of the legal health record. It is not the complete legal health record.[facility]
--- OUTSIDE RECORDS SUMMARY | 2025-01-03 07:39 | XMS_ITS | Data Portability ---
Author Organization [place] - [facility], [facility] Address [address] [place] [phone] Care Team Providers Care Container Washer Name Role Phone YOAV, MARLENE Primary Care Provider Assessment Encounter Date Assessment Date Assessment LastModified by Organization Details LastModified Time 01/21/2020 01/21/2020 Overview/History :Kaylen christie is a 75-year-old female that contacted [facility] complaints of pain and swelling of her right lower eyelid. She reports it had and more painful but seems to be resolving. No drainage, she does report that her eye has been watering a lot. Exam: On exam patient is awake and alert, afebrile and hemodynamically stable. Overall well appearing. She is noted to have a small red bump on her right lower eyelid, there is no significant surrounding swelling, no significant erythema. There is no evidence of any discharge, sclera clear. Pupils equal and reactive to light and accommodation. DDx considered, but not limited to:Patient's physical exam is consistent with Kalpana Tj I am also considered hordeolum as she had been reporting pain but this seems to have resolved. Conjunctivitis considered but unlikely as there is no discharge. Acute angle glaucoma unlikely as patient is denying any pain in her eye. Trauma unlikely as patient denies any recent trauma. Work up/Results: Physical exam only. Plan/Discussion:I discussed with the patient that her physical exam is consistent with a sty Urschel Easy-On. I have advised her to continue the warm compresses that she has been doing. I also told her to throw away any eye makeup or eyedrop container she may have been using during this time period. I did reassure her that there is no need for antibiotics at this time. The patient verbalized understanding of discharge instructions as well as emergency room precautions. Proper Personal Protective Equipment (PPE), including gloves, eye protection and masks were donned and doffed appropriately and all equipment cleaned using approved technique with germicidal disposable wipes prior to and after care of this patient according to [facility]'s infection prevention protocols. Not available 01/21/2020 14:50:24 06/08/2020 06/08/2020 Overview/History: Patient reports she rash 8 days after receiving COVID vaccine but shortly after putting on a shirt that she had in storage since the previous summer. She reports the rash is irritating but not painful and no overly itchy. She denies any fever/chills, pain or other constitutional symptoms. Exam: On exam, she has a rash that is over DDx considered, but not limited to: atopic dermatitis, contact dermatitis, scabies, tinea corporis, psoriasis, allergic dermatitis, lichen planus Work up/Results: Likely contact dermatitis due to recent wearing of clothing that was in storage. Pattern of rash and symptoms unlikely due to recent vaccination and improvement of symptoms in warm shower with no worsening at bedtime unlikely scabies. Appearance of rash less likely psoriasis, tinea or lichen planus. Plan/Discussion: Will trial short course of oral steroids to alleviate rash and symptoms. Advised avoidance of any items of clothing from storage at this time. In order to obtain further information and compare any laboratory results/values, I have accessed old patient records. This information was pertinent in my medical decision making today. Time On Scene with Patient: 00:34:16 [email or web address] Not available 06/08/2020 20:47:52 Plan of Treatment Reminders Order Date Submit Date Provider Last Modified By Organization Details Last Modified Time Details Appointments None recorded. Lab None recorded. Referral None recorded. Procedures None recorded. Surgeries None recorded. Imaging None recorded. Medication Orders prednisone 10 mg tablets in a dose pack 2020 021 [id number], [address], [place], [id number], 15:17:58 prednisone 10 mg tablet 2020 021 [facility] #[id number], [address], [place], [id number], 16:00:53 Patient Targets Encounter Date Encounter Id Patient Goals Patient Target Last Modified By Organization Details Last Modified Time 06/08/2020 [id number] Rash and associated discomfort will clear within 3-5 days. [email or web address] Not available 06/08/2020 20:47:18 Patient Instructions Encounter Date Encounter Id Patient Instructions Last Modified By Organization Details Last Modified Time 01/21/2020 [id number] styes and chalazia: care instructions [email or web address] Not available 01/21/2020 14:32:36 WE CAME TO SEE [facility] TODAY FOR CONCERNS OF EYE PAIN YOU DID NOT HAVE ANY DRAINAGE TO SUGGEST INFECTION, IT APPEARS THAT YOU HAVE A HEALING STYX, PLEASE CONTINUE WARM COMPRESSES YOU HAVE BEEN. AVOID ITCHING OR RUBBING THIS EYE IF YOU DEVELOP SUDDEN EYE PAIN OR LOSS OF JIN OF VISION THIS IS AN EMERGENCY AND YOU WOULD NEED TO GO TO THE OPTHAMOLOGIST OR THE ER Thank you for your visit with [facility] today. We cannot always find the exact cause of your symptoms during your initial visit. Please follow up with your primary care provider or specialist within 2-3 days to be rechecked or seek medical attention if your symptoms do not go away or get worse. If you develop any new or worsening symptoms and need after hours care, please go to nearest ER and/or call 911. If you have additional concerns or develop a change in your condition between 8am-10pm, please call [facility] at [phone] to help navigate your care. [email or web address] Not available 01/21/2020 14:35:57 06/08/2020 [id number] Thank you for yo ur visit with [facility] today. We cannot always find the exact cause of your symptoms during your initial visit. Please follow up with your primary care provider or specialist within 2-3 days to be rechecked or seek medical attention if your symptoms do not go away or get worse. If you develop any new or worsening symptoms and need after hours care, please go to nearest ER and/or call 911. If you have additional concerns or develop a change in your condition between 8am-10pm, please call [facility] at [phone] to help navigate your care. Please seek care or call your primary provider if the rash: 1. Worsens 2. Lasts longer than one week 3. Shows signs of local infection (redness, oozing, or swelling) 4. Occurs together with fever, chills, swollen glands, or other symptoms of infection 5. Looks dark purple or spotted 6. Occurs together with symptoms that suggest autoimmune disorder (recurring fever, malaise, fatigue, unexplained weight loss, or joint swelling) If you have additional concerns or develop a change in your condition between 8am-10pm, please call [facility] at [phone] to help navigate your care. [email or web address] Not available 06/08/2020 20:47:42 Reason for Referral None Reported. Problems Name Problem SNOMED Code Status Onset Date Resolution Date Notes Provider Name and Address Organization Details Recorded Time Generalized rash 245500744 Active 2020 MARIANA HINES NP [address] [place], [address], [place] [facility] 15:18:48 Asthma 395274903 Active 2020 MARIANA HINES NP [address] [place], [address], [place] [facility] 20:18:47 Problem Notes None recorded. Medical Equipment None Reported. Allergies No known drug allergies Medications Name Sig Start Date Stop Date Status Note LastModified by Organization Details LastModified Time prednisone 10 mg tablet TAKE 4 TABLETS BY MOUTH EVERY DAY WITH MEALS FOR 4 DAYS active Not Available Not Available No t Available prednisone 10 mg tablets in a dose pack Take 4 tablets every day by oral route with meals for 4 days. 2020 active Not Available Not Available Not Avai lable fluticasone propionate 50 mcg/actuati on nasal spray,suspe nsion SPR TWICE IEN QD PRF CONGESTIO N 01/20 completed Not Available Not Available Not Available Asthma active Not Available Not Availa ble Not Available Prevnar 13 (PF) 0.5 mL intramuscul ar syringe ADM 0.5ML IM UTD 01/20 completed Not Available Not Available Not Available Fluzone High-Dose Quad 2019- (PF) 240 mcg/0.7 mL IM syringe ADM 0.7ML IM UTD 01/20 completed Not Available Not Available Not Available Vitals Date Recorded Heart rate Oxygen saturation Oxygen saturation in Arterial blood by Pulse oximetry Body temperature Respiratory rate Systolic And Diastolic Provider Name and Address Organization Details Last Updated DateTime 1 106 /min 100 % 100 % 97.4 [degF] 16 /min 142/86 mm[Hg] Not Available [facility] 1 15:08:55 Date Recorded Oxygen saturation Oxygen saturation in Arterial blood by Pulse oximetry Body temperature Respiratory rate Heart rate Systolic And Diastolic Provider Name and Address Organization Details Last Updated DateTime 0 100 % 100 % 98 [degF] 20 /min 98 /min 148/88 mm[Hg] Not Available [facility] 0 14:27:16 Social History Question Answer Notes LastModified by Organizat ion Details LastModified Time Tobacco Smoking Status Current Every Day Smoker LUI WASHINGTON NP [address], [place], [address], [place] [facility] 01/21/2020 14:25:29 Do You Have An Advance Directive? No [email or web address] Information not available 01/21/2020 What Is Your Code Status? Full Code [email or web address] Information not available 01/21/2020 Within The Past 12 Months, Has It Happened That The Food You Bought Just Didn't Last And You Didn't Have Money To Get More. No [email or web address] Information not available 01/21/2020 Within The Past 12 Months, Have You Worried That Your Food Would Run Out Before You Got Money To Buy More. No [email or web address] Information not available 01/21/2020 Fall Risk: Do You Feel Unsteady When Standing Or Walking? No [email or web address] Information not available 01/21/2020 We Know That How And When People Interact With Friends And Family Can Be Very Different From Person To Person. How Often Do You Have The Opportunity To See Or Talk To People That You Care About And Feel Close To? (Ex: Talking To Friends On The Phone Or Visiting Friends Or Family Or Going To Jain Or Club Meetings) 3 Or 4 Times Per Week [email or web address] Information not available 01/21/2020 We Know From Many Of Our Patients That Covering All Of Their Costs Can Be Difficult At Times. This Can Cause Stress And Impact Health. In The Past Year, Have You Been Unable To Get Any Of The Following When It Was Really Needed? No [email or web address] Information not available 01/21/2020 What Is Your Housing Situation Today? I Have Housing [email or web address] Information not available 01/21/2020 Would You Like Help Connecting To Resources? None [email or web address] Information not available 01/21/2020 How Much Tobacco Do You Smoke? 2 PPW Information not available 01/21/2020 Sex: Unknown Functional Status None recorded. Mental Status None recorded. Family History Nothing Reported Notes:FATHER HAD ENLARGED HE ART Medical History Condition Response Asthma Y Gynecological HistoryNo gynecological history recorded. Obstetrics History GPAL:G 0 P 0 0 0 0 Immunizations Vaccine Type Date Status Note Provider Nam e and Address Organization Details Recorded Time COVID-19, mRNA, LNP-S, PF, 30 mcg/0.3 mL dose 05/19/2020 completed MARIANA HINES NP [address] [place], [address], [place] [facility] 06/08/2020 20:19:30 Past Encounters Encounter ID Performer Location Encounter Start Date Encounter Closed Date Diagnosis/Indication Diagnosis SNOMED-CT Code Diagnosis ICD10 Code Diagnosis IMO Codes Diagnosis Note [id number] LUI WASHINGTON NP [facility] [address] [place] [address] 01/21/2020 14:21:00 01/22/2020 15:20:23 Hordeolum externum of right eyelid 2582342376 95132 H00.013 [id number] MARIANA HINES NP [facility] [address] [place] [address] 06/08/2020 15:06:57 06/09/2020 10:42:33 Generalized rash 190903836 R21 Health Concerns Section Related Observation LastModified by Organization Detai ls LastModified Time None Recorded Concern Status LastModified by Organization Details LastModified Time None Recorded Advance Directives Directive N: Payers Insurance Date Sequence Insurance Name Policy Number Policy Person Covered Member ID Person Member ID Guarantor Name 01/21/2020 2 [facility] [place] (MEDICAID HMO) [id number] Elayne Lundy [id number] Elyane Lundy 01/21/2020 1 *SELF PAY* Elayne Lundy [id number] Elayne Lundy 06/08/2020 1 [facility] (MEDICARE REPLACEMENT/A DVANTAGE - HMO) [id number] Elayne Lundy [id number] Elayne Lundy 04/03/2020 2 [facility] - SENIOR LIVING OPTIONS (MEDICAID HMO) [id number] Elayne Lundy [id number] Elayne Lundy 01/22/2020 1 MEDICARE [place]: [facility] Elayne Lundy [id number] Elayne Lundy Notes Date Note Type Note Provider Name and Address Organization Details Recorded Time 01/21/2020 text/html General HPI Template - DHReported by Patient This is a 72-year-old female that is a new patient who [id number]. She has a medical history significant for asthma. [facility] she has been having pain and an area of which he thought might have been a blister of her right lower lid. She said it has been watering but that there has not been any morning I crust or gooey drainage. She says that she has been using warm compresses but is concerned that the area is not healing. She says it initially painful but is no longer painful. She is denying any changes to her vision. She does admit that she is overdue for an optometry exam. LUI WASHINGTON NP [address], [place], [address], [place] [facility] 01/21/2020 14:50:32 06/08/2020 text/html General HPI Template - DHReported by Patient Started with rash on 05/27/20 after receiving Pfizer COVID vaccine on 05/19/20. Rash started on both shoulder and arm pits. She reports she had also put on a new shirt that was in storage since previous summer shortly before the rash began. Then the rash spread to the outer thighs, then lower back and buttocks. No pain. Denies itching but states it feels prickly and irritating. Reports rash is not worse at bedtime. Reports warm showers make rash more comfortable. No new medications. Denies using any new skin products, soaps or detergent. No recent tick/insect bites. No headache, No fever or chills. No myalgias, No arthralgias. Only pet in home is a lizard. Has not stayed in any residence other than her own and no contact with someone with similar rash. Feel well overall. MARIANA HINES NP [address], [place], [address], [place] [facility] 06/08/2020 20:48:14 OBGyn Episode No OBEpisode recorded.
--- OUTSIDE RECORDS SUMMARY | 2025-01-03 07:39 | XMS_ITS | Encounter Summary ---
Author Organization [employer] Address [address] [place] [address] Care Team Providers Care Material Control Associate Name Role Phone Janine Chester Primary Care Provider [phone] Reason for Visit * Reason Comments Med Refill Encounter Details Date Type Department Care Team ([facility] st Contact Info) Description 08/04/2024 Refill [facility] [address] [place], [place] [phone] Janine Chester ANP [address] [place], [place] [phone] Wheezing Social History Tobacco Use Types Packs/Day [...] Description 02/20/2025 2:15 PM EST Office Visit [facility] [address] [place] [phone] Janine Chester ANP [address] [place] [address] documented as of this encounter Visit Diagnoses Diagnosis Wheezing documented in this encounter Additional Health Concerns Assessment Noted Time PHQ-9 Depression Total Score: 0 07/06/19 24 2:10 PM EDT documented as of this encounter Care Teams Material Control Associate Relationship Specialty Start Date End Date Janine Chester ANP [address] [place] [address] PCP - General Family Medicine 10/07/20 documented as of this encounter
--- OUTSIDE RECORDS SUMMARY | 2025-01-03 07:39 | XMS_ITS | Encounter Summary ---
Author Organization [employer] Address [address] [place] [address] Care Team Providers Care Marketing Operations Associate Name Role Phone Janine Chester Primary Care Provider [phone] Reason for Visit * Reason Comments Med Refill Encounter Details Date Type Department Care Team ([facility] st Contact Info) Description 08/04/2024 Refill [facility] [address] [place], [place] [phone] Janine Chester ANP [address] [place], [place] [phone] Wheezing Social History Tobacco Use Types Packs/Day [...] Description 02/20/2025 2:15 PM EST Office Visit [facility] [address] [place] [address] Janine Chester ANP [address] [place] [address] documented as of this encounter Visit Diagnoses Diagnosis Wheezing documented in this encounter Additional Health Concerns Assessment Noted Time PHQ-9 Depression Total Score: 0 07/06/19 24 2:10 PM EDT documented as of this encounter Care Teams Marketing Operations Associate Relationship Specialty Start Date End Date Janine Chester ANP [address] [place] [address] PCP - General Family Medicine 10/07/20 documented as of this encounter
--- OUTSIDE RECORDS SUMMARY | 2025-01-03 07:39 | XMS_ITS | Encounter Summary ---
Author Organization [employer] Address [address] [facility] [address] [place] [address] Care Team Providers Care Transactional Paralegal Name Role Phone Janine Chester Primary Care Provider Encounter Details Date Type Department Care Team (Late st Contact Info) Description 08/07/2022 Abstract [facility] [address] [place] [address] [phone] Janine Chester ANP [address] [place] [phone] Social History Tobacco Use Types Packs/Day Years [...] Description 02/20/2025 2:15 PM EST Office Visit [facility] [address] [place] [phone] Janine Chester ANP [address] [place] [phone] documented as of this encounter Visit Diagnoses Not on filedocumented in this encounter Care Teams Transactional Paralegal Relationship Specialty Start Date End Date Janine Chester ANP [address] [place] [address] PCP - General Family Medicine 10/07/20 documented as of this encounter
== END ==
LOC: HO.CARD 13:50
PROVIDERS: PCP Nurse Practitioner Primary Care; Visit Provider Nurse Practitioner Family
DX: I49.1 Atrial premature depolarization (principal); I35.1 Nonrheumatic aortic (valve) insufficiency
CPT/HCPCS: 93242; 93306

== ENCOUNTER → 2025-01-02 13:53 | Outpatient (BNV) | payer MEDICARE, MEDICAID, SELFPAY | PROVIDERS: PCP Nurse Practitioner Primary Care; Visit Provider Internal Medicine | DX: I34.81 Nonrheumatic mitral (valve) annulus calcification (principal); I35.8 Other nonrheumatic aortic valve disorders | CPT/HCPCS: 93244; 93306 ==

== ENCOUNTER 2025-01-09 13:21 | Outpatient (REF) | payer MEDICARE, MEDICAID, SELFPAY ==
--- NOTE | ~2025-01-09 | MM_ITS ---
EXAMINATION: MM SCREENING DIGITAL BREAST TOMOSYNTHESIS, RIGHT CLINICAL INFORMATION: Screening. Asymptomatic. Personal history of left mastectomy for breast cancer (invasive ductal carcinoma diagnosed in June 2022). Ultrasound-guided stereotactic needle core biopsy of the right breast on July 15, 2022 (cylinder shape [employer]); pathology results showed benign breast tissue with fibrocystic changes and calcifications. COMPARISON: Comparison made to multiple prior, most recent November 05, 2023, and most remote November 20, 2020. TECHNIQUE: Digital breast tomosynthesis is performed in mediolateral oblique and craniocaudal views along with computer-aided detection (CAD). Synthesized 2D images are generated from the tomosynthesis. FINDINGS: BREAST COMPOSITION: The breasts are heterogeneously dense, which may obscure small masses. RIGHT BREAST: Tissue marker from previous needle core biopsy. No significant masses, suspicious calcifications or other abnormalities are seen. MM/MM tomosynthesis screening RT IMPRESSION: BILATERAL BREASTS: Benign, no mammographic evidence of malignancy. Normal interval follow-up is recommended in 12 months. ASSESSMENT: BI-RADS: Category 2: Benign RECOMMENDATION: Routine annual mammography screening. FOLLOW-UP: 1 year F/U This examination should not preclude the clinical evaluation of a suspicious palpable abnormality. This patient's information was entered into a reminder system with a target due date for their next mammogram. Electronically signed by: Marcelino Wong MD 01/09/2025 08:23 PM DENIS
--- OUTSIDE RECORDS SUMMARY | 2025-01-09 17:12 | XMS_ITS | Encounter Summary ---
Author Organization [employer] Address [address] [place] [address] Care Team Providers Care Rasper Machine Operator Name Role Phone Janine Chester Primary Care Provider [phone] Reason for Visit * Reason Comments Med Refill Encounter Details Date Type Department Care Team ([facility] st Contact Info) Description 08/04/2024 Refill [facility] [address] [place], [place] [phone] Janine Chester ANP [address] [place], [place] [phone] Wheezing Social History Tobacco Use Types Packs/Day [...] 2:15 PM EST Office Visit [facility]INE [address] [place] [phone] Janine Chester ANP [address] [place] [address] documented as of this encounter Visit Diagnoses Diagnosis Wheezing documented in this encounter Additional Health Concerns Assessment Noted Time PHQ-9 Depression Total Score: 0 07/06/19 24 2:10 PM EDT documented as of this encounter Care Teams Rasper Machine Operator Relationship Specialty Start Date End Date Janine Chester ANP [address] [place] [address] PCP - General Family Medicine 10/07/20 documented as of this encounter
--- OUTSIDE RECORDS SUMMARY | 2025-01-09 17:12 | XMS_ITS | Clinical Summary ---
Author Organization [employer] Address [address] 7t [place] [address] Care Team Providers Care Tool Engineer Name Role Phone Harry Ceron TAYLOR Primary Care Provider [phone] Allergies Active Allergy Reactions Criticality Noted Date [...] Invasive ductal 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 Stereotactic core biopsy performed 06/25/2022 revealed invasive ductal carcinoma, MS BR grade 3 along with DCIS, solid and comedo features. Immunostains revealed estrogen receptor positive- 95%, progesterone receptor positive-50%, HER2 positive 3+, Ki 67 high greater than 20%. Clinical stage T3 N0, stage IIB. [facility] genetic result was negative. Bilateral breast [...] b.i.d.. She completed [place] [facility] [place] transitioned to alendronate 12/2023. Her most recent DEXA scan 11/2023 was consistent with osteopenia -lowest T-score -2.0. This is a huge improvement! Asthma 06/08/2020 Generalized rash 06/08/2020 Encounters Date Type Department Care Team Description 12/21/2024 2:30 PM EST Immunization [facility] [place] [address] Rashmi Montero, JENNI Encounter for immunization 12/21/2024 Travel 12/18/2024 Telephone [facility] [place] [address] Harry Ceron ANP 12/14/2024 Travel 12/08/2024 Telephone [facility] [place] [address] Harry Ceron ANP February12/07/2024 2:30 PM EDT Immunization [facility] [place] [address] Aniyah Foster RN Encounter for vaccination 12/07/2024 Travel 11/30/2024 Travel 11/21/2024 2:15 PM EDT Office Visit [facility] [place] [address] Harry Ceron ANP Mild intermittent asthma with acute exacerbation (Primary Dx); Elevated BP without diagnosis of hypertension; Mild intermittent asthma without complication 11/21/2024 Travel 11/20/[address] [address] Harry Ceron ANP chart prep 11/15/2024 Orders Only [address] [address] Tommie Arceo MD 11/15/[address] [address] Harry Ceron ANP 11/14/2024 10:40 AM EDT Office Visit [facility] [address] [place] [address] Tommie Arceo MD Acute cough (Primary Dx); Mild intermittent asthma with acute exacerbation; Acute URI; Wheezing 11/14/2024 Patient Outreach [address] [address] Harry Ceron ANP Pre-visit Planning (Pre visit planning LVM ) 11/14/2024 Travel 11/14/[address] [address] Harry Ceron ANP Nurse Triage 11/02/2024 2:30 PM EDT Immunization [address] [address] Encounter for immunization 11/02/2024 Travel 10/27/2024 Travel [...] Description 02/20/2025 2:15 PM EST Office Visit [facility] [address] [place], [place] [phone] Harry Ceron, ANP [address] [place], [place] [phone] Health Maintenance Due Date Last Done Comments [...] AM EDT Narrative 11/14/2024 12:35 PM EDT [address] [address] XRay Report Signed Patient: Elayne Lundy MR#: [id number] : 1945 Acct:[id number] Age/Sex: 79 / F ADM Date: 11/14/24 Loc: HO.HHCX Attending Dr: Tommie Arceo MD Ordering Physician: TOMMIE ARCEO MD Date of Service: 11/14/24 Procedure(s): XR chest 2V Accession Number(s): [id number] cc: TOMMIE ARCEO MD Reason for Exam: [...] 11/14/24 1232 DD/ 1150 TD/TT: 11/14/24 1154 Deflector Operator: Procedure Note Donotuseinterpreter, Image - 11/14/[address] [address] XRay Report Signed Patient: Elayne LundyMR#: [id number] : 1945cct:[id number] Age/Sex: 79 / FADM Date: 11/14/24 Loc: HO.HHCX Attending Dr: Tommie Arceo MD Ordering Physician: TOMMIE ARCEO MD Date of Service: 11/14/24 Procedure(s): XR chest 2V Accession Number(s): [id number] cc: TOMMIE ARCEO MD Reason for Exam: [...] 11/14/24 1232 DD/ 1150 TD/TT: 11/14/24 1154 Deflector Operator: Tommie Arceo MD IMG XR PROCEDURES Final Result * Influenza B (ID NOW Rapid Molecular) (11/14/2024 11:12 AM EDT) Influenza B Negative Negative, Indeterminate [facility] Swab 11/14/2024 11:1 2 AM EDT Tommie Arceo MD POINT OF CARE TEST ENTER/EDIT OR DERABLES Final Result [facility] [address] [place] [phone] * Influenza A (ID NOW Rapid Molecular) (11/14/2024 11:12 AM EDT) Influenza A Negative Negative, Indeterminate [facility] Swab 11/14/2024 11:1 2 AM EDT us Tommie Arceo MD POINT OF CARE TEST ENTER/EDIT OR DERABLES Final Result Performing Organization Address [facility] de Phone Number [facility] [address] [place] [phone] * POCT Rapid COVID Ag (11/14/2024 11:12 AM EDT) Rapid COVID Ag Negative [facility] Swab 11/14/2024 11:1 2 AM EDT us Tommie Arceo MD POINT OF CARE TEST ENTER/EDIT OR DERABLES Final Result Performing Organization Address [facility] de Phone Number [facility] [address] [place] [phone] * POCT rapid strep A manually resulted (11/14/2024 11:12 AM EDT) Pathologist [facility] Rapid Strep A Screen Negative Negative, None Detected [facility] Swab 11/14/2024 11:1 2 AM EDT us Tommie Arceo MD POINT OF CARE TEST ENTER/EDIT OR DERABLES Final Result Performing Organization Address [facility] de Phone Number [facility] [address] [place] [phone] * BI Mammogram Screening Tomosynthesis Right (11/05/2023 3:15 PM EDT) Anatomical Region Laterality Modality Breast Right Mammography 11/05/2023 3:15 PM EDT Narrative 11/08/2023 5:52 PM EDT [facility] [address] [place] [address] Mammography Report Signed Patient: Elayne Lundy MR#: [id number] : 1945 Acct:[id number] Age/Sex: 78 / F ADM Date: 11/05/23 Loc: HO.MAMMO Attending Dr: Harry Ceron NP Ordering Physician: HARRY CERON NP Results: 2Benifrank coker Date of Service: 11/05/23 Follow Up: 1 Year From Orig inal Mammogram Procedure(s): MM tomosynthesis screening RT Accession Number(s): [id number] cc: HARRY CERON NP EXAMINATION: MM SCREENING [...] 11/08/23 1749 DD/ 1515 TD/TT: 11/05/23 1539 Deflector Operator: Procedure Note Donotuseinterpreter, Image - 11/08/2023 [facility] [address] [place], [place] [address] Mammography Report Signed Patient: Elayne LundyMR#: [id number] : 1945cct:[id number] Age/Sex: 78 / FADM Date: 11/05/23 Loc: HO.MAMMO Attending Dr: Harry Ceron CASTINGS DRAFTER Ordering Physician: HARRY CERON NPResults: 2Benign Joe sylvesterrodger Date of Service: 11/05/23Follow Up: 1 Year From Orig ina Mammogram Procedure(s): MM tomosynthesis screening RT Accession Number(s): [id number] cc: HARRY CERON NP EXAMINATION: MM SCREENING [...] 11/08/23 1749 DD/ 1515 TD/TT: 11/05/23 1539 Deflector Operator: Harry Ceron ANP IMG BI PROCEDURES Final Result * Hepatitis C Ab (06/17/2022 12:23 PM EDT) Hepatitis C Antibody Nonreactive Nonreactive [facility] Comment:Antibodies to HCV no t detected; does not exclude early acuteHCV infection. 06/17/2022 12:2 3 PM EDT 06/17/2022 12:23 PM EDT [facility] External Provider LAB BLO OD ORDERABLES Final Result [facility] [address] [place] [phone] [phone] from Last 3 Months or Most Recently Relevant to Health Maintenance Insurance [facility] MEDICARE REPLACEMENT [facility] FULL Care Teams Tool Engineer Relationship Specialty Start Date End Date Harry Ceron ANP [address] [place] [phone] PCP - General Family Medicine 10/07/20
--- OUTSIDE RECORDS SUMMARY | 2025-01-09 17:12 | XMS_ITS | Encounter Summary ---
Author Organization [employer] Address [address] 7t [place] [address] Care Team Providers Care Metalsmith Name Role Phone Janine Chester Primary Care Provider [phone] Reason for Visit * Reason Comments Med Refill Encounter Details Date Type Department Care Team (Late st Contact Info) Description 10/27/2023 Refill [facility] [address] [place], [place] [phone] Janine Chester ANP 230 [place], [place] [phone] Leg swelling Social History Tobacco Use Types [...] Description 02/20/2025 2:15 PM EST Office Visit [facility] [address] [place] [phone] Janine Chester ANP [address] [place] [phone] documented as of this encounter Visit Diagnoses Diagnosis Leg swelling Swelling of limb documented in this encounter Additional Health Concerns Assessment Noted Time PHQ-9 Depression Total Score: 0 07/06/19 24 2:10 PM EDT documented as of this encounter Care Teams Metalsmith Relationship Specialty Start Date End Date Janine Chester ANP [address] [place] [phone] PCP - General Family Medicine 10/07/20 documented as of this encounter
--- OUTSIDE RECORDS SUMMARY | 2025-01-09 17:12 | XMS_ITS | Encounter Summary ---
Author Organization [employer] Address [address] [place] [address] 7 [place] [address] Care Team Providers Care Wheel Alignment Mechanic Name Role Phone Janine Chester Primary Care Provider [phone] Reason for Visit * Reason Comments Med Refill Encounter Details Date Type Department Care Team (Late st Contact Info) Description 01/29/2022 Refill [facility] MED & PEDS [address] [place], [place] [phone] Janine Chester ANP [address] [place] [address] Dyslipidemia Social History Tobacco Use Types Packs/Day [...] Description 02/20/2025 2:15 PM EST Office Visit [facility] 230 [place] [address] Janine Chester ANP [address] [place] [address] documented as of this encounter Visit Diagnoses Diagnosis Dyslipidemia Other and unspecified hyperlipidemia documented in this encounter Care Teams Wheel Alignment Mechanic Relationship Specialty Start Date End Date Janine Chester ANP [address] [place] [phone] PCP - General Family Medicine 10/07/20 documented as of this encounter
--- OUTSIDE RECORDS SUMMARY | 2025-01-09 17:12 | XMS_ITS | Clinical Summary ---
Author Organization [facility] Address [address] [address] Phone Care Team Providers Care Buckle Stapler Name Role Phone Krystin Morrow MD Primary [...] REPLACEMENT MEDICARE REPLACEMENT MEDICARE REPLACEMENT MEDICARE RE[place] [address] MEDICARE REPLACEMENT Care Teams Buckle Stapler Relationship Specialty Start Date End Date [place], Krystin Fernandes MD [address] [place] [phone] PCP - General Family Medicine 07/25/20 Additional Source Comments The information contained in this document represents components of the legal health record. It is not the complete legal health record.[facility]
--- OUTSIDE RECORDS SUMMARY | 2025-01-09 17:12 | XMS_ITS | Encounter Summary ---
Author Organization [employer] Address [address] [facility] 7t [place] [address] Care Team Providers Care Tap And Die Maker Technician Name Role Phone Nemo Janine VAZQUEZ Primary Care Provider [phone] Encounter Details Date Type Department Care Team ([facility] st Contact Info) Description 03/29/2023 Orders Only [facility] MED & PEDS [address] [place], [place] [phone] Teodoro Keyes MD 505 [place] [address] Social History Tobacco Use Types Packs/Day Years [...] 02/20/2025 2:15 PM EST Office Visit [facility] MEDICINE 230 [place] [address] Janine Chester ANP 230 [place] [address] documented as of this encounter Visit Diagnoses Not on filedocumented in this encounter Care Teams Tap And Die Maker Technician Relationship Specialty Start Date End Date Janine Chester ANP [address] [place] [phone] PCP - General Family Medicine 10/07/20 documented as of this encounter
--- OUTSIDE RECORDS SUMMARY | 2025-01-09 17:12 | XMS_ITS | Encounter Summary ---
Author Organization [employer] Address [address] [place] [address] 7t [place] [address] Care Team Providers Care Nickel Plater Name Role Phone Janine [place] Primary Care Provider Encounter Details Date Type Department Care Team (Late st Contact Info) Description 03/06/2022 Orders Only [facility] [address] [place] [phone] Jamilah Preston LPN Social History Tobacco Use [...] Description 02/20/2025 2:15 PM EST Office Visit [facility] [address] [place] [phone] Janine Chester ANP 230 [place] [address] documented as of this encounter Visit Diagnoses Not on filedocumented in this encounter Care Teams Nickel Plater Relationship Specialty Start Date End Date Janine Chester ANP [address] [place] [phone] PCP - General Family Medicine 10/07/20 documented as of this encounter
--- OUTSIDE RECORDS SUMMARY | 2025-01-09 17:12 | XMS_ITS | Encounter Summary ---
Author Organization [employer] Address [address] [facility] 7t [place] [address] Care Team Providers Care Waste Management Recycling Technician Name Role Phone Janine [place] Primary Care Provider [phone] Reason for Visit * Reason Onset Date Comments Appointment 04/08/2022 Encounter Details Date Type Department Care Team (Late st Contact Info) Description 04/08/2022 Telephone [facility] [address] [place], [place] [phone] Janine Chester ANP 230 [place] [address] Appointment Social History Tobacco Use Types Packs/Day [...] other doctor appts. Please contact pt at [phone] documented in this encounter Plan of Treatment Upcoming Encounters Date Type Department Care Team (Late st Contact Info) Description 02/20/2025 2:15 PM EST Office Visit [facility] [address] [place] [address] Janine Chester ANP 230 [place] [address] documented as of this encounter Visit Diagnoses Not on filedocumented in this encounter Care Teams Waste Management Recycling Technician Relationship Specialty Start Date End Date Janine Chester ANP [address] [place] [address] PCP - General Family Medicine 10/07/20 documented as of this encounter
--- OUTSIDE RECORDS SUMMARY | 2025-01-09 17:12 | XMS_ITS | Encounter Summary ---
Author Organization [employer] Address [address] 7t [place] [address] Care Team Providers Care Tattoo And Body Artist Name Role Phone Janine [place] Primary Care Provider [phone] Reason for Visit * Reason Comments Med Refill Encounter Details Date Type Department Care Team ([facility] st Contact Info) Description 01/13/2024 Refill [facility]EDS [address] [place], [place] [phone] Janine Chester ANP 230 [place] [address] Dyslipidemia Social History Tobacco Use Types Packs/Day [...] Description 02/20/2025 2:15 PM EST Office Visit [facility] [address] [place] [address] Janine Chester ANP [address] [place] [address] documented as of this encounter Visit Diagnoses Diagnosis Dyslipidemia Other and unspecified hyperlipidemia documented in this encounter Additional Health Concerns Assessment Noted Time PHQ-9 Depression Total Score: 0 07/06/19 24 2:10 PM EDT documented as of this encounter Care Teams Tattoo And Body Artist Relationship Specialty Start Date End Date Janine Chester ANP [address] [place] [phone] PCP - General Family Medicine 10/07/20 documented as of this encounter
--- OUTSIDE RECORDS SUMMARY | 2025-01-09 17:12 | XMS_ITS | Encounter Summary ---
Author Organization [employer] Address [address] [facility] 7 [place] [address] Care Team Providers Care Printer Slotter Operator Name Role Phone Janine [place] Primary Care Provider [phone] Encounter Details Date Type Department Care Team (Late st Contact Info) Description 08/07/2022 Abstract [facility] [address] [place] [address] [phone] Janine Chester ANP [address] [place] [address] [phone] Social History Tobacco Use Types Packs/Day Years [...] Description 02/20/2025 2:15 PM EST Office Visit [facility] [address] [place] [phone] Janine Chester ANP [address] [place] [phone] documented as of this encounter Visit Diagnoses Not on filedocumented in this encounter Care Teams Printer Slotter Operator Relationship Specialty Start Date End Date Janine Chester ANP [address] [place] [phone] PCP - General Family Medicine 10/07/20 documented as of this encounter
--- OUTSIDE RECORDS SUMMARY | 2025-01-09 17:12 | XMS_ITS | Encounter Summary ---
Author Organization [employer] Address [address] 7[address] [place] [address] Care Team Providers Care News Wire Photo Operator Name Role Phone Janine Chester Primary Care Provider Reason for Visit * Reason Comments Med Refill Encounter Details Date Type Department Care Team ([facility] st Contact Info) Description 08/04/2024 Refill [facility] 230 [place], [place] [phone] Janine Chester ANP 230 [place], [place] [phone] Wheezing Social History Tobacco Use Types Packs/Day [...] Description 02/20/2025 2:15 PM EST Office Visit [facility] [address] [place] [phone] Janine Chester ANP 230 [place] [address] documented as of this encounter Visit Diagnoses Diagnosis Wheezing documented in this encounter Additional Health Concerns Assessment Noted Time PHQ-9 Depression Total Score: 0 07/06/19 24 2:10 PM EDT documented as of this encounter Care Teams News Wire Photo Operator Relationship Specialty Start Date End Date Janine Chester ANP [address] [place] [phone] PCP - General Family Medicine 10/07/20 documented as of this encounter
--- OUTSIDE RECORDS SUMMARY | 2025-01-09 17:12 | XMS_ITS | Data Portability ---
Author Organization [place] [facility], [facility] Address [address] [place] [id number] Care Team Providers Care Duty Engineer Name Role Phone YOAV, MARLENE Primary Care [...] after care of this patient according to [facility]'s infection prevention protocols. [email or web address] Not available 01/21/2020 14:50:24 06/08/2020 06/08/2020 Overview/History: [...] tablets in a dose pack 2020 021 [id number], [address], [place], [phone], 15:17:58 prednisone 10 mg tablet 2020 021 [facility] #[id number], [address], [place], [phone], 16:00:53 Patient Targets Encounter Date Encounter Id Patient Goals Patient Target Last Modified By Organization Details Last Modified Time 06/08/2020 [id number] Rash and associated discomfort will clear within 3-5 days. [email or web address] Not available 06/08/2020 20:47:18 Patient Instructions Encounter Date Encounter Id Patient Instructions Last Modified By Organization Details Last Modified Time 01/21/2020 [id number] styes and chalazia: care instructions [email or web address] Not available 01/21/2020 14:32:36 WE CAME TO [...] condition between 8am-10pm, please call [facility] at [phone] to help navigate your care. [email or web address] Not available 01/21/2020 14:35:57 06/08/2020 [id number] Thank you for yo ur visit with [...] condition between 8am-10pm, please call [facility] at [phone] to help navigate your care. Please seek [...] condition between 8am-10pm, please call [facility] at [phone] to help navigate your care. [email or web address] Not available 06/08/2020 20:47:42 Reason for Referral None Reported. Problems Name Problem SNOMED Code Status Onset Date Resolution Date Notes Provider Name and Address Organization Details Recorded Time Generalized rash 010149580 Active 2020 MARIANA HINES NP [address] [place], [address], [place] [facility] 15:18:48 Asthma 373427294 Active 2020 MARIANA HINES NP [address] [place], [address], [place] [facility] 20:18:47 Problem Notes [...] Vitals Date Recorded Heart rate Oxygen saturation Body temperature Respiratory rate Systolic And Diastolic Provider Name and Address Organization Details Last Updated DateTime 1 106 /min 100 % 97.4 [degF] 16 /min 142/86 mm[Hg] Not Available [facility] 1 15:08:55 Date Recorded Oxygen saturation Body temperature Respiratory rate Heart rate Systolic And Diastolic Provider Name and Address Organization Details Last Updated DateTime 0 100 % 98 [degF] 20 /min 98 /min 148/88 mm[Hg] Not Available [facility] 0 14:27:16 Social History Question Answer Notes LastModified by Organizat ion Details LastModified Time Tobacco Smoking Status Current Every Day Smoker LUI WASHINGTON NP [address], [place], [address], [place] [facility] 01/21/2020 14:25:29 Do You Have An Advance Directive? No Information not available 01/21/2020 What Is Your Code Status? Full Code [email or web address] Information not available 01/21/2020 Within The Past 12 Months, Has It Happened That The Food You Bought Just Didn't Last And You Didn't Have Money To Get More. No [email or web address] Information not available 01/21/2020 Within The Past 12 Months, Have You Worried That Your Food Would Run Out Before You Got Money To Buy More. No [email or web address] Information not available 01/21/2020 Fall Risk: Do You Feel Unsteady When Standing Or Walking? No [email or web address] Information not available 01/21/2020 We Know That How And When People Interact With Friends And Family Can Be Very Different From Person To Person. How Often Do You Have The Opportunity To See Or Talk To People That You Care About And Feel Close To? (Ex: Talking To Friends On The Phone Or Visiting Friends Or Family Or Going To Anabaptism Or Club Meetings) 3 Or 4 Times Per Week [email or web address] Information not available 01/21/2020 We Know From Many Of Our Patients That Covering All Of Their Costs Can Be Difficult At Times. This Can Cause Stress And Impact Health. In The Past Year, Have You Been Unable To Get Any Of The Following When It Was Really Needed? No [email or web address] Information not available 01/21/2020 What Is Your Housing Situation Today? I Have Housing [email or web address] Information not available 01/21/2020 Would You Like Help Connecting To Resources? None [email or web address] Information not available 01/21/2020 How Much Tobacco Do You Smoke? 2 PPW [email or web address] Information not available 01/21/2020 Sex: Unknown Functional [...] dose 05/19/2020 completed MARIANA HINES NP [address] [place], [address], [place] [facility] 06/08/2020 20:19:30 Past Encounters Encounter ID Performer Location Encounter Start Date Encounter Closed Date Diagnosis/Indication Diagnosis SNOMED-CT Code Diagnosis ICD10 Code Diagnosis IMO Codes Diagnosis Note [id number] LUI WASHINGTON NP [facility] [address] [place] [address] 01/21/2020 14:21:00 01/22/2020 15:20:23 Hordeolum externum of right eyelid 0197798438 56919 H00.013 [id number] MARIANA HINES NP [facility] [place] [address] [place] [address] 06/08/2020 15:06:57 06/09/2020 10:42:33 Generalized rash 669430248 R21 Health Concerns Section Related Observation LastModified by Organization Detai ls LastModified Time None Recorded Concern Status LastModified by Organization Details LastModified Time None Recorded Advance Directives Directive N: Payers Insurance Date Sequence Insurance Name Policy Number Policy Person Covered Member ID Person Member ID Guarantor Name 01/21/2020 2 [facility] - [facility] OPTIONS (MEDICAID HMO) [id number] Elayne Lundy [id number] Elayne Lundy 01/21/2020 1 *SELF PAY* Elayne Lundy [id number] Elayne Lundy 06/08/2020 1 [facility] (MEDICARE REPLACEMENT/A DVANTAGE - HMO) [id number] Elayne Lundy [id number] Elayne Lundy 04/03/2020 2 [facility] [place] ([place] [id number] Elayne Lundy [id number] Elayne Lundy 01/22/2020 1 MED[place] B-[place]: [facility] Elayne Lundy [id number] Elayne Lundy Notes Date Note Type Note Provider Name and Address Organization Details Recorded Time 01/21/2020 text/html General HPI Template - DHReported by Patient This is a 72-year-old female that is a new patient who [facility]. She has a medical history significant for asthma. [facility] because she has been having pain and [...] is overdue for an optometry exam. LUI WASHINGTON, FLAKITA [address], [place], [address], [place] [facility] 01/21/2020 14:50:32 06/08/2020 text/html General HPI Template [...] with similar rash. Feel well overall. MARIANA HORTENCIAREIRA, DIGESTER [address], [place], [address], [place] [facility] 06/08/2020 20:48:14 OBGyn Episode No OBEpisode recorded.
== END 2025-01-09 13:22 | disposition home or self-care (01) ==
LOC: HO.MAMMO 13:21
PROVIDERS: PCP Nurse Practitioner Primary Care; Visit Provider Nurse Practitioner Primary Care
DX: Z12.31 Encounter for screening mammogram for malignant neoplasm of breast (principal); C50.912 Malignant neoplasm of unspecified site of left female breast; Z85.3 Personal history of malignant neoplasm of breast; Z90.12 Acquired absence of left breast and nipple
CPT/HCPCS: 77063; 77067

== ENCOUNTER → 2025-01-09 14:45 | Outpatient (BNV) | payer MEDICARE, MEDICAID, SELFPAY | PROVIDERS: PCP Nurse Practitioner Primary Care; Visit Provider Radiology Body Imaging | DX: Z12.31 Encounter for screening mammogram for malignant neoplasm of breast (principal) | CPT/HCPCS: 77063; 77067 ==

== ENCOUNTER 2025-01-25 13:28 | Outpatient (AMB) | payer MEDICARE, MEDICAID, SELFPAY ==
[2025-01-25 13:40] VITALS: BP 100/62; PULSE 74; BMI 20.6
--- NOTE | 2025-01-25 13:40 | A.OFFVIS_ITS ---
Vital Signs 01/25/25 13:40 Height 5 ft 2 in Weight 112 lb 6.972 oz BMI 20.6 BP 100/62 Blood Pressure Location Rt brachial Position Sitting Pulse 74 Intake Visit Reasons: 1 year f/up Showroom Consultant Required: No Allergies animal dander Allergy (Verified 01/25/25 13:42) Hives feathers Allergy (Verified 01/25/25 13:42) Hives Seasonal Allergies Allergy (Verified 01/25/25 13:42) Itchy Eyes Medication List - Last Reconciled 01/25/25 by Fariba Kelley, PANTOGRAPH II ENGRAVER-C albuterol sulfate 90 mcg/actuation 1 inh inhalation Q4H PRN atorvastatin 10 mg PO BEDTIME cetirizine (Allergy Relief (cetirizine)) 5 mg PO DAILY PRN epinephrine 0.3 mL IM DAILY furosemide (Lasix) 20 mg PO DAILY ipratropium-albuterol 0.5 mg-3 mg(2.5 mg base)/3 mL 3 mL inhalation Q6H PRN letrozole 2.5 mg PO DAILY metoprolol succinate ER 25 mg PO BEDTIME 90 days minoxidil 1.5 mg PO DAILY qyzwqyfyjwim-ryzw-jhewg acid 18-400 mg-mcg (Centrum Women) 1 tab PO DAILY polymyxin B sulf-trimethoprim 10,000 unit- 1 mg/mL 10,000 drps ophthalmic (eye) DAILY vitamin B complex 1 tab PO DAILY HPI HPI 1 year f/up: Details: Elayne is a 80-year-old female with past medical history of hyperlipidemia, breast cancer s/p mastectomy and chemotherapy, frequent PACs, who presents for follow- up after recent Holter monitor and echocardiogram. Today she reports she has been doing well since her last visit in January 2024. She tells me she has been cancer free for 2 years and would be getting her port removed next week. She did have a viral illness in November and has recovered fully. She feels well with no heart palpitations or beats. No chest discomfort at rest or with activity. No lightheadedness, presyncope, syncope. No shortness of breath, PND orthopnea significant edema. She is undergoing physical therapy for hip osteoarthritis. She is compliant with her medications. [facility] Medical History History of breast cancer History of chemotherapy Arthritis Breast cancer Family history of ovarian cancer Invasive ductal carcinoma of left breast in female Breast calcification, left Diverticulosis Tubular adenoma On beta branden at home Osteoporosis Elevated cholesterol Palpitations History of COVID-19 Aortic regurgitation Asthma Surgical History History of left mastectomy (01/05/23) History of nasal surgery Hx of tonsillectomy Hx of colonoscopy History of repair of retinal tear by laser photocoagulation History of cataract surgery Family History Father No problems noted. Mother Ovarian ca Social History Household Members: None Housing: [facility] Are you a primary physician primary care sports medicine to a significant other at home: No Do you presently have visiting nurse or other home services: No Alcohol intake: current Alcohol intake frequency: holidays/special occasions only Patient Tobacco Use Status: Former Tobacco user Tobacco use type: Cigarette Years Smoked: 25 e-Cigarette/Vaping Use: Never Used Substance Use Type: Marijuana service: No Current occupational status: employed Review of Systems Const All systems reviewed & are unremarkable except as noted in HPI and below ENT Denies dizziness Card Denies chest pain, Denies chest pain at rest, Denies chest pain with activity, Denies rapid heart rate, Denies pedal edema, Denies edema, Denies leg edema, Denies lightheadedness, Denies palpitations, Denies dyspnea, Denies dyspnea on exertion and Denies orthopnea Resp Denies cough, Denies dyspnea and Denies dyspnea on exertion GI Denies hematochezia and Denies change in stool character Musc Denies abnormal gait, Denies limited range of motion, Denies muscle cramps, Denies muscle weakness, Denies numbness, Denies radiating pain into limb, Denies stiffness and Denies tingling Neuro Denies abnormal gait, Denies dizziness, Denies numbness and Denies tingling Endo Denies palpitations Physical Exam Const General: cooperative, healthy appearing, comfortable and no acute distress Orientation/consciousness: patient oriented x3 Neck Neck: Yes normal visual inspection Resp Effort & Inspection: normal respiratory effort Auscultation: clear to auscultation bilaterally, no crackles, no rales, no rhonchi and no wheezes Cardio Rate: regular rate Rhythm: regular rhythm Heart sounds: S1 normal heart sound present, S2 normal heart sound present, no gallops, no murmurs and no rubs Neuro General: patient oriented x3 Extrem General: Yes normal to inspection, No no pedal edema and No calf tenderness Psych Appearance: grossly normal Mental Status: mental status grossly normal Speech and movement: Normal speech and movement present Office Procedures EKG Details: Today, read by me, normal sinus rhythm, rate 74, QTC 410 milliseconds [id number], Complete Assessment & Plan Assessment & Plan (1) PAC (premature atrial contraction): Code(s): I49.1 - Atrial premature depolarization Category: Medical Plan: History palpitations with frequent PACs. Holter monitor done for 3 days starting 09/03/2021 showed sinus rhythm with SVE 18% of the time. She was then started on metoprolol XL 25 mg daily and reported feeling much better with less heart pounding. Holter monitor done on 12/31/2021 showed sinus rhythm with average 68, 32% of the time heart rate less than 60, frequent PACs, 14.7% of time. Holter monitor done 01/02/2025 shows sinus rhythm with average heart rate 70, SVE burden 20%. An echocardiogram done 01/02/2025 shows EF 62%, normal atrial sizes. With her frequent PACs She is at increased risk for developing atrial fibrillation in the future. Instructed to call if she has any issues with heart palpitations. Can obtain an EKG if she does report heart palpitations. Continue metoprolol. Discussed increasing dose and she does not want anything that can make her feel more fatigued. Cardiology follow-up 6 months, sooner if needed. (2) Aortic regurgitation: Code(s): I35.1 - Nonrheumatic aortic (valve) insufficiency Category: Medical Qualifiers: Cardiac valve disease etiology: nonrheumatic Qualified Code(s): I35.1 - Nonrheumatic aortic (valve) insufficiency Plan: Echocardiogram done 10/08/2022 shows EF 62%, moderate calcification of the aortic valve, mild aortic regurgitation, moderate mitral annular calcification. Echo 01/02/2025 shows EF 62%, moderate calcification of the aortic valve with no significant stenosis, moderate posterior mitral annular calcification. (3) Elevated blood pressure reading: Code(s): R03.0 - Elevated blood-pressure reading, without diagnosis of hypertension Category: Medical Plan: Blood pressure goal less than 130/80. Normal range at this time. Continue metoprolol. Plan I had a detailed discussion with the patient regarding her frequent PACs. I explained that her recent Holter monitor showed a 20% burden of these beats, which can vary day to day, and that her recent illness could have made her heart more 'jumpy'. I reviewed her echocardiogram results, reassuring her that her heart function is strong, the atria are of normal size, and the mild calcification on her aortic and mitral valves is not causing any significant problems. We discussed that while PACs themselves do not increase stroke risk, they do increase the risk of developing atrial fibrillation (AFib), a condition that does carry a stroke risk. I educated her on the symptoms of AFib, such as a fa st, irregular heartbeat, and advised her to call us if she experiences different or new palpitations. We considered increasing her metoprolol dose to better control the PACs, but she preferred to avoid the potential side effect of increased fatigue, and since she is largely asymptomatic with a structurally normal heart, we agreed to maintain her current 25 mg dose. I also informed her that metoprolol can reduce the effectiveness of her EpiPen and we will reconsider her medication at a future visit, possibly switching to diltiazem. She has the Epipen for bee sting allergies and tells me she has not ever used it or been stung in the last 20 years. I plan for her to follow up in six months with Dr. Hilton. Patient Instructions: - Continue taking your current dose of metoprolol XL 25 mg once a day. - It is okay to continue with your current medication because your heart is strong and the extra heartbeats are not causing you any major problems. - Please call our office if you start to feel new or different heart palpitations, or if your heart feels like it is beating very fast and irregularly. - You can check your pulse at home. If you notice the number is high (over 100) and bouncing around a lot, please let us know as this could be a sign of a rhythm problem called atrial fibrillation. - Continue to avoid caffeine, as it can make your heart feel more jumpy. - Please be aware that your heart medication, metoprolol, can make your EpiPen for bee stings less effective. - Schedule a follow-up appointment in six months to see Dr. Hilton. Patient was informed and verbally consented to the use of an ambient scribe for clinic note documentation during this visit. Visit time spent on chart review, interview, assessment, orders, documentation. Coding Level of Care Code Est Pt Level 4 (19694) Add On Problem Visit Only Diagnoses PAC (premature atrial contraction) I49.1 Nonrheumatic aortic valve insufficiency I35.1 Cardiac valve disease etiology: nonrheumatic Elevated blood pressure reading R03.0 CPT Codes EKG - CPT: 94295-Mpcivuqviypebzqhf, Complete ([id number]) Time Spent (min) 28
== END 2025-01-25 14:14 | disposition home or self-care (01) ==
LOC: HO.HCS 13:29
PROVIDERS: PCP Nurse Practitioner Primary Care; Visit Provider Nurse Practitioner Family
DX: I49.1 Atrial premature depolarization (principal); I35.1 Nonrheumatic aortic (valve) insufficiency; R03.0 Elevated blood-pressure reading, without diagnosis of hypertension
CPT/HCPCS: 93010; 99214; G2211

== ENCOUNTER → 2025-01-25 13:28 | Outpatient (BNVA) | payer MEDICARE, MEDICAID, SELFPAY | PROVIDERS: PCP Nurse Practitioner Primary Care; Visit Provider Nurse Practitioner Family | DX: I35.1 Nonrheumatic aortic (valve) insufficiency (principal); I49.1 Atrial premature depolarization; R03.0 Elevated blood-pressure reading, without diagnosis of hypertension | CPT/HCPCS: 93005; 99212 ==

== ENCOUNTER 2025-02-01 09:01 | Day surgery (SDC) | payer MEDICARE, MEDICAID, SELFPAY ==
[2025-02-01] VITALS (12 sets, daily range): BP systolic 98–131; BP diastolic 47–69; PULSE 60–81; RESP 9–16; TEMP 36.9–37.4; O2SAT 95–99; BMI 20.3
--- NOTE | ~2025-02-01 | IR_ITS ---
EXAMINATION: Removal of tunneled catheter. CLINICAL INDICATION: Tunnel catheter is not needed anymore. Inserted 07/14/2022. PROCEDURE: Following explaining removal of tunneled catheter procedure, benefits and risk, a written consent was obtained. The anterior of the tunnel catheter on the right anterior chest wall was cleaned and draped in usual sterile manner. 1% lidocaine was inserted above the port chamber. A small skin incision was performed at this site. The area was dissected and further lidocaine was inserted subcutis 3 and underneath and on the side of port chamber. Blunt dissection was carried out all around the chidi catheter chamber and the port was gently pulled out making. Images were obtained before and after dimension of the entire port is out. Absorbable 3 0 sutures were placed initially and subsequently an on the skin followed by a Dermabond along the skin margin. Sterile dressing applied post procedure. Patient tolerated procedure extremely well. FINDINGS/ IR/IR cvc remove tunnel w prt/security developer IMPRESSION: Successful removal of tunnel catheter under local anesthesia. There is no bleeding seen. Electronically signed by: Farzad Jones MD 02/06/2025 09:15 AM DENIS TURNER
[2025-02-01 09:49] LABS: INTERNATIONAL NORM RATIO 1.1 (0.9-1.1); Prothrombin Time 13.2 SEC (11.2-13.5)
== END 2025-02-01 13:40 | disposition home or self-care (01) ==
PROVIDERS: Radiology Diagnostic Radiology; PCP Nurse Practitioner Primary Care; Visit Provider Internal Medicine
PROC: (CPT 36590; principal; 2025-02-01 10:30)
DX: Z45.2 Encounter for adjustment and management of vascular access device (principal); C50.912 Malignant neoplasm of unspecified site of left female breast; Z17.0 Estrogen receptor positive status [ER+]; Z17.21 Progesterone receptor positive status; Z17.31 Human epidermal growth factor receptor 2 positive status; Z92.21 Personal history of antineoplastic chemotherapy; Z90.12 Acquired absence of left breast and nipple; Z79.811 Long term (current) use of aromatase inhibitors; M81.0 Age-related osteoporosis without current pathological fracture; I35.1 Nonrheumatic aortic (valve) insufficiency; E78.00 Pure hypercholesterolemia, unspecified; R00.2 Palpitations; J45.909 Unspecified asthma, uncomplicated; Z79.899 Other long term (current) drug therapy; Z87.891 Personal history of nicotine dependence
CPT/HCPCS: 36415; 36590; 85610; 99152; J0690; J1644; J2003; J2250; J3010

== ENCOUNTER → 2025-02-01 10:46 | Outpatient (BNV) | payer MEDICARE, MEDICAID, SELFPAY | PROVIDERS: PCP Nurse Practitioner Primary Care; Visit Provider Radiology Diagnostic Radiology | DX: Z45.2 Encounter for adjustment and management of vascular access device (principal) | CPT/HCPCS: 36590 ==

== ENCOUNTER 2025-02-13 13:52 | Outpatient (REF) | payer MEDICARE, MEDICAID, SELFPAY ==
--- NOTE | 2025-02-13 | PFT_ITS ---
Spirometry [] Lung Volumes [] Diffusion Capacity [] Methacholine Challenge [] Flow Volume Loops [] MVV [] MIP/MEP(Max inspiratory pressure/Max expiratory pressure) [] 6 Minute Walk Test [] ABG [] Interpretation [] MTDD
[2025-02-13 14:39] VITALS: PULSE 85; O2SAT 98
--- OUTSIDE RECORDS SUMMARY | 2025-02-13 17:40 | XMS_ITS | Encounter Summary ---
Author Organization [email or web address] Address [address] [place] [address] Care Team Providers Care Bar Manager Name Role Phone Janine Chester Primary Care Provider [phone] Reason for Visit * Reason Onset Date Comments chart prep 02/13/2025 Encounter Details Date Type Department Care Team ([facility] st Contact Info) Description 02/13/2025 Telephone [facility] MEDICINE [address], [place] [phone] Janine Chester ANP [address] [place], [place] [phone] chart prep Social History Tobacco Use Types Packs/Day Years [...] encounter Miscellaneous Notes * Telephone Encounter - Ochoa Oakley [place] - 02/13/2025 12:50 PM EST Chart Prep Labs: done Images: done Referrals: complete Vaccines due: no updates Screenings: none Overdue care gaps: Oral health screening and Disability screen documented in this encounter Plan of Treatment Upcoming Encounters Date Type Department Care Team (Late st Contact Info) Description 02/20/2025 2:15 PM EST Office Visit [facility] MEDICINE [address] [place] [id number] Janine Chester ANP [address] [place] [address] documented as of this encounter Visit Diagnoses Not on filedocumented in this encounter Additional Health Concerns Assessment Noted Time PHQ-9 Depression Total Score: 0 07/06/19 24 2:10 PM EDT documented as of this encounter Care Teams Bar Manager Relationship Specialty Start Date End Date Janine Chester ANP [address] [place] [id number] PCP - General Family Medicine 10/07/20 documented as of this encounter
--- OUTSIDE RECORDS SUMMARY | 2025-02-13 17:40 | XMS_ITS | Clinical Summary ---
Author Organization [employer] Address [address] [place] [address] Care Team Providers Care Insulation Manager Name Role Phone Harry Ceron TAYLOR Primary Care Provider [phone] Allergies Active Allergy Reactions Criticality Noted Date [...] Invasive ductal Following w/ Dr. 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 Stereotactic core biopsy performed 06/25/2022 revealed invasive ductal carcinoma, MS BR grade 3 along with DCIS, solid and comedo features. Immunostains revealed estrogen receptor positive- 95%, progesterone receptor positive-50%, HER2 positive 3+, Ki 67 high greater than 20%. Clinical stage T3 N0, stage IIB. [facility] genetic result was negative. Bilateral [...] b.i.d.. She completed Evenity via Endo at [facility], transitioned to alendronate 12/2023. Her most recent DEXA scan 11/2023 was consistent with osteopenia -lowest T-score -2.0. This is a huge improvement! Asthma 06/08/2020 Generalized rash 06/08/2020 Encounters Date Type Department Care Team Description 02/13/2025 Telephone [facility] [place] [address] Harry Ceron ANP chart prep 02/13/2025 Travel 02/01/2025 Orders Only GENERIC EXTERNAL DATA DEPARTMENT Provider, Generic External Data 01/09/2025 Orders Only [facility] [place] [address] Harry Ceron ANP 12/21/2024 2:30 PM EST Immunization [facility] [place] [address] Rashmi Montero, JENNI Encounter for immunization 12/21/2024 Travel 12/18/[address] [facility] [place] [address] Harry Ceron ANP 12/14/2024 Travel 12/08/2024 Telephone [facility] [place] [place] [address] Harry Ceron ANP February12/07/2024 2:30 PM EDT Immunization [facility] MEDICINE [address] [place] [address] Aniyah Foster RN Encounter for vaccination 12/07/2024 Travel 11/30/2024 Travel 11/21/2024 2:15 PM EDT Office Visit [facility] MEDICINE [address] [place] [address] Harry Ceron ANP Mild intermittent asthma with acute exacerbation (Primary Dx); Elevated BP without diagnosis of hypertension; Mild intermittent asthma without complication 11/21/2024 Travel 11/20/[address] [address] Harry Ceron ANP chart prep 11/15/2024 Orders Only [address] [address] Tommie Arceo MD 11/15/[address] [address] Harry Ceron ANP 11/14/2024 10:40 AM EDT Office Visit [facility] WALK[facility]IN [facility]ENTER [address] [place] [address] Tommie Arceo MD Acute cough (Primary Dx); Mild intermittent asthma with acute exacerbation; Acute URI; Wheezing 11/14/2024 Patient Outreach [address] [address] Harry Ceron ANP Pre-visit Planning (Pre visit planning LVM ) 11/14/2024 Travel 11/14/[address] [address] Harry Ceron ANP Nurse Triage from Last [...] is your housing situation today? I have donatoashu roche 07/28/[address] you [...] 2:15 PM EST Office Visit [facility] MEDICINE [address], [place] [phone] Harry Ceron, ANP [address] [place], [place] [phone] Health Maintenance Due Date Last Done Comments COVID-19 Vaccine ( season) 2025 12/07/2024, 05/18/2024, 11/17/2023, Additional history exists Alcohol/Substance Use Screening 07/28/2025 07/28/2024 Depression Screening 07/28/2025 07/28/2024, 07/06/19 24 SDOH Screening 07/28/2025 07/28/2024 Tobacco Screening 11/21/2025 11/21/2024 Mammogram 01/09/2026 01/09/2025, 10/17, 11/02/2022, Additional history exists DTaP/Tdap/Td Vaccines (2 - Td or Tdap) [...] Procedure Name Priority Date/Time Associated Diagnosis Comments IR CVC REMOVE TUNNEL W PRT/CONTINGENTS SUPERVISOR Routine 02/01/2025 10:45 AM EST PROTHROMBIN TIME-INR Routine 02/01/2025 9:20 AM EST BI MAMMOGRAM SCREENING TOMOSYNTHESIS RIGHT Routine 01/09/2025 1:30 PM EST XR CHEST 2 VIEWS Routine 11/14/2024 11:5 0 AM EDT Acute cough POCT INFLUENZA B (ID NOW RAPID MOLECULAR) Routine 11/14/2024 11:12 AM EDT Acute URI POCT INFLUENZA A (ID NOW RAPID MOLECULAR) Routine 11/14/2024 11:12 AM EDT Acute URI POCT RAPID STREP A Routine 11/14/2024 11 :12 AM EDT Acute URI POCT RAPID COVID ANTIGEN Routine 11/14/2024 11:12 AM EDT Acute URI HEPATITIS C ANTIBODY Routine 06/17/2022 12:23 PM EDT from Last 3 Months or Most Recently Relevant to Health Maintenance Results * IR CVC REMOVE TUNNEL W PRT/CONTINGENTS SUPERVISOR (02/01/2025 10:45 AM EST) Anatomical Region Laterality Modality X-Ray Angiograph y 02/01/2025 10:4 5 AM EST Narrative 02/06/2025 9:18 AM EST [place] [address] Interventional Radiology Rpt Signed Patient: Elayne Lundy MR#: [id number] : 1945 Acct:[id number] Age/Sex: 80 / F ADM Date: 02/01/25 Loc: [facility] Attending Dr: Ursula Valdez MD Ordering Physician: Ursula Valdez MD Date of Service: 02/01/25 Procedure(s): IR cvc remove tunnel w prt/addictions therapist Accession Number(s): [id number] cc: Ursula Valdez MD; HARRY CERON NP Reason for Exam: No longer required EXAMINATION: Removal of tunneled catheter. CLINICAL INDICATION: Tunnel catheter is not needed anymore. Inserted 07/14/2022. PROCEDURE: Following explaining removal of tunneled catheter procedure, benefits and risk, a written consent was obtained. The anterior of the tunnel catheter on the right anterior chest wall was cleaned and draped in usual sterile manner. 1% lidocaine was inserted above the port chamber. A small skin incision was performed at this site. The area was dissected and further lidocaine was inserted subcutis 3 and underneath and on the side of port chamber. Blunt dissection was carried out all around the chidi catheter chamber and the port was gently pulled out making. Images were obtained before and after dimension of the entire port is out. Absorbable 3 0 sutures were placed initially and subsequently an on the skin followed by a Dermabond along the skin margin. Sterile dressing applied post procedure. Patient tolerated procedure extremely well. FINDINGS/ IR/IR cvc remove tunnel w prt/addictions therapist IMPRESSION: Successful removal of tunnel catheter under local anesthesia. There is no bleeding seen. Electronically signed by: Farzad Jones MD 02/06/2025 09:15 AM EST Dictated By: Farzad Jones MD Signed By: <Electronically signed by Farzad Jones MD in OV> 02/06/25 0915 DD/ 1045 TD/TT: 02/01/25 1135 [employer] Reclamation Engineer: [facility] Procedure Note Donotuseinterpreter, Image - 02/06/2025 [place] [address] Interventional Radiology Rpt Signed Patient: Elayne LundyMR#: [id number] : 7Acct:[id number] Age/Sex: 80 / FADM Date: 02/01/25 Loc: [facility] Attending Dr: Ursula Valdez MD Ordering Physician: Ursula Valdez MD Date of Service: 02/01/25 Procedure(s): IR cvc remove tunnel w prt/addictions therapist Accession Number(s): [id number] cc: Ursula Valdez MD; HARRY CERON NP Reason for Exam: No longer required EXAMINATION: Removal of tunneled catheter. CLINICAL INDICATION: Tunnel catheter is not needed anymore. Inserted 07/14/2022. PROCEDURE: Following explaining removal of tunneled catheter procedure, benefits and risk, a written consent was obtained. The anterior of the tunnel catheter on the right anterior chest wall was cleaned and draped in usual sterile manner. 1% lidocaine was inserted above the port chamber. A small skin incision was performed at this site. The area was dissected and further lidocaine was inserted subcutis 3 and underneath and on the side of port chamber. Blunt dissection was carried out all around the chidi catheter chamber and the port was gently pulled out making. Images were obtained before and after dimension of the entire port is out. Absorbable 3 0 sutures were placed initially and subsequently an on the skin followed by a Dermabond along the skin margin. Sterile dressing applied post procedure. Patient tolerated procedure extremely well. FINDINGS/ IR/IR cvc remove tunnel w prt/addictions therapist IMPRESSION: Successful removal of tunnel catheter under local anesthesia. There is no bleeding seen. Electronically signed by: Farzad Jones MD 02/06/2025 09:15 AM EST RP Dictated By: Farzad Jones MD Signed By: <Electronically signed by Farzad Jones MD in OV> 02/06/25 0915 DD/ 1045 TD/TT: 02/01/25 1135 [employer] Fuels Reclamation Engineer: [facility] External Provider IMG IR PROCEDURES Edited Result - Final * Prothrombin Time-INR (02/01/2025 9:20 AM EST) Prothrombin Time 13.2 11.2 - 13.5 SEC [facility] INTERNATIONAL NORM RATIO 1.1 0.9 - 1.1 [facility] Comment:INTERNATIONAL NORMAL IZED RATIO (INR) REFERENCE RANGES Reference RangeFor patients not on anticoagulant therapy: 0.9 - 1.1INR ranges for oral anticoagulanttherapy:For prevention and treatment of venous thrombosis and pulmonary embolism: 2.0 - 3.0For acute myocardial infarction with aspirin therapy: 2.0 - 3.0For acute myocardial infarction without aspirin therapy: 3.0 - 4.0For patients with mechanical prosthetic heart valves: 2.5 - 3.5 02/01/2025 9:20 AM EST 02/01/2025 9:22 AM EST Generic External Data Provider LAB BLOOD ORDERAB LES Final Result [facility] [address] [place] [address] [phone] * BI Mammogram Screening Tomosynthesis Right (01/09/2025 1:30 PM EST) Anatomical Region Laterality Modality Breast Right Mammography 01/09/2025 1:30 PM EST Narrative 01/09/2025 8:26 PM EST [facility] [address] [place] [address] Mammography Report Signed Patient: Elayne Lundy MR#: [id number] : 1945 Acct:[id number] Age/Sex: 79 / F ADM Date: 01/09/25 Loc: HO.MAMMO Attending Dr: Harry Ceron NP Ordering Physician: HARRY CERON NP Results: 2Benign Date of Service: 01/09/25 Follow Up: 1 Year From Orig ina Mammogram Procedure(s): MM tomosynthesis screening RT Accession Number(s): [id number] cc: HARRY CERON NP Reason For Exam: SCREENING EXAMINATION: MM SCREENING DIGITAL BREAST TOMOSYNTHESIS, RIGHT CLINICAL INFORMATION: Screening. Asymptomatic. Personal history of left mastectomy for breast cancer (invasive ductal carcinoma diagnosed in June 2022). Ultrasound-guided stereotactic needle core biopsy of the right breast on July 15, 2022 (cylinder shape [employer]); pathology results showed benign breast tissue with fibrocystic changes and calcifications. COMPARISON: Comparison made to multiple prior, most recent November 05, 2023, and most remote November 20, 2020. TECHNIQUE: Digital breast tomosynthesis is performed in mediolateral oblique and craniocaudal views along with computer-aided detection (CAD). Synthesized 2D images are generated from the tomosynthesis. FINDINGS: BREAST COMPOSITION: The breasts are heterogeneously dense, which may obscure small masses. RIGHT BREAST: Tissue marker from previous needle core biopsy. No significant masses, suspicious calcifications or other abnormalities are seen. MM/MM tomosynthesis screening RT IMPRESSION: BILATERAL BREASTS: Benign, no mammographic evidence of malignancy. Normal interval follow-up is recommended in 12 months. ASSESSMENT: BI-RADS: Category 2: Benign RECOMMENDATION: Routine annual mammography screening. FOLLOW-UP: 1 year F/U This examination should not preclude the clinical evaluation of a suspicious palpable abnormality. This patient's information was entered into a reminder system with a target due date for their next mammogram. Electronically signed by: Marcelino Wong MD 01/09/2025 08:23 PM [facility] Dictated By: Marcelino Wong MD Signed By: <Electronically signed by Marcelino Wong MD in OV> 01/09/252022 DD/ 1330 TD/TT: 01/09/25 1350 [employer] Fuels Reclamation Engineer: Procedure Note Donotuseinterpreter, Image - 01/09/2025 [facility] [address] [place] [address] Mammography Report Signed Patient: Elayne LundyMR#: [id number] : 7Acct:[id number] Age/Sex: 79 / FADM Date: 01/09/25 Loc: HO.MAMMO Attending Dr: Harry Ceron NP Ordering Physician: HARRY CERON NPResults: 2Benign Date of Service: 01/09/25Follow Up: 1 Year From Orig inal Mammogram Procedure(s): MM tomosynthesis screening RT Accession Number(s): [id number] cc: HARRY CERON NP Reason For Exam: SCREENING EXAMINATION: MM SCREENING DIGITAL BREAST TOMOSYNTHESIS, RIGHT CLINICAL INFORMATION: Screening. Asymptomatic. Personal history of left mastectomy for breast cancer (invasive ductal carcinoma diagnosed in June 2022). Ultrasound-guided stereotactic needle core biopsy of the right breast on July 15, 2022 (cylinder shape [employer]); pathology results showed benign breast tissue with fibrocystic changes and calcifications. COMPARISON: Comparison made to multiple prior, most recent November 05, 2023, and most remote November 20, 2020. TECHNIQUE: Digital breast tomosynthesis is performed in mediolateral oblique and craniocaudal views along with computer-aided detection (CAD). Synthesized 2D images are generated from the tomosynthesis. FINDINGS: BREAST COMPOSITION: The breasts are heterogeneously dense, which may obscure small masses. RIGHT BREAST: Tissue marker from previous needle core biopsy. No significant masses, suspicious calcifications or other abnormalities are seen. MM/MM tomosynthesis screening RT IMPRESSION: BILATERAL BREASTS: Benign, no mammographic evidence of malignancy. Normal interval follow-up is recommended in 12 months. ASSESSMENT: BI-RADS: Category 2: Benign RECOMMENDATION: Routine annual mammography screening. FOLLOW-UP: 1 year F/U This examination should not preclude the clinical evaluation of a suspicious palpable abnormality. This patient's information was entered into a reminder system with a target due date for their next mammogram. Electronically signed by: Marcelino Wong MD 01/09/2025 08:23 PM EST RP Dictated By: Marcelino Wong MD Signed By: <Electronically signed by Marcelino Wong MD in OV> 01/09/252022 DD/ 1330 TD/TT: 01/09/25 1350 [employer] Fuels Reclamation Engineer: us Harry Ceron ANP IMG BI PROCEDURES Final Result * XR Chest 2 Views (11/14/2024 11:50 AM EDT) Anatomical Region Laterality Modality Chest Radiographic Nilam ging 11/14/2024 11:5 0 AM EDT Narrative 11/14/2024 12:35 PM EDT [address] [address] XRay Report Signed Patient: Elayne Lundy MR#: [id number] : 1945 Acct:[id number] Age/Sex: 79 / F ADM Date: 11/14/24 Loc: HO.[facility] Attending Dr: Tommie Arceo MD Ordering Physician: TOMMIE ARCEO MD Date of Service: 11/14/24 Procedure(s): XR chest 2V Accession Number(s): [id number] cc: TOMMIE ARCEO MD Reason for Exam: [...] 11/14/24 1232 DD/ 1150 TD/TT: 11/14/24 1154 [employer]els Reclamation Engineer: Procedure Note Donotuseinterpreter, Image - 11/14/[address] [address] XRay Report Signed Patient: Elayne LundyMR#: [id number] : 1945cct:[id number] Age/Sex: 79 / FADM Date: 11/14/24 [facility]: Tommie Arceo MD Ordering Physician: TOMMIE ARCEO MD Date of Service: 11/14/24 Procedure(s): XR chest 2V Accession Number(s): [id number] cc: TOMMIE ARCEO MD Reason for Exam: [...] 11/14/24 1232 DD/ 1150 TD/TT: 11/14/24 115 [employer] Reclamation Engineer: Tommie Arceo MD IMG XR PROCEDURES Final Result * Influenza B (ID NOW Rapid Molecular) (11/14/2024 11:12 AM EDT) Influenza B Negative Negative, Indeterminate [facility] Swab 11/14/2024 11:1 2 AM EDT us Tommie Arceo MD POINT OF CARE TEST ENTER/EDIT OR DERABLES Final Result Performing Organization Address [facility] Co de Phone Number [facility] [address] [place] [phone] * Influenza A (ID NOW Rapid Molecular) (11/14/2024 11:12 AM EDT) Pathologist [facility] Influenza A Negative Negative, Indeterminate [facility] Swab 11/14/2024 11:1 2 AM EDT us Tommie Arceo MD POINT OF CARE TEST ENTER/EDIT OR DERABLES Final Result Performing Organization Address [facility] de Phone Number [facility] [address] [place] [phone] * POCT Rapid COVID Ag (11/14/2024 11:12 AM EDT) Pathologist [facility] Rapid COVID Ag Negative [facility] Swab 11/14/2024 11:1 2 AM EDT us Tommie Arceo MD POINT OF CARE TEST ENTER/EDIT OR DERABLES Final Result Performing Organization Address [facility] Co de Phone Number [facility] [address] [place] [phone] * POCT rapid strep A manually resulted (11/14/2024 11:12 AM EDT) Pathologist [facility] Rapid Strep A Screen Negative Negative, None Detected [facility] Swab 11/14/2024 11:1 2 AM EDT us Tommie Arceo MD POINT OF CARE TEST ENTER/EDIT OR DERABLES Final Result Performing Organization Address [facility]/ZIP Co de Phone Number [facility] [address] [place] [address] [phone] * Hepatitis C Ab (06/17/2022 12:23 PM EDT) Hepatitis C Antibody Nonreactive Nonreactive [facility] Comment:Antibodies to HCV no t detected; does not exclude early acuteHCV infection. 06/17/2022 12:2 3 PM EDT 06/17/2022 12:23 PM EDT us [facility] External Provider LAB BLO OD ORDERABLES Final Result [facility] [address] [place] [address] [phone] from Last 3 Months or Most Recently Relevant to Health Maintenance Insurance [facility] [place] [address] [facility] F[facility] Care Teams Insulation Manager Relationship Specialty Start Date End Date Harry Ceron ANP [address] [place] [address] [place] [address] PCP - General Family Medicine 10/07/20
--- OUTSIDE RECORDS SUMMARY | 2025-02-13 17:40 | XMS_ITS | Encounter Summary ---
Author Organization [employer] Address [address] [place] [address] Care Team Providers Care Chief Gauger Name Role Phone Janine Chester TAYLOR Primary Care Provider [phone] Encounter Details Date Type Department Care Team (Latest Contact Info) Description 02/13/2025 Travel Social History Tobacco Use Types Packs/Day [...] Description 02/20/2025 2:15 PM EST Office Visit [facility] MEDICINE [address] [place] [phone] Janine Chester ANP [address] [place] [phone] documented as of this encounter Visit Diagnoses Not on filedocumented in this encounter Additional Health Concerns Assessment Noted Time PHQ-9 Depression Total Score: 0 07/06/19 24 2:10 PM EDT documented as of this encounter Care Teams Chief Gauger Relationship Specialty Start Date End Date Janine Chester ANP [address] [place] [phone] PCP - General Family Medicine 10/07/20 documented as of this encounter
--- OUTSIDE RECORDS SUMMARY | 2025-02-13 17:40 | XMS_ITS | Encounter Summary ---
Author Organization [employer] Address [address] [place] [address] Care Team Providers Care Cardroom Drawing Runner Name Role Phone Janine Chester Primary Care Provider [phone] Reason for Visit * Reason Comments Med Refill Encounter Details Date Type Department Care Team (Late st Contact Info) Description 10/27/[address] [facility] MED[facility]INE [address] [place], [place] [phone] Janine Chester ANP [address] [place], [place] [phone] Leg swelling Social History Tobacco Use Types [...] 2:15 PM EST Office Visit [facility] [address] [place] [phone] Janine Chester ANP [address] [place] [phone] documented as of this encounter Visit Diagnoses Diagnosis Leg swelling Swelling of limb documented in this encounter Additional Health Concerns Assessment Noted Time PHQ-9 Depression Total Score: 0 07/06/19 24 2:10 PM EDT documented as of this encounter Care Teams Cardroom Drawing Runner Relationship Specialty Start Date End Date Janine Chester ANP [address] [place] [phone] PCP - General Family Medicine 10/07/20 documented as of this encounter
--- OUTSIDE RECORDS SUMMARY | 2025-02-13 17:40 | XMS_ITS | Encounter Summary ---
Author Organization [employer] Address [address] [place] [address] Care Team Providers Care Application Software Developer Name Role Phone Janine Chester Primary Care Provider Reason for Visit * Reason Comments Med Refill Encounter Details Date Type Department Care Team ([facility] st Contact Info) Description 01/13/2024 Refill [facility] [address] [place], [place] [phone] Janine Chester ANP [address] [facility] [place] [address] Dyslipidemia Social History Tobacco Use Types Packs/Day [...] Description 02/20/2025 2:15 PM EST Office Visit [facility] [address] [place] [phone] Janine Chester ANP [address] [place] [address] documented as of this encounter Visit Diagnoses Diagnosis Dyslipidemia Other and unspecified hyperlipidemia documented in this encounter Additional Health Concerns Assessment Noted Time PHQ-9 Depression Total Score: 0 07/06/19 24 2:10 PM EDT documented as of this encounter Care Teams Application Software Developer Relationship Specialty Start Date End Date Janine Chester ANP [address] [place] [phone] PCP - General Family Medicine 10/07/20 documented as of this encounter
--- OUTSIDE RECORDS SUMMARY | 2025-02-13 17:41 | XMS_ITS | Data Portability ---
Author Organization [place] [facility], [facility] Address [address] [place] [address] Care Team Providers Care Software Test Specialist Name Role Phone YOAV, MARLENE Primary Care [...] after care of this patient according to [facility]'s infection prevention protocols. [email or web address] Not available 01/21/2020 14:50:24 06/08/2020 06/08/2020 Overview/History: [...] tablets in a dose pack 2020 021 [id number], [address] [place], [place], [id number], 15:17:58 prednisone 10 mg tablet 2020 021 [facility][id number], [address] [place] [address], [place], [id number], 16:00:53 Patient Targets Encounter Date Encounter Id Patient Goals Patient Target Last Modified By Organization Details Last Modified Time 06/08/2020 [id number] Rash and associated discomfort will clear within 3-5 days. [email or web address] Not available 06/08/2020 20:47:18 Patient Instructions Encounter Date Encounter Id Patient Instructions Last Modified By Organization Details Last Modified Time 01/21/2020 [id number] styes and chalazia: care instructions [email or web address] Not available 01/21/2020 14:32:36 WE CAME TO [...] condition between 8am-10pm, please call [facility] at [phone] to help navigate your care. Not available 01/21/2020 14:35:57 06/08/2020 [id number] Thank you for yo ur visit with [...] condition between 8am-10pm, please call [facility] at [phone] to help navigate your care. Please seek [...] condition between 8am-10pm, please call [facility] at [phone] to help navigate your care. [email or web address] Not available 06/08/2020 20:47:42 Reason for Referral None Reported. Problems Name Problem SNOMED Code Status Onset Date Resolution Date Notes Provider Name and Address Organization Details Recorded Time Generalized rash 015724709 Active 2020 MARIANA HINES NP [address] [facility] [place], [address], [place] [facility] 15:18:48 Asthma 130891387 Active 2020 MARIANA HINES NP [address] [facility] [place], [address], [place] [facility] 20:18:47 Problem Notes [...] Smoker LUI WASHINGTON NP [address], [place], [address], [place] [facility] 01/21/2020 14:25:29 Do You Have An Advance Directive? No [email or web address] Information not available 01/21/2020 What Is Your Code Status? Full Code [email or web address] Information not available 01/21/2020 Within The Past 12 Months, Has It Happened That The Food You Bought Just Didn't Last And You Didn't Have Money To Get More. No [email or web address] Information not available 01/21/2020 Within The Past 12 Months, Have You Worried That Your Food Would Run Out Before You Got Money To Buy More. No [email or web address] Information not available 01/21/2020 Fall Risk: Do You Feel Unsteady When Standing Or Walking? No [email or web address] Information not available 01/21/2020 We Know That How And When People Interact With Friends And Family Can Be Very Different From Person To Person. How Often Do You Have The Opportunity To See Or Talk To People That You Care About And Feel Close To? (Ex: Talking To Friends On The Phone Or Visiting Friends Or Family Or Going To Gnosticism Or Club Meetings) 3 Or 4 Times Per Week [email or web address] Information not available 01/21/2020 We Know From Many Of Our Patients That Covering All Of Their Costs Can Be Difficult At Times. This Can Cause Stress And Impact Health. In The Past Year, Have You Been Unable To Get Any Of The Following When It Was Really Needed? No Information not available 01/21/2020 What Is Your Housing Situation Today? I Have Housing [email or web address] Information not available 01/21/2020 Would You Like Help Connecting To Resources? None [email or web address] Information not available 01/21/2020 How Much Tobacco Do You Smoke? 2 PPW [email or web address] Information not available 01/21/2020 Sex: Unknown Functional [...] dose 05/19/2020 completed MARIANA HINES NP [address] [place], [address], [place] [facility] 06/08/2020 20:19:30 Past Encounters Encounter ID Performer Location Encounter Start Date Encounter Closed Date Diagnosis/Indication Diagnosis SNOMED-CT Code Diagnosis ICD10 Code Diagnosis IMO Codes Diagnosis Note [id number] LUI WASHINGTON NP [facility] [address] [place] [address] 01/21/2020 14:21:00 01/22/2020 15:20:23 Hordeolum externum of right eyelid [id number] 50296 H00.013 [id number] MARIANA HINES NP [facility] [place] [address] [place] [address] 06/08/2020 15:06:57 06/09/2020 10:42:33 Generalized rash 668793120 R21 Health Concerns Section Related Observation LastModified by Organization Detai ls LastModified Time None Recorded Concern Status LastModified by Organization Details LastModified Time None Recorded Advance Directives Directive N: Payers Insurance Date Sequence Insurance Name Policy Number Policy Person Covered Member ID Person Member ID Guarantor Name 01/21/2020 2 [facility] (MEDICAID HMO) [id number] Elayne Lundy [id number] Elayne Lundy 01/21/2020 1 *SELF PAY* Elayne Lundy [id number] Elayne Lundy 06/08/2020 1 [facility] (MEDICARE REPLACEMENT/A DVANTAGE - HMO) [id number] Elayne Lundy [id number] Elayne Lundy 04/03/[address] [facility] [place] [facility] [place] ([place]ICAID HMO) [id number] Elayne Lundy [id number] Elayne Lundy 01/22/2020 1 MEDICARE B-[place]: [facility] Elayne Lundy [id number] Elayne uLndy Notes Date Note Type Note Provider Name and Address Organization Details Recorded Time 01/21/2020 text/html General HPI Template - DHReported by Patient This is a 72-year-old female that is a new patient who [facility]. She has a medical history significant for asthma. [facility] been having [facility] and [...] exam. LUI WASHINGTON, FLAKITA [address], [place], [address], [place] [facility] 01/21/2020 14:50:32 06/08/2020 text/html General HPI Template [...] similar rash. Feel well overall. MARIANA HORTENCIAREIRA, JAVA APPLICATION DEVELOPER [address], [place], [address], [place] [facility] 06/08/2020 20:48:14 OBGyn Episode No OBEpisode recorded.
--- OUTSIDE RECORDS SUMMARY | 2025-02-13 17:41 | XMS_ITS | Encounter Summary ---
Author Organization [employer] Address [address] [place] [address] [address] [place] [address] Care Team Providers Care Dump Truck Operator Name Role Phone Janine Chester Primary Care Provider [phone] Encounter Details Date Type Department Care Team (Late st Contact Info) Description 03/06/2022 Orders Only [facility] [address] [place] [phone] Jamilah Preston LPN Social History Tobacco Use [...] 02/20/2025 2:15 PM EST Office Visit [facility] [address] [place] [address] Janine Chester ANP [address] [place] [address] documented as of this encounter Visit Diagnoses Not on filedocumented in this encounter Care Teams Dump Truck Operator Relationship Specialty Start Date End Date Janine Chester ANP [address] [place] [address] PCP - General Family Medicine 10/07/20 documented as of this encounter
--- OUTSIDE RECORDS SUMMARY | 2025-02-13 17:41 | XMS_ITS | Encounter Summary ---
Author Organization [employer] Address [address] [place] [address] 7 [place] [address] Care Team Providers Care Laborer Steel Handling Name Role Phone Janine Chester Primary Care Provider [phone] Reason for Visit * Reason Comments Med Refill Encounter Details Date Type Department Care Team (Late st Contact Info) Description 01/29/2022 Refill [facility] PEDS [address] [place], [place] [phone] Janine Chester ANP [address] [place] [address] Dyslipidemia Social History Tobacco Use Types Packs/Day [...] 02/20/2025 2:15 PM EST Office Visit [facility] [address] [place] [address] Janine Chester ANP [address] [place] [address] documented as of this encounter Visit Diagnoses Diagnosis Dyslipidemia Other and unspecified hyperlipidemia documented in this encounter Care Teams Laborer Steel Handling Relationship Specialty Start Date End Date Janine Chester ANP [address] [place] [address] PCP - General Family Medicine 10/07/20 documented as of this encounter
--- OUTSIDE RECORDS SUMMARY | 2025-02-13 17:41 | XMS_ITS | Encounter Summary ---
Author Organization [employer] Address [address] [facility] [address] [place] [address] Care Team Providers Care Applied Biology Professor Name Role Phone Janine Chester Primary Care Provider [phone] Reason for Visit * Reason Onset Date Comments Appointment 04/08/2022 Encounter Details Date Type Department Care Team (Late st Contact Info) Description 04/08/2022 Telephone [facility]INE [address] [place], [place] [phone] Janine Chester ANP [address] [place] [address] Appointment Social History Tobacco Use Types Packs/Day [...] other doctor appts. Please contact pt at [phone] documented in this encounter Plan of Treatment Upcoming Encounters Date Type Department Care Team (Late st Contact Info) Description 02/20/2025 2:15 PM EST Office Visit [facility] [address] [place] [address] Janine Chester ANP [address] [place] [address] documented as of this encounter Visit Diagnoses Not on filedocumented in this encounter Care Teams Applied Biology Professor Relationship Specialty Start Date End Date Janine Chester ANP [address] [place] [address] PCP - General Family Medicine 10/07/20 documented as of this encounter
--- OUTSIDE RECORDS SUMMARY | 2025-02-13 17:41 | XMS_ITS | Encounter Summary ---
Author Organization [employer] Address [address] [facility] [address] 7[address] [place] [address] Care Team Providers Care Data Management Consultant Name Role Phone Janine Chester Primary Care Provider [phone] Reason for Visit * Reason Comments Med Refill Encounter Details Date Type Department Care Team ([facility] st Contact Info) Description 08/04/2024 Refill [facility] [address] [place], [place] [phone] Janine Chester ANP [address] [place], [place] [phone] Wheezing Social History Tobacco Use Types Packs/Day [...] Description 02/20/2025 2:15 PM EST Office Visit [facility] [address] [place] [address] Janine Chester ANP [address] [place] [address] documented as of this encounter Visit Diagnoses Diagnosis Wheezing documented in this encounter Additional Health Concerns Assessment Noted Time PHQ-9 Depression Total Score: 0 07/06/19 24 2:10 PM EDT documented as of this encounter Care Teams Data Management Consultant Relationship Specialty Start Date End Date Janine Chester ANP [address] [place] [address] PCP - General Family Medicine 10/07/20 documented as of this encounter
--- OUTSIDE RECORDS SUMMARY | 2025-02-13 17:41 | XMS_ITS | Encounter Summary ---
Author Organization [employer] Address [address] [facility] 7 [place] [address] Care Team Providers Care Internet Specialist Name Role Phone Janine Chester Primary Care Provider [phone] Encounter Details Date Type Department Care Team (Late st Contact Info) Description 08/07/2022 Abstract [facility] [address] [place] [phone] Janine Chester ANP [address] [place] [phone] Social History Tobacco Use Types Packs/Day Years [...] 02/20/2025 2:15 PM EST Office Visit [facility] [address] [place] [phone] Janine Chester ANP [address] [place] [phone] documented as of this encounter Visit Diagnoses Not on filedocumented in this encounter Care Teams Internet Specialist Relationship Specialty Start Date End Date Janine Chester ANP [address] [place] [address] PCP - General Family Medicine 10/07/20 documented as of this encounter
--- OUTSIDE RECORDS SUMMARY | 2025-02-13 17:41 | XMS_ITS | Encounter Summary ---
Author Organization [employer] Address [address] [facility] [address] 7[address] [place] [address] Care Team Providers Care Director Medical Economics Name Role Phone Janine Chester Primary Care Provider [phone] Reason for Visit * Reason Comments Med Refill Encounter Details Date Type Department Care Team ([facility] st Contact Info) Description 08/04/2024 Refill [facility] MED[facility]INE [address] [place], [place] [phone] Janine Chester ANP [address] [place], [place] [phone] Wheezing Social History Tobacco Use Types Packs/Day [...] Visit [facility] MED[facility]INE [address] [place] [phone] Janine Chester ANP [address] [place] [address] documented as of this encounter Visit Diagnoses Diagnosis Wheezing documented in this encounter Additional Health Concerns Assessment Noted Time PHQ-9 Depression Total Score: 0 07/06/19 24 2:10 PM EDT documented as of this encounter Care Teams Director Medical Economics Relationship Specialty Start Date End Date Janine Chester ANP [address] [place] [address] PCP - General Family Medicine 10/07/20 documented as of this encounter
--- OUTSIDE RECORDS SUMMARY | 2025-02-13 17:41 | XMS_ITS | Clinical Summary ---
Author Organization [facility] Address [address] [facility] [address] [place] [phone] Phone Care Team Providers Care Stock Digger Name Role Phone Krystin Morrow MD Primary [...] REPLACEMENT MEDICARE REPLACEMENT MEDICARE REPLACEMENT MEDICARE [place] [address] [place] [address] MEDICARE REPLACEMENT Care Teams Stock Digger Relationship Specialty Start Date End Date Stedman, Krystin Fernandes MD [address] [place] [phone] PCP - General Family Medicine 07/25/20 Additional Source Comments The information contained in this document represents components of the legal health record. It is not the complete legal health record.[facility]
--- OUTSIDE RECORDS SUMMARY | 2025-02-13 17:41 | XMS_ITS | Encounter Summary ---
Author Organization [employer] Address [address] [facility] 7t [place] [address] Care Team Providers Care Dye Beck Reel Operator Name Role Phone Nemo Janine VAZQUEZ Primary Care Provider [phone] Encounter Details Date Type Department Care Team ([facility] st Contact Info) Description 03/29/2023 Orders Only [facility] MED & PEDS [address] [place], [place] [phone] Teodoro Keyes MD [address] [place] [address] Social History Tobacco Use Types Packs/Day Years [...] PM EST Office Visit [facility] [address] [place] [address] Janine Chester ANP [address] [place] [address] documented as of this encounter Visit Diagnoses Not on filedocumented in this encounter Care Teams Dye Beck Reel Operator Relationship Specialty Start Date End Date Janine Chester ANP [address] [place] [address] PCP - General Family Medicine 10/07/20 documented as of this encounter
== END 2025-02-13 13:53 | disposition home or self-care (01) ==
LOC: HO.RESP 13:52
PROVIDERS: PCP Nurse Practitioner Primary Care; Visit Provider Nurse Practitioner Primary Care
DX: J45.20 Mild intermittent asthma, uncomplicated (principal); Z87.891 Personal history of nicotine dependence
CPT/HCPCS: 94060; 94640; 94727; 94729

== ENCOUNTER → 2025-02-13 13:57 | Outpatient (BNV) | payer MEDICARE, MEDICAID, SELFPAY | PROVIDERS: PCP Nurse Practitioner Primary Care; Visit Provider Internal Medicine Pulmonary Disease | DX: J45.909 Unspecified asthma, uncomplicated (principal) | CPT/HCPCS: 94060; 94727; 94729 ==